=== PATIENT | female | born 1945 | race Caucasian/White ===

== ENCOUNTER → 2020-01-18 14:19 | Outpatient (BNV) | payer MEDICARE, SELFPAY | PROVIDERS: Visit Provider Internal Medicine Medical Oncology | DX: C90.00 Multiple myeloma not having achieved remission (principal); C50.412 Malignant neoplasm of upper-outer quadrant of left female breast | CPT/HCPCS: 38222; 99212; 99213; 99214 ==

== ENCOUNTER 2020-01-31 06:30 | Day surgery (SDC) | payer MEDICARE, SELFPAY ==
[2020-01-24 09:48] VITALS: BMI 32.3
--- NOTE | 2020-01-29 09:24 | HO.ANESPROP2 ---
Documented by User: Thelma Julien 01/30/20 12:38 HPI - Anesthesia Eval Consult details Narrative: 74yo F for bone marrow biopsy PMFSH Past Medical History Medical History (Updated 01/30/20 @ 12:38 by Thelma Julien) Gallstone HLP (hyperkeratosis lenticularis perstans) HTN (hypertension) Hypothyroidism Multiple myeloma Osteopenia Family History Family History (Updated 01/18/20 @ 09:07 by Yamile Blake RN) Other HTN (hypertension) Surgical History Surgical History History of appendectomy History of meniscectomy of left knee History of partial hysterectomy Social History Social History Smoking Status: Former smoker Smoking Quit Date: age 29 Second Hand Smoke Exposure: No Use of substances other than those prescribed or required for medical reasons: No Advance Directives Information Provided: Yes Recently lost weight without trying: No Meds Allergies Allergy/AdvReac Type Severity Reaction Status Date / Time red dye [Red Dye] Allergy Mild SWELLING Verified 01/24/20 10:03 oxycodone AdvReac Intermediate Vomiting Verified 01/24/20 10:04 Home Medications Medication Instructions Recorded Confirmed Type acetaminophen 1,000 mg PO Q6H PRN 01/18/20 01/24/20 History atenolol 25 mg PO DAILY 01/18/20 01/24/20 History calcium carbonate-vit D3-min 600 mg PO DAILY 01/18/20 01/24/20 History levothyroxine 75 mcg PO DAILY 01/18/20 01/24/20 History lisinopril 10 mg PO DAILY 01/18/20 01/24/20 History simvastatin 40 mg PO DAILY 01/18/20 01/24/20 History spironolactone 25 mg PO DAILY 01/18/20 01/24/20 History Exam Exam Date and Time: January 29, [id number] Height,Weight and Vital Signs: Height 5 ft 8 in Weight 96.615 kg Pertinent Lab Results Pertinent Lab Results: Laboratory Tests 01/18/20 01/18/20 16:37 16:37 WBC 5.0 Hgb 14.0 Hct 42.1 Plt Count 226 Sodium 139 Potassium 4.6 Chloride 106 Carbon Dioxide 25 BUN 15 Creatinine 0.88 Laboratory Tests 01/05/20 17:59 PT 12.9 INR 1.1 APTT 35.8 Assessment and Plan Assessment Anesthesia Assessment: Chart Reviewed Documented by User: Adam Jordan 01/31/20 07:33 PMFSH Past Medical History Medical History (Updated 01/30/20 @ 12:38 by Thelma Julien) Gallstone HLP (hyperkeratosis lenticularis perstans) HTN (hypertension) Hypothyroidism Multiple myeloma Osteopenia Family History Family History (Updated 01/18/20 @ 09:07 by Yamile Blake RN) Other HTN (hypertension) Surgical History Surgical History History of appendectomy History of meniscectomy of left knee History of partial hysterectomy Social History Social History Smoking Status: Former smoker Smoking Quit Date: age 29 Second Hand Smoke Exposure: No Use of substances other than those prescribed or required for medical reasons: No Advance Directives Information Provided: Yes Recently lost weight without trying: No Meds Allergies Allergy/AdvReac Type Severity Reaction Status Date / Time red dye [Red Dye] Allergy Mild SWELLING Verified 01/24/20 10:03 oxycodone AdvReac Intermediate Vomiting Verified 01/24/20 10:04 Home Medications Medication Instructions Recorded Confirmed Type acetaminophen 1,000 mg PO Q6H PRN 01/18/20 01/24/20 History atenolol 25 mg PO DAILY 01/18/20 01/24/20 History calcium carbonate-vit D3-min 600 mg PO DAILY 01/18/20 01/24/20 History levothyroxine 75 mcg PO DAILY 01/18/20 01/24/20 History lisinopril 10 mg PO DAILY 01/18/20 01/24/20 History simvastatin 40 mg PO DAILY 01/18/20 01/24/20 History spironolactone 25 mg PO DAILY 01/18/20 01/24/20 History Exam Airway Mallampati Class: II TM Dist: >3cm Neck ROM: Full Denture: Upper and Lower Heart: RRR Assessment and Plan Assessment Anesthesia Assessment: Anesthesia Plan Discussed Final Anesthetic Review NPO: Yes ASA Class: III Anesthetic Plan Anesthetic Plan: MAC:
[2020-01-31 07:05] VITALS: PULSE 72; RESP 16; TEMP 37.1; O2SAT 94
--- NOTE | 2020-01-31 07:24 | P.CONAN_ITS ---
FORM[facility]LY [facility] Past Medical History Medical History (Updated 01/30/20 @ 12:38 by Thelma Julien) Gallstone HLP (hyperkeratosis lenticularis perstans) HTN (hypertension) Hypothyroidism Multiple myeloma Osteopenia Family History Family History (Updated 01/18/20 @ 09:07 by Yamile Blake RN) Other HTN (hypertension) Surgical History Surgical History History of appendectomy History of meniscectomy of left knee History of partial hysterectomy Social History Social History Smoking Status: Former smoker Smoking Quit Date: age 29 Second Hand Smoke Exposure: No Use of substances other than those prescribed or required for medical reasons: No Advance Directives Information Provided: Yes Recently lost weight without trying: No Meds Allergies Allergy/AdvReac Type Severity Reaction Status Date / Time red dye [Red Dye] Allergy Mild SWELLING Verified 01/24/20 10:03 oxycodone AdvReac Intermediate Vomiting Verified 01/24/20 10:04 Home Medications Medication Instructions Recorded Confirmed Type acetaminophen 1,000 mg PO Q6H PRN 01/18/20 01/24/20 History atenolol 25 mg PO DAILY 01/18/20 01/24/20 History calcium carbonate-vit D3-min 600 mg PO DAILY 01/18/20 01/24/20 History levothyroxine 75 mcg PO DAILY 01/18/20 01/24/20 History lisinopril 10 mg PO DAILY 01/18/20 01/24/20 History simvastatin 40 mg PO DAILY 01/18/20 01/24/20 History spironolactone 25 mg PO DAILY 01/18/20 01/24/20 History Exam Exam Date and Time: January 31, 2020 0724 Height,Weight and Vital Signs: Height 5 ft 8 in Weight 96.615 kg Last Vital Signs Temp 98.7 F 01/31/20 07:05 Pulse 72 01/31/20 07:05 Resp 16 01/31/20 07:05 Pulse Ox 94 01/31/20 07:05 Airway Mallampati Class: II TM Dist: >3cm Neck ROM: Full Denture: Upper and Lower Heart: RRR Assessment and Plan Assessment Anesthesia Assessment: Anesthesia Plan Discussed Final Anesthetic Review NPO: Yes ASA Class: III Anesthetic Plan Anesthetic Plan: MAC:
[2020-01-31] MEDS: Lactated Ringers 1,000 ML 100 ML IVCONT (07:47)
[2020-01-31 08:49] VITALS: BP 148/80; PULSE 72; RESP 12; TEMP 36; O2SAT 94
[2020-01-31 09:04] VITALS: BP 155/78; PULSE 59; RESP 16; O2SAT 97
[2020-01-31 09:10] LABS: Bone Marrow SEE SEPARATE REPORT
[2020-01-31 09:19] VITALS: BP 158/59; PULSE 69; RESP 16; TEMP 36.1; O2SAT 94
--- NOTE | 2020-01-31 09:49 | PM.HEMONCBM ---
Bone Marrow Aspiration - Bone Marrow Aspiration Procedure:: *Service Date: [01/31/20] Bone marrow aspiration and biopsy, Under MAC. 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 Post Op Diagnosis:: same. Surgeon:: Hema Balderas M.D. Anesthesia:: MAC Consent:: Informed consent obtained from the patient for the procedure. Pros and cons of biopsy explained. The patient was willing to proceed with the procedure under local anesthesia. Procedure in Detail:: *Service Date: 01/31/2020. *Procedure: [Bone marrow aspiration and biopsy.] *Pre Op Dx: [IgG kappa monoclonal gammopathy] *Post Op Dx: [same] *Surgeon: [Hema Balderas.] The patient was positioned prone. The left posterior superior iliac spine prepped and draped. Under aseptic precautions, 5 ml of 1% lidocaine used for local anesthesia. Bone marrow aspirate was taken. With the Jamshidi needle, a core biopsy was obtained without any complications. Specimens were sent for Mayes stain, flow cytometry and cytogenetics. Biopsy was sent for histology. The patient tolerated the procedure well. Bandage was applied and patient was positioned on her back for 10 to 15 minutes after the procedure. The patient was advised to call us if she develops any pain or swelling at the surgical site. Follow up in 2 weeks.
--- NOTE | 2020-01-31 09:52 | HO.POSTANES ---
Post Anesthesia Evaluation Post Anesthesia Evaluation Vital Signs: Vital Signs Temp Pulse Resp BP Pulse Ox 01/31/20 09:19 96.9 F 69 16 158/59 H 94 01/31/20 09:04 59 16 155/78 H 97 01/31/20 08:49 96.8 F 72 12 148/80 H 94 01/31/20 07:05 98.7 F 72 16 94 Anesthesia: Monitored Mental Status: Awake Pain Control: Satisfactory Nausea/Vomiting: None Hydration: Adequate Anesthesia-Related Issues: No Anes. Related Issues
[2020-02-04 12:55] LABS: LLE Report Type SEE ABOVE
[2020-02-05 11:47] LABS: LLE Markers 25
== END 2020-01-31 10:00 | disposition home or self-care (01) ==
PROVIDERS: Visit Provider Internal Medicine Medical Oncology
PROC: (CPT 38221; principal; 2020-01-31 08:10)
DX: C90.00 Multiple myeloma not having achieved remission (principal)
CPT/HCPCS: 38222; 36415; 88185; 88264; 88271; 88275; 88305; 88311; 88313; 88342; 88344; J0131; J1642

== ENCOUNTER 2020-06-02 06:56 | Outpatient (REF) | payer MEDICARE, SELFPAY ==
[2020-06-02 07:16] LABS: MANUAL DIFF FLAG NO
[2020-06-02 07:33] LABS: Basophils Percent Auto 0.2 % (0-2); Eosinophils Absolute Auto 0.1 X10*3/uL (0.0-0.4); Eosinophils Percent Auto 2.9 % (0-4); Hematocrit 37.4 % (37-47); Hemoglobin 12.5 g/dl (12.0-16.0); Imm Gran Abs Auto 0.04 X10*3/uL (0.00-0.03); Imm Gran Pct Auto 0.9 % (0.0-0.4); Lymphocytes Absolute Auto 1.9 X10*3/uL (1.2-4.9); Lymphocytes Percent Auto 43.5 % (20-40); Mean Corpuscular HGB Conc 33.4 g/dl (31.0-35.0); Mean Corpuscular Hemoglobin 31.6 pg (27.0-33.0); Mean Corpuscular Volume 94.4 fL (80-98); Mean Platelet Volume 12.3 fL (9.4-12.3); Monocytes Absolute Auto 0.6 X10*3/uL (0.1-1.2); Monocytes Percent Auto 12.8 % (2-11); Neutrophils Absolute Auto 1.8 X10*3/uL (2.0-8.3); Neutrophils Percent Auto 39.7 % (45-73); Platelet Count 155 X10*3/uL (160-400); Red Blood Count 3.96 X10*6/uL (4.20-5.50); Red Cell Distribution Width 15.9 % (11.0-16.0); White Blood Count 4.4 X10*3/uL (4.8-10.8)
[2020-06-02 07:45] LABS: Alanine Aminotransferase 48 U/L (0-31); Albumin Level 3.6 g/dL (3.5-5.0); Alkaline Phosphatase 61 U/L (39-117); Aspartate Amino Transferase 42 U/L (5-31); Bilirubin Total 1.3 mg/dL (0.0-1.0); Blood Urea Nitrogen 12 mg/dL (9-16); Calcium 8.1 mg/dL (8.4-10.2); Estimated Glomerular Filt Rate > 60; Glucose Random 144 mg/dL (60-115); Total Protein 5.5 g/dL (6.5-8.0)
[2020-06-02 07:54] LABS: Anion Gap 15 (12-20); Carbon Dioxide 29 mmol/L (22-29); Chloride 101 mmol/L (96-108); Potassium 2.8 mmol/L (3.3-5.1); Sodium 142 mmol/L (135-145)
== END 2020-06-02 06:57 | disposition home or self-care (01) ==
LOC: HO.LAB 06:56
PROVIDERS: Visit Provider Internal Medicine Medical Oncology
DX: C90.00 Multiple myeloma not having achieved remission (principal)
CPT/HCPCS: 36415; 80053; 85025

== ENCOUNTER → 2020-07-24 08:29 | Outpatient (BNVA) | payer MEDICARE, SELFPAY | PROVIDERS: PCP Internal Medicine; Visit Provider Internal Medicine | DX: R55 Syncope and collapse (principal); I45.2 Bifascicular block; I95.1 Orthostatic hypotension | CPT/HCPCS: 99202 ==

== ENCOUNTER 2020-08-07 10:19 | Outpatient (REF) | payer MEDICARE, SELFPAY ==
[2020-08-07 10:31] LABS: Creatinine (CrCl) 0.83 mg/dL (0.5-1.4); Total Volume 24 Hour Urine 725 mL
[2020-08-07 11:15] LABS: Creatinine Clearance 79.6 mL/min (85-125); Creatinine, mg/dL 131.37
== END 2020-08-07 10:20 | disposition home or self-care (01) ==
LOC: HO.LNP 10:19
PROVIDERS: Visit Provider Internal Medicine Hypertension Specialist
DX: E87.6 Hypokalemia (principal)
CPT/HCPCS: 82575

== ENCOUNTER → 2020-09-08 08:18 | Outpatient (REF) | payer MEDICARE, SELFPAY ==
--- NOTE | 2020-09-08 08:21 | CA_ITS ---
Transthoracic Echocardiogram Patient (Last, First, Middle): Merary He J Gender: Female Date of : 1945 Age: 74 Procedure Date: 09/08/2020 Procedure Type: Transthoracic Echocardiogram Location: OP Height: 172.72 cm Weight: 89.36 kg BSA: 2.03 m2 Heart Rate: bpm BP: 110 / 60 mmHg Manager Data: YR/CP Referring MD: Noe Del Rio MD Symptoms: I45.2 - Bifascicular block Study Quality: Fair ECG Rhythm: Sinus Conclusions: - The left ventricular systolic function is normal. The visually estimated ejection fraction is between 55-60%. - E/E prime ratio is >15, consistent with elevated filling pressures. Evidence suggests grade I (mild) diastolic dysfunction. - There is moderate calcification of the aortic valve. There is mild aortic valve stenosis. Findings Left Ventricle Normal left ventricular cavity size. There is mildly increased left ventricular wall thickness. The left ventricular systolic function is normal. The visually estimated ejection fraction is between 55-60%. There is no evidence of regional wall motion abnormalities. E/E prime ratio is >15, consistent with elevated filling pressures. Evidence suggests grade I (mild) diastolic dysfunction. Focal hypertrophy of the basal septum. Right Ventricle Normal right ventricular cavity size and systolic function. Atria The left atrium is normal in size. The right atrium is normal in size. Aortic Valve There is moderate calcification of the aortic valve. There is mild aortic valve stenosis. The peak aortic velocity is 2.80 m/s with a calculated peak gradient of 31 mmHg. The mean gradient is 15 mmHg. The aortic valve area is 1.52 cm2. There is no aortic valve regurgitation. Mitral Valve There is mild mitral annular calcification. There is trace mitral valve regurgitation. There is no mitral valve stenosis. Pulmonic Valve The pulmonic valve was not well visualized. Tricuspid Valve Normal tricuspid valve structure. There is trace tricuspid valve regurgitation. The pulmonary artery systolic pressure is normal. Great Vessels Top normal ascending aortic size at 3.7 cm. Venous The inferior vena cava is normal in size and collapses greater than 50% with inspiration. Pericardium/Pleural There is no evidence of pericardial effusion. Prior Study Comparison Changes noted compared to prior study dated: 04/25/2007. Measurements 2D Linear Measurements IVSd: 1.17 0.6-0.9/0.6-1.0 cm LVIDd: 4.75 3.9-5.3/4.2-5.9 cm LVIDd Index: 2.34 2.4-3.2/2.2-3.1 cm/m2 LVIDs: 2.66 2.0-3.6 cm LVPWd: 1.13 0.7-1.1 cm Ao Root: 3.50 2.1-3.5 cm LA Diam: 3.80 2.7-3.8/3.0-4.0 cm LAIDs Index: 1.87 1.5-2.3 cm/m2 LV Mass: 252.96 67-162/88-224 g LV Mass Index: 124.61 43-95/49-115 g/m2 LVOT Diam: 2.10 3.0+(-)1.3 cm 2D Systolic Function EF 4C: 58.50 >55% EF 2C: 52.60 >55% EF BiP: 55.60 >55% Mitral Valve MV Pk E: 0.76 MV PK A: 0.92 MV Decel Time: 227.00 E/A: 0.80 E'Lateral: 3.59 E'Medial: 4.03 E/E' Med: 18.80 E/E' Lat: 21.10 PHT: 67.00 MVA PHT: 3.28 Decel Dunn: 3.34 Aortic Valve AoV Pk Haroldo: 2.80 AoV Mn Haroldo: 1.78 AoV VTI: 0.57 AoV Pk Grad: 31.00 Aov Mn Grad: 15.00 EDUARD Cont.VTI: 1.52 LVOT LVOT Pk Haroldo: 1.17 LVOT Mn Haroldo: 0.87 LVOT VTI: 0.25 LVOT Pk Grad: 5.00 LVOT Mn Grad: 3.00 LVOT Diam: 2.10 LVOT Area: 3.46 Diastolic Function MV Pk E: 0.76 MV Pk A: 0.92 E/A: 0.80 E'Medial: 4.03 E/E' Med: 18.80 E' Laterial: 3.59 E/E' Lat: 21.10 Tricuspid Valve TR Pk Haroldo: 1.93 TR Pk Grad: 15.00 RA Press: 3.00 RVSP: 18.00 Great Vessels Aorta Ao Root-2D: 3.50 2.0-3.7 cm Ao Asc: 3.70 2.1-3.4 cm Ao Arch: 3.20 Updated in Other Vendor System with Status of Final Noe Del Rio MD electronically signed on 09/08/2020 11:34:31 AM with status of Final
--- NOTE | 2020-09-08 08:21 | HM_ITS ---
REASON FOR TESTING: Heart block. ENROLLMENT PERIOD: 09/08/2020 to 10/03/2020. FINDINGS: In the above monitoring period, the underlying rhythm was sinus. The baseline strip showed resting sinus tachycardia, rate of 105/min. Otherwise in the entire monitoring period, no other arrhythmias noted. CONCLUSION: Study shows evidence of mild sinus tachycardia but otherwise unremarkable. MD AYE Field/LORELEI / [id number]
== END ==
LOC: HO.CARD 08:18
PROVIDERS: Visit Provider Internal Medicine
DX: I45.2 Bifascicular block (principal)
CPT/HCPCS: 93270; 93306

== ENCOUNTER → 2020-10-14 08:17 | Outpatient (BNVA) | payer MEDICARE, SELFPAY | PROVIDERS: PCP Internal Medicine; Referring Provider Internal Medicine; Visit Provider Internal Medicine | DX: I95.1 Orthostatic hypotension (principal); I45.2 Bifascicular block; I35.0 Nonrheumatic aortic (valve) stenosis | CPT/HCPCS: 99212 ==

== ENCOUNTER 2020-11-17 11:02 | Inpatient (IN) | payer MEDICARE, SELFPAY ==
[2020-11-17] VITALS (9 sets, daily range): BP systolic 141–198; BP diastolic 63–92; PULSE 77–88; RESP 16–20; TEMP 36.6–37.3; O2SAT 94–97; BMI 30.1
--- NOTE | ~2020-11-17 | CT_ITS ---
EXAMINATION: CT HEAD WITHOUT CONTRAST (STROKE PROTOCOL) CLINICAL INFORMATION: Stroke protocol. COMPARISON: None TECHNIQUE: Contiguous axial imaging was performed from the skull base to vertex without intravenous administration of contrast. This CT examination was performed using dose optimization techniques as appropriate, variously including the following: *Automated exposure control *Adjustment of mA and/or kV according to patient size (this includes techniques or standardized protocols for targeted exams where dose is matched to indication/reason for exam; i.e. extremities or head) *Use of iterative reconstruction technique DLP: 686 mGy-cm FINDINGS: There is no intracranial hemorrhage, hematoma, or extra-axial fluid collection. The ventricles are normal in size. There is no hydrocephalus, edema, or mass effect. The angel-white matter differentiation appears symmetric. There is no acute infarct or mass lesion. The calvarium appears intact. There is no pneumocephalus or orbital emphysema. There is inflammatory change in the bilateral maxillary sinuses. CT/CT head for stroke IMPRESSION: No acute intracranial findings. Inflammatory changes in the bilateral maxillary sinuses. This critical result was discussed with Dr. Mishra at 1153 hours on 11/17/2020. It was ascertained that the content and urgency of the report was understood at the time of direct communication.
--- NOTE | ~2020-11-17 | XR_ITS ---
EXAMINATION: XR CHEST CLINICAL INFORMATION: Stroke COMPARISON: None TECHNIQUE: Frontal view of the chest was obtained. FINDINGS: The cardiac silhouette is upper normal in size. Hilar and mediastinal contours are unremarkable. The lungs are clear. There is no pleural effusion or pneumothorax. There are degenerative changes of the spine. There may be osteopenia. XR/XR chest 1V IMPRESSION: Upper normal-size cardiac silhouette. No evidence for acute disease in the chest.
--- NOTE | ~2020-11-17 | MR_ITS ---
EXAMINATION: MR BRAIN WITHOUT CONTRAST CLINICAL INFORMATION: Stroke? Change in mental status? COMPARISON: Head CT performed earlier the same day. TECHNIQUE: Multiplanar, multisequence imaging of the brain was performed without intravenous contrast. FINDINGS: There is no acute infarction, mass, hemorrhage, or extra-axial collection. The ventricles, sulci, and basilar cisterns are normal in size and configuration. Mild scattered foci of T2/FLAIR hyperintensity are seen within the bilateral cerebral white matter, a nonspecific finding which presumably reflects chronic microangiopathy. The flow voids of the major intracranial arteries appear intact. Scattered paranasal sinus mucosal thickening is noted including lobular mucosal thickening in the left more than right maxillary sinuses. No fluid levels are seen. The mastoids are clear. MR/MR head/brain wo con IMPRESSION: No acute infarct, mass lesion, intracranial hemorrhage, or evidence of hydrocephalus. Background changes of chronic microangiopathy.
--- NOTE | 2020-11-17 11:25 | ECG_ITS ---
Test Reason : WEAKNESS Blood Pressure : / mmHG Vent. Rate : 093 BPM Atrial Rate : 093 BPM P-R Int : 152 ms QRS Dur : 136 ms QT Int : 440 ms P-R-T Axes : 023 -76 -02 degrees QTc Int : 547 ms Normal sinus rhythm Right bundle branch block Left anterior fascicular block Bifascicular block T wave abnormality, consider lateral ischemia Abnormal ECG When compared with ECG of 22-JUL-2020 11:03, T wave inversion now evident in Lateral leads Referred By: Sharad Mishra Electronically Signed By:Tyrel Torres
--- NOTE | 2020-11-17 11:26 | ED.GENADULT ---
HPI - General Adult General Chief complaint: Weakness Stated complaint: trouble finding words, eyes are droopy Time Seen by Provider: 11/17/20 11:25 Source: patient, family (Granddaughter) and EMS Mode of arrival: EMS Limitations: no limitations History of Present Illness HPI narrative: 75 years old female came in for evaluation of speech problem. This is a 75-year-old female came in by ambulance after talked to her granddaughter at 10:46 and the granddaughter noted that g mom is unable to find worse and she is speaking and abnormal way, on arrival to the emergency department patient appears anxious, with involuntary tremors noted that patient is known to have normal tremor, patient is able to carry conversation with garbled speech, as per family this is not her normal way to speak and she is speaking slower patient noted to have expressive aphasia. No other weakness noted on the exam. Patient is known to have hypertension, hypothyroidism, multiple myeloma, osteopenia, postural hypotension. Related Data Home Medications Medication Instructions Recorded Confirmed acetaminophen 500 mg tablet 1,000 mg PO Q6H PRN 01/18/20 11/17/20 calcium carbonate 600 mg (1,500 2 tab PO BID 01/18/20 11/17/20 mg)-vitamin D3 200 unit tablet dexamethasone 20 mg tablet 20 mg PO DAILY 02/22/20 11/17/20 docusate sodium 100 mg capsule 100 mg PO BID PRN 07/15/20 11/17/20 midodrine 2.5 mg tablet 2.5 mg PO DAILY 08/19/20 11/17/20 cyanocobalamin (vitamin B-12) 1,000 mcg PO DAILY 11/17/20 11/17/20 1,000 mcg tablet diphenhydramine HCl 25 mg capsule 25 mg PO BEDTIME 11/17/20 11/17/20 (Benadryl) potassium chloride 20 mEq 20 meq PO TID 11/17/20 11/17/20 tablet,extended release Previous Rx's Medication Instructions Recorded aspirin 81 mg tablet,delayed 81 mg PO DAILY #60 tab 02/12/20 release (Aspirin Low Dose) levothyroxine 75 mcg tablet 75 mcg PO DAILY #60 tab 05/15/20 simvastatin 40 mg tablet 40 mg PO DAILY #90 tab 06/05/20 valacyclovir 500 mg tablet 500 mg PO DAILY #90 tab 05/06/21 (Valtrex) sulfamethoxazole 800 1 tab PO Q12H #180 tab 09/12/20 mg-trimethoprim 160 mg tablet (Bactrim DS) lenalidomide 15 mg capsule 15 mg PO DAILY #14 cap 10/09/20 (Revlimid) fludrocortisone 0.1 mg tablet 0.1 mg PO BID #60 tab 10/21/20 Allergies Allergy/AdvReac Type Severity Reaction Status Date / Time red dye [Red Dye] Allergy Mild SWELLING Verified 10/14/20 08:31 oxycodone AdvReac Intermediate Vomiting Verified 10/14/20 08:31 Review of Systems Review of Systems: All other systems are reviewed and are negative Constitutional: Reports as per HPI and Reports no additional constitutional complaints Eyes: Reports as per HPI and Reports no additional eye complaints Reports system reviewed and no additional complaints, except as documented Cardiovascular: Reports as per HPI and Reports no additional cardiovascular complaints Respiratory: Reports as per HPI and Reports no additional respiratory complaints Gastrointestinal: Reports as per HPI and Reports no additional gastrointestinal complaints Genitourinary: Reports no additional female genitourinary complaints Musculoskeletal: Reports no additional musculoskeletal complaints Skin/Breast: Reports system reviewed and no additional complaints, except as docu Psychiatric: Reports no additional psychiatric complaints Endocrine: Reports no additional endocrine complaints Hematologic/Lymphatic: Reports no additional hematologic/lymphatic complaints Allergic/Immunologic: Reports no additional allergic/immunologic complaints Reports system reviewed and no additional complaints, except as documented and Reports Abnormal speech present [facility] Past Medical History Medical History Gallstone HLP (hyperkeratosis lenticularis perstans) HTN (hypertension) Hypothyroidism Mitral regurgitation Multiple myeloma Osteopenia Postural hypotension Surgical History History of appendectomy History of meniscectomy of left knee History of partial hysterectomy Family History Family History Other HTN (hypertension) Social History Social History Are you a primary acute care occupational therapist to a significant other at home: No Alcohol intake: never Patient Tobacco Use Status: Former Tobacco user Tobacco use type: Cigarette Second Hand Smoke Exposure: No Advance Directives: Yes Advance Directives on File: No Physical Exam Vital Signs: Vital Signs: Last Vital Signs Temp 98.4 F 11/17/20 18:34 Pulse 77 11/17/20 18:34 Resp 16 11/17/20 18:34 BP 161/67 H 11/17/20 18:34 Pulse Ox 94 11/17/20 18:34 Body Mass Index 30.1 Vital signs have been reviewed as appeared to be correct. Blood pressure elevated. Heart rate normal. Respiration rate normal. Temperature normal. Oxygen saturation normal. Appearance: Alert. Oriented X3. No acute distress. Head: Normal external exam. Normocephalic. Atraumatic. No Parker signs noted. No raccoon eyes noted Eyes: PERRLA. EOMI. Conjunctiva and sclera normal. Eyelids normal. ENT: TM's Normal. Pharynx normal. Uvula midline. Moist mucous membranes. No trismus noted. No drooling noted. No muffled voice noted. Neck: Normal inspection. Neck supple. FROM. No adenopathy. Thyroid Normal. No meningeal signs. No neck mass noted. CVS: Normal heart rate and rhythm. Heart sound normal. No murmurs noted. Pulses normal throughout. Respiratory: No respiratory distress. Painless inspiration. Breath sounds normal. No wheezes/rales/rhonchi noted. Chest nontender. No accessory muscle usage noted or decreased air movement noted. Abdomen: Soft and nontender. Bowel sounds normal in all 4 quadrants. No distention noted. No organomegaly noted. No visible injury noted. Back: No CVA tenderness. Full range of motion noted. Skin: Skin warm and dry. Normal skin color. Normal skin turgor. No rashes/lesions/lacerations noted. Extremities: No lower extremity edema. Extremities exhibit normal range of motion. Extremities nontender. Neuro: Oriented X 3. No motor deficit. No sensory deficit. Reflexes normal. NIH Stroke Scale Level of Consciousness: Alert Level of Consciousness Questions: Answers both questions correctly Level of Consciousness Commands: Performs both tasks correctly Best Gaze: Normal Visual: No visual loss Facial Palsy: Normal Motor Arm (Right): No drift Motor Arm (Left): No drift Motor Leg (Right): No drift Motor Leg (Left): No drift Limb Ataxia: Absent Sensory: Normal Best Language: Mild to moderate aphasia Dysarthia: Normal Extinction and Inattention: No abnormality Score: 1 Course Reevaluation(s) Reevaluation #1: When back in the room daughter at the bedside, patient is able to speak more clear and closed and Adriana as per daughter, patient appears very anxious, patient stated that yesterday she yells been tired all day just slept most of the day and she had a headache, patient today complained of headache described as mild. Time: 11:41 Reevaluation #2: Daughter in the room talking to the patient who stated that the patient is back to her normal baseline, patient had CT head/MRI of the head which showed no acute stroke, electrolytes showed hypokalemia which was repleted, will check magnesium. Because troponin was elevated and the 2nd 3 hours apart troponin was more elevated with dull to change the case discussed with Dr. Torres who recommended to admit the patient for serial EKG, and serial troponin, and repeat electrolytes. Time: 19:48 Medical Decision Making Lab Data Lab results reviewed: Yes I reviewed the patient's lab results. Result diagrams: 11/17/20 11:55 11/17/20 11:55 Labs: Lab Results 11/17/20 11/17/20 11/17/20 Range/Units 11:55 11:55 11:55 WBC 6.2 (4.8-10.8) X10*3/uL RBC 4.17 L (4.20-5.50) X10*6/uL Hgb 13.5 (12.0-16.0) g/dl Hct 38.7 (37-47) % MCV 92.8 (80-98) fL MCH 32.4 (27.0-33.0) pg MCHC 34.9 (31.0-35.0) g/dl RDW 14.3 (11.0-16.0) % Plt Count 218 (160-400) X10*3/uL MPV 11.5 (9.4-12.3) fL Immature Gran % (Auto) 0.5 H (0.0-0.4) % Neut % (Auto) 51.9 (45-73) % Lymph % (Auto) 31.4 (20-40) % [place] % (Auto) 14.5 H (2-11) % Eos % (Auto) 1.5 (0-4) % Baso % (Auto) 0.2 (0-2) % Lymph # (Auto) 1.9 (1.2-4.9) X10*3/uL [place] # (Auto) 0.9 (0.1-1.2) X10*3/uL Eos # (Auto) 0.1 (0.0-0.4) X10*3/uL Baso # (Auto) 0.0 (0.0-0.2) X10*3/uL Abs Immat Gran (auto) 0.03 (0.00-0.03) X10*3/uL Absolute Neuts (auto) 3.2 (2.0-8.3) X10*3/uL Absolute Nucleated RBC 0.000 (0.0-0.012) X10*3/uL Nucleated RBC % (auto) 0.0 (0.0-0.2) /100WBC PT 13.2 H (9.9-13.0) SEC INR 1.2 H (0.9-1.1) APTT 27.2 (24.1-38.0) SEC Sodium 142 (135-145) mmol/L Potassium 2.8 L (3.3-5.1) mmol/L Chloride 100 (96-108) mmol/L Carbon Dioxide 23 (22-29) mmol/L Anion Gap 22 H (12-20) BUN 15 (9-16) mg/dL Creatinine 0.97 (0.5-1.4) mg/dL Estim Creat Clear Calc 55.9 Estimated GFR 56 POC Glucose (60-115) mg/dL Random Glucose 168 H D (60-115) mg/dL Calcium 9.6 D (8.4-10.2) mg/dL Total Creatine Kinase 43 (26-140) U/L Troponin I High Sens (<3.5-17.0) ng/L Urine Color Urine Appearance Urine pH (5.0-8.0) Ur Specific [place] (1.005-1.025) Urine Protein (NEG-TRACE) MG/DL Urine Glucose (UA) (NEG) MG/DL Urine Ketones (NEG) MG/DL Urine Blood (NEG) Urine Nitrite (NEG) Ur Leukocyte Esterase (NEG) Urine RBC (0) /HPF Urine WBC (0-4) /HPF Ur Squamous Epith Cells /LPF Urine Bacteria /LPF COVID-19 ([facility]) (Negative) COVID-19 Clin Com 11/17/20 11/17/20 11/17/20 Range/Units 11:55 12:39 15:46 WBC (4.8-10.8) X10*3/uL RBC (4.20-5.50) X10*6/uL Hgb (12.0-16.0) g/dl Hct (37-47) % MCV (80-98) fL MCH (27.0-33.0) pg MCHC (31.0-35.0) g/dl RDW (11.0-16.0) % Plt Count (160-400) X10*3/uL MPV (9.4-12.3) fL Immature Gran % (Auto) (0.0-0.4) % Neut % (Auto) (45-73) % Lymph % (Auto) (20-40) % [place] % (Auto) (2-11) % Eos % (Auto) (0-4) % Baso % (Auto) (0-2) % Lymph # (Auto) (1.2-4.9) X10*3/uL [place] # (Auto) (0.1-1.2) X10*3/uL Eos # (Auto) (0.0-0.4) X10*3/uL Baso # (Auto) (0.0-0.2) X10*3/uL Abs Immat Gran (auto) (0.00-0.03) X10*3/uL Absolute Neuts (auto) (2.0-8.3) X10*3/uL Absolute Nucleated RBC (0.0-0.012) X10*3/uL Nucleated RBC % (auto) (0.0-0.2) /100WBC PT (9.9-13.0) SEC INR (0.9-1.1) APTT (24.1-38.0) SEC Sodium (135-145) mmol/L Potassium (3.3-5.1) mmol/L Chloride (96-108) mmol/L Carbon Dioxide (22-29) mmol/L Anion Gap (12-20) BUN (9-16) mg/dL Creatinine (0.5-1.4) mg/dL Estim Creat Clear Calc Estimated GFR POC Glucose 152 H (60-115) mg/dL Random Glucose (60-115) mg/dL Calcium (8.4-10.2) mg/dL Total Creatine Kinase (26-140) U/L Troponin I High Sens 17.5 H* (<3.5-17.0) ng/L Urine Color YELLOW Urine Appearance HAZY Urine pH 6.5 (5.0-8.0) Ur Specific [place] 1.010 (1.005-1.025) Urine Protein 1+ H (NEG-TRACE) MG/DL Urine Glucose (UA) NEG (NEG) MG/DL Urine Ketones 15 (NEG) MG/DL Urine Blood NEG (NEG) Urine Nitrite POS H (NEG) Ur Leukocyte Esterase 1+ H (NEG) Urine RBC 0-2 (0) /HPF Urine WBC 15-29 H (0-4) /HPF Ur Squamous Epith Cells 1+ /LPF Urine Bacteria 4+ /LPF COVID-19 ([facility]) (Negative) COVID-19 Clin Com 11/17/20 11/17/20 Range/Units 18:07 19:16 WBC (4.8-10.8) X10*3/uL RBC (4.20-5.50) X10*6/uL Hgb (12.0-16.0) g/dl Hct (37-47) % MCV (80-98) fL MCH (27.0-33.0) pg MCHC (31.0-35.0) g/dl RDW (11.0-16.0) % Plt Count (160-400) X10*3/uL MPV (9.4-12.3) fL Immature Gran % (Auto) (0.0-0.4) % Neut % (Auto) (45-73) % Lymph % (Auto) (20-40) % [place] % (Auto) (2-11) % Eos % (Auto) (0-4) % Baso % (Auto) (0-2) % Lymph # (Auto) (1.2-4.9) X10*3/uL [place] # (Auto) (0.1-1.2) X10*3/uL Eos # (Auto) (0.0-0.4) X10*3/uL Baso # (Auto) (0.0-0.2) X10*3/uL Abs Immat Gran (auto) (0.00-0.03) X10*3/uL Absolute Neuts (auto) (2.0-8.3) X10*3/uL Absolute Nucleated RBC (0.0-0.012) X10*3/uL Nucleated RBC % (auto) (0.0-0.2) /100WBC PT (9.9-13.0) SEC INR (0.9-1.1) APTT (24.1-38.0) SEC Sodium (135-145) mmol/L Potassium (3.3-5.1) mmol/L Chloride (96-108) mmol/L Carbon Dioxide (22-29) mmol/L Anion Gap (12-20) BUN (9-16) mg/dL Creatinine (0.5-1.4) mg/dL Estim Creat Clear Calc Estimated GFR POC Glucose (60-115) mg/dL Random Glucose (60-115) mg/dL Calcium (8.4-10.2) mg/dL Total Creatine Kinase (26-140) U/L Troponin I High Sens 49.8 H* D (<3.5-17.0) ng/L Urine Color Urine Appearance Urine pH (5.0-8.0) Ur Specific [place] (1.005-1.025) Urine Protein (NEG-TRACE) MG/DL Urine Glucose (UA) (NEG) MG/DL Urine Ketones (NEG) MG/DL Urine Blood (NEG) Urine Nitrite (NEG) Ur Leukocyte Esterase (NEG) Urine RBC (0) /HPF Urine WBC (0-4) /HPF Ur Squamous Epith Cells /LPF Urine Bacteria /LPF COVID-19 ([facility]) Negative (Negative) COVID-19 Clin Com See Note Imaging Data Chest x-ray: Radiologist's impression: Upper normal-size cardiac silhouette. No evidence for acute disease in the chest. ? Brain MRI: Radiologist's impression: No acute infarct, mass lesion, intracranial hemorrhage, or evidence of hydrocephalus. Background changes of chronic microangiopathy. CT scan - head: Radiologist's impression: No acute intracranial findings. Inflammatory changes in the bilateral maxillary sinuses. ? ECG Data Interpretation: Normal sinus rhythm at 93 beats per minute, right bundle branch block, T-wave inversion in V4, V5, V6 which changed from most recent EKG. Critical Care Time Critical Care Time Critical Care Time: Yes Total Critical Care Time: 60 Attestation: I spent 60 minutes providing critical care service to the patient, this including time spent at the bedside to evaluate the patient, reassess the patient, monitoring vital signs, review labs, and radiographic studies, counseling the patient/family, discussing the case with consultants, disposition the patient. Discharge Plan Discharge Clinical Impression: Acute UTI, Abnormal ECG, Elevated troponin Patient Disposition: Admitted As Inpatient Prescriptions: No Action simvastatin 40 mg tablet 40 mg PO DAILY Qty: 90 RF: 1 calcium carbonate-vitamin D3 [Calcium + D] 600 mg(1,500mg) -200 unit Tablet 2 tab PO BID RF: 0 acetaminophen 500 mg Tablet 1,000 mg PO Q6H PRN (Reason: Pain) RF: 0 aspirin [Aspirin Low Dose] 81 mg Tablet,Delayed Release (Dr/Ec) 81 mg PO DAILY Qty: 60 RF: 6 dexamethasone 20 mg Tablet 20 mg PO DAILY RF: 0 levothyroxine 75 mcg Tablet 75 mcg PO DAILY Qty: 60 RF: 0 docusate sodium 100 mg Capsule 100 mg PO BID PRN (Reason: Constipation) RF: 0 midodrine 2.5 mg Tablet 2.5 mg PO DAILY RF: 0 valacyclovir [Valtrex] 500 mg Tablet 500 mg PO DAILY Qty: 90 RF: 5 sulfamethoxazole-trimethoprim [Bactrim DS] 800-160 mg Tablet 1 tab PO Q12H Qty: 180 RF: 6 Revlimid 15 mg Capsule 15 mg PO DAILY Qty: 14 RF: 11 fludrocortisone 0.1 mg Tablet 0.1 mg PO BID Qty: 60 RF: 3 cyanocobalamin (vitamin B-12) 1,000 mcg Tablet 1,000 mcg PO DAILY RF: 0 diphenhydramine HCl [Benadryl] 25 mg Capsule 25 mg PO BEDTIME RF: 0 potassium chloride 20 mEq tablet extended release 20 meq PO TID RF: 0
[2020-11-17] MEDS: Potassium Chloride Packet 20 MEQ PACKET 40 MEQ PO ×2 (11:30→22:55)
[2020-11-17] MEDS: LORazepam 2 MG/ML VIAL 0.5 MG IVPUSH (11:57)
[2020-11-17 11:59] LABS: MANUAL DIFF FLAG NO
[2020-11-17 12:01] LABS: Basophils Percent Auto 0.2 % (0-2); Eosinophils Absolute Auto 0.1 X10*3/uL (0.0-0.4); Eosinophils Percent Auto 1.5 % (0-4); Hematocrit 38.7 % (37-47); Hemoglobin 13.5 g/dl (12.0-16.0); Imm Gran Abs Auto 0.03 X10*3/uL (0.00-0.03); Imm Gran Pct Auto 0.5 % (0.0-0.4); Lymphocytes Absolute Auto 1.9 X10*3/uL (1.2-4.9); Lymphocytes Percent Auto 31.4 % (20-40); Mean Corpuscular HGB Conc 34.9 g/dl (31.0-35.0); Mean Corpuscular Hemoglobin 32.4 pg (27.0-33.0); Mean Corpuscular Volume 92.8 fL (80-98); Mean Platelet Volume 11.5 fL (9.4-12.3); Monocytes Absolute Auto 0.9 X10*3/uL (0.1-1.2); Monocytes Percent Auto 14.5 % (2-11); Neutrophils Absolute Auto 3.2 X10*3/uL (2.0-8.3); Neutrophils Percent Auto 51.9 % (45-73); Platelet Count 218 X10*3/uL (160-400); Red Blood Count 4.17 X10*6/uL (4.20-5.50); Red Cell Distribution Width 14.3 % (11.0-16.0); White Blood Count 6.2 X10*3/uL (4.8-10.8)
[2020-11-17 12:27] LABS: INTERNATIONAL NORM RATIO 1.2 (0.9-1.1); Prothrombin Time 13.2 SEC (9.9-13.0)
[2020-11-17 12:30] LABS: Partial Thromboplastin Time 27.2 SEC (24.1-38.0)
--- NOTE | 2020-11-17 12:32 | PC.NURSE ---
PT HERE FROM HOME, FAMILY STATES AMS, PT NOT AT HER BASELINE. PT HAS TREMORS AT BASELINE CT DONE, IV STARTED, PT CURRENTLY SLEEPING WAITING ON MRI
[2020-11-17 12:37] LABS: Anion Gap 22 (12-20); Blood Urea Nitrogen 15 mg/dL (9-16); Calcium 9.6 mg/dL (8.4-10.2); Carbon Dioxide 23 mmol/L (22-29); Chloride 100 mmol/L (96-108); Creatinine Clr Calc Pharmacy 55.9; Estimated Glomerular Filt Rate 56; Glucose Random 168 mg/dL (60-115); Potassium 2.8 mmol/L (3.3-5.1); Sodium 142 mmol/L (135-145)
[2020-11-17 12:44] LABS: Troponin-I High Sensitivity 17.5 ng/L (<3.5-17.0)
[2020-11-17 13:28] LABS: Stroke Lab Use COMPLETE
[2020-11-17 13:39] LABS: Glucose, Whole Blood 152 mg/dL (60-115)
[2020-11-17 15:53] LABS: Glucose Urine UA NEG (NEG); Leukocyte Esterase Urine 1+ (NEG); Nitrite Urine POS (NEG); PH 6.5 (5.0-8.0); UACC Culture Trigger YES; Urine Blood NEG (NEG); Urine Ketones 15 MG/DL (NEG); Urine Protein 1+ MG/DL (NEG-TRACE)
[2020-11-17 15:55] LABS: Appearance Urine HAZY; Color Urine YELLOW
[2020-11-17 15:59] LABS: Bacteria Urine 4+ /LPF; RBC Urine 0-2 /HPF (0); Squamous Epithelial Cell Urine 1+ /LPF
--- NOTE | 2020-11-17 16:52 | PC.NURSE ---
PT AMB TO [facility] WITH ONE ASSIST, DID WELL WITH AMB
--- NOTE | 2020-11-17 16:58 | PC.NURSE ---
MRI RESULT PENDING
[2020-11-17 18:48] LABS: Troponin-I High Sensitivity 49.8 ng/L (<3.5-17.0)
--- NOTE | 2020-11-17 19:35 | HE.PHANOTE ---
Pharmacy Consult ? Medication Reconciliation Pharmacy has completed the medication reconciliation and there were no significant medication issues requiring provider attention.? Maria R RedD
[2020-11-17 19:42] LABS: COVID-19 Test Negative (Negative); IDNOW Serial# 9DD0AD1C
[2020-11-17 19:59] LABS: Magnesium 1.7 mg/dL (1.6-2.6)
[2020-11-17] MEDS: Enoxaparin Sodium 40 MG/0.4 ML SYRINGE SUBCUT (21:14)
[2020-11-17] MEDS: Potassium Chloride ER 20 MEQ TAB.ER.PRT PO (21:15)
[2020-11-17] MEDS: Atorvastatin Calcium 80 MG TABLET PO (21:15)
[2020-11-17] MEDS: diphenhydrAMINE HCL 25 MG TABLET PO (21:15)
--- NOTE | 2020-11-17 21:22 | PC.NURSE ---
pt daughter gone home, room now avaiable and bonnie was called with the room number. pt has ambulated to bathroom and is alert and oriented. pt denies pain. floor called for report and is unable to come to the phone at this time.
--- NOTE | 2020-11-17 21:45 | PM.IMHP ---
History of Present Illness Date of Service: 11/17/20 Chief Complaint: Generalized weakness 75-year-old female with a past medical history of hypertension, hyperlipidemia, mitral regurgitation, hypothyroidism, osteopenia, postural hypotension, diastolic CHF; presented to the hospital today with a chief complaint of generalized weakness/dizziness. Most of the history obtained from the patient and patient's daughter at bedside. Initially patient presented to the hospital with generalized weakness and unable to express words, stroke code was called in; subsequently her symptoms gradually improved. ER exam was nonfocal; CT head and MRI brain showed no acute findings. At the time of my interview patient reports her symptoms improved. Mentions that over the past couple days she has been having dizziness and generalized weakness. Complains of urinary frequency; denies any fevers and chills. Denies any abdominal discomfort or chest pain. Denies any numbness tingling. Speech is clear. Review of all other systems is negative except mentioned above ER course: As mentioned patient CT head and MRI brain showed no acute findings, stroke was ruled out. But noted to have elevated troponins; EKG showed T-wave inversions in the lateral leads; discussed with Cardiology Dr Torres who recommended admission to the [facility] and will be evaluated in the morning; [facility] Medical History Gallstone HLP (hyperkeratosis lenticularis perstans) HTN (hypertension) Hypothyroidism Mitral regurgitation Multiple myeloma Osteopenia Postural hypotension Family History Other HTN (hypertension) Surgical History History of appendectomy History of meniscectomy of left knee History of partial hysterectomy Social History Household Members: Spouse Housing: House Are you a primary out of school hours care worker to a significant other at home: No Do you presently have visiting nurse or other home services: No Alcohol intake: never Patient Tobacco Use Status: Former Tobacco user Tobacco use type: Cigarette Second Hand Smoke Exposure: No Use of substances other than those prescribed or required for medical reasons: No Advance Directives: Yes Advance Directives Information Provided: No Advance Directives on File: No Advance Directives Date on File: 11/17/20 Recently lost weight without trying: No Eating poorly because of decreased appetite: No Nutrition Risks: No Nutritional Risk Patient : No : No Poor oral hygiene: No service: No Meds Allergies Allergy/AdvReac Type Severity Reaction Status Date / Time red dye [Red Dye] Allergy Mild SWELLING Verified 10/14/20 08:31 oxycodone AdvReac Intermediate Vomiting Verified 10/14/20 08:31 Active Medications: Current Medications Generic Name Dose Route Start Last Admin Trade Name Michael PRN Reason Stop Dose Admin Acetaminophen 650 mg 11/17/20 19:49 Acetaminophen 325 Mg Tablet PO Q6H PRN Pain, Mild (Pain Scale 1-3) Aspirin 81 mg 11/18/20 09:00 Aspirin Enteric Coated 81 Mg Tablet.Dr PO DAILY [facility] Atorvastatin Calcium 80 mg 11/17/20 21:00 11/17/20 21:15 Atorvastatin Calcium 80 Mg Tablet PO 80 mg BEDTIME [facility] Administration Cyanocobalamin 1,000 mcg 11/18/20 09:00 Cyanocobalamin (Vitamin B-12) 1,000 Mcg Tablet PO DAILY [facility] Dexamethasone 20 mg 11/18/20 09:00 Dexamethasone 4 Mg Tablet PO DAILY [facility] Diphenhydramine HCl 25 mg 11/17/20 21:00 11/17/20 21:15 Diphenhydramine Hcl 25 Mg Tablet PO 25 mg BEDTIME GEREMIAS Administration Docusate Sodium 100 mg 11/17/20 19:57 Docusate Sodium 100 Mg Capsule PO BID PRN Constipation Enoxaparin Sodium 40 mg 11/17/20 22:00 11/17/20 21:14 Enoxaparin Sodium 40 Mg/0.4 Ml Syringe SUBCUT 40 mg Q24H G[facility]IAS Administration Fludrocortisone Acetate 0.1 mg 11/17/20 21:00 Fludrocortisone Acetate 0.1 Mg Tablet PO BID [facility] Ceftriaxone Sodium 1 gm/ 50 mls @ 100 mls/hr 11/18/20 06:00 Sodium Chloride IV Q24H [facility] Potassium Chloride/Dextrose/Sod Cl 10 meq in 1,000 mls @ 42 mls/hr 11/17/20 21:30 IVCONT .[id number] [facility] Levothyroxine Sodium 75 mcg 11/18/20 06:00 Levothyroxine Sodium 75 Mcg Tablet PO DAILY@0600 [facility] Magnesium Hydroxide 30 ml 11/17/20 19:49 Milk Of Magnesia 30 Ml Oral.Susp PO DAILY PRN Constipation Melatonin 6 mg 11/17/20 19:49 Melatonin 3 Mg Tablet PO BEDTIME PRN Insomnia Midodrine 2.5 mg 11/18/20 09:00 Midodrine Hcl 2.5 Mg Tablet PO DAILY [facility] Nitroglycerin 0.4 mg 11/17/20 19:56 Nitroglycerin 0.4 Mg Tab.Subl SUBLINGUAL Q5M PRN Chest Pain Non-Formulary Medication 15 mg 11/18/20 09:00 Lenalidomide [Revlimid] PO 12/01/20 09:01 DAILY [facility] Pharmacy Consult 1 each 11/17/20 18:50 Consult Rx Perform Med Rec MISCELLANE ONCE PRN Consult order Potassium Chloride 20 meq 11/17/20 21:00 11/17/20 21:15 Potassium Chloride Er 20 Meq Tab.Er.Prt PO 20 meq TID [facility] Administration Sodium Chloride 3 ml 11/18/20 00:00 0.9 % Sodium Chloride Flush 3 Ml Syringe IVFLUSH QSHIFT [facility] Valacyclovir HCl 500 mg 11/18/20 09:00 Valacycyclovir Hcl 500 Mg Tablet PO DAILY [facility] Home Medications Medication Instructions Recorded Confirmed Last Taken Type acetaminophen 500 mg tablet 1,000 mg PO Q6H PRN 01/18/20 11/17/20 01/18/20 History calcium carbonate 600 mg (1,500 2 tab PO BID 01/18/20 11/17/20 11/17/20 History mg)-vitamin D3 200 unit tablet docusate sodium 100 mg capsule 100 mg PO BID PRN 07/15/20 11/17/20 Unknown History cyanocobalamin (vitamin B-12) 1,000 mcg PO DAILY 11/17/20 11/25/20 11/17/20 History 1,000 mcg tablet diphenhydramine HCl 25 mg capsule 25 mg PO BEDTIME 11/17/20 11/25/20 11/16/20 History (Benadryl) potassium chloride 20 mEq 20 meq PO TID 11/17/20 11/25/20 11/17/20 History tablet,extended release dexamethasone 4 mg tablet 4 mg PO 2XW 11/25/20 11/25/20 Unknown History Physical Exam Vital Signs and Narrative: Vital Signs: Last Vital Signs Temp 98.4 F 11/17/20 18:34 Pulse 78 11/17/20 21:09 Resp 20 11/17/20 21:09 BP 165/63 H 11/17/20 21:09 Pulse Ox 94 11/17/20 21:09 Body Mass Index 30.1 Gen: Appears be in no acute distress HEENT: NCAT, Moist mucosa. Pulmonary: Vesicular breath sounds, fair air entry CVS: Murmur present Abdomen: BS+, Soft, Nontender Extremities: Warm well perfused Neuro: Alert and awake. Grossly nonfocal Results Labs CBC and Chem 7: 11/18/20 05:18 11/19/20 05:18 Labs: Laboratory Results - last 24 hr 11/17/20 11/17/20 11/17/20 11:55 11:55 11:55 MCV 92.8 MCH 32.4 MCHC 34.9 RDW 14.3 Plt Count 218 MPV 11.5 Immature Gran % (Auto) 0.5 H Neut % (Auto) 51.9 Lymph % (Auto) 31.4 [place] % (Auto) 14.5 H Eos % (Auto) 1.5 Baso % (Auto) 0.2 Lymph # (Auto) 1.9 [place] # (Auto) 0.9 Eos # (Auto) 0.1 Baso # (Auto) 0.0 Abs Immat Gran (auto) 0.03 Absolute Neuts (auto) 3.2 Absolute Nucleated RBC 0.000 Nucleated RBC % (auto) 0.0 PT 13.2 H INR 1.2 H APTT 27.2 Anion Gap 22 H Estim Creat Clear Calc 55.9 Estimated GFR 56 POC Glucose Random Glucose 168 H D Calcium 9.6 D Magnesium 1.7 Total Creatine Kinase 43 Troponin I High Sens Urine Color Urine Appearance Urine pH Ur Specific [place] Urine Protein Urine Glucose (UA) Urine Ketones Urine Blood Urine Nitrite Ur Leukocyte Esterase Urine RBC Urine WBC Ur Squamous Epith Cells Urine Bacteria COVID-19 ([facility]) COVID-19 Clin Com 11/17/20 11/17/20 11/17/20 11:55 12:39 15:46 MCV MCH MCHC RDW Plt Count MPV Immature Gran % (Auto) Neut % (Auto) Lymph % (Auto) [place] % (Auto) Eos % (Auto) Baso % (Auto) Lymph # (Auto) [place] # (Auto) Eos # (Auto) Baso # (Auto) Abs Immat Gran (auto) Absolute Neuts (auto) Absolute Nucleated RBC Nucleated RBC % (auto) PT INR APTT Anion Gap Estim Creat Clear Calc Estimated GFR POC Glucose 152 H Random Glucose Calcium Magnesium Total Creatine Kinase Troponin I High Sens 17.5 H* Urine Color YELLOW Urine Appearance HAZY Urine pH 6.5 Ur Specific [place] 1.010 Urine Protein 1+ H Urine Glucose (UA) NEG Urine Ketones 15 Urine Blood NEG Urine Nitrite POS H Ur Leukocyte Esterase 1+ H Urine RBC 0-2 Urine WBC 15-29 H Ur Squamous Epith Cells 1+ Urine Bacteria 4+ COVID-19 ([facility]) COVID-19 Clin Com 11/17/20 11/17/20 18:07 19:16 MCV MCH MCHC RDW Plt Count MPV Immature Gran % (Auto) Neut % (Auto) Lymph % (Auto) [place] % (Auto) Eos % (Auto) Baso % (Auto) Lymph # (Auto) [place] # (Auto) Eos # (Auto) Baso # (Auto) Abs Immat Gran (auto) Absolute Neuts (auto) Absolute Nucleated RBC Nucleated RBC % (auto) PT INR APTT Anion Gap Estim Creat Clear Calc Estimated GFR POC Glucose Random Glucose Calcium Magnesium Total Creatine Kinase Troponin I High Sens 49.8 H* D Urine Color Urine Appearance Urine pH Ur Specific [place] Urine Protein Urine Glucose (UA) Urine Ketones Urine Blood Urine Nitrite Ur Leukocyte Esterase Urine RBC Urine WBC Ur Squamous Epith Cells Urine Bacteria COVID-19 ([facility]) Negative COVID-19 Clin Com See Note Imaging Radiologist's Impressions: Impressions Head CT 11/17/20 11:25 IMPRESSION: No acute intracranial findings. Inflammatory changes in the bilateral maxillary sinuses. This critical result was discussed with Dr. Mishra at 1153 hours on 11/17/2020. It was ascertained that the content and urgency of the report was understood at the time of direct communication. Chest X-Ray 11/17/20 11:26 IMPRESSION: Upper normal-size cardiac silhouette. No evidence for acute disease in the chest. Brain MRI 11/17/20 11:54 IMPRESSION: No acute infarct, mass lesion, intracranial hemorrhage, or evidence of hydrocephalus. Background changes of chronic microangiopathy. Assessment and Plan (1) Acute UTI: Status: Acute 75-year-old female with a past medical history of hypertension, hyperlipidemia, mitral regurgitation, hypothyroidism, osteopenia, postural hypotension, diastolic CHF; presented to the hospital today with a chief complaint of generalized weakness/dizziness. Noted to have UTI admitted to the hospital for further management. UTI: Continue ceftriaxone. Follow up cultures. ? Aphasia: Improved symptomatically. CT head and MRI brain negative. Dysphagia screen. Aspiration precautions Patient currently mentating well, A/O x3. Elevated troponins: Patient denies any chest pain. EKG showed lateral lead T-wave inversions. Also noted to be right bundle branch block. Patient recent echocardiogram showed EF of 55-60% and grade 1 diastolic dysfunction. Likely demand Cardiology is aware-> recommended admission to the [facility] and no heparin drip. Telemetry Cycle cardiac enzymes Patient continued on home aspirin statin Hypokalemia: Repleted Elevated random blood glucose: Will obtain hemoglobin A1c Generalized weakness/dizziness: Likely in the setting of UTI/given history of posterior hypertension. Supportive care. PT/OT. Fall precautions History of postural hypotension: Patient on midodrine and fludrocortisone at home; currently her blood pressure is on the high side. Will hold for now DVT prophylaxis: Lovenox Code status: Full code Quality Stroke Does the patient have a stroke diagnosis?: No VTE Prior VTE?: No VTE Risk Level:: Medical - low VTE Device Contraindication: Treatment Not Indicated VTE Drug Contraindication: N/A - Med Ordered
[2020-11-17 22:17] LABS: Troponin-I High Sensitivity 48.3 ng/L (<3.5-17.0)
[2020-11-17] MEDS: KCl 10 mEq in 5% Dex/0.45% Sod 10 MEQ/1,000 ML IV.SOLN 42 MEQ IVCONT (22:54)
[2020-11-17] MEDS: 0.9 % Sodium Chloride Flush 3 ML SYRINGE IVFLUSH (22:55)
[2020-11-18] VITALS (9 sets, daily range): BP systolic 134–175; BP diastolic 65–85; PULSE 71–107; RESP 18–20; TEMP 36.1–36.6; O2SAT 94–97; BMI 29.8
--- NOTE | 2020-11-18 | ECG_ITS ---
Test Reason : ASSESS T WAVE INVERS Blood Pressure : / mmHG Vent. Rate : 096 BPM Atrial Rate : 096 BPM P-R Int : 142 ms QRS Dur : 126 ms QT Int : 434 ms P-R-T Axes : 016 247 -13 degrees QTc Int : 548 ms Normal sinus rhythm Right bundle branch block Possible Lateral infarct , age undetermined Abnormal ECG When compared with ECG of 17-NOV-2020 12:37, No significant change was found Referred By: Tyrel Torres Electronically Signed By:Tyrel Torres
--- NOTE | 2020-11-18 04:41 | PC.NURSE ---
Addendum entered by Christine Helm RN 11/18/20 05:16: 11/17/20 at 2225; on arrival to unit, bp elevated at 181/66, hr 80. Bp recheked about thirty minutes later, bp 155/72, hr 81. made aware via [employer]. Original Note: 11/17/20 at 2225; Lab called with critical troponin of 48.3 Dr. Breen notified via [employer]. No new orders at this time.
[2020-11-18] MEDS: Levothyroxine Sodium 75 MCG TABLET PO (05:55)
[2020-11-18] MEDS: cefTRIAXone sodium 1 GM in 0.9 % Sodium Chloride 50 ML IV (05:57)
[2020-11-18 06:00] LABS: MANUAL DIFF FLAG NO
[2020-11-18 06:04] LABS: Basophils Percent Auto 0.2 % (0-2); Eosinophils Absolute Auto 0.1 X10*3/uL (0.0-0.4); Eosinophils Percent Auto 2.4 % (0-4); Hematocrit 34.7 % (37-47); Hemoglobin 11.9 g/dl (12.0-16.0); Imm Gran Abs Auto 0.01 X10*3/uL (0.00-0.03); Imm Gran Pct Auto 0.2 % (0.0-0.4); Lymphocytes Percent Auto 23.5 % (20-40); Mean Corpuscular HGB Conc 34.3 g/dl (31.0-35.0); Mean Corpuscular Hemoglobin 32.3 pg (27.0-33.0); Mean Corpuscular Volume 94.3 fL (80-98); Mean Platelet Volume 11.7 fL (9.4-12.3); Monocytes Absolute Auto 0.7 X10*3/uL (0.1-1.2); Monocytes Percent Auto 17.2 % (2-11); Neutrophils Absolute Auto 2.3 X10*3/uL (2.0-8.3); Neutrophils Percent Auto 56.5 % (45-73); Platelet Count 161 X10*3/uL (160-400); Red Blood Count 3.68 X10*6/uL (4.20-5.50); Red Cell Distribution Width 14.6 % (11.0-16.0); White Blood Count 4.1 X10*3/uL (4.8-10.8)
[2020-11-18 06:39] LABS: Anion Gap 14 (12-20); Blood Urea Nitrogen 16 mg/dL (9-16); Calcium 7.8 mg/dL (8.4-10.2); Carbon Dioxide 26 mmol/L (22-29); Chloride 104 mmol/L (96-108); Creatinine Clr Calc Pharmacy 68.4; Estimated Glomerular Filt Rate > 60; Glucose Random 105 mg/dL (60-115); Potassium 3.2 mmol/L (3.3-5.1); Sodium 141 mmol/L (135-145)
[2020-11-18] MEDS: Potassium Chloride ER 20 MEQ TAB.ER.PRT PO ×3 (08:22→21:26)
[2020-11-18] MEDS: Aspirin Enteric Coated 81 MG TABLET.DR PO (08:22)
[2020-11-18] MEDS: dexAMETHasone 4 MG TABLET 20 MG PO (08:23)
[2020-11-18] MEDS: Cyanocobalamin (Vitamin B-12) 1,000 MCG TABLET 1000 MCG PO (08:23)
--- NOTE | 2020-11-18 10:06 | MHC.CM.PN ---
met with pt and her daughter pt patricia es with her they have not had services in the past and do not expect to need services when dcd pt s family will transport home
--- NOTE | 2020-11-18 10:30 | HE.PHANOTE ---
Addendum entered by Monik Yung RPh 11/18/20 11:58: Patient only received medication at the doctors. Informed Dr. Spear. Original Note: Followed up on patient own medication Lenalidomide. RN Beulah spoke with patient and patient's daughter is going to bring in the medication. Monik Yung, PharmD
[2020-11-18 10:55] LABS: Estimated Average Glucose 111 mg/dL; Hemoglobin A1c % 5.5 %
--- NOTE | 2020-11-18 12:11 | PM.PNCARD ---
Subjective Subjective Date of Service: 11/18/20 Physical Exam Vital Signs: Last Vital Signs Temp 97.6 F 11/18/20 11:20 Pulse 84 11/18/20 11:20 Resp 20 11/18/20 11:20 BP 143/67 H 11/18/20 11:20 Pulse Ox 94 11/18/20 11:20 Body Mass Index 29.8 Results Labs and Meds Result diagrams: 11/18/20 05:18 11/18/20 05:18 Lab results: Laboratory Results - last 24 hr 11/17/20 11/17/20 11/17/20 11:55 11:55 11:55 WBC RBC Hgb Hct MCV MCH MCHC RDW Plt Count MPV Immature Gran % (Auto) Neut % (Auto) Lymph % (Auto) [place] % (Auto) Eos % (Auto) Baso % (Auto) Lymph # (Auto) [place] # (Auto) Eos # (Auto) Baso # (Auto) Abs Immat Gran (auto) Absolute Neuts (auto) Absolute Nucleated RBC Nucleated RBC % (auto) PT 13.2 H INR 1.2 H APTT 27.2 Sodium 142 Potassium 2.8 L Chloride 100 Carbon Dioxide 23 Anion Gap 22 H BUN 15 Creatinine 0.97 Estim Creat Clear Calc 55.9 Estimated GFR 56 POC Glucose Random Glucose 168 H D Estimat Average Glucose Hemoglobin A1c % Calcium 9.6 D Magnesium 1.7 Total Creatine Kinase 43 Troponin I High Sens 17.5 H* Urine Color Urine Appearance Urine pH Ur Specific [place] Urine Protein Urine Glucose (UA) Urine Ketones Urine Blood Urine Nitrite Ur Leukocyte Esterase Urine RBC Urine WBC Ur Squamous Epith Cells Urine Bacteria COVID-19 ([facility]) COVID-19 Clin Com 11/17/20 11/17/20 11/17/20 12:39 15:46 18:07 WBC RBC Hgb Hct MCV MCH MCHC RDW Plt Count MPV Immature Gran % (Auto) Neut % (Auto) Lymph % (Auto) [place] % (Auto) Eos % (Auto) Baso % (Auto) Lymph # (Auto) [place] # (Auto) Eos # (Auto) Baso # (Auto) Abs Immat Gran (auto) Absolute Neuts (auto) Absolute Nucleated RBC Nucleated RBC % (auto) PT INR APTT Sodium Potassium Chloride Carbon Dioxide Anion Gap BUN Creatinine Estim Creat Clear Calc Estimated GFR POC Glucose 152 H Random Glucose Estimat Average Glucose Hemoglobin A1c % Calcium Magnesium Total Creatine Kinase Troponin I High Sens 49.8 H* D Urine Color YELLOW Urine Appearance HAZY Urine pH 6.5 Ur Specific [place] 1.010 Urine Protein 1+ H Urine Glucose (UA) NEG Urine Ketones 15 Urine Blood NEG Urine Nitrite POS H Ur Leukocyte Esterase 1+ H Urine RBC 0-2 Urine WBC 15-29 H Ur Squamous Epith Cells 1+ Urine Bacteria 4+ COVID-19 ([facility]) COVID-19 Clin Com 11/17/20 11/17/20 11/18/20 19:16 21:30 05:18 WBC 4.1 L RBC 3.68 L Hgb 11.9 L Hct 34.7 L MCV 94.3 MCH 32.3 MCHC 34.3 RDW 14.6 Plt Count 161 D MPV 11.7 Immature Gran % (Auto) 0.2 Neut % (Auto) 56.5 Lymph % (Auto) 23.5 [place] % (Auto) 17.2 H Eos % (Auto) 2.4 Baso % (Auto) 0.2 Lymph # (Auto) 1.0 L [place] # (Auto) 0.7 Eos # (Auto) 0.1 Baso # (Auto) 0.0 Abs Immat Gran (auto) 0.01 Absolute Neuts (auto) 2.3 Absolute Nucleated RBC 0.000 Nucleated RBC % (auto) 0.0 PT INR APTT Sodium Potassium Chloride Carbon Dioxide Anion Gap BUN Creatinine Estim Creat Clear Calc Estimated GFR POC Glucose Random Glucose Estimat Average Glucose Hemoglobin A1c % Calcium Magnesium Total Creatine Kinase Troponin I High Sens 48.3 H* Urine Color Urine Appearance Urine pH Ur Specific [place] Urine Protein Urine Glucose (UA) Urine Ketones Urine Blood Urine Nitrite Ur Leukocyte Esterase Urine RBC Urine WBC Ur Squamous Epith Cells Urine Bacteria COVID-19 ([facility]) Negative COVID-19 Clin Com See Note 11/18/20 11/18/20 05:18 08:37 WBC RBC Hgb Hct MCV MCH MCHC RDW Plt Count MPV Immature Gran % (Auto) Neut % (Auto) Lymph % (Auto) [place] % (Auto) Eos % (Auto) Baso % (Auto) Lymph # (Auto) [place] # (Auto) Eos # (Auto) Baso # (Auto) Abs Immat Gran (auto) Absolute Neuts (auto) Absolute Nucleated RBC Nucleated RBC % (auto) PT INR APTT Sodium 141 Potassium 3.2 L Chloride 104 Carbon Dioxide 26 Anion Gap 14 BUN 16 Creatinine 0.79 Estim Creat Clear Calc 68.4 Estimated GFR > 60 POC Glucose Random Glucose 105 D Estimat Average Glucose 111 Hemoglobin A1c % 5.5 Calcium 7.8 L D Magnesium Total Creatine Kinase Troponin I High Sens Urine Color Urine Appearance Urine pH Ur Specific [place] Urine Protein Urine Glucose (UA) Urine Ketones Urine Blood Urine Nitrite Ur Leukocyte Esterase Urine RBC Urine WBC Ur Squamous Epith Cells Urine Bacteria COVID-19 ([facility]) COVID-19 Clin Com Imaging Radiologist's impression: Impressions Head CT 11/17/20 11:25 IMPRESSION: No acute intracranial findings. Inflammatory changes in the bilateral maxillary sinuses. This critical result was discussed with Dr. Mishra at 1153 hours on 11/17/2020. It was ascertained that the content and urgency of the report was understood at the time of direct communication. Chest X-Ray 11/17/20 11:26 IMPRESSION: Upper normal-size cardiac silhouette. No evidence for acute disease in the chest. Brain MRI 11/17/20 11:54 IMPRESSION: No acute infarct, mass lesion, intracranial hemorrhage, or evidence of hydrocephalus. Background changes of chronic microangiopathy. Progress Note: A&P Fall Risk Details Current Medications: Current Medications Generic Name Dose Route Start Last Admin Trade Name Freq PRN Reason Stop Dose Admin Acetaminophen 650 mg 11/17/20 19:49 Acetaminophen 325 Mg Tablet PO Q6H PRN Pain, Mild (Pain Scale 1-3) Aspirin 81 mg 11/18/20 09:00 11/18/20 08:22 Aspirin Enteric Coated 81 Mg Tablet. PO 81 mg DAILY [facility] Administration Atorvastatin Calcium 80 mg 11/17/20 21:00 11/17/20 21:15 Atorvastatin Calcium 80 Mg Tablet PO 80 mg BEDTIME [facility] Administration Cyanocobalamin 1,000 mcg 11/18/20 09:00 11/18/20 08:23 Cyanocobalamin (Vitamin B-12) 1,000 Mcg Tablet PO 1,000 mcg DAILY [facility] Administration Dexamethasone 20 mg 11/18/20 09:00 11/18/20 08:23 Dexamethasone 4 Mg Tablet PO 20 mg DAILY [facility] Administration Diphenhydramine HCl 25 mg 11/17/20 21:00 11/17/20 21:15 Diphenhydramine Hcl 25 Mg Tablet PO 25 mg BEDTIME [facility] Administration Docusate Sodium 100 mg 11/17/20 19:57 Docusate Sodium 100 Mg Capsule PO BID PRN Constipation Enoxaparin Sodium 40 mg 11/17/20 22:00 11/17/20 21:14 Enoxaparin Sodium 40 Mg/0.4 Ml Syringe SUBCUT 40 mg Q24H [facility] Administration Fludrocortisone Acetate 0.1 mg 11/17/20 21:00 11/17/20 23:07 Fludrocortisone Acetate 0.1 Mg Tablet PO Not Given BID [facility] Ceftriaxone Sodium 1 gm/ 50 mls @ 100 mls/hr 11/18/20 06:00 11/18/20 06:36 Sodium Chloride IV Infused Q24H [facility] Infusion Potassium Chloride/Dextrose/Sod Cl 10 meq in 1,000 mls @ 42 mls/hr 11/17/20 21:30 11/17/20 22:54 IVCONT 42 mls/hr .[id number] [facility] Administration Levothyroxine Sodium 75 mcg 11/18/20 06:00 11/18/20 05:55 Levothyroxine Sodium 75 Mcg Tablet PO 75 mcg DAILY@0600 [facility] Administration Magnesium Hydroxide 30 ml 11/17/20 19:49 Milk Of Magnesia 30 Ml Oral.Susp PO DAILY PRN Constipation Melatonin 6 mg 11/17/20 19:49 Melatonin 3 Mg Tablet PO BEDTIME PRN Insomnia Midodrine 2.5 mg 11/18/20 09:00 11/18/20 08:23 Midodrine Hcl 2.5 Mg Tablet PO Not Given DAILY [facility] Nitroglycerin 0.4 mg 11/17/20 19:56 Nitroglycerin 0.4 Mg Tab.Subl SUBLINGUAL Q5M PRN Chest Pain Pharmacy Consult 1 each 11/17/20 18:50 Consult Rx Perform Med Rec MISCELLANE ONCE PRN Consult order Potassium Chloride 20 meq 11/17/20 21:00 11/18/20 08:22 Potassium Chloride Er 20 Meq Tab.Er.Prt PO 20 meq TID [facility] Administration Sodium Chloride 3 ml 11/18/20 00:00 11/18/20 07:19 0.9 % Sodium Chloride Flush 3 Ml Syringe IVFLUSH Not Given QSHIFT [facility] Valacyclovir HCl 500 mg 11/18/20 09:00 11/18/20 08:23 Valacycyclovir Hcl 500 Mg Tablet PO 500 mg DAILY [facility] Administration Time Spent With Patient Time: Total time spent is greater than 50% in coordination of care (as documented) at patient's floor/unit and/or counseling patient:
--- NOTE | 2020-11-18 13:29 | P.CONCA_ITS ---
History of Present Illness History of Present Illness Date of Service: 11/18/20 Chief complaint: AMS/NSTEMI Narrative: 75-year-old female who has background of multiple myeloma on chemotherapy, hypertension, postural hypotension, bifascicular block and mild aortic stenosis was presenting for confusion. She has been diagnosed with urinary tract infection and after treatment her confusion has improved. She also noticed to have EKG changes with anterolateral T-wave inversions. She has known bifascicular block. She is denying any chest discomfort or shortness of breath. She said she was just feeling confused and as per the daughter she was not making any sense at home or was not able to answer any questions. She was also noticed to be hypokalemic. She is undergoing chemotherapy at this stage for multiple myeloma. Review of Systems Review of Systems: No symptoms Yes all other systems are reviewed and are negative PMFSH Past Medical History Medical History Gallstone HLP (hyperkeratosis lenticularis perstans) HTN (hypertension) Hypothyroidism Mitral regurgitation Multiple myeloma Osteopenia Postural hypotension Family History Family History Other HTN (hypertension) Surgical History Surgical History History of appendectomy History of meniscectomy of left knee History of partial hysterectomy Social History Social History Household Members: Spouse Housing: House Are you a primary manager long term care to a significant other at home: No Do you presently have visiting nurse or other home services: No Alcohol intake: never Patient Tobacco Use Status: Former Tobacco user Tobacco use type: Cigarette Second Hand Smoke Exposure: No Use of substances other than those prescribed or required for medical reasons: No Currently Displaying Signs/Symptoms of Drug Intoxication Withdrawal: No Have you been hit, kicked, punched, or otherwise hurt by someone within the past year? If so, by whom?: No Do you feel safe in your current relationship?: Yes Is there a partner from a previous relationship who is making you feel unsafe now?: No Are you made to feel afraid or neglected: No Advance Directives: Yes Advance Directives Information Provided: No (told patient not on file) Advance Directives on File: No Advance Directives Date on File: 11/17/20 Do you have thoughts of harming others: None Do you have a plan to hurt others: No Plan Recently lost weight without trying: Unsure Nutrition Risks: On aspiration precautions service: No Meds Allergies Allergy/AdvReac Type Severity Reaction Status Date / Time red dye [Red Dye] Allergy Mild SWELLING Verified 10/14/20 08:31 oxycodone AdvReac Intermediate Vomiting Verified 10/14/20 08:31 Active Medications: Current Medications Generic Name Dose Route Start Last Admin Trade Name Freq PRN Reason Stop Dose Admin Acetaminophen 650 mg 11/17/20 19:49 Acetaminophen 325 Mg Tablet PO Q6H PRN Pain, Mild (Pain Scale 1-3) Aspirin 81 mg 11/18/20 09:00 11/18/20 08:22 Aspirin Enteric Coated 81 Mg Tablet. PO 81 mg DAILY [facility] Administration Atorvastatin Calcium 80 mg 11/17/20 21:00 11/17/20 21:15 Atorvastatin Calcium 80 Mg Tablet PO 80 mg BEDTIME [facility] Administration Cyanocobalamin 1,000 mcg 11/18/20 09:00 11/18/20 08:23 Cyanocobalamin (Vitamin B-12) 1,000 Mcg Tablet PO 1,000 mcg DAILY [facility] Administration Dexamethasone 20 mg 11/18/20 09:00 11/18/20 08:23 Dexamethasone 4 Mg Tablet PO 20 mg DAILY [facility] Administration Diphenhydramine HCl 25 mg 11/17/20 21:00 11/17/20 21:15 Diphenhydramine Hcl 25 Mg Tablet PO 25 mg BEDTIME [facility] Administration Docusate Sodium 100 mg 11/17/20 19:57 Docusate Sodium 100 Mg Capsule PO BID PRN Constipation Enoxaparin Sodium 40 mg 11/17/20 22:00 11/17/20 21:14 Enoxaparin Sodium 40 Mg/0.4 Ml Syringe SUBCUT 40 mg Q24H [facility] Administration Fludrocortisone Acetate 0.1 mg 11/17/20 21:00 11/17/20 23:07 Fludrocortisone Acetate 0.1 Mg Tablet PO Not Given BID [facility] Ceftriaxone Sodium 1 gm/ 50 mls @ 100 mls/hr 11/18/20 06:00 11/18/20 06:36 Sodium Chloride IV Infused Q24H [facility] Infusion Levothyroxine Sodium 75 mcg 11/18/20 06:00 11/18/20 05:55 Levothyroxine Sodium 75 Mcg Tablet PO 75 mcg DAILY@0600 [facility] Administration Magnesium Hydroxide 30 ml 11/17/20 19:49 Milk Of Magnesia 30 Ml Oral.Susp PO DAILY PRN Constipation Melatonin 6 mg 11/17/20 19:49 Melatonin 3 Mg Tablet PO BEDTIME PRN Insomnia Midodrine 2.5 mg 11/18/20 09:00 11/18/20 08:23 Midodrine Hcl 2.5 Mg Tablet PO Not Given DAILY [facility] Nitroglycerin 0.4 mg 11/17/20 19:56 Nitroglycerin 0.4 Mg Tab.Subl SUBLINGUAL Q5M PRN Chest Pain Pharmacy Consult 1 each 11/17/20 18:50 Consult Rx Perform Med Rec MISCELLANE ONCE PRN Consult order Potassium Chloride 20 meq 11/17/20 21:00 11/18/20 08:22 Potassium Chloride Er 20 Meq Tab.Er.Prt PO 20 meq TID [facility] Administration Sodium Chloride 3 ml 11/18/20 00:00 11/18/20 07:19 0.9 % Sodium Chloride Flush 3 Ml Syringe IVFLUSH Not Given QSHIFT [facility] Valacyclovir HCl 500 mg 11/18/20 09:00 11/18/20 08:23 Valacycyclovir Hcl 500 Mg Tablet PO 500 mg DAILY [facility] Administration Home Medications Medication Instructions Recorded Confirmed Last Taken Type acetaminophen 500 mg tablet 1,000 mg PO Q6H PRN 01/18/20 11/17/20 01/18/20 History calcium carbonate 600 mg (1,500 2 tab PO BID 01/18/20 11/17/20 11/17/20 History mg)-vitamin D3 200 unit tablet dexamethasone 20 mg tablet 20 mg PO DAILY 02/22/20 11/17/20 11/17/20 History docusate sodium 100 mg capsule 100 mg PO BID PRN 07/15/20 11/17/20 Unknown History midodrine 2.5 mg tablet 2.5 mg PO DAILY 08/19/20 11/17/20 11/17/20 History cyanocobalamin (vitamin B-12) 1,000 mcg PO DAILY 11/17/20 11/17/20 11/17/20 History 1,000 mcg tablet diphenhydramine HCl 25 mg capsule 25 mg PO BEDTIME 11/17/20 11/17/20 11/16/20 History (Benadryl) potassium chloride 20 mEq 20 meq PO TID 11/17/20 11/17/20 11/17/20 History tablet,extended release Physical Exam Vital Signs: Vital Signs: Last Vital Signs Temp 97.6 F 11/18/20 11:20 Pulse 84 11/18/20 11:20 Resp 20 11/18/20 11:20 BP 143/67 H 11/18/20 11:20 Pulse Ox 94 11/18/20 11:20 Body Mass Index 29.8 GENERAL APPEARANCE: in no acute distress, pleasant. NECK: no carotid bruit, no jugular venous distention. SKIN: no suspicious lesions, warm and dry. HEART: Systolic murmur in the aortic area with preserved 2nd heart sound. LUNGS: clear to auscultation bilaterally. ABDOMEN: soft, nontender. EXTREMITIES: no edema. PERIPHERAL PULSES: equal. NEUROLOGIC: No gross deficits, AAO X 3 Results Labs and Meds Result diagrams: 11/18/20 05:18 11/18/20 05:18 Lab results: Laboratory Results - last 24 hr 11/17/20 11/17/20 11/17/20 11:55 12:39 15:46 WBC RBC Hgb Hct MCV MCH MCHC RDW Plt Count MPV Immature Gran % (Auto) Neut % (Auto) Lymph % (Auto) [place] % (Auto) Eos % (Auto) Baso % (Auto) Lymph # (Auto) [place] # (Auto) Eos # (Auto) Baso # (Auto) Abs Immat Gran (auto) Absolute Neuts (auto) Absolute Nucleated RBC Nucleated RBC % (auto) Sodium Potassium Chloride Carbon Dioxide Anion Gap BUN Creatinine Estim Creat Clear Calc Estimated GFR POC Glucose 152 H Random Glucose Estimat Average Glucose Hemoglobin A1c % Calcium Magnesium 1.7 Troponin I High Sens Urine Color YELLOW Urine Appearance HAZY Urine pH 6.5 Ur Specific [place] 1.010 Urine Protein 1+ H Urine Glucose (UA) NEG Urine Ketones 15 Urine Blood NEG Urine Nitrite POS H Ur Leukocyte Esterase 1+ H Urine RBC 0-2 Urine WBC 15-29 H Ur Squamous Epith Cells 1+ Urine Bacteria 4+ COVID-19 ([facility]) COVID-19 Clin Com 11/17/20 11/17/20 11/17/20 18:07 19:16 21:30 WBC RBC Hgb Hct MCV MCH MCHC RDW Plt Count MPV Immature Gran % (Auto) Neut % (Auto) Lymph % (Auto) [place] % (Auto) Eos % (Auto) Baso % (Auto) Lymph # (Auto) [place] # (Auto) Eos # (Auto) Baso # (Auto) Abs Immat Gran (auto) Absolute Neuts (auto) Absolute Nucleated RBC Nucleated RBC % (auto) Sodium Potassium Chloride Carbon Dioxide Anion Gap BUN Creatinine Estim Creat Clear Calc Estimated GFR POC Glucose Random Glucose Estimat Average Glucose Hemoglobin A1c % Calcium Magnesium Troponin I High Sens 49.8 H* D 48.3 H* Urine Color Urine Appearance Urine pH Ur Specific [place] Urine Protein Urine Glucose (UA) Urine Ketones Urine Blood Urine Nitrite Ur Leukocyte Esterase Urine RBC Urine WBC Ur Squamous Epith Cells Urine Bacteria COVID-19 ([facility]) Negative COVID-19 Clin Com See Note 11/18/20 11/18/20 11/18/20 05:18 05:18 08:37 WBC 4.1 L RBC 3.68 L Hgb 11.9 L Hct 34.7 L MCV 94.3 MCH 32.3 MCHC 34.3 RDW 14.6 Plt Count 161 D MPV 11.7 Immature Gran % (Auto) 0.2 Neut % (Auto) 56.5 Lymph % (Auto) 23.5 [place] % (Auto) 17.2 H Eos % (Auto) 2.4 Baso % (Auto) 0.2 Lymph # (Auto) 1.0 L [place] # (Auto) 0.7 Eos # (Auto) 0.1 Baso # (Auto) 0.0 Abs Immat Gran (auto) 0.01 Absolute Neuts (auto) 2.3 Absolute Nucleated RBC 0.000 Nucleated RBC % (auto) 0.0 Sodium 141 Potassium 3.2 L Chloride 104 Carbon Dioxide 26 Anion Gap 14 BUN 16 Creatinine 0.79 Estim Creat Clear Calc 68.4 Estimated GFR > 60 POC Glucose Random Glucose 105 D Estimat Average Glucose 111 Hemoglobin A1c % 5.5 Calcium 7.8 L D Magnesium Troponin I High Sens Urine Color Urine Appearance Urine pH Ur Specific [place] Urine Protein Urine Glucose (UA) Urine Ketones Urine Blood Urine Nitrite Ur Leukocyte Esterase Urine RBC Urine WBC Ur Squamous Epith Cells Urine Bacteria COVID-19 ([facility]) COVID-19 Clin Com Imaging Radiologist's impression: Impressions Brain MRI 11/17/20 11:54 IMPRESSION: No acute infarct, mass lesion, intracranial hemorrhage, or evidence of hydrocephalus. Background changes of chronic microangiopathy. Assessment and Plan (1) Acute UTI: Status: Acute (2) Abnormal ECG: Status: Acute (3) Elevated troponin: Status: Acute Pleasant 75-year-old female who is presenting for dizziness and confusion. She has been diagnosed with urinary tract infection and is on appropriate antibiotics with improvement in clinical status. She was also noticed to have elevated troponin levels with high sensitivity troponin level of 17, 49 and 48. She has no chest discomfort shortness of breath but did have new ECG changes with anterolateral T-wave inversions. She is denying any chest discomfort shortness of breath. She has hypokalemia and is currently undergoing chemotherapy for multiple myeloma. I think we should check limited echocardiogram on her to make sure she does not have a wall motion abnormality. I think the changes can be related to electrolyte imbalance. As a potassium improves I think we should repeat her EKG. Clinically not ACS right now. Does not need any anticoagulation. We will follow along with you. Thank you for allowing me to participate in the care of your patient. Please feel free to contact me if you have any questions. Procedures Date of Service Date of Service: 11/18/20
--- NOTE | 2020-11-18 14:00 | CA_ITS ---
Transthoracic Echocardiogram Patient (Last, First, Middle): Merary He J Gender: Female Date of : 1945 Age: 75 Procedure Date: 11/18/2020 Procedure Type: Transthoracic Echocardiogram Location: [facility] [place] Height: 170.18 cm Weight: 86.18 kg BSA: 1.98 m2 Heart Rate: bpm BP: 134 / 80 mmHg Hvac Estimator: Referring MD: Tyrel Torres MD Symptoms: Anterolateral T wave inversions. assess wall motion Study Quality: Fair ECG Rhythm: Atrial Fibrillation Conclusions: - Normal left ventricular size and systolic function. - There is no evidence of regional wall motion abnormalities. - There is a small circumferential pericardial effusion. - There are no definitive echocardiographic findings of tamponade physiology. Findings Left Ventricle Normal left ventricular size and systolic function. There is severely increased left ventricular wall thickness. The visually estimated ejection fraction is between 65-70%. There is no evidence of regional wall motion abnormalities. Abnormal diastolic function is noted. Spectral Doppler is indicative of an impaired relaxation filling pattern. Elevated filling pressures. Right Ventricle Normal right ventricular cavity size and systolic function. Venous The inferior vena cava is normal in size and collapses greater than 50% with inspiration. Pericardium/Pleural There is a small circumferential pericardial effusion. There are no definitive echocardiographic findings of tamponade physiology. Prior Study Comparison Changes noted compared to prior study dated: 09/08/2020. Small pericardial effusion present. Measurements 2D Linear Measurements IVSd: 1.36 0.6-0.9/0.6-1.0 cm LVIDd: 4.04 3.9-5.3/4.2-5.9 cm LVIDd Index: 2.04 2.4-3.2/2.2-3.1 cm/m2 LVIDs: 2.56 2.0-3.6 cm LVPWd: 1.39 0.7-1.1 cm LV Mass: 256.99 67-162/88-224 g LV Mass Index: 129.79 43-95/49-115 g/m2 Mitral Valve MV Pk E: 0.72 MV PK A: 1.32 MV Decel Time: 154.00 E/A: 0.50 E'Lateral: 3.59 E'Medial: 3.05 E/E' Med: 23.60 E/E' Lat: 20.10 PHT: 45.00 MVA PHT: 4.89 Decel [place]: 4.67 Diastolic Function MV Pk E: 0.72 MV Pk A: 1.32 E/A: 0.50 E'Medial: 3.05 E/E' Med: 23.60 E' Laterial: 3.59 E/E' Lat: 20.10 Updated in Other Vendor System with Status of Final Tyrel Torres MD electronically signed on 11/18/2020 3:05:47 PM with status of Final
--- NOTE | 2020-11-18 15:43 | P.PNIM_ITS ---
Subjective Subjective Date of Service: 11/18/20 Interval History: Complaining of headache, denies dizziness and weakness, denies chest pain or palpitation. Review of Systems General headache, no dizziness ,no fever chills. CVS no chest pain, no palpitation. Respiratory no cough ,no sob. Gastrointestinal no nausea, no vomiting, no abdominal pain Physical Exam Vital Signs: Vital Signs: Last Vital Signs Temp 97 F 11/18/20 15:32 Pulse 104 H 11/18/20 15:32 Resp 18 11/18/20 15:32 BP 134/80 11/18/20 15:32 Pulse Ox 96 11/18/20 15:32 Body Mass Index 29.8 General resting comfortably in no acute distress. Neck supple no JVD. CVS regular rate rhythm, Respiratory lungs clear to auscultation, no respiratory distress, no wheeze, no rhonchi. Gastrointestinal abdomen soft, nontender, bowel sounds audible, no guarding , no rigidity. Extremities no edema. Neuro nonfocal , speech clear. Skin no rash Objective Data Current Medications Generic Name Dose Route Start Last Admin Trade Name Urielq PRN Reason Stop Dose Admin Acetaminophen 650 mg 11/17/20 19:49 Acetaminophen 325 Mg Tablet PO Q6H PRN Pain, Mild (Pain Scale 1-3) Aspirin 81 mg 11/18/20 09:00 11/18/20 08:22 Aspirin Enteric Coated 81 Mg Tablet.Dr PO 81 mg DAILY [facility] Administration Atorvastatin Calcium 80 mg 11/17/20 21:00 11/17/20 21:15 Atorvastatin Calcium 80 Mg Tablet PO 80 mg BEDTIME [facility] Administration Cyanocobalamin 1,000 mcg 11/18/20 09:00 11/18/20 08:23 Cyanocobalamin (Vitamin B-12) 1,000 Mcg Tablet PO 1,000 mcg DAILY [facility] Administration Dexamethasone 20 mg 11/18/20 09:00 11/18/20 08:23 Dexamethasone 4 Mg Tablet PO 20 mg DAILY G[facility] Administration Diphenhydramine HCl 25 mg 11/17/20 21:00 11/17/20 21:15 Diphenhydramine Hcl 25 Mg Tablet PO 25 mg BEDTIME [facility] Administration Docusate Sodium 100 mg 11/17/20 19:57 Docusate Sodium 100 Mg Capsule PO BID PRN Constipation Enoxaparin Sodium 40 mg 11/17/20 22:00 08/02/21 21:14 Enoxaparin Sodium 40 Mg/0.4 Ml Syringe SUBCUT 40 mg Q24H [facility] Administration Fludrocortisone Acetate 0.1 mg 11/17/20 21:00 11/17/20 23:07 Fludrocortisone Acetate 0.1 Mg Tablet PO Not Given BID [facility] Ceftriaxone Sodium 1 gm/ 50 mls @ 100 mls/hr 11/18/20 06:00 11/18/20 06:36 Sodium Chloride IV Infused Q24H [facility] Infusion Levothyroxine Sodium 75 mcg 11/18/20 06:00 11/18/20 05:55 Levothyroxine Sodium 75 Mcg Tablet PO 75 mcg DAILY@0600 [facility] Administration Magnesium Hydroxide 30 ml 11/17/20 19:49 Milk Of Magnesia 30 Ml Oral.Susp PO DAILY PRN Constipation Melatonin 6 mg 11/17/20 19:49 Melatonin 3 Mg Tablet PO BEDTIME PRN Insomnia Midodrine 2.5 mg 11/18/20 09:00 11/18/20 08:23 Midodrine Hcl 2.5 Mg Tablet PO Not Given DAILY [facility] Nitroglycerin 0.4 mg 11/17/20 19:56 Nitroglycerin 0.4 Mg Tab.Subl SUBLINGUAL Q5M PRN Chest Pain Pharmacy Consult 1 each 11/17/20 18:50 Consult Rx Perform Med Rec MISCELLANE ONCE PRN Consult order Potassium Chloride 20 meq 11/17/20 21:00 11/18/20 15:16 Potassium Chloride Er 20 Meq Tab.Er.Prt PO 20 meq TID [facility] Administration Sodium Chloride 3 ml 11/18/20 00:00 11/18/20 15:03 0.9 % Sodium Chloride Flush 3 Ml Syringe IVFLUSH Not Given QSHIFT [facility] Valacyclovir HCl 500 mg 11/18/20 09:00 11/18/20 08:23 Valacycyclovir Hcl 500 Mg Tablet PO 500 mg DAILY [facility] Administration Labs CBC & Chem 7: 11/18/20 05:18 11/18/20 05:18 Labs: Laboratory Results - last 24 hr 11/17/20 11/17/20 11/17/20 11:55 15:46 18:07 MCV MCH MCHC RDW Plt Count MPV Immature Gran % (Auto) Neut % (Auto) Lymph % (Auto) [place] % (Auto) Eos % (Auto) Baso % (Auto) Lymph # (Auto) [place] # (Auto) Eos # (Auto) Baso # (Auto) Abs Immat Gran (auto) Absolute Neuts (auto) Absolute Nucleated RBC Nucleated RBC % (auto) Anion Gap Estim Creat Clear Calc Estimated GFR Random Glucose Estimat Average Glucose Hemoglobin A1c % Calcium Magnesium 1.7 Troponin I High Sens 49.8 H* D Urine Color YELLOW Urine Appearance HAZY Urine pH 6.5 Ur Specific [place] 1.010 Urine Protein 1+ H Urine Glucose (UA) NEG Urine Ketones 15 Urine Blood NEG Urine Nitrite POS H Ur Leukocyte Esterase 1+ H Urine RBC 0-2 Urine WBC 15-29 H Ur Squamous Epith Cells 1+ Urine Bacteria 4+ COVID-19 ([facility]) COVID-19 Clin Com 11/17/20 11/17/20 11/18/20 19:16 21:30 05:18 MCV 94.3 MCH 32.3 MCHC 34.3 RDW 14.6 Plt Count 161 D MPV 11.7 Immature Gran % (Auto) 0.2 Neut % (Auto) 56.5 Lymph % (Auto) 23.5 [place] % (Auto) 17.2 H Eos % (Auto) 2.4 Baso % (Auto) 0.2 Lymph # (Auto) 1.0 L [place] # (Auto) 0.7 Eos # (Auto) 0.1 Baso # (Auto) 0.0 Abs Immat Gran (auto) 0.01 Absolute Neuts (auto) 2.3 Absolute Nucleated RBC 0.000 Nucleated RBC % (auto) 0.0 Anion Gap Estim Creat Clear Calc Estimated GFR Random Glucose Estimat Average Glucose Hemoglobin A1c % Calcium Magnesium Troponin I High Sens 48.3 H* Urine Color Urine Appearance Urine pH Ur Specific [place] Urine Protein Urine Glucose (UA) Urine Ketones Urine Blood Urine Nitrite Ur Leukocyte Esterase Urine RBC Urine WBC Ur Squamous Epith Cells Urine Bacteria COVID-19 ([facility]) Negative COVID-19 Clin Com See Note 11/18/20 11/18/20 05:18 08:37 MCV MCH MCHC RDW Plt Count MPV Immature Gran % (Auto) Neut % (Auto) Lymph % (Auto) [place] % (Auto) Eos % (Auto) Baso % (Auto) Lymph # (Auto) [place] # (Auto) Eos # (Auto) Baso # (Auto) Abs Immat Gran (auto) Absolute Neuts (auto) Absolute Nucleated RBC Nucleated RBC % (auto) Anion Gap 14 Estim Creat Clear Calc 68.4 Estimated GFR > 60 Random Glucose 105 D Estimat Average Glucose 111 Hemoglobin A1c % 5.5 Calcium 7.8 L D Magnesium Troponin I High Sens Urine Color Urine Appearance Urine pH Ur Specific [place] Urine Protein Urine Glucose (UA) Urine Ketones Urine Blood Urine Nitrite Ur Leukocyte Esterase Urine RBC Urine WBC Ur Squamous Epith Cells Urine Bacteria COVID-19 ([facility]) COVID-19 Clin Com Microbiology Microbiology Results: Microbiology 11/17/20 15:56 Urine Culture - Preliminary Urine clean catch - Urine angel top Gram negative mihir Assessment and Plan (1) Acute UTI: Status: Acute (2) Abnormal ECG: Status: Acute (3) Elevated troponin: Status: Acute (4) Hypokalemia: Status: Acute (5) Multiple myeloma: Status: Acute (6) Postural hypotension: Status: Acute (7) HTN (hypertension): Status: Acute Assessment and Plan: 75-year-old female with a past medical history of hypertension, hyperlipidemia, mitral regurgitation, hypothyroidism, osteopenia, postural hypotension, diastolic CHF; presented to the hospital today with a chief complaint of generalized weakness/dizziness and difficulty expressing herself, patient diagnosed to have UTI and admitted to hospital for further treatment UTI Noted to have no sepsis, continue IV ceftriaxone follow urine culture. Generalized weakness /confusion as per daughter patient was having difficulty expressing herself, CT head and MRI brain negative, no evidence of stroke, symptoms likely related to UTI All symptoms resolved patient feeling better, will recommend out of bed to chair and ambulation Elevated troponins:? EKG showed anterior lateral T-wave inversion, patient asymptomatic with no chest pain no palpitation, limited echocardiogram showed EF 65-70% no regional wall motion abnormalities were noted abnormal diastolic function, patient evaluated by Cardiology since patient is asymptomatic with no wall motion abnormality patient does not have acute coronary syndrome likely EKG changes secondary to electrolyte abnormality, will replace potassium and repeat EKG Continue home medication aspirin and statin Hypokalemia:? Repleted Elevated random blood glucose:? hemoglobin A1c 5.5, repeat blood sugars stable Generalized weakness/dizziness:? Likely due to uti will treat infection and follow clinical course History of postural hypotension:? on midodrine and fludrocortisone at home; currently on hold due to elevated blood pressure DVT prophylaxis continue Lovenox Quality Stroke Does the patient have a stroke diagnosis?: No VTE Prior VTE?: No VTE Risk Level:: Medical - low VTE Device Contraindication: Treatment Not Indicated VTE Drug Contraindication: N/A - Med Ordered
[2020-11-18] MEDS: Enoxaparin Sodium 40 MG/0.4 ML SYRINGE SUBCUT (21:26)
[2020-11-18] MEDS: diphenhydrAMINE HCL 25 MG TABLET PO (21:26)
[2020-11-18] MEDS: Atorvastatin Calcium 80 MG TABLET PO (21:26)
[2020-11-18] MEDS: 0.9 % Sodium Chloride Flush 3 ML SYRINGE IVFLUSH (21:26)
[2020-11-19] VITALS: BP 167/65; PULSE 82; RESP 18; O2SAT 96
--- NOTE | 2020-11-19 | ECG_ITS ---
Test Reason : ABNORMAL ECG Blood Pressure : / mmHG Vent. Rate : 083 BPM Atrial Rate : 083 BPM P-R Int : 142 ms QRS Dur : 124 ms QT Int : 460 ms P-R-T Axes : 023 -53 018 degrees QTc Int : 540 ms Normal sinus rhythm Right bundle branch block Left anterior fascicular block Bifascicular block T wave abnormality, consider lateral ischemia Abnormal ECG When compared with ECG of 18-NOV-2020 12:20, Borderline criteria for Lateral infarct are no longer Present Referred By: Mayda Spear Electronically Signed By:Tyrel Torres
[2020-11-19 03:42] VITALS: BP 143/74; PULSE 80; RESP 18; O2SAT 96
[2020-11-19] MEDS: Levothyroxine Sodium 75 MCG TABLET PO (05:06)
[2020-11-19] MEDS: cefTRIAXone sodium 1 GM in 0.9 % Sodium Chloride 50 ML IV (05:12)
[2020-11-19 07:09] LABS: Anion Gap 13 (12-20); Blood Urea Nitrogen 22 mg/dL (9-16); Calcium 8.1 mg/dL (8.4-10.2); Carbon Dioxide 26 mmol/L (22-29); Chloride 107 mmol/L (96-108); Creatinine Clr Calc Pharmacy 71.1; Estimated Glomerular Filt Rate > 60; Glucose Random 150 mg/dL (60-115); Potassium 3.5 mmol/L (3.3-5.1); Sodium 142 mmol/L (135-145)
[2020-11-19 07:15] VITALS: BP 169/85; PULSE 79; RESP 18; TEMP 36.6
[2020-11-19] MEDS: Potassium Chloride ER 20 MEQ TAB.ER.PRT PO ×2 (08:19→15:23)
[2020-11-19] MEDS: Aspirin Enteric Coated 81 MG TABLET.DR PO (08:19)
[2020-11-19] MEDS: Cyanocobalamin (Vitamin B-12) 1,000 MCG TABLET 1000 MCG PO (08:19)
[2020-11-19] MEDS: 0.9 % Sodium Chloride Flush 3 ML SYRINGE IVFLUSH ×2 (08:20→15:23)
[2020-11-19 11:17] VITALS: BP 178/86; PULSE 92; RESP 20; TEMP 36.1; O2SAT 96
--- NOTE | 2020-11-19 15:00 | MHC.CM.PN ---
per rounds pt will not be dcd today dc plan reman is home no servceis
--- NOTE | 2020-11-19 15:09 | P.PNCA_ITS ---
Subjective Subjective Date of Service: 11/19/20 Interval history: Coughing Due to while upper respiratory tract infection echocardiography showed normal LV function. Denies chest pressure. Blood pressure has been elevated. Physical Exam Vital Signs: Last Vital Signs Temp 97 F 11/19/20 11:17 Pulse 92 11/19/20 11:17 Resp 20 11/19/20 11:17 BP 178/86 H 11/19/20 11:17 Pulse Ox 96 11/19/20 11:17 Body Mass Index 29.8 GENERAL APPEARANCE: in no acute distress, pleasant. NECK: no carotid bruit, no jugular venous distention. SKIN: no suspicious lesions, warm and dry. HEART:? Systolic murmur in the aortic area with preserved 2nd heart sound. LUNGS: clear to auscultation bilaterally. ABDOMEN: soft, nontender. EXTREMITIES: no edema. PERIPHERAL PULSES: equal. NEUROLOGIC: No gross deficits, AAO X 3 Results Labs and Meds Result diagrams: 11/18/20 05:18 11/19/20 05:18 Lab results: Laboratory Results - last 24 hr 11/19/20 05:18 Sodium 142 Potassium 3.5 Chloride 107 Carbon Dioxide 26 Anion Gap 13 BUN 22 H Creatinine 0.76 Estim Creat Clear Calc 71.1 Estimated GFR > 60 Random Glucose 150 H D Calcium 8.1 L Progress Note: A&P Assessment and plan (1) Elevated troponin: Status: Acute (2) HTN (hypertension): Status: Acute (3) Abnormal ECG: Status: Acute Assessment and Plan: 75-year-old female who is here for confusion and UTI. She is improving. She was hypokalemic. She has been on Florinef and midodrine. her blood pressure has been elevated. I think the being should be stopped. I think Florinef is the likely cause for elevated blood pressure. I think we should hold the Florinef for now in addition to midodrine. Monitor potassium closely as Florinef is the likely cause for her hypokalemia. Echocardiography has shown normal LV function without any wall motion abnormalities. No further workup is required for the ECG changes at this point. Thank you for allowing me to participate in the care of your patient. Please feel free to contact me if you have any questions. Fall Risk Details Current Medications: Current Medications Generic Name Dose Route Start Last Admin Trade Name Freq PRN Reason Stop Dose Admin Acetaminophen 650 mg 11/17/20 19:49 Acetaminophen 325 Mg Tablet PO Q6H PRN Pain, Mild (Pain Scale 1-3) Aspirin 81 mg 11/18/20 09:00 11/19/20 08:19 Aspirin Enteric Coated 81 Mg Tablet.Dr PO 81 mg DAILY GEREMIAS Administration Atorvastatin Calcium 80 mg 11/17/20 21:00 11/18/20 21:26 Atorvastatin Calcium 80 Mg Tablet PO 80 mg BEDTIME GEREMIAS Administration Cyanocobalamin 1,000 mcg 11/18/20 09:00 11/19/20 08:19 Cyanocobalamin (Vitamin B-12) 1,000 Mcg Tablet PO 1,000 mcg DAILY GEREMIAS Administration Diphenhydramine HCl 25 mg 11/17/20 21:00 11/18/20 21:26 Diphenhydramine Hcl 25 Mg Tablet PO 25 mg BEDTIME GEREMIAS Administration Docusate Sodium 100 mg 11/17/20 19:57 Docusate Sodium 100 Mg Capsule PO BID PRN Constipation Enoxaparin Sodium 40 mg 11/17/20 22:00 11/18/20 21:26 Enoxaparin Sodium 40 Mg/0.4 Ml Syringe SUBCUT 40 mg Q24H [facility] Administration Fludrocortisone Acetate 0.1 mg 11/17/20 21:00 11/17/20 23:07 Fludrocortisone Acetate 0.1 Mg Tablet PO Not Given BID [facility] Ceftriaxone Sodium 1 gm/ 50 mls @ 100 mls/hr 11/18/20 06:00 11/19/20 06:10 Sodium Chloride IV Infused Q24H [facility] Infusion Levothyroxine Sodium 75 mcg 11/18/20 06:00 11/19/20 05:06 Levothyroxine Sodium 75 Mcg Tablet PO 75 mcg DAILY@0600 [facility] Administration Magnesium Hydroxide 30 ml 11/17/20 19:49 Milk Of Magnesia 30 Ml Oral.Susp PO DAILY PRN Constipation Melatonin 6 mg 11/17/20 19:49 Melatonin 3 Mg Tablet PO BEDTIME PRN Insomnia Midodrine 2.5 mg 11/18/20 09:00 11/18/20 08:23 Midodrine Hcl 2.5 Mg Tablet PO Not Given DAILY [facility] Nitroglycerin 0.4 mg 11/17/20 19:56 Nitroglycerin 0.4 Mg Tab.Subl SUBLINGUAL Q5M PRN Chest Pain Pharmacy Consult 1 each 11/17/20 18:50 Consult Rx Perform Med Rec MISCELLANE ONCE PRN Consult order Potassium Chloride 20 meq 11/17/20 21:00 11/19/20 08:19 Potassium Chloride Er 20 Meq Tab.Er.Prt PO 20 meq TID GEREMIAS Administration Sodium Chloride 3 ml 11/18/20 00:00 11/19/20 08:20 0.9 % Sodium Chloride Flush 3 Ml Syringe IVFLUSH 3 ml QSHIFT GEREMIAS Administration Valacyclovir HCl 500 mg 11/18/20 09:00 11/19/20 08:19 Valacycyclovir Hcl 500 Mg Tablet PO 500 mg DAILY GEREMIAS Administration Time Spent With Patient Time: Total time spent is greater than 50% in coordination of care (as documented) at patient's floor/unit and/or counseling patient: Time with patient: Greater than 35 minutes Progress Note: Quality Stroke Does the patient have a stroke diagnosis?: No Procedures Date of Service Date of Service: 11/19/20
[2020-11-19 15:33] VITALS: BP 189/93; PULSE 95; RESP 17; TEMP 36.1; O2SAT 95
--- NOTE | 2020-11-19 16:38 | PM.DS ---
DS: Providers Provider Date of Service: 11/19/20 Date of admission: 11/17/20 19:49 Primary care physician: Billy Dexter MD Consults: 11/17/20 19:49 Consult to Cardiology Routine Consulting Provider: Tyrel Torres Reason for consultation: Elevated troponins DS: Diagnosis Discharge Diagnosis (1) Acute UTI: Status: Acute (2) Abnormal ECG: Status: Acute (3) Elevated troponin: Status: Acute (4) Hypokalemia: Status: Acute (5) Multiple myeloma: Status: Acute (6) Postural hypotension: Status: Acute (7) HTN (hypertension): Status: Acute DS: Medications Discharge Medications Home Medications: Home Medications Medication Instructions Recorded Confirmed acetaminophen 500 mg tablet 1,000 mg PO Q6H PRN 01/18/20 11/17/20 calcium carbonate 600 mg (1,500 2 tab PO BID 01/18/20 11/17/20 mg)-vitamin D3 200 unit tablet dexamethasone 20 mg tablet 4 mg PO 2XW 02/22/20 11/18/20 docusate sodium 100 mg capsule 100 mg PO BID PRN 07/15/20 11/17/20 cyanocobalamin (vitamin B-12) 1,000 mcg PO DAILY 11/17/20 11/17/20 1,000 mcg tablet diphenhydramine HCl 25 mg capsule 25 mg PO BEDTIME 11/17/20 11/17/20 (Benadryl) potassium chloride 20 mEq 20 meq PO TID 11/17/20 11/17/20 tablet,extended release Previous Rx's Medication Instructions Recorded aspirin 81 mg tablet,delayed 81 mg PO DAILY #60 tab 02/12/20 release (Aspirin Low Dose) levothyroxine 75 mcg tablet 75 mcg PO DAILY #60 tab 05/15/20 simvastatin 40 mg tablet 40 mg PO DAILY #90 tab 06/05/20 valacyclovir 500 mg tablet 500 mg PO DAILY #90 tab 08/21/20 (Valtrex) lenalidomide 15 mg capsule 15 mg PO DAILY #14 cap 10/09/20 (Revlimid) cefuroxime axetil 500 mg tablet 500 mg PO Q12H 7 Days #14 tab 11/19/20 DS: Summary Hospital Course Hospital Course: History of presenting illness Chief Complaint: Generalized weakness 75-year-old female with a past medical history of hypertension, hyperlipidemia, mitral regurgitation, hypothyroidism, osteopenia, postural hypotension, diastolic CHF; presented to the hospital today with a chief complaint of generalized weakness/dizziness. Most of the history obtained from the patient and patient's daughter at bedside. Initially patient presented to the hospital with generalized weakness and unable to express words, stroke code was called in; subsequently her symptoms gradually improved.? ER exam was nonfocal; CT head and MRI brain showed no acute findings. At the time of my interview patient reports her symptoms improved.? Mentions that over the past couple days she has been having dizziness and generalized weakness.? Complains of urinary frequency; denies any fevers and chills.? Denies any abdominal discomfort or chest pain.? Denies any numbness tingling.? Speech is clear. Review of all other systems is negative except mentioned above ER course:? As mentioned patient CT head and MRI brain showed no acute findings, stroke was ruled out.? But noted to have elevated troponins; EKG showed T-wave inversions in the lateral leads; discussed with Cardiology Dr Torres who recommended admission to the [facility] and will be evaluated in the morning; Past medical history Gallstone HLP (hyperkeratosis lenticularis perstans) HTN (hypertension) Hypothyroidism Mitral regurgitation Multiple myeloma Osteopenia Postural hypotension Hospital course 75-year-old female with a past medical history of hypertension, hyperlipidemia, mitral regurgitation, hypothyroidism, osteopenia, postural hypotension, diastolic CHF; presented to the hospital today with a chief complaint of generalized weakness/dizziness and difficulty expressing herself, patient diagnosed to have UTI and admitted to hospital for further treatment patient diagnosed to have acute toxic encephalopathy due to UTI, no symptoms of sepsis noted, patient treated with IV ceftriaxone urine culture grew Gram-negative rods, all symptoms of dizziness weakness resolved patient is feeling significantly better and is adamant to be discharged therefore she is being discharged home on by mouth Ceftin 500 mg twice daily she has been recommended to return to hospital with any worsening symptoms of fever chills or generalized weakness, CT head and MRI brain showed no acute abnormality. Elevated troponins, EKG showed anterior lateral T-wave inversion, patient asymptomatic with no chest pain, no palpitation, limited echocardiogram showed EF 65-70% no regional wall motion abnormalities were noted,had abnormal diastolic function, patient evaluated by Cardiology since patient is asymptomatic with no wall motion abnormality patient does not have acute coronary syndrome likely EKG changes secondary to electrolyte abnormality, repeat EKG this morning has normalized continue home medication aspirin and statin Hypokalemia:? Repleted continue home dose of potassium Elevated random blood glucose:? hemoglobin A1c 5.5, repeat blood sugars stable Generalized weakness/dizziness:? Likely due to uti all symptoms resolved. History of postural hypotension:? on midodrine and fludrocortisone at home, patient noted to have elevated blood pressure therefore both of these medications has been discontinued In regard to multiple myeloma she has been recommended to continue home medication Time Spent with Patient Time attestation: Total time spent providing and/or coordinating discharge services: Discharge coordination time: Greater than 30 minutes Quality: Stroke Does the patient have a stroke diagnosis?: No Physical Exam Vital Signs: Vital Signs: Last Vital Signs Temp 97 F 11/19/20 15:33 Pulse 95 11/19/20 15:33 Resp 17 11/19/20 15:33 BP 189/93 H 11/19/20 15:33 Pulse Ox 95 11/19/20 15:33 Body Mass Index 29.8 General resting comfortably in no acute distress.? Neck supple no JVD. CVS? regular rate rhythm, systolic murmur Respiratory lungs clear to auscultation, no respiratory distress, no wheeze, no rhonchi. Gastrointestinal abdomen soft, nontender, bowel sounds audible, no guarding , no rigidity. Extremities no? edema. Neuro nonfocal , speech clear. Skin no rash DS: Data Data Completed and Pending Labs on day of discharge: Laboratory Results - last 24 hr 11/19/20 05:18 Sodium 142 Potassium 3.5 Chloride 107 Carbon Dioxide 26 Anion Gap 13 BUN 22 H Creatinine 0.76 Estim Creat Clear Calc 71.1 Estimated GFR > 60 Random Glucose 150 H D Calcium 8.1 L Preliminary micro results at discharge 11/17/20 15:56 Urine Culture - Preliminary Urine clean catch - Urine angel top Gram negative mihir Discharge Plan Discharge Patient Disposition: Home, Self-Care Discharge Diagnosis: Acute encephalopathy Urinary tract infection Abnormal EKG Hypo K Orthostatic hypotension Generalized weakness Referrals: Billy Dexter MD [Primary Care Provider] - 1 Week Discharge Medications: New cefuroxime axetil 500 mg tablet 500 mg PO Q12H 7 Days Qty: 14 RF: 0 Continued simvastatin 40 mg tablet 40 mg PO DAILY Qty: 90 RF: 1 calcium carbonate-vitamin D3 600 mg(1,500mg) -200 unit Tablet 2 tab PO BID RF: 0 acetaminophen 500 mg Tablet 1,000 mg PO Q6H PRN (Reason: Pain) RF: 0 aspirin [Aspirin Low Dose] 81 mg Tablet,Delayed Release (Dr/Ec) 81 mg PO DAILY Qty: 60 RF: 6 dexamethasone 20 mg Tablet 4 mg PO 2XW RF: 0 levothyroxine 75 mcg Tablet 75 mcg PO DAILY Qty: 60 RF: 0 docusate sodium 100 mg Capsule 100 mg PO BID PRN (Reason: Constipation) RF: 0 valacyclovir [Valtrex] 500 mg Tablet 500 mg PO DAILY Qty: 90 RF: 5 Revlimid 15 mg Capsule 15 mg PO DAILY Qty: 14 RF: 11 cyanocobalamin (vitamin B-12) 1,000 mcg Tablet 1,000 mcg PO DAILY RF: 0 diphenhydramine HCl [Benadryl] 25 mg Capsule 25 mg PO BEDTIME RF: 0 potassium chloride 20 mEq tablet extended release 20 meq PO TID RF: 0 Discontinued midodrine 2.5 mg Tablet 2.5 mg PO DAILY RF: 0 sulfamethoxazole-trimethoprim [Bactrim DS] 800-160 mg Tablet 1 tab PO Q12H Qty: 180 RF: 6 fludrocortisone 0.1 mg Tablet 0.1 mg PO BID Qty: 60 RF: 3 Discharge Orders: Discharge Order (Routine); Ordered 11/19/20 Ordered By: Mayda Spear Diet: low fat, low cholesterol Activity on Discharge: As tolerated Stand Alone Forms: Patient Portal Discharge page Care Plan Goals: Urinary tract infection take Ceftin 500 mg twice daily for 7 days and follow-up with PCP, return to check with any worsening symptoms of headache dizziness or fall Health Concerns: Orthostatic hypotension/hypertension/multiple myeloma continue all prior medications as before, stop midodrine and Florinef since blood pressure elevated no low blood pressure reading Plan of Treatment: Outpatient follow-up with primary care physician in next 7-10 days. Assessment: as above
== END 2020-11-19 17:45 | disposition home or self-care (01) | DRG 690 ==
LOC: HO.ED 19:55 → HO.IMC 20:58
PROVIDERS: Admitting Provider Hospitalist; Emergency Provider Emergency Medicine; PCP Internal Medicine; Visit Provider Hospitalist
DX: N39.0 Urinary tract infection, site not specified (principal); C90.00 Multiple myeloma not having achieved remission; I45.2 Bifascicular block; I95.1 Orthostatic hypotension; E03.9 Hypothyroidism, unspecified; I10 Essential (primary) hypertension; M85.80 Other specified disorders of bone density and structure, unspecified site; E78.5 Hyperlipidemia, unspecified; E87.6 Hypokalemia; Z20.822 Contact with and (suspected) exposure to COVID-19; R79.89 Other specified abnormal findings of blood chemistry; R94.31 Abnormal electrocardiogram [ECG] [EKG]; Z87.891 Personal history of nicotine dependence; Z88.5 Allergy status to narcotic agent; Z79.82 Long term (current) use of aspirin; Z79.890 Hormone replacement therapy; Z79.899 Other long term (current) drug therapy
CPT/HCPCS: 36415; 70450; 70551; 71045; 80048; 81001; 82550; 82947; 83036; 83735; 84484; 85025; 85610; 85730; 87086; 87088; 87186; 87635; 93005; 93308; 99284; J0696; J1650; J2060; J8540; Q0163

== ENCOUNTER 2021-01-23 10:30 | Outpatient (REF) | payer MEDICARE, SELFPAY ==
--- NOTE | ~2021-01-23 | MM_ITS ---
EXAMINATION: MM SCREENING DIGITAL BREAST TOMOSYNTHESIS, BILATERAL CLINICAL INFORMATION: Screening. Asymptomatic. The lifetime risk of breast cancer based on the Tyrer-Cuzick Model is 3%. COMPARISON: Mammography: 10/29/2019, 10/23/2018, 10/05/2017 TECHNIQUE: Digital breast tomosynthesis is performed in both the craniocaudal and mediolateral oblique views along with computer-aided detection (CAD). Synthesized 2D images are generated from the tomosynthesis. FINDINGS: The breasts are heterogeneously dense, which may obscure small masses (ACR BI-RADS breast composition Category c). Breast tissue composition borders on extremely dense. Parenchymal pattern is similar to prior studies and there is no significant mass, architectural abnormality, developing density. Again, there are scattered bilateral punctate round, some mildly coarse, and numerous bilateral vascular calcifications. No significant changes. MM/MM tomosynthesis screening BI IMPRESSION: No mammographic evidence of malignancy. ASSESSMENT: BI-RADS 2: Benign RECOMMENDATION: Routine annual mammography screening. This patient's information was entered into a reminder system with a target due date for their next mammogram.
== END 2021-01-23 10:31 | disposition home or self-care (01) ==
LOC: HO.MAMMO 10:30
PROVIDERS: Visit Provider Internal Medicine
DX: Z12.31 Encounter for screening mammogram for malignant neoplasm of breast (principal)
CPT/HCPCS: 77063; 77067

== ENCOUNTER → 2021-05-04 08:18 | Outpatient (BNVA) | payer MEDICARE, SELFPAY | PROVIDERS: PCP Internal Medicine; Referring Provider Internal Medicine; Visit Provider Internal Medicine | DX: I95.1 Orthostatic hypotension (principal); I10 Essential (primary) hypertension; I45.2 Bifascicular block; I35.0 Nonrheumatic aortic (valve) stenosis | CPT/HCPCS: 99212 ==

== ENCOUNTER 2021-07-29 11:29 | Outpatient (REF) | payer MEDICARE, SELFPAY ==
[2021-07-29 12:47] LABS: Anion Gap 13 (12-20); Blood Urea Nitrogen 17 mg/dL (9-16); Carbon Dioxide 28 mmol/L (22-29); Chloride 107 mmol/L (96-108); Estimated Glomerular Filt Rate > 60; Glucose Random 97 mg/dL (60-115); Potassium 4.6 mmol/L (3.3-5.1); Sodium 143 mmol/L (135-145)
[2021-07-29 12:51] LABS: Thyroid Stimulating Hormone 2.42 uIU/mL (0.32-4.0)
== END 2021-07-29 11:30 | disposition home or self-care (01) ==
LOC: HO.LAB 11:29
PROVIDERS: PCP Internal Medicine; Visit Provider Internal Medicine
DX: E03.9 Hypothyroidism, unspecified (principal); E87.6 Hypokalemia
CPT/HCPCS: 36415; 80048; 84443

== ENCOUNTER 2021-08-04 07:17 | Outpatient (REF) | payer MEDICARE, SELFPAY ==
[2021-08-04 09:10] LABS: Appearance Urine CLOUDY; Color Urine YELLOW; Glucose Urine UA NEG (NEG); Leukocyte Esterase Urine 3+ (NEG); Nitrite Urine POS (NEG); PH 6.5 (5.0-8.0); UACC Culture Trigger YES; Urine Blood TRACE (NEG); Urine Ketones NEG (NEG); Urine Protein NEG (NEG-TRACE)
[2021-08-04 09:48] LABS: Bacteria Urine 2+ /LPF; WBC Urine TNTC /HPF (0-4)
== END 2021-08-04 07:18 | disposition home or self-care (01) ==
LOC: HO.LAB 07:17
PROVIDERS: PCP Internal Medicine; Visit Provider Internal Medicine
DX: R30.0 Dysuria (principal)
CPT/HCPCS: 81001; 81003; 87086; 87088; 87186

== ENCOUNTER → 2021-09-16 08:19 | Outpatient (BNVA) | payer MEDICARE, SELFPAY | PROVIDERS: PCP Internal Medicine; Referring Provider Internal Medicine; Visit Provider Internal Medicine | DX: I95.1 Orthostatic hypotension (principal); I10 Essential (primary) hypertension; I35.0 Nonrheumatic aortic (valve) stenosis; I45.2 Bifascicular block | CPT/HCPCS: 99212 ==

== ENCOUNTER 2022-01-25 07:16 | Outpatient (REF) | payer MEDICARE, SELFPAY ==
--- NOTE | ~2022-01-25 | MM_ITS ---
EXAMINATION: MM SCREENING DIGITAL BREAST TOMOSYNTHESIS, BILATERAL CLINICAL INFORMATION: Screening. Asymptomatic. The lifetime risk of breast cancer based on the Tyrer-Cuzick Model is 2%. COMPARISON: Mammography: 01/23/2021, 10/29/2019, 10/23/2018 TECHNIQUE: Digital breast tomosynthesis is performed in both the craniocaudal and mediolateral oblique views along with computer-aided detection (CAD). Synthesized 2D images are generated from the tomosynthesis. FINDINGS: The breasts are heterogeneously dense, which may obscure small masses (ACR BI-RADS breast composition Category c). There are no significant masses, abnormal calcifications, or other abnormalities. Breast tissue composition borders on extremely dense. Again, there are scattered bilateral predominantly vascular as well as some coarse and punctate round calcifications. The axilla and skin contours are unremarkable. No significant changes from prior studies. MM/MM tomosynthesis screening BI IMPRESSION: No mammographic evidence of malignancy. ASSESSMENT: BI-RADS 2: Benign RECOMMENDATION: Routine annual mammography screening. This patient's information was entered into a reminder system with a target due date for their next mammogram.
== END 2022-01-25 07:17 | disposition home or self-care (01) ==
LOC: HO.MAMMO 07:16
PROVIDERS: PCP Internal Medicine; Visit Provider Internal Medicine
DX: Z12.31 Encounter for screening mammogram for malignant neoplasm of breast (principal)
CPT/HCPCS: 77063; 77067

== ENCOUNTER → 2022-04-05 08:57 | Outpatient (BNVA) | payer MEDICARE, SELFPAY | PROVIDERS: PCP Internal Medicine; Visit Provider Internal Medicine | DX: I95.1 Orthostatic hypotension (principal); I45.2 Bifascicular block; I35.0 Nonrheumatic aortic (valve) stenosis; I10 Essential (primary) hypertension | CPT/HCPCS: 93005; 99212 ==

== ENCOUNTER → 2022-05-19 08:54 | Outpatient (BNVA) | payer MEDICARE, SELFPAY | PROVIDERS: PCP Internal Medicine; Visit Provider Nurse Practitioner Family | DX: Z13.89 Encounter for screening for other disorder (principal) ==

== ENCOUNTER 2022-06-07 05:51 | Emergency (ER) | payer MEDICARE, SELFPAY ==
--- NOTE | ~2022-06-07 | CT_ITS ---
EXAMINATION: CT ABDOMEN AND PELVIS WITH CONTRAST CLINICAL INFORMATION: Bloody stool COMPARISON: Previous CT of the abdomen and pelvis December 2019 TECHNIQUE: Multidetector volumetric images were obtained from the superior aspect of the liver through the pubic symphysis following administration 85 mL of Omnipaque 350 intravenous contrast. Sagittal and coronal reformatted images were obtained on the technologist's workstation. Oral contrast: Yes This CT examination was performed using dose optimization techniques as appropriate, variously including the following: *Automated exposure control *Adjustment of mA and/or kV according to patient size (this includes techniques or standardized protocols for targeted exams where dose is matched to indication/reason for exam; i.e. extremities or head) *Use of iterative reconstruction technique DLP: 621 mGy-cm FINDINGS: LUNG BASES: The visualized lung bases are unremarkable. LIVER, GALLBLADDER, AND BILIARY TREE: Slightly low-attenuation liver. Small peripheral subcentimeter low-attenuation lesion in the left lobe of the liver axial image 16 series 2. This is difficult to further characterize. Upper normal-size gallbladder. No gallstone seen. No biliary duct dilatation. PANCREAS: Unremarkable. SPLEEN: Unremarkable. ADRENAL GLANDS: Unremarkable. KIDNEYS AND URETERS: Small bilateral renal cysts.. No imaging follow-up recommended. Small nonobstructing stone in the upper pole of the left kidney. Kidneys are otherwise normal. BLADDER: Unremarkable. GASTROINTESTINAL TRACT: There is wall thickening of the left colon and sigmoid colon. The wall is low in attenuation suggestive of edema. There is stranding of the surrounding fat and prominent adjacent vascularity. Findings are suggestive of colitis. There is also evidence of mild diverticular disease of the colon. The more proximal right and transverse colon are normal. The appendix is not seen and may have been removed. The stomach and small bowel are normal. There is a small amount of ascites in the right lower quadrant and pelvis. ABDOMINAL WALL: Small umbilical hernia containing fat. LYMPH NODES: Normal. VASCULAR: Atherosclerotic disease. No aneurysm. The SMA and DIANNE are patent. PELVIC VISCERA: The uterus appears to have been removed. No pelvic mass. OSSEOUS STRUCTURES: Osteopenia. Degenerative changes of the spine. Mild L5 vertebral body compression fracture. This is new in the interval from 2019 CT/CT abdomen pelvis w IV con IMPRESSION: Colitis of the left colon and sigmoid colon. There is also evidence of diverticular disease. Small amount of ascites. Small nonobstructing left renal stone. Bilateral renal cysts. Upper normal-size gallbladder. Fleischner guidelines were followed.
[2022-06-07 06:09] VITALS: BP 169/95; PULSE 94; RESP 16; TEMP 37; O2SAT 99; BMI 28.8
[2022-06-07 06:44] LABS: MANUAL DIFF FLAG NO
[2022-06-07 06:46] LABS: Basophils Percent Auto 0.4 % (0-2); Eosinophils Absolute Auto 0.1 X10*3/uL (0.0-0.4); Eosinophils Percent Auto 3.1 % (0-4); Hematocrit 42.7 % (37.0-47.0); Hemoglobin 14.8 g/dl (12.0-16.0); Imm Gran Abs Auto 0.02 X10*3/uL (0.00-0.03); Imm Gran Pct Auto 0.4 % (0.0-0.4); Lymphocytes Absolute Auto 1.6 X10*3/uL (1.2-4.9); Lymphocytes Percent Auto 36.5 % (20-40); Mean Corpuscular HGB Conc 34.7 g/dl (31.0-35.0); Mean Corpuscular Hemoglobin 31.7 pg (27.0-33.0); Mean Corpuscular Volume 91.4 fL (80.0-98.0); Mean Platelet Volume 11.1 fL (9.4-12.3); Monocytes Absolute Auto 0.5 X10*3/uL (0.1-1.2); Monocytes Percent Auto 11.4 % (2-11); Neutrophils Absolute Auto 2.2 x10*3/uL (2.0-8.3); Neutrophils Percent Auto 48.2 % (45-73); Platelet Count 149 X10*3/uL (160-400); Red Blood Count 4.67 X10*6/uL (4.20-5.50); Red Cell Distribution Width 13.9 % (11.0-16.0); White Blood Count 4.5 X10*3/uL (4.8-10.8)
--- NOTE | 2022-06-07 06:52 | PC.NURSE ---
Pt reports blood in stool x 4 with blood clots since last night. Reports starting as diarrhea. Denies any pain, denies ABD pain, no N/V. Pt ambulated to BR but unable to give stool sample at this time. IV line placed, blood work drawn and sent to lab.
[2022-06-07 07:03] LABS: Alanine Aminotransferase 30 U/L (0-31); Albumin Level 3.8 g/dL (3.5-5.0); Alkaline Phosphatase 52 U/L (39-117); Anion Gap 15 (12-20); Aspartate Amino Transferase 33 U/L (5-31); Bilirubin Total 1.2 mg/dL (0.0-1.0); Blood Urea Nitrogen 14 mg/dL (9-16); Calcium 8.6 mg/dL (8.4-10.2); Carbon Dioxide 27 mmol/L (22-29); Chloride 107 mmol/L (96-108); Creatinine Clr Calc Pharmacy 65.2; Estimated Glomerular Filt Rate > 60; Glucose Random 152 mg/dL (60-115); Potassium 3.5 mmol/L (3.3-5.1); Sodium 145 mmol/L (135-145); Total Protein 5.9 g/dL (6.5-8.0)
--- NOTE | 2022-06-07 07:16 | ED.GIBLEED ---
HPI - GI Bleed General Chief complaint: GI Bleed Stated complaint: Rectal bleeding Time Seen by Provider: 06/07/22 07:15 Source: patient Mode of arrival: ambulatory Limitations: no limitations History of Present Illness HPI Narrative: Patient with bloody mucous diarrhea, she has gone 5 times, no fever, no pain. No recent travel, no concern over food poisoning. She has no history of UC, colitis, chrohns. Diarrhea was watery and then became bloody. Patient with recent UTI and is on antibiotics. Daughter states she is taking levaquin Related Data Home Medications Medication Instructions Recorded Confirmed acetaminophen 500 mg tablet 1,000 mg PO Q6H PRN Pain 01/18/20 05/07/22 calcium carbonate 600 mg-vitamin 2 tab PO BID 01/18/20 05/07/22 D3 5 mcg (200 unit) tablet docusate sodium 100 mg capsule 100 mg PO BID PRN Constipation 07/15/20 05/07/22 cyanocobalamin (vitamin B-12) 1,000 mcg PO DAILY 11/17/20 05/07/22 1,000 mcg tablet Previous Rx's Medication Instructions Recorded aspirin 81 mg tablet,delayed 81 mg PO DAILY #60 tabs 02/12/20 release (Eliu Low Dose Aspirin) valacyclovir 500 mg tablet 500 mg PO DAILY #90 tabs 08/25/21 (Valtrex) levothyroxine 75 mcg tablet 75 mcg PO DAILY #60 tabs 12/17/21 propranolol 60 mg capsule,24 60 mg PO BEDTIME #90 caps 12/27/21 hr,extended release lenalidomide 15 mg capsule 15 mg PO DAILY #14 caps 03/18/22 (Revlimid) levofloxacin 500 mg tablet 500 mg PO DAILY #10 tabs 03/25/22 lenalidomide 15 mg capsule 15 mg PO DAILY #14 caps 04/07/22 (Revlimid) lenalidomide 15 mg capsule 15 mg PO DAILY #14 caps 05/03/22 (Revlimid) simvastatin 40 mg tablet 40 mg PO DAILY #90 tabs 05/19/22 lisinopril 30 mg tablet 30 mg PO DAILY #30 tabs 05/20/22 lenalidomide 15 mg capsule 15 mg PO DAILY #14 caps 05/21/22 (Revlimid) potassium chloride 20 mEq 40 meq PO BID #360 tabs 05/23/22 tablet,extended release metronidazole 500 mg tablet 500 mg PO TID #30 tabs 06/07/22 Allergies Allergy/AdvReac Type Severity Reaction Status Date / Time red dye [Red Dye] Allergy Mild SWELLING Verified 05/07/22 09:28 oxycodone AdvReac Intermediate Vomiting Verified 05/07/22 09:28 Review of Systems Review of Systems: Yes all other systems are reviewed and are negative Gastrointestinal: Comments: bloody , muscous, diarrhea Neurologic: Denies Sensory deficit (Neuro) [facility] Past Medical History Medical History Gallstone HLP (hyperkeratosis lenticularis perstans) HTN (hypertension) Hypothyroidism Mitral regurgitation Multiple myeloma Osteopenia Postural hypotension Surgical History History of appendectomy History of meniscectomy of left knee History of partial hysterectomy Family History Family History Other HTN (hypertension) No family history of cancer Social History Social History Household Members: Spouse Housing: House Are you a primary health care specialist to a significant other at home: No Do you presently have visiting nurse or other home services: No Alcohol intake: never Patient Tobacco Use Status: Former Tobacco user Tobacco use type: Cigarette Smoked in Last 30 Days: No e-Cigarette/Vaping Use: Never Used Second Hand Smoke Exposure: No Use of substances other than those prescribed or required for medical reasons: No Advance Directives: Yes Advance Directives Information Provided: Yes Advance Directives on File: No Advance Directives Date on File: 11/17/20 service: No Current occupational status: retired Cognitive needs: No Hearing needs: No Vision needs: Yes (Glasses) Physical Exam Vital Signs: Vital Signs: Last Vital Signs Temp 98.3 F 06/07/22 10:36 Pulse 86 06/07/22 10:36 Resp 16 06/07/22 10:36 BP 147/78 H 06/07/22 10:36 Pulse Ox 96 06/07/22 08:00 O2 Del Method 06/07/22 08:00 BMI result Body Mass Index 28.8 Const: General: healthy appearing Nutritional Appearance: average body habitus Orientation/consciousness: oriented to person and patient oriented x3 Limitations: no limitations HEENT: Head: Yes normal to inspection Ears: external ears normal General nose exam: Normal external nose present Mouth: Normal oral and palatal mucosa present and oropharynx normal Throat: Yes posterior oropharynx normal Eyes: General: appearance normal, both eyes and all related structures Neck: Other: supple Neck: Yes normal visual inspection Chest: Chest palpation & inspection: normal inspection of the chest Resp: Auscultation: clear to auscultation bilaterally Cardio: Jugular venous distension: no JVD Rate: regular rate Rhythm: regular rhythm Heart sounds: S1 normal heart sound present and S2 normal heart sound present GI: Inspection: Yes normal to inspection Palpation (GI): Soft to palpation, nontender and No hepatosplenomegaly present Auscultation: normal bowel sounds : General: Yes no CVA tenderness Back/Spine/Pelvis: Back: no CVA tenderness Skin: General skin exam: no rashes or lesions noted Neuro: General: oriented to person and patient oriented x3 Cranial nerves: Yes CN's II-XII intact bilaterally Motor exam (neuro): 5/5 motor strength present throughout Sensory Exam: No Sensory deficit (Neuro) Extrem: General: Yes normal to inspection Psych: Appearance: grossly normal Course Reevaluation(s) Reevaluation #1: descending and sigmoid inflammation on CT. Will add flagyl to her levaquin. Cdifficile negative, patient is nontoxic appearing with soft abdomen Time: 11:13 Medications Administered Discontinued Medications Generic Name Dose Route Start Last Admin Trade Name Freq PRN Reason Stop Dose Admin Iohexol 85 ml 06/07/22 09:25 06/07/22 09:26 Iohexol 350 Mg/Ml 100 Ml Infus..Btl IV 06/07/22 09:26 85 ml ONCE ONE Administration Medical Decision Making Differential Diagnosis Differential Diagnoses: The differential diagnosis associated with the presentation includes (GI bleed, colitis, diverticulitis, cdifficile, colon ca all were considered) Admission/Observation Consideration of admission/observation: Escalation of care including admission/observation considered (In a 76 yo female with bloody diarrhea, admission was considered) Lab Data MDM Lab Attestation statement: I reviewed the patient's lab results. 06/07/22 06:41 06/07/22 06:41 Labs: Lab Results 02/20/23 02/20/23 02/20/23 Range/Units 06:41 06:41 09:28 WBC 4.5 L (4.8-10.8) X10*3/uL RBC 4.67 (4.20-5.50) X10*6/uL Hgb 14.8 (12.0-16.0) g/dl Hct 42.7 (37.0-47.0) % MCV 91.4 (80.0-98.0) fL MCH 31.7 (27.0-33.0) pg MCHC 34.7 (31.0-35.0) g/dl RDW 13.9 (11.0-16.0) % Plt Count 149 L (160-400) X10*3/uL MPV 11.1 (9.4-12.3) fL Immature Gran % (Auto) 0.4 (0.0-0.4) % Neut % (Auto) 48.2 (45-73) % Lymph % (Auto) 36.5 (20-40) % [place] % (Auto) 11.4 H (2-11) % Eos % (Auto) 3.1 (0-4) % Baso % (Auto) 0.4 (0-2) % Lymph # (Auto) 1.6 (1.2-4.9) X10*3/uL [place] # (Auto) 0.5 (0.1-1.2) X10*3/uL Eos # (Auto) 0.1 (0.0-0.4) X10*3/uL Baso # (Auto) 0.0 (0.0-0.2) X10*3/uL Abs Immat Gran (auto) 0.02 (0.00-0.03) X10*3/uL Absolute Neuts (auto) 2.2 (2.0-8.3) x10*3/uL Absolute Nucleated RBC 0.000 (0.0-0.012) X10*3/uL Nucleated RBC % (auto) 0.0 (0.0-0.2) /100WBC Sodium 145 (135-145) mmol/L Potassium 3.5 (3.3-5.1) mmol/L Chloride 107 (96-108) mmol/L Carbon Dioxide 27 (22-29) mmol/L Anion Gap 15 (12-20) BUN 14 (9-16) mg/dL Creatinine 0.83 (0.5-1.4) mg/dL Estim Creat Clear Calc 65.2 Estimated GFR > 60 Random Glucose 152 H (60-115) mg/dL Calcium 8.6 (8.4-10.2) mg/dL Total Bilirubin 1.2 H (0.0-1.0) mg/dL AST 33 H (5-31) U/L ALT 30 (0-31) U/L Alkaline Phosphatase 52 (39-117) U/L Total Protein 5.9 L (6.5-8.0) g/dL Albumin 3.8 (3.5-5.0) g/dL C. difficile Tox B Gene NEGATIVE (Negative) Radiology Impression Discussion of test interpretation with radiology: I have reviewed the radiologist's reading. (Ct of abdomen was reviewed) Independent Historian Clinical information obtained from an independent historian. History obtained from or confirmed by: Friend Discharge Plan Discharge Clinical Impression: Colitis Patient Disposition: Home, Self-Care Instructions: Colitis (ED), Enteritis (ED) Prescriptions: New metronidazole 500 mg tablet 500 mg PO TID Qty: 30 0RF No Action levothyroxine 75 mcg Tablet 75 mcg PO DAILY Qty: 60 2RF propranolol 60 mg capsule,extended release 24 hr 60 mg PO BEDTIME Qty: 90 1RF simvastatin 40 mg tablet 40 mg PO DAILY Qty: 90 1RF lisinopril 30 mg tablet 30 mg PO DAILY Qty: 30 2RF potassium chloride 20 mEq tablet extended release 40 meq PO BID Qty: 360 1RF calcium carbonate-vitamin D3 600 mg(1,500mg) -200 unit Tablet 2 tab PO BID acetaminophen 500 mg Tablet 1,000 mg PO Q6H PRN (Reason: Pain) aspirin [Eliu Low Dose Aspirin] 81 mg Tablet,Delayed Release (Dr/Ec) 81 mg PO DAILY Qty: 60 6RF docusate sodium 100 mg Capsule 100 mg PO BID PRN (Reason: Constipation) valacyclovir [Valtrex] 500 mg Tablet 500 mg PO DAILY Qty: 90 5RF lenalidomide [Revlimid] 15 mg Capsule 15 mg PO DAILY Qty: 14 6RF Rx Instructions: swallow whole with glass of water; do not open, crush, chew , break, or dissolve [id number] lenalidomide [Revlimid] 15 mg Capsule 15 mg PO DAILY Qty: 14 6RF Rx Instructions: swallow whole with glass of water; do not open, crush, chew , break, or dissolve. Auth number: [id number]. lenalidomide [Revlimid] 15 mg Capsule 15 mg PO DAILY Qty: 14 6RF Rx Instructions: swallow whole with glass of water; do not open, crush, chew , break, or dissolve. [id number]. lenalidomide [Revlimid] 15 mg Capsule 15 mg PO DAILY Qty: 14 6RF Rx Instructions: swallow whole with glass of water; do not open, crush, chew , break, or dissolve. Auth number: [id number]. cyanocobalamin (vitamin B-12) 1,000 mcg Tablet 1,000 mcg PO DAILY levofloxacin 500 mg tablet 500 mg PO DAILY Qty: 10 3RF Referrals: Billy Dexter MD [Primary Care Provider] - 5 days
[2022-06-07 07:48] VITALS: BP 156/76; PULSE 78; RESP 17; TEMP 37.2; O2SAT 96
[2022-06-07 08:00] VITALS: BP 156/76; PULSE 78; RESP 17; TEMP 37.2; O2SAT 96
[2022-06-07] MEDS: iohexoL 350 MG/ML 100 ML INFUS..BTL 85 ML IV (09:26)
[2022-06-07 10:00] VITALS: RESP 18
[2022-06-07 10:36] VITALS: BP 147/78; PULSE 86; RESP 16; TEMP 36.8
[2022-06-07 11:03] LABS: CDiff Gene PCR NEGATIVE (Negative)
[2022-06-07] MEDS: metroNIDAZOLE/NS 500 MG/100 ML PIGGYBACK 100 MG IV (11:25)
[2022-06-07 12:00] VITALS: BP 141/84; PULSE 84; RESP 18; O2SAT 96
[2022-06-07 12:38] LABS: Adenovirus F 40/41 Not Detected (Not Detect.); Astrovirus Not Detected (Not Detect.); Campylobacter Not Detected (Not Detect.); Cryptosporidium Not Detected (Not Detect.); Cyclospora cayetanensis Not Detected (Not Detect.); E. coli EAEC Not Detected (Not Detect.); E. coli EPEC Not Detected (Not Detect.); E. coli ETEC Not Detected (Not Detect.); E. coli STEC Not Detected (Not Detect.); Entamoeba histolytica Not Detected (Not Detect.); Giardia lamblia Not Detected (Not Detect.); Norovirus GI/GII Not Detected (Not Detect.); Plesiomonas shigelloides Not Detected (Not Detect.); Rotavirus A Not Detected (Not Detect.); Salmonella Not Detected (Not Detect.); Sapovirus Not Detected (Not Detect.); Shigella sp./EIEC Not Detected (Not Detect.); Vibrio Not Detected (Not Detect.); Vibrio Cholerae Not Detected (Not Detect.); Yersinia enterocolitica Not Detected (Not Detect.)
== END 2022-06-07 12:09 | disposition home or self-care (01) ==
PROVIDERS: Emergency Provider Emergency Medicine; PCP Internal Medicine
DX: K52.9 Noninfective gastroenteritis and colitis, unspecified (principal); Z20.822 Contact with and (suspected) exposure to COVID-19; Z20.828 Contact with and (suspected) exposure to other viral communicable diseases; Z87.891 Personal history of nicotine dependence; Z79.899 Other long term (current) drug therapy
CPT/HCPCS: 36415; 74177; 80053; 85025; 87493; 87507; 96365; 99284; 99285; Q9967

== ENCOUNTER → 2022-09-16 07:51 | Outpatient (REF) | payer MEDICARE, SELFPAY ==
--- NOTE | 2022-09-16 07:53 | CA_ITS ---
Transthoracic Echocardiogram Patient (Last, First, Middle): Merary He J Gender: Female Date of : 1945 Age: 76 Procedure Date: 09/16/2022 Procedure Type: Transthoracic Echocardiogram Location: OP Height: 167.64 cm Weight: 82.1 kg BSA: 1.92 m2 Heart Rate: bpm BP: 160 / 100 mmHg Metal Extrusion Supervisor: TO Referring MD: Noe Del Rio MD Chemists: Ankit Gardner MD Symptoms: I35.0 - Nonrheumatic aortic (valve) stenosis Study Quality: Fair ECG Rhythm: Sinus Conclusions: - 1. Normal LV systolic function with mild concentric left ventricular hypertrophy and severe asymmetric septal hypertrophy with elevated filling pressures 2. Mildly dilated left atrium 3. Mild aortic stenosis with suggestion of increased stroke volume 4. Normal RV systolic pressure 5. Mildly dilated ascending aorta 3.8 cm 6. No gross pericardial effusion Findings Left Ventricle Normal left ventricular size and systolic function. There is mildly increased left ventricular wall thickness. The visually estimated ejection fraction is between 60-65%. Spectral Doppler is indicative of an impaired relaxation filling pattern. Elevated filling pressures. E/E prime ratio is >15, consistent with elevated filling pressures. There is severe septal asymmetric hypertrophy. Right Ventricle Normal right ventricular cavity size and systolic function. Atria The left atrium is mildly dilated. There is no evidence of interatrial shunt. The right atrium is normal in size. Aortic Valve There is mild calcification of the aortic valve. There is mild thickening of the aortic valve. There is mild aortic valve stenosis. The mean gradient is 19 mmHg. The aortic valve area is 1.55 cm2. There is no aortic valve regurgitation. Mitral Valve There is mild anterior mitral leaflet thickening. There is mild mitral valve regurgitation. There is no mitral valve stenosis. Pulmonic Valve The pulmonic valve is likely normal. Tricuspid Valve Normal tricuspid valve structure. There is mild tricuspid valve regurgitation. The right ventricular systolic pressure is normal. The right ventricular systolic pressure is 23 mmHg. Normal right atrial pressure. There is no evidence of pulmonary hypertension. Great Vessels The pulmonary artery was not well visualized. There is mild dilatation of the ascending aorta measuring 3.80 cm. Venous The inferior vena cava is normal in size and collapses greater than 50% with inspiration. Pericardium/Pleural There is no evidence of pericardial effusion. Prior Study Comparison Changes noted compared to prior study dated: 11/18/2020. no pericardial effusion noted. There is at least mild aortic stenosis Measurements 2D Linear Measurements IVSd: 1.82 0.6-0.9/0.6-1.0 cm LVIDd: 4.57 3.9-5.3/4.2-5.9 cm LVIDd Index: 2.38 2.4-3.2/2.2-3.1 cm/m2 LVIDs: 1.94 2.0-3.6 cm LVPWd: 1.13 0.7-1.1 cm LA Diam: 4.00 2.7-3.8/3.0-4.0 cm LAIDs Index: 2.08 1.5-2.3 cm/m2 LV Mass: 343.01 67-162/88-224 g LV Mass Index: 178.65 43-95/49-115 g/m2 LVOT Diam: 2.10 3.0+(-)1.3 cm 2D Systolic Function EF 4C: 68.70 >55% EF 2C: 62.30 >55% EF BiP: 65.40 >55% Mitral Valve MV VTI: 0.32 MV Pk Haroldo: 0.92 MV Mn Haroldo: 0.51 MV Pk Grad: 3.00 MV Mn Grad: 1.00 MV Pk E: 0.64 MV PK A: 0.71 MV Decel Time: 222.00 E/A: 0.90 E'Lateral: 3.59 E'Medial: 3.05 E/E' Med: 20.90 E/E' Lat: 17.80 PHT: 65.00 MVA PHT: 3.38 MVA Continuity: 3.[address] [place]: 2.87 Aortic Valve AoV Pk Haroldo: 2.96 AoV Mn Haroldo: 2.05 AoV VTI: 0.72 AoV Pk Grad: 35.00 Aov Mn Grad: 19.00 EDUARD Cont.VTI: 1.55 LVOT LVOT Pk Haroldo: 1.30 LVOT Mn Ahroldo: 0.96 LVOT VTI: 0.33 LVOT Pk Grad: 7.00 LVOT Mn Grad: 4.00 LVOT Diam: 2.10 LVOT Area: 3.46 Diastolic Function MV Pk E: 0.64 MV Pk A: 0.71 E/A: 0.90 E'Medial: 3.05 E/E' Med: 20.90 E' Laterial: 3.59 E/E' Lat: 17.80 Right Ventricle TAPSE (mm): 21.50 TVS' Haroldo: 16.00 Tricuspid Valve TR Pk Haroldo: 1.91 TR Pk Grad: 15.00 RA Press: 8.00 RVSP: 23.00 Great Vessels Aorta Sinus of Valsalva: 3.63 2.0-3.[address] [place]: 2.43 1.7-3.4 cm Ao Asc: 3.80 2.1-3.4 cm Updated in Other Vendor System with Status of Final Ankit Gardner MD electronically signed on 09/17/2022 1:52:51 PM with status of Final
== END ==
LOC: HO.CARD 07:51
PROVIDERS: PCP Student in an Organized Health Care Education/Training Program; Visit Provider Internal Medicine
DX: I35.0 Nonrheumatic aortic (valve) stenosis (principal)
CPT/HCPCS: 93306

== ENCOUNTER 2022-12-22 09:16 | Outpatient (AMB) | payer MEDICARE, SELFPAY ==
--- NOTE | 2022-12-22 09:18 | MHC.OFFVIS ---
Intake Vital Signs 12/22/22 09:19 Height 5 ft 8 in Weight 188 lb 4.396 oz BMI 28.6 BP 162/102 H Blood Pressure Location Lt brachial Position Sitting Pulse 69 Intake Visit Reasons: R/S 6 month follow up Intake Note: 6 month follow up Manager Loan Required: No Accompanied by: Self / Same As Patient Allergies red dye [Red Dye] Allergy (Mild, Verified 12/22/22 09:21) SWELLING oxycodone Adverse Reaction (Intermediate, Verified 12/22/22 09:21) Vomiting Medication List - Last Reconciled 12/22/22 by Noe Del Rio MD acetaminophen 1,000 mg PO Q6H PRN aspirin (Eliu Low Dose Aspirin) 81 mg PO DAILY calcium carbonate-vitamin D3 600 mg-5 mcg (200 unit) 2 tabs PO BID cyanocobalamin (vitamin B-12) 1,000 mcg PO DAILY lenalidomide (Revlimid) 15 mg PO DAILY levothyroxine 75 mcg PO DAILY lisinopril 40 mg PO DAILY potassium chloride ER 40 mEq (2 x 20 mEq) PO BID propranolol ER 60 mg PO BEDTIME simvastatin 40 mg PO DAILY valacyclovir (Valtrex) 500 mg PO DAILY HPI HPI Comments History of Present Illness Details Merary returns for follow-up. In the past, she was seen for presyncope/orthostatic hypotension. She was on fludrocortisone for a while but as the blood pressure was going up we stopped it. She has a previous history of hypertension but then blood pressures were lower but more recently they are again high. She remains on lisinopril and doses been adjusted few months back. She also on propranolol but not clear why if it is for hypertension or something else. Overall, she states she feels fine. No specific complaints like angina or shortness of breath or in fact anything cardiac sounding. No documented coronary disease or myocardial infarction. [facility] Medical History Gallstone HLP (hyperkeratosis lenticularis perstans) HTN (hypertension) Hypothyroidism Mitral regurgitation Multiple myeloma Osteopenia Postural hypotension Surgical History History of appendectomy History of meniscectomy of left knee History of partial hysterectomy Family History Other HTN (hypertension) No family history of cancer Social History Household Members: Spouse Housing: House Are you a primary before and after school daycare worker to a significant other at home: No Do you presently have visiting nurse or other home services: No Alcohol intake: never Patient Tobacco Use Status: Former Tobacco user Tobacco use type: Cigarette e-Cigarette/Vaping Use: Never Used Second Hand Smoke Exposure: No Advance Directives Date on File: 11/17/20 service: No Current occupational status: retired Cognitive needs: No Hearing needs: No Vision needs: Yes (Glasses) Review of Systems Const Denies body aches, Denies chills, Denies fever(s) and Denies headache(s) Eyes Denies change in vision ENT Denies dizziness, Denies otalgia, Denies headache(s), Denies nasal discharge, Denies sinus pain and Denies sore throat Card Denies chest pain, Denies edema, Denies lightheadedness and Denies dyspnea Resp Denies cough and Denies dyspnea GI Denies constipation, Denies diarrhea, Denies nausea and Denies vomiting Denies dysuria Musc Denies myalgias Skin/Breast Denies lesions and Denies rash Neuro Denies dizziness and Denies headache(s) Psych Reports no additional complaints and Reports as per HPI Endo Reports no additional complaints and Reports as per HPI Joni/Lymph Reports no additional complaints and Reports as per HPI Aller/Immun Reports no additional complaints and Reports as per HPI Physical Exam Vital Signs: Last Vital Signs Pulse 69 12/22/22 09:19 BP 162/102 H 12/22/22 09:19 BMI result Body Mass Index 28.6 Const General: comfortable and no acute distress Orientation/consciousness: patient oriented x3 HEENT Other: Unremarkable Head: Yes normal to inspection Neck Neck: Yes normal visual inspection Chest Chest palpation & inspection: normal inspection of the chest Resp Auscultation: clear to auscultation bilaterally Cardio Palpation: normal PMI Heart sounds: S1 normal heart sound present, S2 normal heart sound present, no gallops, Murmur heart sound present systolic III/ and at the right sternal border and no rubs GI Palpation (GI): Soft to palpation Back/Spine/Pelvis Other: unremarkable Skin General skin exam: no rashes or lesions noted Neuro General: patient oriented x3 Extrem General: Yes normal to inspection Psych Mental Status: mental status grossly normal Assessment & Plan Assessment & Plan (1) Postural hypotension: Code(s): I95.1 - Orthostatic hypotension Plan: This seems to have resolved completely. No longer on fludrocortisone. (2) Essential hypertension: Code(s): I10 - Essential (primary) hypertension Plan: Blood pressure is still high. Home blood pressures are lower but still not normal. She states systolics are somewhere in the 150s and diastolics in the normal range. Currently only on lisinopril. Indication for propranolol not clear and it is not a good antihypertensive either. We will add amlodipine 5 mg daily. Advised her to check home blood pressures and contact us with readings in a few weeks time and she understands. If it is still high, we will go up on the amlodipine dosing. Due to amlodipine interaction with simvastatin, we can change that atorvastatin. Discussed about this as well. (3) Bifascicular block: Code(s): I45.2 - Bifascicular block Plan: We can follow this on EKGs. (4) Non-rheumatic aortic stenosis: Code(s): I35.0 - Nonrheumatic aortic (valve) stenosis Plan: Echocardiogram shows only mild aortic stenosis. Not hemodynamically significant at this time. Medications: New amlodipine 5 mg PO DAILY 90 tabs 3RF atorvastatin 20 mg PO QPM 90 tabs 3RF Discontinued simvastatin Discontinued Reason: Doctor's Order 40 mg PO DAILY 90 tabs 1RF lisinopril 30 mg PO DAILY 90 tabs 2RF Coding Level of Care Code Est Pt Level 4 (12020) Diagnoses Postural hypotension I95.1 Essential hypertension I10 Bifascicular block I45.2 Non-rheumatic aortic stenosis I35.0
[2022-12-22 09:19] VITALS: BP 162/102; PULSE 69; BMI 28.6
== END 2022-12-22 09:34 | disposition home or self-care (01) ==
PROVIDERS: PCP Student in an Organized Health Care Education/Training Program; Referring Provider Student in an Organized Health Care Education/Training Program; Visit Provider Internal Medicine
DX: I95.1 Orthostatic hypotension (principal); I10 Essential (primary) hypertension; I45.2 Bifascicular block; I35.0 Nonrheumatic aortic (valve) stenosis
CPT/HCPCS: 99214

== ENCOUNTER → 2022-12-22 09:16 | Outpatient (BNVA) | payer MEDICARE, SELFPAY | PROVIDERS: PCP Student in an Organized Health Care Education/Training Program; Referring Provider Student in an Organized Health Care Education/Training Program; Visit Provider Internal Medicine | DX: I95.1 Orthostatic hypotension (principal); I10 Essential (primary) hypertension; I45.2 Bifascicular block; I35.0 Nonrheumatic aortic (valve) stenosis; Z79.899 Other long term (current) drug therapy | CPT/HCPCS: 99212 ==

== ENCOUNTER 2023-01-17 18:21 | Emergency (ER) | payer MEDICARE, SELFPAY ==
--- NOTE | ~2023-01-17 | CT_ITS ---
EXAMINATION: CT ABDOMEN AND PELVIS WITH CONTRAST CLINICAL INFORMATION: Abdominal pain. GI bleed. COMPARISON: 06/07/2022 TECHNIQUE: Multidetector volumetric images were obtained from the superior aspect of the liver through the pubic symphysis following administration 85 mL of Omnipaque 350 intravenous contrast. Sagittal and coronal reformatted images were obtained on the technologist's workstation. Oral contrast: No This CT examination was performed using dose optimization techniques as appropriate, variously including the following: *Automated exposure control *Adjustment of mA and/or kV according to patient size (this includes techniques or standardized protocols for targeted exams where dose is matched to indication/reason for exam; i.e. extremities or head) *Use of iterative reconstruction technique DLP: 580 mGy-cm FINDINGS: LUNG BASES: The visualized lung bases are unremarkable. LIVER, GALLBLADDER, AND BILIARY TREE: The liver is normal in size, shape, and attenuation. No focal hepatic lesion or biliary ductal dilatation is present. The gallbladder is unremarkable with no evidence of radiopaque gallstones, gallbladder wall thickening, or obvious pericholecystic inflammatory changes. PANCREAS: Unremarkable. SPLEEN: Unremarkable. ADRENAL GLANDS: Bilateral adrenal gland thickening and nodularity similar to prior. KIDNEYS AND URETERS: The kidneys are normal in size, shape, and attenuation. There is a 3 mm calculus midpole left kidney and 2 mm calculus upper pole left kidney. There is also a 2 mm calculus lower pole left kidney. There is no hydronephrosis. No perinephric stranding. There are scattered small renal cysts measuring up to 2 cm mid to lower pole left kidney. BLADDER: Unremarkable. GASTROINTESTINAL TRACT: There is moderate thickening of the left colon extending into the proximal sigmoid colon. The appendix is not seen. ABDOMINAL WALL: No significant hernia is appreciated. LYMPH NODES: Normal. VASCULAR: There is atherosclerotic plaque of the abdominal aorta and proximal branches. PELVIC VISCERA: There has been a prior hysterectomy. Small amount of free fluid within the pelvis. OSSEOUS STRUCTURES: The bony structures are osteopenic. There is a stable L5 compression fracture. CT/CT abdomen pelvis w IV con IMPRESSION: Moderate thickening of the descending colon extending into the rectosigmoid consistent with colitis of uncertain etiology. This may be vascular versus infectious/inflammatory. Small amount of free fluid within the pelvis. Nonobstructing left renal calculi. Fleischner guidelines were followed.
[2023-01-17 18:35] VITALS: BP 137/80; PULSE 100; RESP 16; TEMP 36.7; O2SAT 97; BMI 31.0
--- NOTE | 2023-01-17 18:35 | ED_ITS ---
HPI - General Adult General Chief complaint: GI Bleed Stated complaint: abdominal and back pain Time Seen by Provider: 01/18/23 00:03 Source: patient Mode of arrival: ambulatory Limitations: no limitations History of Present Illness HPI narrative: 77-year-old female presents with lower GI bleed. Symptoms started yesterday. She reports bright red blood per rectum. She had multiple episodes. She denies any chest pain, palpitations, lightheadedness or shortness of breath. She has also been having lower abdominal pain that radiates to the back. Symptoms are moderate nature. There is no clear relieving or exacerbating features. She denies any nausea vomiting. She has had no fevers or chills. She is not on blood thinning medications. She does have a history of multiple myeloma. She does have a history of similar symptoms in the past was told she has colitis. Patient also is being treated for urinary tract infection which has been going on for 3 weeks. She just started Bactrim 2 days ago. Related Data Home Medications Medication Instructions Recorded Confirmed acetaminophen 500 mg tablet 1,000 mg PO Q6H PRN Pain 01/18/20 12/22/22 calcium carbonate 600 mg-vitamin 2 tab PO BID 01/18/20 12/22/22 D3 5 mcg (200 unit) tablet cyanocobalamin (vitamin B-12) 1,000 mcg PO DAILY 11/17/20 12/22/22 1,000 mcg tablet lisinopril 40 mg tablet 40 mg PO DAILY 12/22/22 12/22/22 Previous Rx's Medication Instructions Recorded aspirin 81 mg tablet,delayed 81 mg PO DAILY #60 tabs 02/12/20 release (Eliu Low Dose Aspirin) potassium chloride 20 mEq 40 meq (2 x 20 mEq) PO BID #360 05/23/22 tablet,extended release tabs levothyroxine 75 mcg tablet 75 mcg PO DAILY #60 tabs 06/08/22 valacyclovir 500 mg tablet 500 mg PO DAILY #90 tabs 11/19/22 (Valtrex) lenalidomide 15 mg capsule 15 mg PO DAILY #14 caps 12/17/22 (Revlimid) propranolol 60 mg capsule,24 60 mg PO BEDTIME #90 caps 12/21/22 hr,extended release amlodipine 5 mg tablet 5 mg PO DAILY #90 tabs 12/22/22 atorvastatin 20 mg tablet 20 mg PO QPM #90 tabs 12/22/22 lenalidomide 15 mg capsule 15 mg PO DAILY #14 caps 01/10/23 (Revlimid) amoxicillin 875 mg-potassium 1 tab PO Q8H #30 tabs 01/18/23 clavulanate 125 mg tablet Allergies Allergy/AdvReac Type Severity Reaction Status Date / Time red dye [Red Dye] Allergy Mild SWELLING Verified 12/22/22 09:21 oxycodone AdvReac Intermediate Vomiting Verified 12/22/22 09:21 Review of Systems 2 Review of Systems: CONSTITUTIONAL: Denies weight loss, fever and chills. HEENT: Denies changes in vision and hearing. RESPIRATORY: Denies SOB and cough. CV: Denies palpitations no CP. GI: + abdominal pain,- nausea, vomiting and diarrhea. : + dysuria and urinary frequency. MSK: Denies myalgia and joint pain. SKIN: Denies rash and pruritus. NEUROLOGICAL: Denies headache and syncope. PSYCHIATRIC: Denies recent changes in mood. Denies anxiety and depression. All other ROS are negative unless in HPI PMFSH Past Medical History Medical History Gallstone HLP (hyperkeratosis lenticularis perstans) HTN (hypertension) Hypothyroidism Mitral regurgitation Multiple myeloma Osteopenia Postural hypotension Surgical History History of appendectomy History of meniscectomy of left knee History of partial hysterectomy Family History Family History Other HTN (hypertension) No family history of cancer Social History Social History Household Members: Spouse Housing: House Are you a primary home care attendant to a significant other at home: No Do you presently have visiting nurse or other home services: No Alcohol intake: never Patient Tobacco Use Status: Former Tobacco user Tobacco use type: Cigarette Smoked in Last 30 Days: No e-Cigarette/Vaping Use: Never Used Second Hand Smoke Exposure: No Use of substances other than those prescribed or required for medical reasons: No Advance Directives: Yes Advance Directives on File: Yes Advance Directives Date on File: 11/17/20 service: No Current occupational status: retired Cognitive needs: No Hearing needs: No Vision needs: Yes (Glasses) Physical Exam ED Vital Signs: Vital Signs - 24 hr 01/17/23 18:35 01/18/23 00:05 Temperature 98.0 F 98.6 F Pulse Rate 100 81 Respiratory Rate 16 18 Blood Pressure 137/80 136/64 Pulse Oximetry 97 96 Oxygen Delivery Method Room Air Room Air BMI result Body Mass Index 31.0 GEN: Well developed, no acute distress, alert, oriented HEENT: Normocephalic, atraumatic, normal external ears, nose appears normal, no oropharyngeal edema or exudates Eyes: Normal to appearance Neck: Supple, no lymphadenopathy Respiratory: Talks in complete sentences, no respiratory distress, clear to auscultation bilaterally Cardiovascular: Regular rate and rhythm, no murmurs rubs or gallops Abdomen: Soft, lower abdominal tenderness, nondistended, no guarding, no rebound Back: No CVA tenderness Extremities: No clubbing cyanosis or edema Neurologic: No focal neurologic deficits, cranial nerves 2-12 intact, strength is 5/5 bilaterally Skin: No rash Course Course Course Narrative: This is an RME: Additional HPI, ROS, PE not included below will be deferred to primary provider. This is a [id number], with a hx of colitis, gallstones, hypertension, hypothyroidism, mitral regurgitation, multiple myeloma, osteopenia, and postural hypotension, presenting to the abdominal pain and bloody bowel movements. She has had UTI for several weeks, was on multibacterial medication which did not help, started bactrim starting yesterday. No fevers, vomiting. She is bleeding rectally since last night. States that she was up every hour with bloody bowel movements. Had colitis last year. She is not on blood thinners. VSS. Plan: Labs. Patient will likely need CT scan of her abdomen however would need IV contrast. Reevaluation(s) Reevaluation #1: The workup is complete. CT scan did in fact demonstrate evidence of colitis. I suspect as were her rectal bleeding is coming from. Her blood counts have not dropped significantly to recommend hospitalization. We will start her on Augmentin. I was able to review her urine culture results which is sensitive to the penicillin family. This should represent a good coverage for the patient. She can follow up with her primary care provider for repeat CBC and re- evaluation. In addition, she was instructed return for any worsening bleeding or other significant symptoms. Time: 02:25 Medications Administered Discontinued Medications Generic Name Dose Route Start Last Admin Trade Name Michael PRN Reason Stop Dose Admin Acetaminophen 975 mg 01/18/23 00:24 01/18/23 01:36 Acetaminophen 325 Mg Tablet PO 01/18/23 00:25 975 mg ONCE ONE Administration Iohexol 85 ml 01/18/23 00:47 01/18/23 00:48 Iohexol 350 Mg/Ml 100 Ml Infus..Btl IV 01/18/23 00:48 85 ml ONCE ONE Administration Medical Decision Making Medical Decision Making MDM Narrative: 69-year-old female presents with lower abdominal pain, GI bleed. Exam revealed tenderness, no rebound or guarding. Differential diagnosis includes diverticulitis, diverticular bleeding, hemorrhoids, hemorrhoidal bleeding, epiploic appendagitis, UTI. Plan will be to obtain CT scan the abdomen pelvis to rule out multiple differential diagnosis. Patient will take Tylenol for pain. Will check a CBC to make sure there is no evidence of anemia given the multiple episodes of lower GI bleed. Patient not on a blood thinning medications fortunately. Will consider hospitalization depending on further symptoms or imaging findings. Differential Diagnosis Differential Diagnoses: The differential diagnosis associated with the presentation includes (See above) Admission/Observation Consideration of admission/observation: Escalation of care including admission/observation considered Lab Data [facility] Lab Attestation statement: I reviewed the patient's lab results. 01/17/23 18:53 01/17/23 18:53 Labs: Lab Results 01/17/23 01/17/23 Range/Units 18:53 20:02 WBC 5.1 (4.8-10.8) X10*3/uL RBC 4.19 L (4.20-5.50) X10*6/uL Hgb 13.5 (12.0-16.0) g/dl Hct 39.5 (37.0-47.0) % MCV 94.3 (80.0-98.0) fL MCH 32.2 (27.0-33.0) pg MCHC 34.2 (31.0-35.0) g/dl RDW 14.9 (11.0-16.0) % Plt Count 165 D (160-400) X10*3/uL MPV 11.2 (9.4-12.3) fL Immature Gran % (Auto) 0.2 (0.0-0.4) % Neut % (Auto) 64.8 (45-73) % Lymph % (Auto) 27.3 (20-40) % [place] % (Auto) 5.9 (2-11) % Eos % (Auto) 1.6 (0-4) % Baso % (Auto) 0.2 (0-2) % Lymph # (Auto) 1.4 (1.2-4.9) X10*3/uL [place] # (Auto) 0.3 (0.1-1.2) X10*3/uL Eos # (Auto) 0.1 (0.0-0.4) X10*3/uL Baso # (Auto) 0.0 (0.0-0.2) X10*3/uL Abs Immat Gran (auto) 0.01 (0.00-0.03) X10*3/uL Absolute Neuts (auto) 3.3 (2.0-8.3) x10*3/uL Absolute Nucleated RBC 0.000 (0.0-0.012) X10*3/uL Nucleated RBC % (auto) 0.0 (0.0-0.2) /100WBC Sodium 141 (135-145) mmol/L Potassium 3.4 (3.3-5.1) mmol/L Chloride 107 (96-108) mmol/L Carbon Dioxide 26 (22-29) mmol/L Anion Gap 11 L (12-20) BUN 14 (9-16) mg/dL Creatinine 0.94 (0.5-1.4) mg/dL Estim Creat Clear Calc 54.7 Estimated GFR 58 Random Glucose 141 H (60-115) mg/dL Calcium 8.7 (8.4-10.2) mg/dL Total Bilirubin 0.8 (0.0-1.0) mg/dL Direct Bilirubin 0.3 (0.0-0.5) mg/dL AST 17 (5-31) U/L ALT 14 (0-31) U/L Alkaline Phosphatase 49 (39-117) U/L Total Protein 5.9 L (6.5-8.0) g/dL Albumin 3.7 (3.5-5.0) g/dL Lipase 11 (8-78) U/L Urine Color Yellow Urine Appearance Turbid Urine pH 7.0 (5.0-9.0) Ur Specific [place] 1.020 (1.005-1.025) Urine Protein 100 (2+) H (Neg-Trace) mg/dL Urine Glucose (UA) Negative (Negative) mg/dL Urine Ketones Trace (Negative) mg/dL Urine Blood Moderate (2+) H (Negative) Urine Nitrite Negative (Negative) Ur Leukocyte Esterase Large (3+) H (Negative) Urine RBC >20 H (0-2) /HPF Urine WBC >50 H (0-5) /HPF Ur Squamous Epith Cells 0-2 (0-2) /HPF Urine Bacteria Trace (None Seen) Hyaline Casts 0-2 (0-2) /LPF Independent Interpretation I performed an independent interpretation of an: CT Scan (Possible colitis) Radiology Impression Discussion of test interpretation with radiology: I have reviewed the radiologist's reading. Radiologist Impression: CT/CT abdomen pelvis w IV con IMPRESSION: Moderate thickening of the descending colon extending into the rectosigmoid consistent with colitis of uncertain etiology. This may be vascular versus infectious/inflammatory. Small amount of free fluid within the pelvis. Nonobstructing left renal calculi. Fleischner guidelines were followed. Dictated By: Thomas Espana Signed By: <Electronically signed by Thomas Espana in OV> 01/18/23 015 DD/ 005 TD/TT: Property Management Specialist: Independent Historian Clinical information obtained from an independent historian. History obtained from or confirmed by: Other (Child) Prescription Management I considered prescription management with: Pain Medication and Antibiotic Chronic Conditions Patient?s care impacted by: Hypertension Discharge Plan Discharge Clinical Impression: Lower gastrointestinal hemorrhage, Colitis Patient Disposition: Home, Self-Care Instructions: Gastrointestinal Bleeding (ED), Colitis (ED) Additional Instructions: stop bactrim, return for worsening symptoms. Prescriptions: New amoxicillin-pot clavulanate 875-125 mg tablet 1 tab PO Q8H Qty: 30 0RF No Action potassium chloride 20 mEq tablet extended release 40 meq PO BID Qty: 360 1RF levothyroxine 75 mcg Tablet 75 mcg PO DAILY Qty: 60 2RF propranolol 60 mg capsule,extended release 24 hr 60 mg PO BEDTIME Qty: 90 0RF calcium carbonate-vitamin D3 600 mg(1,500mg) -200 unit Tablet 2 tab PO BID acetaminophen 500 mg Tablet 1,000 mg PO Q6H PRN (Reason: Pain) aspirin [Eliu Low Dose Aspirin] 81 mg Tablet,Delayed Release (Dr/Ec) 81 mg PO DAILY Qty: 60 6RF valacyclovir [Valtrex] 500 mg Tablet 500 mg PO DAILY Qty: 90 5RF lenalidomide [Revlimid] 15 mg Capsule 15 mg PO DAILY Qty: 14 12RF Rx Instructions: swallow whole with glass of water; do not open, crush, chew , break, or dissolve. PA number: [id number]. lenalidomide [Revlimid] 15 mg Capsule 15 mg PO DAILY Qty: 14 4RF Rx Instructions: swallow whole with glass of water; do not open, crush, chew , break, or dissolve. [id number] cyanocobalamin (vitamin B-12) 1,000 mcg Tablet 1,000 mcg PO DAILY lisinopril 40 mg tablet 40 mg PO DAILY amlodipine 5 mg tablet 5 mg PO DAILY Qty: 90 3RF atorvastatin 20 mg tablet 20 mg PO QPM Qty: 90 3RF Referrals: Ina Davis PA [Primary Care Provider] - 3 days
[2023-01-17 18:57] LABS: MANUAL DIFF FLAG NO
[2023-01-17 19:01] LABS: Basophils Percent Auto 0.2 % (0-2); Eosinophils Absolute Auto 0.1 X10*3/uL (0.0-0.4); Eosinophils Percent Auto 1.6 % (0-4); Hematocrit 39.5 % (37.0-47.0); Hemoglobin 13.5 g/dl (12.0-16.0); Imm Gran Abs Auto 0.01 X10*3/uL (0.00-0.03); Imm Gran Pct Auto 0.2 % (0.0-0.4); Lymphocytes Absolute Auto 1.4 X10*3/uL (1.2-4.9); Lymphocytes Percent Auto 27.3 % (20-40); Mean Corpuscular HGB Conc 34.2 g/dl (31.0-35.0); Mean Corpuscular Hemoglobin 32.2 pg (27.0-33.0); Mean Corpuscular Volume 94.3 fL (80.0-98.0); Mean Platelet Volume 11.2 fL (9.4-12.3); Monocytes Absolute Auto 0.3 X10*3/uL (0.1-1.2); Monocytes Percent Auto 5.9 % (2-11); Neutrophils Absolute Auto 3.3 x10*3/uL (2.0-8.3); Neutrophils Percent Auto 64.8 % (45-73); Platelet Count 165 X10*3/uL (160-400); Red Blood Count 4.19 X10*6/uL (4.20-5.50); Red Cell Distribution Width 14.9 % (11.0-16.0); White Blood Count 5.1 X10*3/uL (4.8-10.8)
[2023-01-17 19:15] LABS: Alanine Aminotransferase 14 U/L (0-31); Albumin Level 3.7 g/dL (3.5-5.0); Alkaline Phosphatase 49 U/L (39-117); Anion Gap 11 (12-20); Aspartate Amino Transferase 17 U/L (5-31); Bilirubin Direct 0.3 mg/dL (0.0-0.5); Bilirubin Total 0.8 mg/dL (0.0-1.0); Blood Urea Nitrogen 14 mg/dL (9-16); Calcium 8.7 mg/dL (8.4-10.2); Carbon Dioxide 26 mmol/L (22-29); Chloride 107 mmol/L (96-108); Creatinine Clr Calc Pharmacy 54.7; Estimated Glomerular Filt Rate 58; Glucose Random 141 mg/dL (60-115); Lipase 11 U/L (8-78); Potassium 3.4 mmol/L (3.3-5.1); Sodium 141 mmol/L (135-145); Total Protein 5.9 g/dL (6.5-8.0)
[2023-01-17 20:09] LABS: Appearance Urine Turbid; Color Urine Yellow; Glucose Urine UA Negative (Negative); Leukocyte Esterase Urine Large (3+) (Negative); Nitrite Urine Negative (Negative); UMIC TRIGGER UACC YES; Urine Blood Moderate (2+) (Negative); Urine Ketones Trace mg/dL (Negative); Urine Protein 100 (2+) mg/dL (Neg-Trace)
[2023-01-17 20:16] LABS: Bacteria Urine Trace (None Seen); Hyaline Casts Urine 0-2 /LPF (0-2); RBC Urine >20 /HPF (0-2); Squamous Epithelial Cell Urine 0-2 /HPF (0-2); UACC Culture Trigger YES; WBC Urine >50 /HPF (0-5)
[2023-01-18 00:05] VITALS: BP 136/64; PULSE 81; RESP 18; TEMP 37; O2SAT 96
[2023-01-18] MEDS: iohexoL 350 MG/ML 100 ML INFUS..BTL 85 ML IV (00:48)
[2023-01-18] MEDS: Acetaminophen 325 MG TABLET 975 MG PO (01:36)
[2023-01-18 02:31] VITALS: BP 140/73; PULSE 81; TEMP 37; O2SAT 93
[2023-01-18] MEDS: Amoxicillin/Potassium Clav 875 MG TABLET PO (02:48)
== END 2023-01-18 03:02 | disposition home or self-care (01) ==
PROVIDERS: Physician Assistant Medical; Emergency Provider Emergency Medicine; PCP Student in an Organized Health Care Education/Training Program
DX: K52.9 Noninfective gastroenteritis and colitis, unspecified (principal); K92.2 Gastrointestinal hemorrhage, unspecified; N39.0 Urinary tract infection, site not specified; I10 Essential (primary) hypertension; Z87.891 Personal history of nicotine dependence
CPT/HCPCS: 36415; 74177; 80048; 80076; 81001; 83690; 85025; 87086; 99284; Q9967

== ENCOUNTER 2023-01-28 08:18 | Outpatient (REF) | payer MEDICARE, SELFPAY | END 2023-01-28 08:19 | disposition home or self-care (01) | LOC: HO.MAMMO 08:18 | PROVIDERS: PCP Student in an Organized Health Care Education/Training Program; Visit Provider Internal Medicine | DX: Z12.31 Encounter for screening mammogram for malignant neoplasm of breast (principal) | CPT/HCPCS: 77063; 77067 ==

== ENCOUNTER → 2023-01-28 08:30 | Outpatient (BNV) | payer MEDICARE, SELFPAY | PROVIDERS: PCP Student in an Organized Health Care Education/Training Program; Visit Provider Radiology Diagnostic Radiology | DX: Z12.31 Encounter for screening mammogram for malignant neoplasm of breast (principal) | CPT/HCPCS: 77063; 77067 ==

== ENCOUNTER 2023-05-02 08:55 | Outpatient (AMB) | payer MEDICARE, SELFPAY ==
--- NOTE | 2023-05-02 08:59 | A.OFFVIS_ITS ---
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 Patient reports that the left knee has been painful for about 4 years now. She has pain all the time, increased pain,stiffness and instability with gait initiation. 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 SHe has had pain for years. Probably 5 years. She is active but with pain. She can walk for 10 minutes but it worsens and her knee solo. She complains of constant pain in her left knee, along with stiffness and instability when she begins walking. She says this has been present for ~4 years now. She has a hx of left knee on 06/24/16 with KI. She has a hx of multiple myeloma and currently takes Revlimid. [facility] Medical History Gallstone HLP (hyperkeratosis lenticularis perstans) HTN (hypertension) Hypothyroidism Mitral regurgitation Multiple myeloma Osteopenia Postural hypotension Surgical History History of appendectomy History of meniscectomy of left knee History of partial hysterectomy Family History Other HTN (hypertension) No family history of cancer Social History Household Members: Spouse Housing: House Are you a primary care navigator to a significant other at home: No Do you presently have visiting nurse or other home services: No Alcohol intake: never Patient Tobacco Use Status: Former Tobacco user Tobacco use type: Cigarette e-Cigarette/Vaping Use: Never Used Second Hand Smoke Exposure: No Advance Directives Date on File: 11/17/20 service: No Current occupational status: retired Cognitive needs: No Hearing needs: No Vision needs: Yes (Glasses) Review of Systems Const All systems reviewed & are unremarkable except as noted in HPI and below Physical Exam Const General: no acute distress, alert and awake Orientation/consciousness: patient oriented x3 HEENT Head: Yes normocephalic and Yes atraumatic Eyes EOM: EOMs intact bilaterally Resp Effort & Inspection: normal respiratory effort and able to speak in complete sentences Cardio Jugular venous distension: no JVD Skin General skin exam: turgor normal Rashes: no rashes Neuro General: patient oriented x3 Extrem Other: 5-130 TTP medial compartment + gait antalgia Psych Appearance: grossly normal Affect: normal affect Attitude: cooperative Results Reviewed Results Reviewed: I personally reviewed relevant radiographs. Severe left knee OA, triacompartmental with varus alignement Assessment & Plan Assessment & Plan (1) Arthritis of left knee: Code(s): M17.12 - Unilateral primary osteoarthritis, left knee Plan: This is an active 77 yo F with 5-7 years of left knee pain and OA. She is unable to ambulate comfortably and has pain with all daily activities. She is 77 years old and wants to be more active as well as not have pain. She is a good candidate for arthroplasty. I recommenbd left knee arthroplasty. Injections and surgery and activity modification and NSAIDs have not been helpful. I discussed the risks benefits and alternatives including but not limited to the risk of pain, infection, stiffness, need for further surgery as well as potential medical complications such as blood clots, pulmonary embolism and cardiac complications. I discussed this in detail with her and she expressed understanding. Plan Scribed for Shaji Prince MD by Troy Negron, medical coding manager, on 05/02/23 at 9:01 AM, EST. Orders: Orders XR knee standing BI Today M25.569 - Pain in unspecified knee XR knee LT 2V Today M25.569 - Pain in unspecified knee Coding Level of Care Code Est Pt Level 4 (96126) Diagnoses Arthritis of left knee M17.12
== END 2023-05-02 10:12 | disposition home or self-care (01) ==
PROVIDERS: PCP Student in an Organized Health Care Education/Training Program; Visit Provider Orthopaedic Surgery
DX: M17.12 Unilateral primary osteoarthritis, left knee (principal)
CPT/HCPCS: 99204

== ENCOUNTER 2023-05-02 09:35 | Outpatient (REF) | payer MEDICARE, SELFPAY ==
--- NOTE | ~2023-05-02 | XR_ITS ---
EXAMINATION: XR KNEE, LEFT XR KNEE AP STANDING CLINICAL INFORMATION: Pain. COMPARISON: Prior bilateral knee radiographs, most recently 05/28/2016; portions of the MRI left knee dated 05/18/2016. TECHNIQUE: Lateral and axial views of the left knee are submitted. AP bilateral standing view of the knees is submitted. FINDINGS: There is a permeative appearance of the bilateral femora, the left tibia and the bilateral fibulas. This is more pronounced in the left knee than the right knee. On the lateral view of the left knee in the anterior mid tibia and the posterior proximal tibia, there are foci of mild cortical expansion and periosteal elevation. The lateral joint space compartment of the right knee is well-maintained, area there is mild narrowing and peripheral osteophyte formation of the medial joint space compartment. The lateral joint space compartment of the left knee is well-maintained. The medial joint space compartment shows moderately severe narrowing. The left patellofemoral compartment is well-maintained. There is tricompartment peripheral osteophyte formation of the left knee. A moderate left knee joint effusion is seen. There is no significant varus or valgus configuration noted bilaterally. No foreign body is seen. XR/XR knee LT 2V IMPRESSION: 1. There is a permeative, moth-eaten pattern of the bilateral knees, more pronounced on the left than the right. Differential considerations include but are not limited to: Multiple myeloma, metastases, infection and Langerhans' cell histiocytosis. Recommend clinical correlation and further evaluation with a radiographic osseous survey. 2. There is mild osteoarthritic change of the medial joint space compartment of the right knee. 3. There is tricompartment osteoarthritic change of the left knee, most pronounced of the medial joint space compartment, where degenerative change is moderately severe. 4. A moderate left knee joint effusion is seen.
--- NOTE | ~2023-05-02 | XR_ITS ---
EXAMINATION: XR KNEE, LEFT XR KNEE AP STANDING CLINICAL INFORMATION: Pain. COMPARISON: Prior bilateral knee radiographs, most recently 05/28/2016; portions of the MRI left knee dated 05/18/2016. TECHNIQUE: Lateral and axial views of the left knee are submitted. AP bilateral standing view of the knees is submitted. FINDINGS: There is a permeative appearance of the bilateral femora, the left tibia and the bilateral fibulas. This is more pronounced in the left knee than the right knee. On the lateral view of the left knee in the anterior mid tibia and the posterior proximal tibia, there are foci of mild cortical expansion and periosteal elevation. The lateral joint space compartment of the right knee is well-maintained, area there is mild narrowing and peripheral osteophyte formation of the medial joint space compartment. The lateral joint space compartment of the left knee is well-maintained. The medial joint space compartment shows moderately severe narrowing. The left patellofemoral compartment is well-maintained. There is tricompartment peripheral osteophyte formation of the left knee. A moderate left knee joint effusion is seen. There is no significant varus or valgus configuration noted bilaterally. No foreign body is seen. XR/XR knee standing BI IMPRESSION: 1. There is a permeative, moth-eaten pattern of the bilateral knees, more pronounced on the left than the right. Differential considerations include but are not limited to: Multiple myeloma, metastases, infection and Langerhans' cell histiocytosis. Recommend clinical correlation and further evaluation with a radiographic osseous survey. 2. There is mild osteoarthritic change of the medial joint space compartment of the right knee. 3. There is tricompartment osteoarthritic change of the left knee, most pronounced of the medial joint space compartment, where degenerative change is moderately severe. 4. A moderate left knee joint effusion is seen.
== END 2023-05-02 09:36 | disposition home or self-care (01) ==
LOC: HO.HOSX 09:35
PROVIDERS: Visit Provider Orthopaedic Surgery
DX: M17.12 Unilateral primary osteoarthritis, left knee (principal)
CPT/HCPCS: 73560; 73565; 99202

== ENCOUNTER 2023-06-21 09:01 | Outpatient (AMB) | payer MEDICARE, SELFPAY ==
[2023-06-21 09:04] VITALS: BP 130/74; PULSE 57; BMI 29.0
--- NOTE | 2023-06-21 09:04 | A.OFFVIS_ITS ---
Intake Vital Signs 06/21/23 09:04 Height 5 ft 8 in Weight 190 lb 11.198 oz BMI 29.0 BP 130/74 Blood Pressure Location Lt brachial Position Sitting Pulse 57 Intake Visit Reasons: 6mo follow up/Pre-op Lt TKA 07/18 w/ Dr. Prince Intake Note: 6 month follow up/ clearance Lead Ios Developer Required: No Accompanied by: Self / Same As Patient Allergies red dye [Red Dye] Allergy (Mild, Verified 06/21/23 09:06) SWELLING oxycodone Adverse Reaction (Intermediate, Verified 06/21/23 09:06) Vomiting Medication List - Last Reconciled 06/21/23 by Noe Del Rio MD acetaminophen 1,000 mg PO Q6H PRN amlodipine 5 mg PO DAILY aspirin (Eliu Low Dose Aspirin) 81 mg PO DAILY atorvastatin 20 mg PO QPM calcium carbonate-vitamin D3 600 mg-5 mcg (200 unit) 2 tabs PO BID cyanocobalamin (vitamin B-12) 1,000 mcg PO DAILY lenalidomide (Revlimid) 15 mg PO DAILY levothyroxine 75 mcg PO DAILY lisinopril 40 mg PO DAILY nitrofurantoin monohyd/m-cryst 100 mg (Macrobid) 100 mg PO Q12H potassium chloride ER 40 mEq (2 x 20 mEq) PO BID propranolol ER 60 mg PO BEDTIME valacyclovir (Valtrex) 500 mg PO DAILY HPI HPI Comments History of Present Illness Details Merary returns for follow-up. In the past, she was seen for presyncope/orthostatic hypotension. She was on fludrocortisone for a while but as the blood pressure was going up we stopped it. Currently, on hypertension meds including lisinopril and amlodipine. Indication for propranolol is not clear. She does not know either. Overall, she feels fine. No specific cardiac complaints. Needs to go for knee surgery. [facility] Medical History Gallstone HLP (hyperkeratosis lenticularis perstans) HTN (hypertension) Hypothyroidism Mitral regurgitation Multiple myeloma Osteopenia Postural hypotension Surgical History History of meniscectomy of left knee History of appendectomy History of partial hysterectomy Family History Other HTN (hypertension) No family history of cancer Social History Household Members: Spouse Housing: House Are you a primary career guidance technician to a significant other at home: No Do you presently have visiting nurse or other home services: No Alcohol intake: never Patient Tobacco Use Status: Former Tobacco user Tobacco use type: Cigarette e-Cigarette/Vaping Use: Never Used Second Hand Smoke Exposure: No Advance Directives Date on File: 11/17/20 service: No Current occupational status: retired Cognitive needs: No Hearing needs: No Vision needs: Yes (Glasses) Review of Systems Const Denies weakness ENT Denies dizziness Card Denies chest pain, Denies chest pain with activity, Denies syncope, Denies rapid heart rate, Denies pedal edema, Denies edema, Denies leg edema, Denies lightheadedness, Denies palpitations, Denies dyspnea, Denies dyspnea on exertion and Denies orthopnea Resp Denies cough, Denies dyspnea and Denies dyspnea on exertion GI Denies hematochezia and Denies change in stool character Musc Denies abnormal gait, Denies muscle cramps, Denies muscle weakness, Denies numbness, Denies radiating pain into limb and Denies tingling Neuro Denies abnormal gait, Denies dizziness, Denies syncope, Denies numbness, Denies tingling and Denies weakness Endo Denies palpitations Physical Exam Vital Signs: Last Vital Signs Pulse 57 06/21/23 09:04 BP 130/74 06/21/23 09:04 BMI result Body Mass Index 29.0 Const General: comfortable and no acute distress Orientation/consciousness: patient oriented x3 HEENT Other: Unremarkable Head: Yes normal to inspection Neck Neck: Yes normal visual inspection Chest Chest palpation & inspection: normal inspection of the chest Resp Auscultation: clear to auscultation bilaterally Cardio Palpation: normal PMI Heart sounds: S1 normal heart sound present, S2 normal heart sound present, no gallops, Murmur heart sound present systolic II/ and at the right sternal border and no rubs GI Palpation (GI): Soft to palpation Back/Spine/Pelvis Other: unremarkable Skin General skin exam: no rashes or lesions noted Neuro General: patient oriented x3 Extrem General: Yes normal to inspection Psych Mental Status: mental status grossly normal Office Procedures EKG Details: EKG with sinus bradycardia at 57/Min; bifascicular block pattern. 53878-[id number], Complete Assessment & Plan Assessment & Plan (1) Preoperative cardiovascular examination: Code(s): Z01.810 - Encounter for preprocedural cardiovascular examination Plan: Considering age, abnormal EKG, comorbidities, would get a stress test done. (2) Bifascicular block: Code(s): I45.2 - Bifascicular block Plan: We can follow this on EKGs. (3) Non-rheumatic aortic stenosis: Code(s): I35.0 - Nonrheumatic aortic (valve) stenosis Plan: Echocardiogram shows only mild aortic stenosis. Not hemodynamically significant at this time. (4) Essential hypertension: Code(s): I10 - Essential (primary) hypertension Plan: Stable. (5) Postural hypotension: Code(s): I95.1 - Orthostatic hypotension Plan: This seems to have resolved completely. No longer on fludrocortisone. Orders: Orders CA lexiscan stress w valerio Today I20.9 - Angina pectoris, unspecified, Z01.810 - Encounter for preprocedural cardiovascular examination NM cardiolite stress test Today R07.2 - Precordial pain, Z01.810 - Encounter for preprocedural cardiovascular examination Medications: Changed From lenalidomide (Revlimid) swallow whole with glass of water; do not open, crush, chew , break, or dissolve [id number] 15 mg PO DAILY 14 caps 0RF To lenalidomide (Revlimid) swallow whole with glass of water; do not open, crush, chew , break, or dissolve [id number] 15 mg PO DAILY Coding Level of Care Code Est Pt Level 4 (48288) Diagnoses Preoperative cardiovascular examination Z01.810 Bifascicular block I45.2 Non-rheumatic aortic stenosis I35.0 Essential hypertension I10 Postural hypotension I95.1 CPT Codes EKG - CPT: 49016-Lrtxzljzwnhyuakgi, Complete ([id number])
== END 2023-06-21 09:25 | disposition home or self-care (01) ==
PROVIDERS: PCP Student in an Organized Health Care Education/Training Program; Visit Provider Internal Medicine
DX: I45.2 Bifascicular block (principal); I35.0 Nonrheumatic aortic (valve) stenosis; I10 Essential (primary) hypertension; Z01.810 Encounter for preprocedural cardiovascular examination; R00.1 Bradycardia, unspecified
CPT/HCPCS: 93010; 99214

== ENCOUNTER → 2023-06-21 09:01 | Outpatient (BNVA) | payer MEDICARE, SELFPAY | PROVIDERS: PCP Student in an Organized Health Care Education/Training Program; Visit Provider Internal Medicine | DX: Z01.810 Encounter for preprocedural cardiovascular examination (principal); I45.2 Bifascicular block; I35.0 Nonrheumatic aortic (valve) stenosis; I10 Essential (primary) hypertension; I95.1 Orthostatic hypotension | CPT/HCPCS: 93005; 99212 ==

== ENCOUNTER → 2023-06-29 08:51 | Outpatient (REF) | payer MEDICARE, SELFPAY ==
--- NOTE | ~2023-06-29 | NM_ITS ---
Myocardial perfusion study Indication: Precordial chest pain to evaluate for myocardial ischemia Technique: The patient was brought in for a Lexiscan perfusion study on 06/29/2023. Patient performed low-level exercise and was injected 0.4 mg of Lexiscan intravenously. Within a minute of injection, 30 mCi of sestamibi was given intravenously. Images were obtained using the SPECT gamma camera interlaced with the gating device. Images were obtained in supine position. Resting perfusion study was performed on 07/05/2023. Patient was administered 30 mCi of sestamibi intravenously at rest. Images were then obtained in supine position. Images obtained with and without CT attenuation. Total DLP 46 mGy-cm Images were processed with the software and compared side to side in short axis, horizontal long axis and vertical long axis views. Findings: Both stress and rest perfusion study is somewhat suboptimal due to intense subdiaphragmatic uptake both in the liver as well as the stomach interfering with myocardial uptake. The stress perfusion study showed non attenuated images show mostly normal uptake of radiotracer in all segments of LV myocardium. Is suggestion of left ventricle hypertrophy. Attenuation corrected images show mildly reduced uptake in the apex of the LV myocardium.. The gated study shows normal LV systolic function with calculated LVEF of 71%. LV cavity is normal in size. The gated study shows normal systolic wall thickening and contraction of segments. Resting study shows non attenuated images show minimal thinning of the inferior wall of the LV myocardium otherwise normal uptake.. Gating at rest reveals normal systolic wall motion with ejection fraction at 68%. The findings are consistent with likely normal myocardial perfusion. NM/NM cardiolite stress test Impression: 1. Myocardial perfusion imaging study shows likely normal myocardial perfusion 2. Gated LVEF is 71% 3. Transient ischemic dilatation not present EKG is nondiagnostic for ischemia
--- NOTE | 2023-06-29 08:54 | CA_ITS ---
Acquisition Time: 2023-06-29 09:05:01 Total Exercise Time: 00:02:00 Test Indications: ABN EKG, PREOP Medications: SEE H Protocol: LEXISCAN Max HR: 107 BPM 75% of Pred: 142 BPM Max BP: 142/088 mmHG Max Work Load: 1.0 METS Pharmacological stress test with Lexiscan injection while sitting and marching in place, with mild SOB, no chest discomfort, without arrhythmias, with normotensive response to injection, with nondiagnoisitic EKGs. Nuclear images pending. Test reviewed with Dr. Gardner Referred By: Noe Del Rio Overread By: Nathalia Elliott
== END ==
LOC: HO.CARD 08:51
PROVIDERS: PCP Student in an Organized Health Care Education/Training Program; Visit Provider Internal Medicine
DX: Z01.818 Encounter for other preprocedural examination (principal); R07.2 Precordial pain; I20.9 Angina pectoris, unspecified
CPT/HCPCS: 78452; 93017; A9500; J0280; J2785

== ENCOUNTER → 2023-06-29 08:54 | Outpatient (BNV) | payer MEDICARE, SELFPAY | PROVIDERS: PCP Student in an Organized Health Care Education/Training Program; Visit Provider Nurse Practitioner | DX: R07.2 Precordial pain (principal) | CPT/HCPCS: 78452; 93016; 93018 ==

== ENCOUNTER 2023-07-14 09:28 | Outpatient (REF) | payer MEDICARE, SELFPAY ==
--- NOTE | ~2023-07-14 | XR_ITS ---
EXAMINATION: XR KNEE, LEFT CLINICAL INFORMATION: Pain in left knee. Preoperative x-ray. COMPARISON: 05/05/2023 TECHNIQUE: Three views of the left knee. AP standing view of bilateral knees. FINDINGS: AP STANDING VIEW RIGHT KNEE. Redemonstration of permeative appearance of the femur. Moderate narrowing of the medial compartment with marginal osteophytes. LEFT KNEE: Redemonstration of permeative appearance of the femur, tibia and fibula with areas of mild cortical expansion and periosteal elevation as previously noted. Zfkellva-kr-dqfcwb narrowing of the medial compartment with marginal osteophytes. Small joint effusion. Tiny posterior patellar osteophytes. XR/XR knee LT 2V IMPRESSION: 1. Redemonstration of permeative appearance of the left femur, tibia and fibula with areas of mild cortical expansion and periosteal elevation as previously noted. Redemonstration of permeative pattern of distal right femur, better visualized on prior exam. Benign and malignant etiologies should be considered as previously noted. Correlation with clinical exam and possible additional imaging with MRI should be considered. 2. Usnwyeyr-lp-brfbkd degenerative changes left knee.
== END 2023-07-14 09:29 | disposition home or self-care (01) ==
LOC: HO.HOSX 09:28
PROVIDERS: Visit Provider Physician Assistant
DX: M25.562 Pain in left knee (principal); M17.12 Unilateral primary osteoarthritis, left knee; Z96.652 Presence of left artificial knee joint
CPT/HCPCS: 73560; 99212

== ENCOUNTER 2023-07-14 13:28 | Outpatient (AMB) | payer MEDICARE, SELFPAY ==
--- NOTE | 2023-07-14 06:40 | A.OFFVIS_ITS ---
Intake Vital Signs 07/14/23 13:37 Height 5 ft 8 in Weight 190 lb BMI 28.9 Intake Visit Reasons: pre op left TKA on 07/19/23 with NE Intake Note: Merary 77 yr old female presents today for her pre op visit for her left TKA schedule for 07/19/23 with NE. Pain management form reviewed and signed Information Interpreted: non-clinical & clinical Accompanied by: Self / Same As Patient Allergies red dye [Red Dye] Allergy (Mild, Verified 07/14/23 13:38) SWELLING oxycodone Adverse Reaction (Intermediate, Verified 07/14/23 13:38) Vomiting Medication List - Last Reconciled 07/14/23 by Iza Sanchez PA-C acetaminophen 1,000 mg PO Q6H PRN amlodipine 5 mg PO QAM aspirin (Eliu Low Dose Aspirin) 81 mg PO DAILY atorvastatin 20 mg PO QPM calcium carbonate-vitamin D3 600 mg-5 mcg (200 unit) 2 tabs PO BID cyanocobalamin (vitamin B-12) 1,000 mcg PO DAILY lenalidomide (Revlimid) 15 mg PO DAILY levothyroxine 75 mcg PO QAM lisinopril 40 mg PO QAM potassium chloride ER 40 mEq (2 x 20 mEq) PO BID propranolol ER 60 mg PO BEDTIME valacyclovir (Valtrex) 500 mg PO DAILY HPI HPI Comments History of Present Illness Details Ms He presents to the office today for preop visit. She is schedu led for left total knee arthroplasty with Dr. Prince. She continues to have ongoing pain and difficulty with ambulation in the left knee, which is affecting her quality of life; therefore, she has elected to move forward with surgery. [facility] Medical History Chronic UTI Tremor Bifascicular block Non-rheumatic aortic stenosis Arthritis Mitral regurgitation Postural hypotension Osteopenia Multiple myeloma Gallstone Hypothyroidism HLP (hyperkeratosis lenticularis perstans) HTN (hypertension) Surgical History H/O colonoscopy History of meniscectomy of left knee History of appendectomy History of partial hysterectomy Family History Other HTN (hypertension) No family history of cancer Social History Household Members: Spouse Housing: House Are you a primary career placement services counselor to a significant other at home: No Do you presently have visiting nurse or other home services: No Alcohol intake: never Patient Tobacco Use Status: Former Tobacco user Quit Date: age 30's Tobacco use type: Cigarette Years Smoked: 15 e-Cigarette/Vaping Use: Never Used Second Hand Smoke Exposure: No Advance Directives Date on File: 11/17/20 service: No Current occupational status: retired Cognitive needs: No Hearing needs: No Vision needs: Yes (Glasses) Review of Systems Const All systems reviewed & are unremarkable except as noted in HPI and below Physical Exam Vital Signs: BMI result Body Mass Index 28.9 Const General: cooperative and no acute distress Orientation/consciousness: patient oriented x3 Neck Neck: Yes normal visual inspection and Yes no lymphadenopathy Resp Effort & Inspection: normal respiratory effort and able to speak in complete sentences Cardio Peripheral pulses: Peripheral pulses 2+ throughout GI Inspection: Yes normal to inspection Palpation (GI): Soft to palpation Skin General skin exam: no rashes or lesions noted Neuro General: patient oriented x3 Extrem Other: Left knee: Skin is intact. No open wound or abrasions. ROM is 0-95 degrees. Calf supple, nontender. NVI. Assessment & Plan Assessment & Plan (1) Arthritis of left knee: Code(s): M17.12 - Unilateral primary osteoarthritis, left knee Plan: I discussed in detail the procedure and what to expect pre and post operatively. We discussed the risks, benefits and alternatives to the surgery as well as the rehabilitation course. The risks; which include, but are not limited to infection, bleeding, nerve injury, ongoing pain, swelling, and stiffness, perioperative risk of injury to bones and soft tissues, and blood clots. I?ve answered all questions and with their understanding they have consented to move forward with Left total knee arthroplasty with Dr. Prince Will need phenergan post op with Oxycodone Orders: Orders PT Evaluation and Treatment Today Z96.652 - Presence of left artificial knee joint XR knee LT 2V Today M25.562 - Pain in left knee Patient Instructions: Scribed for Iza Sanchez PA-C, by Ayad Bhatt medical care evaluation specialist, on 07/14/2023 at 1:45 PM EST. IIza PA-C, have personally reviewed and agree with the information entered by the scribe. Coding Level of Care Code Est Pt Level 3 (00939) Diagnoses Arthritis of left knee M17.12
[2023-07-14 13:37] VITALS: BMI 28.9
== END 2023-07-14 14:02 | disposition home or self-care (01) ==
PROVIDERS: PCP Student in an Organized Health Care Education/Training Program; Visit Provider Physician Assistant
DX: M17.12 Unilateral primary osteoarthritis, left knee (principal)
CPT/HCPCS: 99024

== ENCOUNTER 2023-07-19 08:56 | Inpatient (IN) | payer MEDICARE, SELFPAY ==
[2023-07-12 12:13] VITALS: BP 122/81; PULSE 86; RESP 20; O2SAT 96; BMI 30.3
[2023-07-12 14:21] LABS: MRSA Nasal PCR NEGATIVE (Negative); SA Nasal PCR NEGATIVE (Negative)
[2023-07-19] VITALS (14 sets, daily range): BP systolic 91–167; BP diastolic 47–90; PULSE 52–92; RESP 16–18; TEMP 36.5–37.3; O2SAT 95–98
--- NOTE | ~2023-07-19 | XR_ITS ---
EXAMINATION: XR KNEE, LEFT CLINICAL INFORMATION: Left ECA COMPARISON: None available. TECHNIQUE: Two views of the left knee. FINDINGS: There is a total left knee prosthesis with prosthetic components in satisfactory alignment. Immediate postoperative changes with surgical sal along the anterior seen and gas in the soft tissues is noted. Multiple small lucencies are seen left distal femur, proximal tibia consistent with permeative pattern, stable from 07/14/2023. These findings can be seen with multiple myeloma. XR/XR knee LT 2V IMPRESSION: 1. Total left knee prosthesis with prosthetic components in satisfactory alignment. 2. Immediate postoperative changes are noted. 3. Permeative bone marrow pattern in the distal femur, proximal tibia and fibula are stable
--- OUTSIDE RECORDS SUMMARY | 2023-07-19 09:09 | XMS_ITS | Continuity of Care Document ---
Author Name Unknown Organization [facility] Address [address] [place] [address]- Care Team Providers Care Utilization Review Rn Name Role Phone Ina Brunner Primary Care Physician Encounter [facility] Date(s): 07/09/23 - 07/16/23 [facility] [address], [place] [address] Encounter Diagnosis Cough(Discharge Diagnosis) - 07/09/23 Attending Physician: Kay Mann MD Referring Physician: Not on Staff, Referring MD Allergies, Adverse Reactions, Alerts Substance Reaction Severity Status Red Dye Facial swelling Active oxyCODONE Palpitations Active Immunizations Given and Recorded Vaccine Date Status Refusal Reason influenza virus vaccine, inactivated 03/24/23 Give n influenza virus vaccine, inactivated 03/25/22 Sandip rded influenza virus vaccine, inactivated 02/04/21 Sandip rded SARS-CoV-2 (COVID-19) mRNA-1273 vaccine 08/15/21 R ecorded SARS-CoV-2 (COVID-19) mRNA-1273 vaccine 02/13/21 R ecorded SARS-CoV-2 (COVID-19) mRNA-1273 vaccine 06/25/20 R ecorded SARS-CoV-2 (COVID-19) mRNA-1273 vaccine 05/28/20 R ecorded zoster vaccine, inactivated 08/07/20 Recorded zoster vaccine, inactivated 02/12/20 Recorded Medications amLODIPine 5 mg oral tablet 1 tablet = 5 mg, By Mouth, Daily, TAKE 1 TABLET BY MOUTH DAILY., # 90 tablet, 1 Refills, Maintenance, 03/24/23 9:50:00 EST, Tablet, [facility], Partial fill upon patient request if the prescription is for a schedule II opioid drug., 167.6... Start Date: 03/24/23 Status: Ordered aspirin 81 mg oral capsule 1 capsule = 81 mg, By Mouth, Every 4 hours, 0 Refills, Maintenance, 08/27/22 11:59:00 EDT, Partial fill upon patient request if the prescription is for a schedule II opioid drug. Start Date: 08/27/22 Status: Ordered atorvastatin 20 mg oral tablet 1 tablet = 20 mg, By Mouth, Daily at bedtime, TAKE ONE TABLET BY MOUTH EVERY EVENING, # 90 tablet, 1 Refills, Maintenance, 03/24/23 9:50:00 EST, Tablet, [facility], Partial fill uponpatient request if the prescription is for a schedule I... Start Date: 03/24/23 Status: Ordered D3 with Calcium 0 Refills, Maintenance, 08/27/22 11:59:00 EDT, Partial fill upon patient request if the prescription is for a schedule II opioid drug. Start Date: 08/27/22 Status: Ordered levothyroxine 75 mcg (0.075 mg) oral tablet 1 tablet, By Mouth, Daily, # 90 tablet, 1 Refills, Maintenance, 06/15/23 15:04:00 EST, [facility], 167.6, cm, 03/24/23 9:56:00 EST, Height Start Date: 06/15/23 Status: Ordered lisinopril 40 mg oral tablet See Instructions, TAKE ONE TABLET BY MOUTH EVERY DAY, # 90 tablet, 1 Refills, Maintenance, 239:49:00 EST, [facility], 167.6, cm, 03/24/23 9:21:00 EST, Height Start Date: 03/24/23 Status: Ordered Potassium Chloride (Eqv-K-Tab) 20 mEq oral tablet, extended release 2 tablet, By Mouth, 2 times a day, # 180 tablet, 0 Refills, Maintenance, 06/29/23 8:02:00 EDT, [facility], 167.6, cm, 03/24/23 9:56:00 EST, Height Start Date: 06/29/23 Status: Ordered propranolol 60 mg oral capsule, extended release 60 mg, 1, capsule, By Mouth, Daily, # 90 capsule, Refills 1, Tot. Refills 1, Maintenance, 03/24/23 9:49:00 EST, Route to Pharmacy Electronically, [facility], Partial fill upon patient request if the prescription is for a schedule II opioi... Start Date: 03/24/23 Stop Date: 09/20/23 Status: Ordered Revlimid 15 mg oral capsule 0 Refills, Maintenance, 08/27/22 11:58:00 EDT, Partial fill upon patient request if the prescription is for a schedule II opioid drug. Start Date: 08/27/22 Status: Ordered valACYclovir 500 mg oral tablet Refills 0, Maintenance, 08/27/22 11:55:00 EDT, Partial fill upon patient request if the prescription is for a schedule II opioid drug. Start Date: 08/27/22 Status: Ordered Vitamin B12 0 Refills, Maintenance, 08/27/22 11:59:00 EDT, Partial fill upon patient request if the prescription is for a schedule II opioid drug. Start Date: 08/27/22 Status: Ordered Problem List Condition Confirmation Course Effective Dates Status H ealth Status Informant Valvular heart disease Confirmed Active Hyperlipidemia Confirmed Active Hypertension Confirmed Active Hypothyroidism Confirmed Active IFG (impaired fasting glucose) Confirmed Active Leukopenia Confirmed Active Aortic stenosis, mild Confirmed Active Multiple myeloma Confirmed Active Frequent UTI Confirmed Active Diagnosis Diagnosis Type Effective Dates Health Status [facility] Service Informant Cough Discharge Diagnosis 07/09/23 Vital Signs Most recent to oldest [Reference Range]: 1 Height 167.6 cm (07/09/23 9:39 AM) Oxygen Saturation [94-100 %] 97 % (07/09/23 9:39 AM) Pulse Rate [55-90 bpm] 66 bpm (07/09/23 9:39 AM) Blood Pressure [90-138/55-84 mm Hg] 137/ 90mm Hg (07/09/23 9:39 AM) Respiratory Rate [16-30 br/min] 18 br/mi n (07/09/23 9:39 AM) Temperature [96.8-100.4 DegF] 97.8 DegF (07/09/23 9:39 AM) Mode of Delivery (Oxygen) Room air (07/09/23 9:39 AM) Blood pressure sites Arm, right (07/09/23 9:39 AM) Temperature Route Oral (07/09/23 9:39 AM) Social History Social History Type Response Smoking Status Former smoker, quit more than 30 days ago; Tobacco use times per day: quit in the 80s, smoked for 20 years; entered on: 08/27/22 Sex Patient Care team information Care Team Personnel Name: Ina Brunner Position: [facility] Associate Professional Member Role: PCP Address: Address: [address] [place] [address]. [address] [place] [address]- Name: Nicanor FRANCIS, Thelma Abdi Position: [facility] Associate Professional Member Role: [employer] Provider Address: Address: [address] [place] [address]- Care Team Related Persons Name: BRADLEY ANGEL Name: BRADLEY ANGEL Address: home [address] [place] [id number] [place] Name: BRADLEY ANGEL
--- OUTSIDE RECORDS SUMMARY | 2023-07-19 09:09 | XMS_ITS | Continuity of Care Document ---
Author Name Unknown Organization [facility] Address [address] [place] [address]- Care Team Providers Care Engraver Seals Name Role Phone Ryan LORENZO, Ina Vance Primary Care Physician Encounter [facility] [place] Date(s): 08/27/22 - 09/03/22 [facility] [address] [place] [address]- Encounter Diagnosis Obese class I(Discharge Diagnosis) - 08/27/22 Multiple myeloma(Discharge Diagnosis) - 08/27/22 Hyperlipidemia(Discharge Diagnosis) - 08/27/22 Hypertension(Discharge Diagnosis) - 08/27/22 Hypothyroidism(Discharge Diagnosis) - 08/27/22 Valvular heart disease(Discharge Diagnosis) - 08/27/22 Attending Physician: Ina Brunner Allergies, Adverse Reactions, Alerts Substance Reaction Severity Status Red Dye Facial swelling Active oxyCODONE Palpitations Active Immunizations Given and Recorded Vaccine Date Status Refusal Reason influenza virus vaccine, inactivated 03/25/22 Sandip rded influenza virus vaccine, inactivated 02/04/21 Sandip rded SARS-CoV-2 (COVID-19) mRNA-1273 vaccine 08/15/21 R ecorded SARS-CoV-2 (COVID-19) mRNA-1273 vaccine 02/13/21 R ecorded SARS-CoV-2 (COVID-19) mRNA-1273 vaccine 06/25/20 R ecorded SARS-CoV-2 (COVID-19) mRNA-1273 vaccine 05/28/20 R ecorded zoster vaccine, inactivated 08/07/20 Recorded zoster vaccine, inactivated 02/12/20 Recorded Medications aspirin 81 mg oral capsule 1 capsule = 81 mg, By Mouth, Every 4 hours, 0 Refills, Maintenance, 08/27/22 11:59:00 EDT, Partial fill upon patient request if the prescription is for a schedule II opioid drug. Start Date: 08/27/22 Status: Ordered Benadryl 25 mg oral capsule 1 capsule = 25 mg, By Mouth, Every 6 hours, 0 Refills, Maintenance, 08/27/22 11:59:00 EDT, Partial fill upon patient request if the prescription is for a schedule II opioid drug. Start Date: 08/27/22 Status: Ordered D3 with Calcium 0 Refills, Maintenance, 08/27/22 11:59:00 EDT, Partial fill upon patient request if the prescription is for a schedule II opioid drug. Start Date: 08/27/22 Status: Ordered levoFLOXacin 500 mg oral tablet 1 tablet = 500 mg, By Mouth, Every 24 hours, for 10 days, TAKE ONE TABLET BY MOUTH EVERY DAY, # 10 tablet, 0 Refills, Acute 09/06/22 11:57:00 EDT, 08/27/22 11:57:00 EDT, Tablet, [facility], Partial fill upon patient request if the prescri... Start Date: 08/27/22 Stop Date: 09/06/22 Status: Ordered levothyroxine 75 mcg (0.075 mg) oral tablet 1 tablet = 75 mcg, By Mouth, Daily, # 90 tablet, 1 Refills, Maintenance, 08/27/22 11:55:00 EDT, Tablet, [facility], Partial fill upon patient request if the prescription is for a schedule II opioid drug., 167.6, cm, 08/27/22 11:42:00 EDT,... Start Date: 08/27/22 Status: Ordered lisinopril 40 mg oral tablet 1 tablet = 40 mg, By Mouth, Daily, # 90 tablet, 0 Refills, Maintenance, 08/27/22 11:57:00 EDT, Tablet, [facility], Partial fill upon patient request if the prescription is for a schedule II opioid drug., 167.6, cm, 08/27/22 11:42:00 EDT,... Start Date: 08/27/22 Status: Ordered Potassium Chloride (Eqv-K-Tab) 20 mEq oral tablet, extended release See Instructions, TWO TABLETS BY MOUTH TWICE DAILY, # 180 tablet, 1 Refills, Maintenance, 08/27/22 11:56:00 EDT, ER Tablet, [facility], Partial fill upon patient request if the prescription is for a schedule II opioid drug., 167.6, cm, 05... Start Date: 08/27/22 Status: Ordered propranolol 60 mg oral capsule, extended release 60 mg, 1, capsule, By Mouth, Daily, # 90 capsule, Refills 1, Tot. Refills 1, Maintenance, 08/27/22 11:57:00 EDT, Route to Pharmacy Electronically, [facility], Partial fill upon patient request if the prescription is for a schedule II opio... Start Date: 08/27/22 Stop Date: 02/23/23 Status: Ordered Revlimid 15 mg oral capsule 0 Refills, Maintenance, 08/27/22 11:58:00 EDT, Partial fill upon patient request if the prescription is for a schedule II opioid drug. Start Date: 08/27/22 Status: Ordered simvastatin 40 mg oral tablet 40 mg, 1, tablet, By Mouth, Daily at bedtime, # 90 tablet, Refills 1, Tot. Refills 1, Maintenance, 08/27/22 11:56:00 EDT, Route to Pharmacy Electronically, [facility], Partial fill upon patient request if the prescription is for a schedul... Start Date: 08/27/22 Status: Ordered valACYclovir 500 [...] Active Hypertension Confirmed Active Hypothyroidism Confirmed Active Multiple myeloma Confirmed Active Obese class I Confirmed Active Diagnosis Diagnosis Type Effective Dates Health Status Clinical Service Informant Obese class I Discharge Diagnosis 08/27/22 Multiple myeloma Discharge Diagnosis 08/27/22 Hyperlipidemia Discharge Diagnosis 08/27/22 Hypertension Discharge Diagnosis 08/27/22 Hypothyroidism Discharge Diagnosis 08/27/22 Valvular heart disease Discharge Diagnosis 08/27/22 Procedures Procedure Date Related Diagnosis Body Site Status Appendectomy Completed Knee joint operation Comp leted Partial hysterectomy Comp leted Vital Signs Most recent to oldest [Reference Range]: 1 2 3 Height 167.6 cm (08/27/22 11:42 AM) 167.6 cm (08/27/22 11:41 AM) 167.6 cm (08/27/22 10:51 AM) Weight 85.6 kg (08/27/22 10:51 AM) Oxygen Saturation [94-100 %] 99 % (08/27/22 10:51 AM) Pulse Rate [55-90 bpm] 64 bpm (08/27/22 10:51 AM) Body Mass Index [18.5-24.99 kg/m2] 30.47 kg/m2 *>HHI* (08/27/22 10:51 AM) Blood Pressure [90-138/55-84 mm Hg] 151/68mm Hg *H* (08/27/22 11:42 AM) 164/96mm Hg *H* (08/27/22 11:41 AM) 172/108mm Hg *H* (08/27/22 10:51 AM) Temperature [96.8-100.4 DegF] 98.4 DegF (08/27/22 10:51 AM) Mode of Delivery (Oxygen) Room air (08/27/22 10:51 AM) Blood pressure sites Arm, left (08/27/22 10:51 AM) Temperature Route Temporal (08/27/22 10:51 AM) Weight Obtained Via Standing scale (08/27/22 10:51 AM) Social History Social History Type Response Smoking Status Former smoker, quit more than 30 days ago; Tobacco use times per day: quit in the 80s, smoked for 20 years; entered on: 08/27/22 Sex Note * Stefany Mejias: PERFORM, SIGN, VERIFY Event Display: Patient Education/Instruction Authored Date: [id number] [facility] *[facility] Clinical Summary Name NANCY ANGEL Age 76 Years 1945 PCP Ryan LORENZO, Ina Vance PCP Visit Date 08/27/2022 10:32:00 Additional Instructions: Scheduled Appointments?? Future Appointments ?No Future Appointments Scheduled Follow-Up Instructions ?? With: Address: When: Ryan LORENZO Ina Pinky 08/27/2022 12:00 AM Comments: 4-6 months Diagnosis Body mass index [BMI] 30.0-30.9, adult; Multiple myeloma not having achieved remission; Endocarditis, valve unspecified; Hyperlipidemia, unspecified; Hypothyroidism, unspecified; Essential (primary) hypertension Medications: Please continue your medications until treatment is completed or stopped by your provider. Discuss any questions related to medications with your provider. New Medications [facility], [place], [place] [id number], [phone] Lisinopril (lisinopril 40 mg oral tablet) 1 tab(s) Oral Daily. Refills: 0. Next Dose: Medications to Continue Taking That Have Changed [facility] # [place], [place] [id number], [phone] - Levofloxacin (levoFLOXacin 500 mg oral tablet) 1 tab(s) Oral every 24 hours for 10 Days. TAKE ONETABLET BY MOUTH EVERY DAY. Refills: 0. Next Dose: - Potassium Chloride (Potassium Chloride (Eqv-K-Tab) 20 mEq oral tablet, extended release) TWO TABLETS BY MOUTH TWICE DAILY. Refills: 1. Next Dose: - Propranolol (propranolol 60 mg oral capsule, extended release) 1 capsule Oral Daily for 90 Days. Refills: 1. Next Dose: Medications to Continue with No Changes [facility] # [place], [place] [id number], [phone] Levothyroxine (levothyroxine 75 mcg (0.075 mg) oral tablet) 1 tab(s) Oral Daily. Refills: 1. Next Dose: Simvastatin (simvastatin 40 mg oral tablet) 1 tab(s) Oral Daily at Bedtime. Refills: 1. Next Dose: These medications were not printed or sent to your pharmacy Aspirin (aspirin 81 mg oral capsule) 1 capsule Oral every 4 hours. Next Dose: Calcium And Vitamin D Combination (D3 with Calcium) Next Dose: Cyanocobalamin (Vitamin B12) Next Dose: DiphenhydrAMINE (Benadryl 25 mg oral capsule) 1 capsule Oral every 6 hours. Next Dose: lenalidomide (Revlimid 15 mg oral capsule) Next Dose: ValACYclovir (valACYclovir 500 mg oral tablet) Next Dose: Allergy Info:?? oxyCODONE; Red Dye Medications Given This Visit Future Orders ?No future orders Vital Signs Height 167.6 cm Weight 85.6 kg BMI 30.47 kg/m2 Blood Pressure 151 mm Hg/68 mm Hg Temperature 98.4 DegF Pulse Rate 64 bpm Respiratory Rate 02 Sat Mode of Delivery 99 %/Room air You can now view a summary of your hospital visit from the comfort of your home through a free online portal called Dealdrive. Deald[employer] is a website that allows you to securely view your medical information including discharge summary, medications and follow-up visits. ??You can alsosend a secure electronic message to your doctor???s office to request appointments, renew medications or just ask a question. You can enroll at [email or web address] or register during your next office visit. Disclaimer:?? The information provided is of a general nature and is intended to be used in conjunction with the recommendations and advice of your health care practitioner. ??Every effort has been made to ensure that the information provided is accurate and complete at the time it is provided to you however, as your needs change, or, as new ??information becomes available, different or additional instructions may be required. If you have questions, please consult with your primary care provider or pharmacist, as appropriate. ??This information is not intended to serve as substitution for assessment and evaluation by a qualified health care provider. If you do not have a primary care provider, you may find a [facility] provider by calling [facility] [employer] at [phone]. For information about the plan of care including goals and instructions for your diagnosis, please see the patient education orders section of this document. Patient Education Materials?? The content of this educational material or handout may have been modified, supplemented, or adapted from its original content and format to support your individualized medical care. * Connie Oden: PERFORM, SIGN, VERIFY Event Display: Patient Education/Instruction Authored Date: [id number] [facility] *[facility] Clinical Summary Name NANCY ANGEL Age 76 Years 1945 PCP Ina Brunner PCP Visit Date 08/27/2022 10:32:00 Additional Instructions: Scheduled Appointments?? Future Appointments ?No Future Appointments Scheduled Follow-Up Instructions ?? With: Address: When: Ina Brunner 08/27/2022 12:00 AM Comments: 4-6 months Diagnosis Body mass index [BMI] 30.0-30.9, adult; Multiple myeloma not having achieved remission; Endocarditis, valve unspecified; Hyperlipidemia, unspecified; Hypothyroidism, unspecified; Essential (primary) hypertension Medications: Please continue your medications until treatment is completed or stopped by your provider. Discuss any questions related to medications with your provider. Allergy Info:?? oxyCODONE; Red Dye Medications Given This Visit Future Orders ?TSH with T4 Reflex (Adults Only)? Order Date:08/27/22?- Complete by?08/27/22 ?ALT? Order Date:08/27/22?- Complete by?08/27/22 ?AST? Order Date:08/27/22?- Complete by?08/27/22 Vital Signs Height 167.6 cm Weight 85.6 kg BMI 30.47 kg/m2 Blood Pressure 151 mm Hg/68 mm Hg Temperature 98.4 DegF Pulse Rate 64 bpm Respiratory Rate 02 Sat Mode of Delivery 99 %/Room air You can now view a summary of your hospital visit from the comfort of your home through a free online portal called Dealdrive. Dealdrive is a website that allows you to securely view your medical information including discharge summary, medications and follow-up visits. ??You can alsosend a secure electronic message to your doctor???s office to request appointments, renew medications or just ask a question. You can enroll at [email or web address] or register during your next office visit. Disclaimer:?? The information provided is of a general nature and is intended to be used in conjunction with the recommendations and advice of your health care practitioner. ??Every effort has been made to ensure that the information provided is accurate and complete at the time it is provided to you however, as your needs change, or, as new ??information becomes available, different or additional instructions may be required. If you have questions, please consult with your primary care provider or pharmacist, as appropriate. ??This information is not intended to serve as substitution for assessment and evaluation by a qualified health care provider. If you do not have a primary care provider, you may find a [facility] provider by calling [facility] [employer] at [phone]. For information about the plan of care including goals and instructions for your diagnosis, please see the patient education orders section of this document. Patient Education Materials?? The content of this educational material or handout may have been modified, supplemented, or adapted from its original content and format to support your individualized medical care. Patient Care team information Care Team Personnel Name: Ina Brunner Position: [facility] Associate Professional Member Role: PCP Address: Address: [address] [place] [address]- Care Team Related Persons Name: BRADLEY ANGEL Name: BRADLEY ANGEL Address: home [address] [place] [id number] Address: [place] [address]
--- OUTSIDE RECORDS SUMMARY | 2023-07-19 09:09 | XMS_ITS | Continuity of Care Document ---
Author Name Unknown Organization [facility] Address [address] [place] [address]- Care Team Providers Care Fitness Specialist Name Role Phone Ina Brunner Primary Care Physician [place] [facility] [place] 04/01/23 - 05/01/23 [facility] [address] [place] [address]- Allergies, Adverse Reactions, Alerts Substance Reaction Severity [...] day, # 180 tablet, 0 Refills, Maintenance, 04/04/23 11:42:00 EST, [facility], 167.6, cm, 03/24/23 9:56:00 EST, Height Start Date: 04/04/23 Status: Ordered propranolol 60 mg oral capsule, [...] Active IFG (impaired fasting glucose) Confirmed Active Multiple myeloma Confirmed Active Obese class I Confirmed Active Frequent UTI Confirmed Active Social History Social History Type Response Smoking Status Former smoker, quit more than 30 days ago; Tobacco use times per day: quit in the 80s, smoked for 20 years; entered on: 08/27/22 Sex Patient Care team information Care Team Personnel Name: Ina Brunner Position: [facility] Associate Professional Member Role: PCP Address: Address: [address] [place] [address]. [address] [place] [id number]- Name: Thelma Vick NP Position: [facility] Associate Professional Member Role: [employer] Provider Address: Address: [address] [place] [address]- Care Team Related Persons Name: BRADLEY ANGEL Name: BRADLEY ANGEL Address: home [address] [place] [id number] [place] Name: BRADLEY ANGEL
--- OUTSIDE RECORDS SUMMARY | 2023-07-19 09:09 | XMS_ITS | Continuity of Care Document ---
Author Name Unknown Organization [facility] Address [address] [place] [address]- Care Team Providers Care Director Of Valuation Name Role Phone Ryan LORENZO, Ina Vance Primary Care Physician Encounter [facility] [place] Date(s): 03/24/23 - 03/31/23 [facility] [address] [place] [address]- Encounter Diagnosis Hyperlipidemia(Discharge Diagnosis) - 03/24/23 Hypertension(Discharge Diagnosis) - 03/24/23 Hypothyroidism(Discharge Diagnosis) - 03/24/23 Multiple myeloma(Discharge Diagnosis) - 03/24/23 Valvular heart disease(Discharge Diagnosis) - 03/24/23 Frequent UTI(Discharge Diagnosis) - 03/24/23 IFG (impaired fasting glucose)(Discharge Diagnosis) - 03/24/23 Medicare annual wellness visit, subsequent(Discharge Diagnosis) - 03/24/23 Attending Physician: Ina Brunner Allergies, Adverse Reactions, [...] day, # 180 tablet, 0 Refills, Maintenance, 02/15/23 14:51:00 EDT, [facility], 167.6, cm, 08/27/22 11:42:00 EDT, Height Start Date: 02/15/23 Status: Ordered propranolol 60 mg oral capsule, [...] Condition Confirmation Course Effective Dates Status H ealt Status Informant Valvular heart disease Confirmed Active Hyperlipidemia Confirmed Active Hypertension Confirmed Active Hypothyroidism Confirmed Active IFG (impaired fasting glucose) Confirmed Active Multiple myeloma Confirmed Active Obese class I Confirmed Active Frequent UTI Confirmed Active Diagnosis Diagnosis Type Effective Dates Health Status Clinical Service Informant Hyperlipidemia Discharge Diagnosis 03/24/23 Hypertension Discharge Diagnosis 03/24/23 Hypothyroidism Discharge Diagnosis 03/24/23 Multiple myeloma Discharge Diagnosis 03/24/23 Valvular heart disease Discharge Diagnosis 03/24/23 Frequent UTI Discharge Diagnosis 03/24/23 IFG (impaired fasting glucose) Discharge Diagnosis 03/24/23 Medicare annual wellness visit, subsequent Discharge Diagnosis 03/24/23 Vital Signs Most recent to oldest [Reference Range]: 1 2 3 Height 167.6 cm (03/24/23 9:56 AM) 167.6 cm (03/24/23 9:21 AM) 167.6 cm (03/24/23 9:12 AM) Weight 87.3 kg (03/24/23 9:12 AM) Oxygen Saturation [94-100 %] 97 % (03/24/23 9:12 AM) Pulse Rate [55-90 bpm] 70 bpm (03/24/23 9:12 AM) Body Mass Index [18.5-24.99 kg/m2] 31.08 kg/m2 *>HHI* (03/24/23 9:12 AM) Blood Pressure [90-138/55-84 mm Hg] 122/86mm Hg (03/24/23 9:56 AM) 153/79mm Hg *H* (03/24/23 9:21 AM) 142/80mm Hg *H* (03/24/23 9:12 AM) Temperature [96.8-100.4 DegF] 98.8 DegF (03/24/23 9:12 AM) Mode of Delivery (Oxygen) Room air (03/24/23 9:12 AM) Blood pressure sites Arm, left (03/24/23 9:56 AM) Arm, left (03/24/23 9:21 AM) Arm, left (03/24/23 9:12 AM) Temperature Route Temporal (03/24/23 9:12 AM) Weight Obtained Via Standing scale (03/24/23 9:12 AM) Social History Social History Type Response Smoking Status Former smoker, quit more than 30 days ago; Tobacco use times per day: quit in the 80s, smoked for 20 years; entered on: 08/27/22 Sex Note * Stefany Mejias: PERFORM, SIGN, VERIFY Event Display: Patient Education/Instruction Authored Date: [id number] [facility] *[facility] Clinical Summary Name NANCY ANGEL Age 77 Years 1945 PCP Ina Brunner PCP Visit Date 03/24/2023 09:11:00 Additional Instructions: Scheduled Appointments?? Future Appointments ?No Future Appointments Scheduled Follow-Up Instructions ?? With: Address: When: Ina Brunner Comments: 6 month follow up Diagnosis Hyperlipidemia, unspecified; Encounter for general adult medical examination without abnormal findings; Multiple myeloma not having achieved remission; Impaired fasting glucose; Essential (primary) hypertension; Hypothyroidism, unspecified; Endocarditis, valve unspecified; Urinary tract infection, site not specified Medications: Please continue your medications until treatment is completed or stopped by your provider. Discuss any questions related to medications with your provider. New Medications [facility] # [place], [place] [id number], [phone] Lisinopril (lisinopril 40 mg oral tablet) TAKE ONE TABLET BY MOUTH EVERY DAY. Refills: 1. Next Dose: Propranolol (propranolol 60 mg oral capsule, extended release) 1 capsule Oral Daily for 90 Days. Refills: 1. Next Dose: Medications to Continue Taking That Have Changed [facility] # [place], [place] [id number], [phone] - Amlodipine (amLODIPine 5 mg oral tablet) 1 tab(s) Oral Daily. TAKE 1 TABLET BY MOUTH DAILY.. Refills: 1. Next Dose: - Atorvastatin (atorvastatin 20 mg oral tablet) 1 tab(s) Oral Daily at Bedtime. TAKE ONE TABLET BY MOUTH EVERY EVENING. Refills: 1. Next Dose: Medications to Continue with No Changes These medications were not printed or sent to your pharmacy Aspirin (aspirin 81 mg oral capsule) 1 capsule Oral every 4 hours. Next Dose: Calcium And Vitamin D Combination (D3 with Calcium) Next Dose: Cyanocobalamin (Vitamin B12) Next Dose: lenalidomide (Revlimid 15 mg oral capsule) Next Dose: Levothyroxine (levothyroxine 75 mcg (0.075 mg) oral tablet) 1 tab(s) Oral Daily. Refills: 1. Next Dose: Potassium Chloride (Potassium Chloride (Eqv-K-Tab) 20 mEq oral tablet, extended release) 2 tab(s) Oral twice a day. Refills: 0. Next Dose: ValACYclovir (valACYclovir 500 mg oral tablet) Next Dose: Allergy Info:?? oxyCODONE; Red Dye Medications Given This Visit Medication Dose Route influenza virus vaccine, inactivated (influenza virus, inactivated vacc (High Dose)) 0.7 mL Intramuscular Future Orders ?Complete Urinalysis/Reflex Culture? Order Date:03/24/23?- Complete by?03/24/23 ?Hemoglobin A1C (Monitoring)? Order Date:03/24/23?- Complete by?03/24/23 ?TSH with T4 Reflex (Adults Only)? Order Date:03/24/23?- Complete by?03/24/23 Vital Signs Height 167.6 cm Weight 87.3 kg BMI 31.08 kg/m2 Blood Pressure 122 mm Hg/86 mm Hg Temperature 98.8 DegF Pulse Rate 70 bpm Respiratory Rate 02 Sat Mode of Delivery 97 %/Room air You can now view a summary of your hospital visit from the comfort of your home through a free online portal called [employer]io[employer]. [employer] is a website that allows you to securely view your medical information including discharge summary, medications and follow-up visits. ??You can alsosend a secure electronic message to your doctor???s office to request appointments, renew medications or just ask a question. You can enroll at [email or web address] or register during your next office visit. [...] primary care provider, you may find a [facility] provider by calling [facility] [employer] at [phone]. [facility], in keeping with [facility] guidance, no longer requires face masks for staff, patientsor visitors in most situations. Similar to time spent indoors at other locations, there is the chance that you were exposed to respiratory viruses during your time with us (such as flu or COVID-19).? If you develop symptoms concerning for a viral respiratory infection, please seek testing (and treatment if indicated) from your medical provider or home test kit. For information about the plan of care [...] Care Team Personnel Name: Ina Brunner Position: [facility] Associate Professional Member Role: PCP Address: Address: [address] [place] [address]. [address] [place] [address]- Name: Thelma Vick NP Position: [facility] Associate Professional Member Role: [employer] Provider Address: Address: [address] [place] [address] [address] [place] [address]- Care Team Related Persons Name: BRADLEY ANGEL Name: BRADLEY ANGEL Name: BRADLEY ANGEL Address: [address] [address] [place]
--- OUTSIDE RECORDS SUMMARY | 2023-07-19 09:09 | XMS_ITS | Continuity of Care Document ---
Author Name Unknown Organization [facility] Adult Address [address] [place] [address]- Care Team Providers Care Traffic Technician Name Role Phone Ina Brunner Primary Care Physician Encounter [facility] Date(s): 12/27/22 - 01/26/[address] [address]- Allergies, Adverse Reactions, Alerts Substance Reaction Severity [...] Ordered lisinopril 40 mg oral tablet 1 tablet, By Mouth, Daily, # 90 tablet, 0 Refills, Maintenance, 11/29/22 9:28:00 EDT, [facility], 167.6, cm, 08/27/22 11:42:00 EDT, Height Start Date: 11/29/22 Status: Ordered Potassium Chloride (Eqv-K-Tab) 20 mEq [...] Confirmed Active Obese class I Confirmed Active Social History Social History Type Response Smoking Status Former smoker, quit more than 30 days ago; Tobacco use times per day: quit in the 80s, smoked for 20 years; entered on: 08/27/22 Sex Patient Care team information Care Team Personnel Name: Ina Brunner Position: [facility] Associate Professional Member Role: PCP Address: Address: [address] [place] [address]. [address] [place] [address] - Name: Nicanor FRANCIS, Thelma Abdi Position: [facility] Associate Professional Member Role: Lifetime Consulting Provider Address: Address: [address] [place] [address] - Care Team Related Persons Name: BRADLEY ANGEL Address: home [address] [place] [address] Name: BRADLEY ANGEL Name: BRADLEY ANGEL
--- OUTSIDE RECORDS SUMMARY | 2023-07-19 09:09 | XMS_ITS | Continuity of Care Document ---
Author Name Unknown Organization [facility] Adult Address [address] [place] [address]- Care Team Providers Care Home Advisor Name Role Phone Ina Brunner Primary Care Physician [place] [facility] [place] 12[place]29/22 - 01/28/[address] [address]- Allergies, Adverse Reactions, Alerts Substance Reaction Severity [...] Care Team Personnel Name: Ina Brunner Position: [facility] Associate Professional Member Role: PCP Address: Address: [address] [place] [address]. [address] [place] [address]- Name: Nicanor FRANCIS, Thelma Abdi Position: [facility] Associate Professional Member Role: Lifetime Consulting Provider Address: Address: [address] [place] [address]- Care Team Related Persons Name: BRADLEY ANGEL Name: BRADLEY ANGEL Name: BRADLEY ANGEL Address: [address] [address] [place]
--- OUTSIDE RECORDS SUMMARY | 2023-07-19 09:09 | XMS_ITS | Continuity of Care Document ---
Author Name Unknown Organization [facility] Adult Address [address] [place] [address]- Care Team Providers Care Emt/Paramedic Name Role Phone Ina Brunner Primary Care Physician [place] [facility] [place] 03/30/23 - 04/29/23 [facility] Adult [address] [place] [address]- Allergies, Adverse Reactions, Alerts Substance Reaction Severity [...] Mouth, Every 4 hours, 0 Refills, Maintenance, 05/12/23 11:59:00 EDT, Partial fill upon patient request [...] Care Team Personnel Name: Ina Brunner Position: [facility] Associate Professional Member Role: PCP Address: Address: [address] [place] [address]. [address] [place] [address]- Name: Thelma Vick NP Position[facility] Associate Professional Member Role: Lifetime Consulting Provider Address: Address: [address] [place] [address]- Care Team Related Persons Name: BRADLEY ANGEL Address: home [address] [place] [address] [place] Name: BRADLEY ANGEL Name: BRADLEY ANGEL
--- OUTSIDE RECORDS SUMMARY | 2023-07-19 09:09 | XMS_ITS | Continuity of Care Document ---
Author Name Unknown Organization [facility] Adult Address [address] [place] [address]- Care Team Providers Care Muck Miner Name Role Phone Ina Brunner Primary Care Physician [place] [facility] [place] Date(s): 01/13/23 - 02/12/23 [facility] Adult [address] [place] [address]- Allergies, Adverse Reactions, Alerts Substance Reaction Severity [...] Care Team Personnel Name: Ina Brunner Position: [facility] Associate Professional Member Role: PCP Address: Address: [address] [place] [address]. [address] [place] [address]- Name: Nicanor FRANCIS, Thelma Abdi Position: [facility] Associate Professional Member Role: Lifetime Consulting Provider Address: Address: [address] [place] [address]- Care Team Related Persons Name: BRADLEY ANGEL Name: BRADLEY ANGEL Name: BRADLEY ANGEL Address: home [address] [place] [address]
--- OUTSIDE RECORDS SUMMARY | 2023-07-19 09:09 | XMS_ITS | Continuity of Care Document ---
Author Name Unknown Organization [facility] Adult Address [address] [place] [address]- Care Team Providers Care Supervisor Shipping Name Role Phone nIa Brunner Primary Care Physician [place] [facility] [place] Date(s): 12/28/22 - 01/27/23 [facility] Adult [address] [place] [address]- Allergies, Adverse Reactions, Alerts Substance Reaction Severity [...] Care Team Personnel Name: Ina Brunner Position: [facility] Associate Professional Member Role: PCP Address: Address: [address] [place] [address]. [address] [place] [address]- Name: Nicanor FRANCIS, Thelma Abdi Position: [facility] Associate Professional Member Role: Lifetime Consulting Provider Address: Address: [address] [place] [address]- Care Team Related Persons Name: BRADLEY ANGEL Name: BRADLEY ANGEL Name: BRADLEY ANGEL Address: home [address] [place] [address]
--- OUTSIDE RECORDS SUMMARY | 2023-07-19 09:09 | XMS_ITS | Continuity of Care Document ---
Author Name Unknown Organization [facility] Adult Address [address] [place] [address]- Care Team Providers Care Supercharger Mechanic Name Role Phone Ina Brunner Primary Care Physician [place] [facility] [place] 06/15/23 - 07/15/23 [facility] Adult [address] [place] [address]- Allergies, Adverse Reactions, Alerts Substance Reaction Severity [...] myeloma Confirmed Active Frequent UTI Confirmed Active Social History Social History Type Response Smoking Status Former smoker, quit more than 30 days ago; Tobacco use times per day: quit in the 80s, smoked for 20 years; entered on: 08/27/22 Sex Patient Care team information Care Team Personnel Name: Ina Brunner Position: [facility] Associate Professional Member Role: PCP Address: Address: [address] [place] [address]. [address] [place] [address]- Name: Thelma Vick NP Position: [facility] Associate Professional Member Role: Lifetime Consulting Provider Address: Address: [address] [place] [address]- Care Team Related Persons Name: BRADLEY ANGEL Address: home [address] [place] [address] [place] Name: BRADLEY ANGEL Name: BRADLEY ANGEL
--- OUTSIDE RECORDS SUMMARY | 2023-07-19 09:09 | XMS_ITS | Continuity of Care Document ---
Author Name Unknown Organization [facility] Adult Address [address] [place] [address]- Care Team Providers Care Terminal Make Up Operator Name Role Phone Ina Brunner Primary Care Physician Encounter [facility] Date(s): 03/03/23 - 04/02/23 [facility] Adult [address] [place] [address]- Allergies, Adverse Reactions, Alerts Substance Reaction Severity [...] Care Team Personnel Name: Ina Brunner Position: [facility] Associate Professional Member Role: PCP Address: Address: [address] [place] [address]. [address] [place] [address]- Name: Thelma Vick NP [facility] Associate Professional Member Role: Lifetime Consulting Provider Address: Address: [address] [place] [address]- Care Team Related Persons Name: BRADLEY ANGEL Name: BRADLEY ANGEL Name: BRADLEY ANGEL Address: home [address] [place] [address] [place]
--- OUTSIDE RECORDS SUMMARY | 2023-07-19 09:09 | XMS_ITS | Continuity of Care Document ---
Author Name Unknown Organization [facility] Adult Address [address] [place] [address]- Care Team Providers Care Weigh And Charge Worker Name Role Phone Ina Brunner Primary Care Physician En[place] [facility] [place] Date(s): 05/24/23 - 06/23/23 [facility] Adult [address] [place] [address]- Allergies, Adverse Reactions, Alerts Substance Reaction Severity [...] day, # 180 tablet, 0 Refills, Maintenance, 05/16/23 11:00:00 EST, [facility], 167.6, cm, 03/24/23 9:56:00 EST, Height Start Date: 05/16/23 Status: Ordered propranolol 60 mg oral capsule, [...] Care Team Personnel Name: Ina Brunner Position: [facility] Associate Professional Member Role: PCP Address: Address: [address] [place] [address]. [address] [place] [address]- Name: Thelma Vick NP Position: [facility] Associate Professional Member Role: Lifetime Consulting Provider Address: Address: [address] [place] [address]- Care Team Related Persons Name: BRADLEY ANGEL Name: BRADLEY ANGEL Name: BRADLEY ANGEL Address: [address]
--- OUTSIDE RECORDS SUMMARY | 2023-07-19 09:09 | XMS_ITS | Continuity of Care Document ---
Author Name Unknown Organization [facility] Adult Address [address] [place] [address]- Care Team Providers Care Training And Development Professional Name Role Phone Ina Brunner Primary Care Physician [place] [facility] [place]10[place]23 - 02/09/23 [facility] Adult [address] [place] [address]- Allergies, Adverse Reactions, Alerts Substance Reaction Severity [...] Associate Professional Member Role: PCP Address: Address: [address] [place] [address]. [address] [place] [address]- Name: Nicanor FRANCIS, Thelma Abdi Position: [facility] Associate Professional Member Role: Lifetime Consulting Provider Address: Address: [address] [place] [address]- Care Team Related Persons Name: BRADLEY ANGEL Name: BRADLEY ANGEL Name: BRADLEY ANGEL Address: home [address] [place] [address]
--- OUTSIDE RECORDS SUMMARY | 2023-07-19 09:09 | XMS_ITS | Continuity of Care Document ---
Author Name Unknown Organization [facility] Adult Address [address] [place] [address]- Care Team Providers Care Machine Compositor Name Role Phone Ina Brunner Primary Care Physician Encounter [facility] Date(s): 02/15/23 - 03/17/[address] [facility] Adult [address] [place] [address]- Allergies, Adverse Reactions, Alerts Substance Reaction Severity [...] EDT, Height Start Date: 11/29/22 Status: Ordered lisinopril 40 mg oral tablet See Instructions, TAKE ONE TABLET BY MOUTH EVERY DAY, # 90 tablet, 0 Refills, Maintenance, 238:22:00 EST, [facility], 167.6, cm, 08/27/22 11:42:00 EDT, Height Start Date: 02/23/23 Status: Ordered Potassium Chloride (Eqv-K-Tab) 20 mEq [...] Care Team Personnel Name: Ina Brunner Position: [facility] Associate Professional Member Role: PCP Address: Address: [address] [place] [address]- Name: Nicanor FRANCIS, Thelma Abdi Position: [facility] Associate Professional Member Role: Lifetime Consulting Provider Address: Address: [address] [place] [address]- Care Team Related Persons Name: BRADLEY ANGEL Name: BRADLEY ANGEL Address: home [address] [place] [address] [place] Name: BRADLEY ANGEL
--- OUTSIDE RECORDS SUMMARY | 2023-07-19 09:09 | XMS_ITS | Continuity of Care Document ---
Author Name Unknown Organization [facility] Address [address] [place] [address]- Care Team Providers Care Automotive General Manager Name Role Phone Ina Brunner Primary Care Physician Encounter [facility] [place] Date(s): 08/30/22 - 09/29/22 [facility] [address] [place] [address]- Allergies, Adverse Reactions, Alerts Substance Reaction Severity [...] Team Personnel Name: Ina Brunner Position: [facility] Associate Professional Member Role: PCP Address: Address: [address] [place] [address]. [address] [place] [address]- Care Team Related Persons Name: BRADLEY ANGEL Name: BRADLEY ANGEL Address: home [address] [place] [address] [place]
--- OUTSIDE RECORDS SUMMARY | 2023-07-19 09:09 | XMS_ITS | Continuity of Care Document ---
Author Name Unknown Organization [facility] Adult Address [address] [place] [address]- Care Team Providers Care Internal Sales Name Role Phone Ina Brunner Primary Care Physician [place] [facility] [place] Date(s): 10/08/22 - 11/07/22 [facility] Adult [address] [place] [address]- Allergies, Adverse Reactions, Alerts Substance Reaction Severity [...] Care Team Personnel Name: Ina Brunner Position: [facility] Associate Professional Member Role: PCP Address: Address: [address] [place] [address]. [address] [place] [address]- Care Team Related Persons Name: BRADLEY ANGEL Address: home [address] [place] [phone] Name: BRADLEY ANGEL
--- OUTSIDE RECORDS SUMMARY | 2023-07-19 09:09 | XMS_ITS | Continuity of Care Document ---
Author Name Unknown Organization [facility] Adult Address [address] [place] [address]- Care Team Providers Care Purchasing Assistant Name Role Phone Ina Brunner Primary Care Physician [place] [facility] [place] 05/[place]/23 [facility] Adult [address] [place] [address]- Allergies, Adverse Reactions, Alerts Substance Reaction Severity [...] Care Team Personnel Name: Ina Brunner Position: [facility] Associate Professional Member Role: PCP Address: Address: [address] [place] [address]. [address] [place] [address]- Name: Thelma Vick NP [facility] Associate Professional Member Role: Lifetime Consulting Provider Address: Address: [address] [place] [address]- Care Team Related Persons Name: BRADLEY ANGEL Name: BRADLEY ANGEL Name: BRADLEY ANGEL Address: home [address] [place] [address] [place]
--- OUTSIDE RECORDS SUMMARY | 2023-07-19 09:09 | XMS_ITS | Continuity of Care Document ---
Author Name Unknown Organization [facility] Adult Address [address] [place] [address]- Care Team Providers Care Open Pit Quarry Supervisor Name Role Phone Ina Brunner Primary Care Physician [place] [facility] [place] 04/19/23 - 05/19/23 [facility] Adult [address] [place] [address]- Allergies, Adverse Reactions, Alerts Substance Reaction Severity [...] Care Team Personnel Name: Ina Brunner Position: [facility] Associate Professional Member Role: PCP Address: Address: [address] [place] [address]. [address] [place] [address]- Name: Thelma Vick NP Position: [facility] Associate Professional Member Role: Lifetime Consulting Provider Address: Address: [address] [place] [address]- Care Team Related Persons Name: BRADLEY ANGEL Name: BRADLEY ANGEL Name: BRADLEY ANGEL Address: home [address] [place] [address] [place]
--- OUTSIDE RECORDS SUMMARY | 2023-07-19 09:09 | XMS_ITS | Continuity of Care Document ---
Author Name Unknown Organization [facility] Adult Address [address] [place] [address]- Care Team Providers Care Natural Gas Engineer Name Role Phone Ina Brunner Primary Care Physician En[place] [facility] [place](s): 04/21/23 - 05/21/23 [facility] Adult [address] [place] [address]- Allergies, Adverse Reactions, Alerts Substance Reaction Severity [...] Care Team Personnel Name: Ina Brunner Position: [facility] Associate Professional Member Role: PCP Address: Address: [address] [place] [address]. [address] [place] [address]- Name: Thelma Vick NP Position: [facility] Associate Professional Member Role: Lifetime Consulting Provider Address: Address: [address] [place] [address]- Care Team Related Persons Name: BRADLEY ANGEL Name: BRADLEY ANGEL Name: BRADLEY ANGEL Address: home [address] [place] [address] [place]
--- NOTE | 2023-07-19 09:10 | PHA.MEDREC ---
Pharmacy Consult ? Medication Reconciliation Pharmacy has completed the medication reconciliation. Reviewed med rec done by nursing
[2023-07-19] MEDS: Lactated Ringers 1,000 ML 100 ML IVCONT ×2 (09:34→15:29)
--- NOTE | 2023-07-19 10:26 | MHC.SHP ---
Pre-Procedural Eval Section A - 24 Hr Update-Section A only Date of Service: 07/19/23 The patient is an INPATIENT: No Changes since office visit: No Cold of Flu in the past 2 weeks, No New Medical Problems, No Changes in Medication and No Patient answered all questions The patient has been examined within 24 hours of the surgical procedure. The History & Physical has been completed within 30 days and I have reviewed it.: Yes Section B - Complete if H&P > 30 days Chief Complaint: LT TKA Allergies: Allergies Allergy/AdvReac Type Severity Reaction Status Date / Time red dye [Red Dye] Allergy Mild SWELLING Verified 07/14/23 13:38 oxycodone AdvReac Intermediate Vomiting Verified 07/14/23 13:38 Plan I have reviewed the history and physical and performed a pertinent physical examination on my patient. No changes have occurred unless specified. Time Spent With Patient Time: Total time managing care of this patient today ____ minutes.
--- NOTE | 2023-07-19 11:10 | HO.ANESPROP2 ---
Documented by User: Thelma Julien NP 07/18/23 12:17 HPI - Anesthesia Eval Consult details Narrative: 77yo F for Left Knee Replacement Total PAT appointment 07/[address] Aguero 07/09/23 prednisone course for cough. 40mg x 5 days. Per clearance note, consider stress dose. Cardiac cleared. Medically cleared PMFSH Active Problems Active Problems: All Active Problems (Updated 07/12/23 @ 12:05 by Ankita Woodson RN) Status post total left knee replacement (Acute) Preoperative cardiovascular examination (Acute) Arthritis of left knee (Acute) Colitis (Acute) Essential hypertension (Acute) Hypokalemia (Acute) Tremor (Acute) Elevated troponin (Acute) Acute UTI (Acute) Non-rheumatic aortic stenosis (Acute) Annual physical exam (Acute) Bifascicular block (Acute) Pre-syncope (Acute) HTN (hypertension) (Acute) Hypothyroidism (Acute) HLP (hyperkeratosis lenticularis perstans) (Acute) Multiple myeloma (Acute) Mitral regurgitation (Acute) Osteopenia (Acute) Past Medical History Medical History Chronic UTI Tremor Bifascicular block Non-rheumatic aortic stenosis Arthritis Mitral regurgitation Postural hypotension Osteopenia Multiple myeloma Gallstone Hypothyroidism HLP (hyperkeratosis lenticularis perstans) HTN (hypertension) Family History Family History Other HTN (hypertension) No family history of cancer Surgical History Surgical History H/O colonoscopy History of meniscectomy of left knee History of appendectomy History of partial hysterectomy Social History Social History Household Members: Spouse Housing: House Are you a primary manager intensive care unit to a significant other at home: No Do you presently have visiting nurse or other home services: No Alcohol intake: never Patient Tobacco Use Status: Former Tobacco user Quit Date: age 29's Tobacco use type: Cigarette Years Smoked: 15 e-Cigarette/Vaping Use: Never Used Second Hand Smoke Exposure: No Use of substances other than those prescribed or required for medical reasons: No Have you been hit, kicked, punched, or otherwise hurt by someone within the past year? If so, by whom?: No Are you DNR?: No Advance Directives: Yes (daughter is HCP) Advance Directives Information Provided: Yes Advance Directives on File: Yes Advance Directives Date on File: 11/17/20 Recently lost weight without trying: No Eating poorly because of decreased appetite: No Nutrition Risks: Surgical patient >75years Poor oral hygiene: No (full upper & lower denture) service: No Current occupational status: retired Cognitive needs: No Hearing needs: No Vision needs: Yes (Glasses) Meds Allergies Allergy/AdvReac Type Severity Reaction Status Date / Time red dye [Red Dye] Allergy Mild SWELLING Verified 07/14/23 13:38 oxycodone AdvReac Intermediate Vomiting Verified 07/14/23 13:38 Home Medications Medication Instructions Recorded Confirmed Last Taken Type acetaminophen 500 mg tablet 1,000 mg PO Q6H PRN Pain 01/18/20 07/14/23 07/18/23 History calcium carbonate 600 mg-vitamin 2 tab PO BID 01/18/20 07/14/23 07/18/23 History D3 5 mcg (200 unit) tablet cyanocobalamin (vitamin B-12) 1,000 mcg PO DAILY 11/17/20 07/14/23 07/18/23 History 1,000 mcg tablet lisinopril 40 mg tablet 40 mg PO QAM 12/22/22 07/14/23 07/18/23 History amlodipine 5 mg tablet 5 mg PO QAM 07/12/23 07/14/23 07/19/23 History levothyroxine 75 mcg tablet 75 mcg PO QAM 07/12/23 07/14/23 07/19/23 History atorvastatin 20 mg tablet 20 mg PO BEDTIME 07/19/23 07/19/23 07/18/23 History Exam Height,Weight and Vital Signs: Height 5 ft 6 in Weight 85.2 kg Last Vital Signs Pulse 86 07/12/23 12:13 Resp 20 07/12/23 12:13 BP 122/81 07/12/23 12:13 Pulse Ox 96 07/12/23 12:13 O2 Del Method Room Air 07/12/23 12:13 Pertinent Lab Results Pertinent Lab Results: Laboratory Tests 07/12/23 07/12/23 12:30 12:52 Nasal Screen MRSA (PCR) NEGATIVE Nasal S. aureus Screen NEGATIVE Nasal MRSA/S.aureus Interp SEE NOTE Blood Type O Positive Antibody Screen NEGATIVE Laboratory Tests 07/18/23 08:23 WBC 3.9 L Hgb 14.6 Hct 43.0 Plt Count 167 D Sodium 145 Potassium 4.2 Chloride 108 Carbon Dioxide 28 BUN 16 Creatinine 0.84 Narrative Narrative: EKG 06/21/23 sinus bradycardia at 57/Min; bifascicular block pattern ECHO 06/2023 Conclusions: - 1. Normal LV systolic function with mild concentric left ventricular hypertrophy and severe asymmetric septal hypertrophy with elevated filling pressures 2. Mildly dilated left atrium 3. Mild aortic stenosis with suggestion of increased stroke volume 4. Normal RV systolic pressure 5. Mildly dilated ascending aorta 3.8 cm 6. No gross pericardial effusion NM cardiolite stress test 06/2023 Impression: 1. Myocardial perfusion imaging study shows likely normal myocardial perfusion 2. Gated LVEF is 71% 3. Transient ischemic dilatation not present EKG is nondiagnostic for ischemia Assessment and Plan Assessment Anesthesia Assessment: Chart Reviewed Documented by User: Izabella Castaneda DO 07/19/23 11:43 PMFSH Past Medical History Medical History Chronic UTI Tremor Bifascicular block Non-rheumatic aortic stenosis Arthritis Mitral regurgitation Postural hypotension Osteopenia Multiple myeloma Gallstone Hypothyroidism HLP (hyperkeratosis lenticularis perstans) HTN (hypertension) Family History Family History Other HTN (hypertension) No family history of cancer Family history of problems with anesthesia: No Surgical History Surgical History H/O colonoscopy History of meniscectomy of left knee History of appendectomy History of partial hysterectomy History of Problems with Anesthesia: No Social History Social History Household Members: Spouse Housing: House Are you a primary manager intensive care unit to a significant other at home: No Do you presently have visiting nurse or other home services: No Alcohol intake: never Patient Tobacco Use Status: Former Tobacco user Quit Date: age 29's Tobacco use type: Cigarette Years Smoked: 15 e-Cigarette/Vaping Use: Never Used Second Hand Smoke Exposure: No Use of substances other than those prescribed or required for medical reasons: No Have you been hit, kicked, punched, or otherwise hurt by someone within the past year? If so, by whom?: No Are you DNR?: No Advance Directives: Yes (daughter is HCP) Advance Directives Information Provided: Yes Advance Directives on File: Yes Advance Directives Date on File: 11/17/20 Recently lost weight without trying: No Eating poorly because of decreased appetite: No Nutrition Risks: Surgical patient >75years Poor oral hygiene: No (full upper & lower denture) service: No Current occupational status: retired Cognitive needs: No Hearing needs: No Vision needs: Yes (Glasses) Meds Allergies Allergy/AdvReac Type Severity Reaction Status Date / Time red dye [Red Dye] Allergy Mild SWELLING Verified 07/14/23 13:38 oxycodone AdvReac Intermediate Vomiting Verified 07/14/23 13:38 Home Medications Medication Instructions Recorded Confirmed Last Taken Type acetaminophen 500 mg tablet 1,000 mg PO Q6H PRN Pain 01/18/20 07/14/23 07/18/23 History calcium carbonate 600 mg-vitamin 2 tab PO BID 01/18/20 07/14/23 07/18/23 History D3 5 mcg (200 unit) tablet cyanocobalamin (vitamin B-12) 1,000 mcg PO DAILY 11/17/20 07/14/23 07/18/23 History 1,000 mcg tablet lisinopril 40 mg tablet 40 mg PO QAM 12/22/22 07/14/23 07/18/23 History amlodipine 5 mg tablet 5 mg PO QAM 07/12/23 07/14/23 07/19/23 History levothyroxine 75 mcg tablet 75 mcg PO QAM 07/12/23 07/14/23 07/19/23 History atorvastatin 20 mg tablet 20 mg PO BEDTIME 07/19/23 07/19/23 07/18/23 History Exam Exam Date and Time: July 19, 2023 1110 Height,Weight and Vital Signs: Height 5 ft 6 in Weight 85.2 kg Last Vital Signs Pulse 86 07/12/23 12:13 Resp 20 07/12/23 12:13 BP 122/81 07/12/23 12:13 Pulse Ox 96 07/12/23 12:13 O2 Del Method Room Air 07/12/23 12:13 Height 5 ft 6 in Weight 85.2 kg Vital Signs Pulse Rate 86 07/12/23 12:13 Respiratory Rate 20 07/12/23 12:13 Blood Pressure 122/81 07/12/23 12:13 Pulse Oximetry 96 07/12/23 12:13 Oxygen Delivery Method Room Air 07/12/23 12:13 Temperature 98.4 F 07/19/23 09:19 Pulse Rate 64 07/19/23 09:19 Respiratory Rate 18 07/19/23 09:19 Blood Pressure 167/77 H 07/19/23 09:19 Pulse Oximetry 97 07/19/23 09:19 Oxygen Delivery Method Room Air 07/19/23 09:19 Airway Mallampati Class: I TM Dist: <=3cm Neck ROM: Full Loose/Missing/Broken Teeth: Yes (edentulous) Heart: S1S2 Lungs: CTAB Assessment and Plan Assessment Anesthesia Assessment: Anesthesia Plan Discussed and Chart Reviewed Final Anesthetic Review Family History of Problems with Anesthesia: No History of Problems with Anesthesia: No NPO: Yes ASA Class: III Final Preanesthetic Review: No Changes in Pt Med Stat, Meds/Allgs Chart Reviewed, Consent Obtained/Reviewed and Anes Risks/Benef Reviewed Patient Risk: Intermediate Procedure Risk: Intermediate Assessment/Block/Sedation in SS: Assess/Block/Sedation-SS Anesthetic Plan Anesthetic Plan: GA, Regional Block (left adductor canal and left ipack) and Agree w/ Assess. and Plan Disposition: Standard PACU
--- NOTE | 2023-07-19 11:17 | PC.NURSE ---
timeout complted for block
--- NOTE | 2023-07-19 11:46 | PC.NURSE ---
spoke to myrtle lindsey aware patient status and delay pt resting comfortable denies pain voided on the bedpan yellow urine
[2023-07-19] MEDS: ceFAZolin Sodium/Dextrose,Iso 2 GM/50 ML PIGGYBACK IV ×2 (13:35→19:03)
[2023-07-19] MEDS: Acetaminophen 325 MG TABLET 650 MG PO (22:11)
[2023-07-19] MEDS: Propranolol HCL LA 60 MG CAP.SA.24H PO (22:11)
[2023-07-19] MEDS: Celecoxib 200 MG CAPSULE PO (22:12)
[2023-07-19] MEDS: Potassium Chloride ER 20 MEQ TAB.ER.PRT 40 MEQ PO (22:12)
[2023-07-19] MEDS: 0.9 % Sodium Chloride Flush 3 ML SYRINGE IVFLUSH (22:24)
[2023-07-20 00:20] VITALS: BP 102/58; PULSE 79; RESP 18; TEMP 36.6; O2SAT 96
[2023-07-20] MEDS: oxyCODONE HCl Immed Release 5 MG TABLET PO (02:53)
[2023-07-20] MEDS: 0.9 % Sodium Chloride Flush 3 ML SYRINGE IVFLUSH (02:55)
[2023-07-20] MEDS: Lactated Ringers 1,000 ML 100 ML IVCONT (03:44)
[2023-07-20 04:00] VITALS: BP 118/59; PULSE 65; RESP 18; TEMP 36.3; O2SAT 95
[2023-07-20] MEDS: Levothyroxine Sodium 50 MCG TABLET 75 MCG PO (06:10)
[2023-07-20] MEDS: Acetaminophen 325 MG TABLET 650 MG PO (06:11)
--- NOTE | 2023-07-20 06:40 | PC.NURSE ---
Pt transferred to unit in bed from PACU S/P L TKA. initial surgical dressing in place to L knee, CDI with ketty bandage covering. bladder scan of 543 ml at 2230, straight cath with 500 ml urine tolerated well. OOB to bedside commode 0530 voided 300 ml, tolerated transfer well.
[2023-07-20 06:41] LABS: Hematocrit 33.2 % (37.0-47.0); Hemoglobin 11.6 g/dl (12.0-16.0); Imm Gran Abs Auto 0.02 X10*3/uL (0.00-0.03); Imm Gran Pct Auto 0.4 % (0.0-0.4); Lymphocytes Absolute Auto 1.1 X10*3/uL (1.2-4.9); Lymphocytes Percent Auto 22.6 % (20-40); MANUAL DIFF FLAG SCAN; Mean Corpuscular HGB Conc 34.9 g/dl (31.0-35.0); Mean Corpuscular Hemoglobin 32.7 pg (27.0-33.0); Mean Corpuscular Volume 93.5 fL (80.0-98.0); Mean Platelet Volume 10.1 fL (9.4-12.3); Monocytes Absolute Auto 1.2 X10*3/uL (0.1-1.2); Monocytes Percent Auto 24.8 % (2-11); Neutrophils Absolute Auto 2.4 x10*3/uL (2.0-8.3); Neutrophils Percent Auto 52.2 % (45-73); Platelet Count 132 X10*3/uL (160-400); Red Blood Count 3.55 X10*6/uL (4.20-5.50); Red Cell Distribution Width 14.6 % (11.0-16.0); SCAN SMEAR FLAG 1; White Blood Count 4.7 X10*3/uL (4.8-10.8)
[2023-07-20 06:57] LABS: Anion Gap 11 (12-20); Blood Urea Nitrogen 15 mg/dL (9-16); Carbon Dioxide 26 mmol/L (22-29); Chloride 106 mmol/L (96-108); Creatinine Clr Calc Pharmacy 67.1; Estimated Glomerular Filt Rate > 60; Glucose Fasting 154 mg/dL (60-99); Potassium 3.4 mmol/L (3.3-5.1); Sodium 140 mmol/L (135-145)
[2023-07-20 07:31] VITALS: BP 147/70; PULSE 60; RESP 18; TEMP 36.2; O2SAT 92
--- NOTE | 2023-07-20 08:11 | PM.DS ---
DS: Providers Provider Date of Service: 07/20/23 Date of admission: 07/19/23 08:56 Primary care physician: BJ Arenas Consults: 07/19/23 19:41 Consult to Hospitalist Routine Comment: Consulting Provider: Hospitalist Reason For Exam: HTN,CVD,mitral regurg DS: Summary Hospital Course Hospital Course: The patient underwent a successful left total knee arthroplasty, they were transferred to PACU and then to the floor to recover. During their stay, their vitals were stable, afebrile at 97.4. Labs were unremarkable, H/H 14.6/43.0. POD 1 they were started on Lovenox for DVT ppx, they also received Physical Therapy services. Prior to discharge, their dressing was \clean dry and intact and the plan was to be discharged home with VNA services. Time Attestation Discharge Coordination Time (in mins): 30 Quality: Safe Use of Opioids Does Pt have an Active Cancer Diagnosis on the Problem List?: No Quality: Stroke Does the patient have a stroke diagnosis?: No Physical Exam Vital Signs: Vital Signs: Last Vital Signs Temp 97.2 F 07/20/23 07:31 Pulse 60 07/20/23 07:31 Resp 18 07/20/23 07:31 BP 147/70 H 07/20/23 07:31 Pulse Ox 92 07/20/23 07:31 O2 Del Method Room Air 07/20/23 07:31 BMI result Body Mass Index 30.3 Const: General: cooperative, healthy appearing and no acute distress Resp: Effort & Inspection: normal respiratory effort and able to speak in complete sentences Cardio: Rate: regular rate Peripheral pulses: Peripheral pulses 2+ throughout GI: Palpation (GI): Soft to palpation Skin: Lesions: no lesions Rashes: no rashes Extrem: Other: left knee dressing is c/d/i. Able to dorsi/plantar flex. Calf is supple and nontender. Sensation intact. Pedal pulse intact. DS: Data Data Completed and Pending Pending studies at discharge: Pending at discharge 07/19/23 14:23 Surgical [PTH] Routine Labs on day of discharge: Laboratory Results - last 24 hr 07/20/23 06:32 Sodium 140 Potassium 3.4 Chloride 106 Carbon Dioxide 26 Anion Gap 11 L BUN 15 Creatinine 0.76 Estim Creat Clear Calc 67.1 Estimated GFR > 60 Fasting Glucose 154 H Calcium 8.0 L D Discharge Plan Discharge Anticipated Discharge Date/Time: 07/20/23 13:07 Patient Disposition: Home Health Service Discharge Diagnosis: s/p LTHA Referrals: Iza Sanchez PA-C [Physician Fireworks Inspector] - 08/04/23 1:00 pm Discharge Medications: New enoxaparin 40 mg/0.4 mL Syringe 40 mg subcut Q24H 42 Days Qty: 16.8 0RF acetaminophen 325 mg Tablet 650 mg PO Q6H PRN (Reason: Pain, Mild (Pain Scale 1-3)) 30 Days Qty: 240 0RF celecoxib 200 mg Capsule 200 mg PO BID 30 Days Qty: 60 0RF oxycodone 5 mg Tablet 5 mg PO Q4H PRN (Reason: Pain, Moderate(Pain Scale 4-6)) 7 Days Qty: 42 0RF Rx Instructions: Partial Fill upon patient request. Continued potassium chloride 20 mEq tablet extended release 40 meq PO BID Qty: 360 1RF propranolol 60 mg capsule,extended release 24 hr 60 mg PO BEDTIME Qty: 90 0RF calcium carbonate-vitamin D3 600 mg(1,500mg) -200 unit Tablet 2 tab PO BID valacyclovir [Valtrex] 500 mg Tablet 500 mg PO DAILY Qty: 90 5RF lenalidomide [Revlimid] 15 mg Capsule 15 mg PO DAILY Qty: 15 5RF Rx Instructions: swallow whole with glass of water; do not open, crush, chew , break, or dissolve: [id number] cyanocobalamin (vitamin B-12) 1,000 mcg Tablet 1,000 mcg PO DAILY amlodipine 5 mg tablet 5 mg PO QAM levothyroxine 75 mcg tablet 75 mcg PO QAM atorvastatin 20 mg tablet 20 mg PO BEDTIME lisinopril 40 mg tablet 40 mg PO QAM Discontinued acetaminophen 500 mg Tablet 1,000 mg PO Q6H PRN (Reason: Pain) aspirin [Eliu Low Dose Aspirin] 81 mg Tablet,Delayed Release (Dr/Ec) 81 mg PO DAILY Qty: 60 6RF Discharge Orders: Discharge Order (Routine); Ordered 07/20/23 Ordered By: Harriet Pop Diet: Advance to usual diet Activity on Discharge: Use cane or walker Stand Alone Forms: Patient Portal Discharge page Care Plan Goals: restore fxn to left knee Health Concerns: none Plan of Treatment: Physical Therapy for ROM 0-120, quad strength, gait training. Use walker for ambulation Limit stair climbing, No shower, No tub bath, No driving Continue anticoagulant x 6 weeks Keep Aquacel dressing clean, dry and intact. Follow up with orthopedics in 2 weeks Assessment: stable for discharge
[2023-07-20 08:21] LABS: SLIDE REVIEW VERIFIED
--- NOTE | 2023-07-20 08:41 | MHC.CM.PN ---
IMM 07/19. Pt self-care, lives at home with her , and her daughter and granddaughter live next door and help her. Pt uses a cane and a walker. Pts to transport her at D/C. Pt declines to complete a HCP at this time. PCP: Ina LORENZO
[2023-07-20] MEDS: Potassium Chloride ER 20 MEQ TAB.ER.PRT 40 MEQ PO (09:11)
[2023-07-20] MEDS: Celecoxib 200 MG CAPSULE PO (09:11)
[2023-07-20] MEDS: oxyCODONE HCl ER 10 MG TAB.ER.12H PO (09:11)
--- NOTE | 2023-07-20 10:23 | W.MHC.F2F ---
Service Date Service Date: 07/20/23 Encounter Date of encounter: 07/20/23 Reasons for Services Signs and symptoms assessed: s/p LTKA Pt. is considered homebound due to recent surgery. Unable to drive, poor balance, poor gait mechanics. Reason for physical therapy: home safety and mobility, therapeutic exercises, restore joint function, gait/transfer training, assess need for DME and ADL training Homebound: Leaving the home is medically contraindicated at this time without the asist of a device and/or another person due th the listed conditions above and below. Reason homebound: unsteady gait / fall risk, leg weakness, pain with ambulation, pain with transfers and unable to drive Certification: Based on the above findings, I certify that this patient is confined to the home and needs intermittent senior living care, physical therapy and/or speech therapy, or continues to need occupational therapy. The patient is under my care, and I have initiated the establishment of the plan of care. The patient will be followed by a physician who will periodically review the plan of care. Time Spent With Patient Time: Total time managing care of this patient today ____ minutes.
--- NOTE | 2023-07-20 10:26 | MHC.CM.PN ---
Addendum entered by Jocy Yeung 07/27/23 14:19: [facility] has accepted and will see patient on Tuesday. PA-C and patient informed. Addendum entered by Jocy Yeung 07/27/23 13:52: [facility] rescinded services stating they are at capacity. All agencies who accept [facility] are at capacity. Information sent to [facility] who are booking 2 weeks out but are willing to review. Addendum entered by Vianey Jacklyn 07/21/23 15:31: [facility] is able to see pt. Addendum entered by Vianey Jacklyn 07/20/23 15:54: [facility] unable to accept pt due to [facility] insurance. CM placed additional VNA referrals, awaiting an accepting agency. Original Note: Pt is medically cleared for D/C home with new [facility], pts to transort her home.
--- NOTE | 2023-07-20 15:00 | HO.POSTANES ---
Post Anesthesia Evaluation Post Anesthesia Evaluation Date of Service: 07/20/23 Vital Signs: Vital Signs Temp Pulse Resp BP Pulse Ox O2 Del Method 07/20/23 07:31 97.2 F 60 18 147/70 H 92 Room Air 07/20/23 04:00 97.4 F 65 18 118/59 L 95 Room Air Anesthesia: Spinal and Nerve Block Mental Status: Awake Pain Control: Satisfactory (pain 6/10) Nausea/Vomiting: None Hydration: Adequate Anesthesia-Related Issues: No Anes. Related Issues
--- NOTE | 2023-07-22 16:44 | P.BOP_ITS ---
Brief Operative Note Date of Service: 07/19/23 Pre-op diagnosis: Left knee OA Post-op diagnosis: same Procedure: Left TKA Implants: [place] Triathlon 06/19/28a/TS Surgeon: Shaji Prince MD Anesthesia: regional and spinal Was an Refinery Operator Reforming Unit used for this Procedure?: Yes Refinery Operator Reforming Unit: Iza Sanchez Estimated blood loss (mL): 20 Tourniquet time (min): 50 IV fluids (mL): 1,000 Pathology: other Condition: stable Disposition: PACU
--- NOTE | 2023-07-22 16:47 | W.PM.OPN ---
Operative Note Operative Note Date of Service: 07/19/23 Narrative: Date of Service: 07/19/23 Pre-op diagnosis: Left knee OA Post-op diagnosis: same Procedure: Left TKA Implants: [place] Triathlon 06/19/28/TS Surgeon: Shaji Prince MD Anesthesia: regional and spinal Was an Inserter Operator used for this Procedure?: Yes Inserter Operator: Iza Sanchez Estimated blood loss (mL): 20 Tourniquet time (min): 50 IV fluids (mL): 1,000 Pathology: other Condition: stable Disposition: PACU Procedure in detail: The patient was brought to the operating room and prepped and draped in standard sterile fashion. A time-out was called to identify proper site proper procedure proper surgeon and IV antibiotics were administered. 1 g of IV tranexamic acid was administered. I began by making a midline incision to the retinaculum and performed a medial parapatellar arthrotomy. The patella was translated laterally and the knee was flexed as. There was medial compartment eburnation and mild bone loss. I performed a small medial peel and resected the infrapatellar fat pad. [place]'s line was then used to drill my intramedullary femoral guide and my distal femur cut of 12 mm was made in 5 degrees of valgus while protecting the soft tissues. I then measured a # 3 femur and placed my cutting guide and made my anterior posterior and chamfer cuts protecting the soft tissues at all times. I then made my box but removing the PCL. Once I was satisfied with my cuts I turned my attention to the tibia. I removed the meniscus medially and laterally and , using an external cutting guide, in line with the tibial crest and the third ray, I made my distal tibial cut in 0 deg slope of while protecting the posterior soft tissues at all times. An extension block was used to confirm appropriate amount of bony resection. I then sized a #4 tibia and once I was satisfied that there was complete tibial coverage I placed my trial and with the trial femur in place took the knee through range of motion. I was satisfied with the extension, flexion and balance at 0, 30 and 90 degrees. I then turned my attention to the patella where I removed 1 cm from the undersurface of the patella and then trialed a 29apatellar button. Again the knee was taken through range of motion I was satisfied with the tracking. I then prepared the tibia with a drill and punch. A femoral bone plug was placed and the knee was irrigated copiously. I then cemented the patella, tibia and femur in standard fashion. Axial compression and a clamp were used while the cement dried. Once the cement was hard on the back table all excess cement was removed. There was some persistent mild laxity in varus valgus stress and so after I trialed different inserts until I selected a #11TS insert. The final insert was placed and local TXA was administered. The knee was then closed with a running Quill suture, a 3 0 Vicryl and sal on the skin. Patient was then placed in sterile dressing and brought to recovery room in stable condition there were no known complications.
== END 2023-07-20 09:32 | disposition home health service (06) | DRG 470 ==
LOC: HO.SSSA 18:23 → HO.IMC 18:54
PROVIDERS: Orthopaedic Surgery; Admitting Provider Physician Assistant; PCP Student in an Organized Health Care Education/Training Program; Visit Provider Physician Assistant
PROC: 0SRD0J9 Replacement of Left Knee Joint with Synthetic Substitute, Cemented, Open Approach (ICD-10-PCS; CPT 27447; principal; 2023-07-19 12:00)
DX: M17.12 Unilateral primary osteoarthritis, left knee (principal); G89.18 Other acute postprocedural pain; Z87.891 Personal history of nicotine dependence; Z79.890 Hormone replacement therapy; Z79.899 Other long term (current) drug therapy
CPT/HCPCS: 36415; 73560; 80048; 85025; 86850; 86900; 86901; 87640; 87641; 88305; 88311; 97161; C1713; C1776; J0131; J0665; J0690; J1100; J2371; J2704; J2795; J3010; J7120

== ENCOUNTER → 2023-07-19 08:56 | Outpatient (BNV) | payer MEDICARE, SELFPAY | PROVIDERS: Admitting Provider Physician Assistant; PCP Student in an Organized Health Care Education/Training Program; Visit Provider Physician Assistant | DX: M17.12 Unilateral primary osteoarthritis, left knee (principal) | CPT/HCPCS: 27447; 99024 ==

== ENCOUNTER 2023-08-04 12:42 | Outpatient (AMB) | payer MEDICARE, SELFPAY ==
--- NOTE | 2023-08-04 12:46 | MHC.OFFVIS ---
Intake Visit Reasons: PO left TKA on 07/19/23 with NE Intake Note: Merary a 77 year old female who presents today for a post operative left TKA on 07/19/23 with NE. Patient reports that she is doing well, states intermittent sharp pain however pain has been tolerable. Allergies red dye [Red Dye] Allergy (Mild, Verified 08/04/23 12:59) SWELLING oxycodone Adverse Reaction (Intermediate, Verified 08/04/23 12:59) Vomiting HPI HPI PO left TKA on 07/19/23 with NE: Details: 77-year-old female returns to the office today status post left total knee arthroplasty on July [address] Prince. She has been working with physical therapy and doing well. Home PT has been completed and she will begin outpatient physical therapy at the hospital on August 04. She does have some concern about her bandage and states the incision has been itchy. Denies fever or chills. PFSH Medical History Chronic UTI Tremor Bifascicular block Non-rheumatic aortic stenosis Arthritis Mitral regurgitation Postural hypotension Osteopenia Multiple myeloma Gallstone Hypothyroidism HLP (hyperkeratosis lenticularis perstans) HTN (hypertension) Surgical History H/O colonoscopy History of meniscectomy of left knee History of appendectomy History of partial hysterectomy Family History Other HTN (hypertension) No family history of cancer Social History Household Members: Spouse Housing: House Are you a primary intensive care unit registered nurse to a significant other at home: No Do you presently have visiting nurse or other home services: No Alcohol intake: never Patient Tobacco Use Status: Former Tobacco user Quit Date: age 29's Tobacco use type: Cigarette Years Smoked: 15 e-Cigarette/Vaping Use: Never Used Second Hand Smoke Exposure: No Advance Directives Date on File: 11/17/20 service: No Current occupational status: retired Cognitive needs: No Hearing needs: No Vision needs: Yes (Glasses) Review of Systems Const All systems reviewed & are unremarkable except as noted in HPI and below Physical Exam Extrem Other: Left knee incision is clean dry and intact. Aquacel dressing was removed and upon doing so superficial layer of skin was adhered to the Aquacel. There is scant serous drainage around the perimeter of the incision where the bandage was placed. No evidence of infection. Calf is supple nontender. Neurovascularly intact. Assessment & Plan Assessment & Plan (1) Status post total left knee replacement: Code(s): Z96.652 - Presence of left artificial knee joint Category: Surgical Plan: Left knee sal removed Steri-Strips applied. I applied Xeroform and bacitracin to the area around the knee where the Aquacel was applied gauze with an Carrington wrap. She should perform daily dressing changes as instructed and I showed her how to do this today. She can get the area wet and wash with warm soapy water but pat it dry. If she notices any drainage any increased pain or concern for infection she should contact our office. I would like to see her back on Tuesday, she will see Dr. Prince in my absence. They will transition to outpatient physical therapy to work on range of motion quad strengthening and gait training exercises. They will continue her anticoagulant therapy for another 4 weeks. They will require antibiotic prophylaxis for any upcoming dental work. They do understand no dental cleanings for 3 weeks postop. They will see us back on 08/25/2023 for their routine postop appointment with Dr. Prince, sooner if needed.
== END 2023-08-04 13:22 | disposition home or self-care (01) ==
PROVIDERS: PCP Student in an Organized Health Care Education/Training Program; Visit Provider Physician Assistant
DX: Z96.652 Presence of left artificial knee joint (principal)
CPT/HCPCS: 99024

== ENCOUNTER → 2023-08-04 12:42 | Outpatient (BNVA) | payer MEDICARE, SELFPAY | PROVIDERS: PCP Student in an Organized Health Care Education/Training Program; Visit Provider Physician Assistant | DX: Z47.1 Aftercare following joint replacement surgery (principal); Z96.652 Presence of left artificial knee joint | CPT/HCPCS: 99212 ==

== ENCOUNTER 2023-08-08 10:51 | Outpatient (AMB) | payer MEDICARE, SELFPAY ==
--- NOTE | 2023-08-08 11:06 | MHC.OFFVIS ---
Vital Signs 08/08/23 11:10 Height 5 ft 7 in Weight 190 lb BMI 29.8 Intake Visit Reasons: PO left TKA on 07/19/23 with NE Intake Note: Merary is a 77 year old female who presents today with a cane for a post operative appointment s/p left TKA on 07/19/23. [place] removed at last visit. Patient reports she is doing well. Allergies red dye [Red Dye] Allergy (Mild, Verified 08/08/23 11:11) SWELLING oxycodone Adverse Reaction (Intermediate, Verified 08/08/23 11:11) Vomiting HPI HPI PO left TKA on 07/19/23 with NE: Details: Merary is a 77 year old female who presents today with a cane for a post operative appointment s/p left TKA on 07/19/23. [place] removed at last visit. Patient reports she is doing well. [facility] Medical History Chronic UTI Tremor Bifascicular block Non-rheumatic aortic stenosis Arthritis Mitral regurgitation Postural hypotension Osteopenia Multiple myeloma Gallstone Hypothyroidism HLP (hyperkeratosis lenticularis perstans) HTN (hypertension) Surgical History H/O colonoscopy History of meniscectomy of left knee History of appendectomy History of partial hysterectomy Family History Other HTN (hypertension) No family history of cancer Social History Household Members: Spouse Housing: House Are you a primary nurse behavioral health care to a significant other at home: No Do you presently have visiting nurse or other home services: No Alcohol intake: never Patient Tobacco Use Status: Former Tobacco user Quit Date: age 30's Tobacco use type: Cigarette Years Smoked: 15 e-Cigarette/Vaping Use: Never Used Second Hand Smoke Exposure: No Advance Directives Date on File: 11/17/20 service: No Current occupational status: retired Cognitive needs: No Hearing needs: No Vision needs: Yes (Glasses) Physical Exam Vital Signs: BMI result Body Mass Index 29.8 Extrem Other: inc c/d/i 0-125 there is discoloration where the adhesive bandage was but not over the incision. Assessment & Plan Assessment & Plan (1) Status post total left knee replacement: Code(s): Z96.652 - Presence of left artificial knee joint Category: Surgical Plan: Doing well Continue PT f.u 3 weeks Medications: New cefuroxime axetil 500 mg PO BID 20 tabs 0RF 10 days
[2023-08-08 11:10] VITALS: BMI 29.8
== END 2023-08-08 11:29 | disposition home or self-care (01) ==
LOC: HO.HOS 10:51
PROVIDERS: PCP Student in an Organized Health Care Education/Training Program; Visit Provider Orthopaedic Surgery
DX: Z96.652 Presence of left artificial knee joint (principal)
CPT/HCPCS: 99024

== ENCOUNTER → 2023-08-08 10:51 | Outpatient (BNVA) | payer MEDICARE, SELFPAY | PROVIDERS: PCP Student in an Organized Health Care Education/Training Program; Visit Provider Orthopaedic Surgery | DX: Z47.1 Aftercare following joint replacement surgery (principal); Z96.652 Presence of left artificial knee joint | CPT/HCPCS: 99212 ==

== ENCOUNTER 2023-08-25 10:28 | Outpatient (AMB) | payer MEDICARE, SELFPAY ==
[2023-08-25 10:49] VITALS: BMI 29.8
--- NOTE | 2023-08-25 10:49 | MHC.OFFVIS ---
Vital Signs 08/25/23 10:49 Height 5 ft 7 in Weight 190 lb BMI 29.8 Intake Visit Reasons: 6 wk PO left TKA on 07/19/23 with NE Intake Note: Merary is a 77 year old female who presents today with a cane for a 6 week post operative appointment s/p left TKA on 07/19/23 Allergies red dye [Red Dye] Allergy (Mild, Verified 08/08/23 11:11) SWELLING oxycodone Adverse Reaction (Intermediate, Verified 08/08/23 11:11) Vomiting HPI HPI 6 wk PO left TKA on 07/19/23 with NE: Details: Merary is doing well 6 weeks status post left knee replacement. She has no pain. She had a superficial rash where the bandage was that has resolved. She is working with physical therapy. She is still doing Lovenox injections. PFS Medical History Chronic UTI Tremor Bifascicular block Non-rheumatic aortic stenosis Arthritis Mitral regurgitation Postural hypotension Osteopenia Multiple myeloma Gallstone Hypothyroidism HLP (hyperkeratosis lenticularis perstans) HTN (hypertension) Surgical History H/O colonoscopy History of meniscectomy of left knee History of appendectomy History of partial hysterectomy Family History Other HTN (hypertension) No family history of cancer Social History Household Members: Spouse Housing: House Are you a primary primary care sales representative to a significant other at home: No Do you presently have visiting nurse or other home services: No Alcohol intake: never Patient Tobacco Use Status: Former Tobacco user Quit Date: age 29's Tobacco use type: Cigarette Years Smoked: 15 e-Cigarette/Vaping Use: Never Used Second Hand Smoke Exposure: No Advance Directives Date on File: 11/17/20 service: No Current occupational status: retired Cognitive needs: No Hearing needs: No Vision needs: Yes (Glasses) Physical Exam Vital Signs: BMI result Body Mass Index 29.8 Extrem Other: Incision clean dry and intact 0-130 degrees of motion Stable to varus valgus stress Assessment & Plan Assessment & Plan (1) Status post total left knee replacement: Code(s): Z96.652 - Presence of left artificial knee joint Category: Surgical Plan: Merary is doing well status post left knee replacement. Her knee is functioning well and the incision is clean dry and intact. I recommend continued quad strengthening. She may discontinue the Lovenox. She will follow up in 6 weeks. Coding Level of Care Code Global (60169) Diagnoses Status post total left knee replacement Z96.652
== END 2023-08-25 11:04 | disposition home or self-care (01) ==
PROVIDERS: PCP Student in an Organized Health Care Education/Training Program; Visit Provider Orthopaedic Surgery
DX: Z96.652 Presence of left artificial knee joint (principal)
CPT/HCPCS: 99024

== ENCOUNTER → 2023-08-25 10:28 | Outpatient (BNVA) | payer MEDICARE, SELFPAY | PROVIDERS: PCP Student in an Organized Health Care Education/Training Program; Visit Provider Orthopaedic Surgery | DX: Z47.1 Aftercare following joint replacement surgery (principal); Z96.652 Presence of left artificial knee joint | CPT/HCPCS: 99212 ==

== ENCOUNTER 2023-08-30 07:00 | Outpatient (RCR) | payer MEDICARE, SELFPAY ==
--- NOTE | 2023-08-05 14:59 | MHC.PT.EP ---
[facility] [place] Office [place] Office [place] Office [address] [phone] F: [phone] F: [phone] F: [phone] F: [phone] Physical Therapy Plan of Care Date of Evaluation: 08/05/23 Date of Surgery: 07/19/23 Diagnosis: S/P LEFT TKA W DR CONNER Assessment: 77 YO FEMALE REF TO PT S/P Lt TKA ON 07/19/23. THE Pt IS CURRENTLY AMB W A CANE- SHE HAD AN ALLERGIC SKIN REACTION TO GEL DRESSING AND IS CURRENTLY USING XEROFORM DRESSING SECURED WITH AN PAULINO WRAP . SHE RESIDES WITH HER SPOUSE IN A 2 LEVEL HOME AND STATES SHE HAS BEEN DOING WELL ON THE STAIRS. SHE HAS POST- OP FINDINGS OF DECR ROM Lt KNEE (-25* EXT), STRENGTH DEFICITS, ANT KNEE INCISIONAL HEALING, AND DECR FUNCT MOB. THE Pt IS MOTIVATED TO RETURN TO PLOF AND WOULD BENEFIT FROM SKILLED PT TO ADDRESS PAIN/EDEMA, MAXIMIZE ROM AND STRENGTH, IMPROVE EFFICIENCY OF GAIT ON LEVEL GROUND AND STAIRS, AND DEV SELF-SX MANAGEMENT STRATEGIES. Frequency and Duration: The patient will be seen 2 x WK x 5 WKS Short Term Goals: *DECR Lt KNEE PAIN TO 2-3/10 *RE-ESTABLISH QUAD ACTIV DECR Lt KNEE EDEMA/ SKIN ERYTHEMA *INCREASE ROM Lt KNEE/ ANKLE/ HIP *INITIATE HEP, IMPROVE Lt LE PROPRIOCEPTION Head Of Sales Promotion Goals: *Pt INDEP W HEP AND SELF-SX MGMT TECHN *Pt RESUME REG ADLs/ FITNESS, IMPROVED LEFI ( 79/80) *ENHANCE Lt LE/ LUMBOPELVIC STRENGTH-> AT LEAST BY 1 GRADE *EFFICIENT GAIT W/O ASST DEVICE ON ALL TERRAIN Treatment Plan: Modalities to reduce pain, spasms and effusion. Manual therapy to restore motion and function. Therapeutic exercise to improve strength and flexibility. Neuromuscular re-education for posture and balance. Therapeutic activities to return to functional activities of daily living. Electronically signed by: BOBBI PABON,PT Please sign and return to therapist. Thank you for your referral.
--- NOTE | 2023-11-15 14:27 | MHC.PT.DC ---
[facility] [place] Office [place] Office [place] Office [address] [phone] F: [phone] F: [phone] F: [phone] F: [phone] Physical Therapy Discharge Report Diagnosis: S/P LEFT TKA W DR CONNER Date of Surgery: 07/19/23 Date of Evaluation: 08/05/23 Date of Discharge: 11/15/23 Treatments to Date: 7 Cancellations to Date: 0 No Shows to Date: 0 Discharge Status: Improved Function Independent with HEP Patient Elected to Stop Discharge Summary: THE Pt ATTENDED 7 PT APPTS S/P Lt TKA, HER LAST ONE WAS ON 08/30/23. SHE HAS NOT SCHED ANY ADDITIONAL APPTS- AT THAT TIME SHE WAS 6 WKS POST-OP . HER LEFT KNEE AROM AT THAT APPT WAS -9* TO 126*. A FORMAL REASSESSMENT WAS NOT PERF DUE TO THE Pt CHOSE NOT TO RETURN FOR F/U APPTS. SHE HAS A THOROUGH HEP AND WAS ADV W GAIT MECHANICS . Electronically signed by: BOBBI PABON,PT Please sign and return to therapist. Thank you for your referral.
--- NOTE | 2023-11-15 14:32 | MHC.PT.DC ---
[facility] [place] Office [place] Office [place] Office [address] [phone] F: [phone] F: [phone] F: [phone] F: [phone] Physical Therapy Discharge Report Diagnosis: S/P LEFT TKA W DR CONNER Date of Surgery: 07/19/23 Date of Evaluation: 08/05/23 Date of Discharge: 11/15/23 Treatments to Date: 7 Cancellations to Date: 0 No Shows to Date: 0 Discharge Status: Improved Function Independent with HEP Patient Elected to Stop Discharge Summary: THE Pt ATTENDED 7 PT APPTS S/P Lt TKA, HER LAST ONE WAS ON 08/30/23. SHE HAS NOT SCHED ANY ADDITIONAL APPTS- AT THAT TIME SHE WAS 6 WKS POST-OP . HER LEFT KNEE AROM AT THAT APPT WAS -9* TO 126*. A FORMAL REASSESSMENT WAS NOT PERF DUE TO THE Pt CHOSE NOT TO RETURN FOR F/U APPTS. SHE HAS A THOROUGH HEP AND WAS ADV W GAIT MECHANICS . Electronically signed by: BOBBI PBAON,PT Please sign and return to therapist. Thank you for your referral.
== END 2023-11-15 14:32 | disposition home or self-care (01) ==
LOC: HO.PT 07:00
PROVIDERS: PCP Student in an Organized Health Care Education/Training Program; Visit Provider Physician Assistant
DX: Z96.652 Presence of left artificial knee joint (principal)
CPT/HCPCS: 97110; 97112; 97140; 97162

== ENCOUNTER 2023-10-06 08:34 | Outpatient (REF) | payer MEDICARE, SELFPAY ==
--- NOTE | ~2023-10-06 | XR_ITS ---
EXAMINATION: XR KNEE, LEFT CLINICAL INFORMATION: Pain in left knee COMPARISON: July 19, 2023 TECHNIQUE: AP standing view of bilateral knees as well as sunrise and lateral views of the left knee of the left knee. FINDINGS: Left knee: Status post left total knee arthroplasty. Large joint effusion. Hardware appears intact. Multiple small lucencies redemonstrated in the distal left femur and proximal tibia characteristic of a permeative pattern. Differential considerations include multiple myeloma. Right knee: Bones are diffusely demineralized. Mild narrowing of the medial compartment. XR/XR knee LT 3V IMPRESSION: 1. Status post left total knee arthroplasty. Hardware appears intact. 2. Multiple small lucencies redemonstrated in the distal left femur and proximal tibia characteristic of a permeative pattern. Differential considerations include multiple myeloma.
== END 2023-10-06 08:35 | disposition home or self-care (01) ==
LOC: HO.HOSX 08:34
PROVIDERS: Visit Provider Orthopaedic Surgery
DX: M25.562 Pain in left knee (principal); Z47.1 Aftercare following joint replacement surgery; Z96.652 Presence of left artificial knee joint
CPT/HCPCS: 73562; 99212

== ENCOUNTER 2023-10-06 09:55 | Outpatient (AMB) | payer MEDICARE, SELFPAY ==
[2023-10-06 10:06] VITALS: BMI 29.8
--- NOTE | 2023-10-06 10:06 | A.OFFVIS_ITS ---
Vital Signs 10/06/23 10:06 Height 5 ft 7 in Weight 190 lb BMI 29.8 Intake Visit Reasons: PO left TKA on 07/19/23 with NE-w/xray Intake Note: Merary is a 77 year old female who presents today post operative appointment s/p left TKA on 07/19/23 Allergies red dye [Red Dye] Allergy (Mild, Verified 10/06/23 10:07) SWELLING oxycodone Adverse Reaction (Intermediate, Verified 10/06/23 10:07) Vomiting Medication List - Last Reconciled 10/06/23 by Iza Sanchez PA-C acetaminophen 650 mg (2 x 325 mg) PO Q6H PRN 30 days amlodipine 5 mg PO QAM atorvastatin 20 mg PO BEDTIME calcium carbonate-vitamin D3 600 mg-5 mcg (200 unit) 2 tabs PO BID cefuroxime axetil 500 mg PO BID 10 days cyanocobalamin (vitamin B-12) 1,000 mcg PO DAILY lenalidomide (Revlimid) 15 mg PO DAILY lenalidomide (Revlimid) 15 mg PO DAILY lenalidomide (Revlimid) 15 mg PO DAILY levothyroxine 75 mcg PO QAM lisinopril 40 mg PO QAM nitrofurantoin monohyd/m-cryst 100 mg (Macrobid) 100 mg PO Q12H ondansetron HCl 4 mg PO Q6H PRN 7 days potassium chloride ER 40 mEq (2 x 20 mEq) PO BID propranolol ER 60 mg PO BEDTIME valacyclovir (Valtrex) 500 mg PO DAILY HPI HPI PO left TKA on 07/19/23 with NE-w/xray: Details: 77-year-old female who returns to the office today for post-op left TKA, 07/19/[address] Prince. She states she is doing well overall and has no concerns today. [facility] Medical History Chronic UTI Tremor Bifascicular block Non-rheumatic aortic stenosis Arthritis Mitral regurgitation Postural hypotension Osteopenia Multiple myeloma Gallstone Hypothyroidism HLP (hyperkeratosis lenticularis perstans) HTN (hypertension) Surgical History H/O colonoscopy History of meniscectomy of left knee History of appendectomy History of partial hysterectomy Family History Other HTN (hypertension) No family history of cancer Social History Household Members: Spouse Housing: House Are you a primary child care specialist to a significant other at home: No Do you presently have visiting nurse or other home services: No Alcohol intake: never Patient Tobacco Use Status: Former Tobacco user Tobacco use type: Cigarette Years Smoked: 15 e-Cigarette/Vaping Use: Never Used Second Hand Smoke Exposure: No Advance Directives Date on File: 11/17/20 service: No Current occupational status: retired Cognitive needs: No Hearing needs: No Vision needs: Yes (Glasses) Review of Systems Const All systems reviewed & are unremarkable except as noted in HPI and below Physical Exam Vital Signs: BMI result Body Mass Index 29.8 Extrem Other: Left knee: Incision well heled. She has full ROM. Good activation of quad muscles. Calf supple, nontender. NVI. Assessment & Plan Assessment & Plan (1) Status post total left knee replacement: Code(s): Z96.652 - Presence of left artificial knee joint Category: Surgical Plan She will continue with activities as tolerated. I encouraged her to continue with her home exercises. She was given a prescription of amoxicillin for antibiotics dental prophylaxis. If symptoms persist or worsen, patient will contact the office, otherwise follow-up at 1 year eboni. Orders: Orders XR knee LT 3V Today Shaji Prince MD M25.562 - Pain in left knee Medications: New amoxicillin take 4 capsules 1 hr prior to dental procedure 2,000 mg (4 x 500 mg) PO ONCE 4 tabs 3RF 1 day Iza Sanchez PA-C Patient Instructions: Scribed for Iza Sanchez PA-C, by Ayad Bhatt medical insurance claims specialist, on 10/06/2023 at 10:15 AM EST.? I, Iza Sanchez PA-C, have personally reviewed and agree with the information entered by the scribe. Coding Level of Care Code Global (24460) Diagnoses Status post total left knee replacement Z96.652
== END 2023-10-06 10:32 | disposition home or self-care (01) ==
PROVIDERS: PCP Student in an Organized Health Care Education/Training Program; Visit Provider Physician Assistant
DX: Z96.652 Presence of left artificial knee joint (principal)
CPT/HCPCS: 99024

== ENCOUNTER 2023-12-27 09:24 | Outpatient (AMB) | payer MEDICARE, SELFPAY ==
--- NOTE | 2023-12-27 09:28 | A.OFFVIS_ITS ---
Vital Signs 12/27/23 09:29 Height 5 ft 8 in Weight 188 lb 4.396 oz BMI 28.6 BP 134/70 Blood Pressure Location Lt brachial Position Sitting Pulse 74 Pulse Source Pulse Oximeter Intake Visit Reasons: 6 mth f/up Pencil Maker Required: No Accompanied by: Self / Same As Patient Allergies red dye [Red Dye] Allergy (Mild, Verified 10/10/23 09:26) SWELLING oxycodone Adverse Reaction (Intermediate, Verified 10/10/23 09:26) Vomiting Medication List - Last Reconciled 12/27/23 by Noe Del Rio MD acetaminophen 650 mg (2 x 325 mg) PO Q6H PRN 30 days amlodipine 5 mg PO QAM amoxicillin 2,000 mg (4 x 500 mg) PO ONCE 1 day atorvastatin 20 mg PO BEDTIME 90 days calcium carbonate-vitamin D3 600 mg-5 mcg (200 unit) 2 tabs PO BID cefuroxime axetil 500 mg PO BID 10 days cyanocobalamin (vitamin B-12) 1,000 mcg PO DAILY lenalidomide (Revlimid) 15 mg PO DAILY levofloxacin 500 mg PO Q24H levothyroxine 75 mcg PO QAM lisinopril 40 mg PO QAM ondansetron HCl 4 mg PO Q6H PRN 7 days potassium chloride ER 40 mEq (2 x 20 mEq) PO BID propranolol ER 60 mg PO BEDTIME valacyclovir (Valtrex) 500 mg PO DAILY HPI Comments Details: Merary returns for follow-up. In the past, she was seen for presyncope/orthostatic hypotension. She was on fludrocortisone for a while but as the blood pressure was going up we stopped it. Currently, on hypertension meds including lisinopril and amlodipine. Indication for propranolol is not clear. Overall, feeling good. No cardiac complaints whatsoever. [facility] Medical History Chronic UTI Tremor Bifascicular block Non-rheumatic aortic stenosis Arthritis Mitral regurgitation Postural hypotension Osteopenia Multiple myeloma Gallstone Hypothyroidism HLP (hyperkeratosis lenticularis perstans) HTN (hypertension) Surgical History H/O colonoscopy History of meniscectomy of left knee History of appendectomy History of partial hysterectomy Family History Other HTN (hypertension) No family history of cancer Social History Household Members: Spouse Housing: House Are you a primary child care attendant to a significant other at home: No Do you presently have visiting nurse or other home services: No Alcohol intake: never Patient Tobacco Use Status: Former Tobacco user Tobacco use type: Cigarette Years Smoked: 15 e-Cigarette/Vaping Use: Never Used Second Hand Smoke Exposure: No Advance Directives Date on File: 11/17/20 service: No Current occupational status: retired Cognitive needs: No Hearing needs: No Vision needs: Yes (Glasses) Review of Systems Const Denies chills, Denies fatigue, Denies fever(s), Denies frequent falls, Denies weakness, Denies weight gain and Denies weight loss ENT Denies dizziness Card Denies chest pain, Denies leg edema, Denies lightheadedness, Denies palpitations, Denies dyspnea and Denies dyspnea on exertion Resp Denies cough, Denies dyspnea and Denies dyspnea on exertion GI Denies hematochezia Musc Denies abnormal gait, Denies muscle weakness, Denies numbness, Denies radiating pain into limb and Denies tingling Neuro Denies abnormal gait, Denies dizziness, Denies frequent falls, Denies numbness, Denies tingling and Denies weakness Endo Denies fatigue and Denies palpitations Physical Exam Vital Signs: Last Vital Signs Pulse 74 12/27/23 09:29 BP 134/70 12/27/23 09:29 BMI result Body Mass Index 28.6 Const General: comfortable and no acute distress Orientation/consciousness: patient oriented x3 HEENT Other: Unremarkable Head: Yes normal to inspection Neck Neck: Yes normal visual inspection Chest Chest palpation & inspection: normal inspection of the chest Resp Auscultation: clear to auscultation bilaterally Cardio Palpation: normal PMI Heart sounds: S1 normal heart sound present, S2 normal heart sound present, no gallops, Murmur heart sound present systolic III/ and at the right sternal border and no rubs GI Palpation (GI): Soft to palpation Back/Spine/Pelvis Other: unremarkable Skin General skin exam: no rashes or lesions noted Neuro General: patient oriented x3 Extrem General: Yes normal to inspection Psych Mental Status: mental status grossly normal Assessment & Plan Assessment & Plan (1) Bifascicular block: Code(s): I45.2 - Bifascicular block Category: Medical Plan: We can follow this on EKGs. (2) Non-rheumatic aortic stenosis: Code(s): I35.0 - Nonrheumatic aortic (valve) stenosis Category: Medical Plan: Echocardiogram shows only mild aortic stenosis. Not hemodynamically significant at this time. (3) Essential hypertension: Code(s): I10 - Essential (primary) hypertension Category: Medical Plan: Stable. Coding Level of Care Code Est Pt Level 3 (32398) Diagnoses Bifascicular block I45.2 Non-rheumatic aortic stenosis I35.0 Essential hypertension I10
[2023-12-27 09:29] VITALS: BP 134/70; PULSE 74; BMI 28.6
== END 2023-12-27 09:46 | disposition home or self-care (01) ==
PROVIDERS: PCP Student in an Organized Health Care Education/Training Program; Visit Provider Internal Medicine
DX: I45.2 Bifascicular block (principal); I35.0 Nonrheumatic aortic (valve) stenosis; I10 Essential (primary) hypertension
CPT/HCPCS: 99213

== ENCOUNTER → 2023-12-27 09:24 | Outpatient (BNVA) | payer MEDICARE, SELFPAY | PROVIDERS: PCP Student in an Organized Health Care Education/Training Program; Visit Provider Internal Medicine | DX: I45.2 Bifascicular block (principal); I35.0 Nonrheumatic aortic (valve) stenosis; I10 Essential (primary) hypertension | CPT/HCPCS: 99212 ==

== ENCOUNTER 2024-02-03 08:04 | Outpatient (REF) | payer MEDICARE, SELFPAY ==
--- NOTE | ~2024-02-03 | MM_ITS ---
EXAMINATION: MM SCREENING DIGITAL BREAST TOMOSYNTHESIS, BILATERAL CLINICAL INFORMATION: Screening. Asymptomatic. COMPARISON: Mammography: Comparison is made with available priors TECHNIQUE: Digital breast mammography with tomosynthesis is performed in both the craniocaudal and mediolateral oblique views along with computer-aided detection (CAD). FINDINGS: There are scattered areas of fibroglandular density (ACR BI-RADS breast composition Category b). Right: There are no significant masses, abnormal calcifications, or other abnormalities. Left: Focal asymmetry in the upper-outer breast with associated architectural distortion middle depth. No suspicious calcifications or other abnormal findings. MM/MM tomosynthesis screening BI IMPRESSION: Additional imaging is recommended ASSESSMENT: BI-RADS BI-RADS 0 - Incomplete: Needs additional Imaging. RECOMMENDATION: 1. Additional views of the left breast 2. Targeted ultrasound if warranted after review of the additional views. 3. Radiology department staff will contact the patient for additional imaging. Additional Imaging required This examination should not preclude the clinical evaluation of a suspicious palpable abnormality. This patient's information was entered into a reminder system with a target due date for their next mammogram. Electronically signed by: Barb Pantoja DO 02/13/2024 06:09 PM EDT
== END 2024-02-03 08:05 | disposition home or self-care (01) ==
LOC: HO.MAMMO 08:04
PROVIDERS: PCP Student in an Organized Health Care Education/Training Program; Visit Provider Student in an Organized Health Care Education/Training Program
DX: Z12.31 Encounter for screening mammogram for malignant neoplasm of breast (principal)
CPT/HCPCS: 77063; 77067

== ENCOUNTER → 2024-02-03 08:15 | Outpatient (BNV) | payer MEDICARE, SELFPAY | PROVIDERS: PCP Student in an Organized Health Care Education/Training Program; Visit Provider Internal Medicine | DX: Z12.31 Encounter for screening mammogram for malignant neoplasm of breast (principal) | CPT/HCPCS: 77063; 77067 ==

== ENCOUNTER → 2024-04-03 09:45 | Outpatient (BNV) | payer MEDICARE, SELFPAY | PROVIDERS: PCP Physician Assistant Medical; Visit Provider Internal Medicine | DX: N63.21 Unspecified lump in the left breast, upper outer quadrant (principal) | CPT/HCPCS: 76642; 77065; G0279 ==

== ENCOUNTER 2024-04-25 07:54 | Outpatient (REF) | payer MEDICARE, SELFPAY ==
--- NOTE | ~2024-04-25 | MM_ITS ---
PROCEDURE: ULTRASOUND-GUIDED LEFT BREAST BIOPSY CLINICAL INFORMATION: Solid irregular left breast mass at 2:00 on ultrasound. COMPARISON: Comparison is made with prior available examinations. TECHNIQUE: The details of the procedure, as well as the risks, benefits, and alternatives to the procedure were explained to the patient in detail and all of her questions were answered, after which, written informed consent was obtained. PROCEDURE: Prior to the procedure, sonography revealed a solid irregular mass at 2:00 in the left breast. A time-out was performed, the lesion intended for biopsy was targeted and the skin of the left breast was then prepped and draped in the usual sterile fashion. Using sonographic guidance, sterile technique, and 1% lidocaine without epinephrine for local anesthesia, a total of 4 cores were obtained through the targeted area with a 14-gauge biopsy device. At the completion of tissue sampling, a single butterfly metallic clip was deposited at the biopsy site. An appropriate sample was obtained. The postprocedure 2-view direct digital mammogram reveals satisfactory positioning of the biopsy clip. The patient tolerated the procedure well and, after assuring adequate hemostasis, was discharged in good condition after reviewing postbiopsy breast care instructions. Final pathology results are pending. MM/MM tomosynthesis diagnostic LT IMPRESSION: 1. Uncomplicated sonographically-guided core biopsy of the left breast. The 2-view direct digital postprocedure mammogram reveals satisfactory positioning of the biopsy clip. 2. Final pathology results are pending. A separate report with final recommendations will be issued once these results are made available. Electronically signed by: Barb Pantoja DO 04/25/2024 09:32 AM [facility]
[2024-04-25] MEDS: Sodium Bicarbonate 8.4% 50 MEQ/50 ML VIAL SUBCUT (08:50)
[2024-04-25] MEDS: Lidocaine HCl 1 % 20 ML VIAL 9 ML SUBCUT (08:51)
== END 2024-04-25 07:55 | disposition home or self-care (01) ==
LOC: HO.MAMMO 07:54
PROVIDERS: PCP Physician Assistant Medical; Visit Provider Physician Assistant Medical
DX: N63.21 Unspecified lump in the left breast, upper outer quadrant (principal); Z17.0 Estrogen receptor positive status [ER+]; Z17.21 Progesterone receptor positive status
CPT/HCPCS: 19083; 77061; 77065; 88305; 88341; 88342; 88360; A4648; C1894; J2003

== ENCOUNTER → 2024-04-25 08:00 | Outpatient (BNV) | payer MEDICARE, SELFPAY | PROVIDERS: PCP Physician Assistant Medical; Visit Provider Internal Medicine | DX: N63.21 Unspecified lump in the left breast, upper outer quadrant (principal) | CPT/HCPCS: 19083; 77065 ==

== ENCOUNTER 2024-05-04 08:17 | Outpatient (AMB) | payer MEDICARE, SELFPAY ==
--- NOTE | 2024-05-04 08:29 | MHC.OFFVIS ---
Vital Signs 05/04/24 08:31 Height 5 ft 8 in Weight 194 lb 2 oz BMI 29.5 Intake Visit Reasons: Ductal and lobular breast carcinoma Intake Note: This patient was referred by for Ductal and Lobular Breast Carcinoma. Pt c/o; no concerns. Senior Marketing Data Analyst Required: No Accompanied by: Daughter Allergies red dye [Red Dye] Allergy (Mild, Verified 05/04/24 08:38) SWELLING oxycodone Adverse Reaction (Intermediate, Verified 05/04/24 08:38) Vomiting Medication List - Last Reconciled 05/04/24 by Santos Weiss MD acetaminophen 650 mg (2 x 325 mg) PO Q6H PRN 30 days amlodipine 5 mg PO QAM amoxicillin 2,000 mg (4 x 500 mg) PO ONCE 1 day atorvastatin 20 mg PO BEDTIME 90 days calcium carbonate-vitamin D3 600 mg-5 mcg (200 unit) 2 tabs PO BID cefuroxime axetil 500 mg PO BID 10 days cyanocobalamin (vitamin B-12) 1,000 mcg PO DAILY lenalidomide (Revlimid) 15 mg PO DAILY levofloxacin 500 mg PO Q24H levothyroxine 75 mcg PO QAM lisinopril 40 mg PO QAM ondansetron HCl 4 mg PO Q6H PRN 7 days potassium chloride ER 40 mEq (2 x 20 mEq) PO BID propranolol ER 60 mg PO BEDTIME valacyclovir (Valtrex) 500 mg PO DAILY HPI Comments Details: 78-year-old female patient presenting with a recently diagnosed left breast invasive carcinoma with ductal and lobular features located at the 2 o'clock position, 5 cm from the nipple. The lesion was diagnosed by screening mammogram with subsequent diagnostic mammogram and ultrasound performed at the [facility]. She underwent a needle biopsy at the [facility] on 04/25/2024. Immunohistochemical stains revealed ER positive, AZ positive, HER2 Param negative, Ki-67 low, and E-cadherin negative favoring lobular carcinoma with focal ductal features. She denies a previous history of breast problems or breast surgery. She denies a family history of breast problems. She is , did not breastfeed her children. Menarche was the age of 12 and menopause at the age of 62 after hysterectomy. Her 1st child when she was 16 years old. She has a history of multiple myeloma is being treated by Dr. Balderas [facility] Medical History (Updated 05/04/24 @ 09:07 by Santos Weiss MD) Invasive lobular carcinoma of breast in female Chronic UTI Tremor Bifascicular block Non-rheumatic aortic stenosis Arthritis Mitral regurgitation Postural hypotension Osteopenia Multiple myeloma Gallstone Hypothyroidism HLP (hyperkeratosis lenticularis perstans) HTN (hypertension) Surgical History H/O colonoscopy History of meniscectomy of left knee History of appendectomy History of partial hysterectomy Family History Other HTN (hypertension) No family history of cancer Social History Household Members: Spouse Housing: House Are you a primary urgent care to a significant other at home: No Do you presently have visiting nurse or other home services: No Alcohol intake: never Patient Tobacco Use Status: Former Tobacco user Tobacco use type: Cigarette Years Smoked: 15 e-Cigarette/Vaping Use: Never Used Second Hand Smoke Exposure: No Advance Directives Date on File: 11/17/20 service: No Current occupational status: retired Cognitive needs: No Hearing needs: No Vision needs: Yes (Glasses) Female Reproductive History Menstrual Age of Menarche: 12 Total pregnancies: 4 Review of Systems Const All systems reviewed & are unremarkable except as noted in HPI and below Physical Exam Vital Signs: BMI result Body Mass Index 29.5 Const General: cooperative and no acute distress Nutritional Appearance: well nourished Orientation/consciousness: patient oriented x3 Limitations: no limitations HEENT Head: Yes normocephalic and Yes atraumatic Ears: hearing grossly normal bilaterally Chest Other: Left breast: Needle biopsy located in the left breast at the upper outer quadrant with underlying palpable mass measuring approximately 2 cm in diameter. Mass is mobile within the breast tissue and may include post biopsy inflammation. No overlying erythema, dimpling or nipple retraction is identified. No enlarged lymph nodes are appreciated. Right breast: No skin change, no nipple retraction, no nipple discharge, no palpable mass, no enlarged lymph nodes Chest/axillae images: 1. Palpable mass upper outer quadrant left breast Resp Effort & Inspection: normal respiratory effort, no audible wheezes, no cough and no respiratory distress Cardio Jugular venous distension: no JVD GI Inspection: Yes normal to inspection Skin Other: Warm, dry, no rash Neuro Other: Mobility Assessment: 1. 3 meter assessment time (seconds) 7 2. Gait observations: slow tentative pace General: patient oriented x3 Extrem General: Yes no clubbing, cyanosis or edema Assessment & Plan Assessment & Plan (1) Invasive lobular carcinoma of breast in female: Code(s): C50.919 - Malignant neoplasm of unspecified site of unspecified female breast Category: Medical Plan 78-year-old female patient with a newly diagnosed left breast invasive lobular carcinoma with ductal features, ER/AZ positive, HER2 Param negative, Ki-67 low. On examination she does indeed have a palpable mass corresponding to the mammogram and ultrasound findings. I reviewed the pathology findings in detail and discussed the treatment options including lumpectomy plus or minus radiation therapy, axillary sentinel node biopsy, verses mastectomy with sentinel node biopsy. After discussion of the procedure, risks, and alternatives, she consents to the left breast lumpectomy with localizer and left axillary sentinel node biopsy. She will be scheduled as a short-stay surgery at her earliest convenience. Coding Level of Care Code New Pt Level 4 (64320) Complex EM visit Add On G2211 Diagnoses Invasive lobular carcinoma of breast in female C50.919
[2024-05-04 08:31] VITALS: BMI 29.5
== END 2024-05-04 09:03 | disposition home or self-care (01) ==
PROVIDERS: PCP Physician Assistant Medical; Visit Provider Surgery
DX: C50.919 Malignant neoplasm of unspecified site of unspecified female breast (principal)
CPT/HCPCS: 99204; G2211

== ENCOUNTER → 2024-05-04 08:17 | Outpatient (BNVA) | payer MEDICARE, SELFPAY | PROVIDERS: PCP Physician Assistant Medical; Visit Provider Surgery | DX: C50.412 Malignant neoplasm of upper-outer quadrant of left female breast (principal) | CPT/HCPCS: 99202 ==

== ENCOUNTER 2024-05-09 08:46 | Outpatient (REF) | payer MEDICARE, SELFPAY ==
--- NOTE | ~2024-05-09 | MM_ITS ---
EXAMINATION: MM MAMMOGRAM GUIDED RFID LOCALIZATION BREAST, LEFT CLINICAL INFORMATION: Biopsy-proven left breast invasive carcinoma with ductal and lobular features. COMPARISON: Comparison is made with available prior examinations. TECHNIQUE NEEDLE LOC: Proper informed consent is obtained from the patient after discussion of the procedure, potential risks and complications, and alternatives including declining the procedure today. Patient was given an opportunity for questions. The patient appeared to understand. The patient consented to the procedure and signed the consent form. GUIDANCE: Digital mammography. APPROACH: Lateral. TARGET: Butterfly marker clip. ANESTHESIA: carbonated lidocaine 1%: 10 mL. LOCALIZATION SYSTEM: DripDrop LOCallizer Wire-Free Guidance System with 12g needle applicator. RADIOFREQUENCY TAG: ID # [id number] RF Tag ID confirmed with LOCalizer Guidance System prior to placement. The skin is prepped and local anesthesia administered. The needle is positioned and RFID tag deployed. Final images demonstrate the LOCalizer RF tag to reside adjacent to the marker clip The patient tolerated the procedure well and had no immediate complications. Dressing placed and home instructions reviewed. MM/MM RF Tag device LT IMPRESSION: -Status post left breast RFID localization. Electronically signed by: Barb Pantoja DO 05/09/2024 11:41 AM [facility]
--- OUTSIDE RECORDS SUMMARY | 2024-05-09 09:02 | XMS_ITS | Continuity of Care Document ---
Author Organization [facility] Address [address] [place] [address]- Care Team Providers Care Mechatronics Technician Name Role Phone Nicole LORENZO, Ina Vance Primary Care David waters [place] [facility] [place]): 04/03/24 - 05/03/24 [facility] [address] [place] [phone] Encounter Type: Triage Allergies, Adverse Reactions, Alerts Substance Criticality Severity Reaction Reaction Severity Status Red Dye Facial swelling Acti ve oxyCODONE Palpitations Active Immunizations Given and Recorded [...] DAILY., # 90 tablet, 1 Refills, Maintenance, 09/29/23 9:39:00 AM EDT, Tablet, [facility], Partial fill upon patient request ifthe prescription is for a schedule II opioid drug., 170, cm, 09/29/23 9:01:00 EDT, Height Start Date: 09/29/23 Status: Ordered Quantity: 90.0 Unit: tablet Repeat number: 2 atorvastatin 20 mg oral tablet 1 tablet = 20 mg, By Mouth, Daily at bedtime, TAKE ONE TABLET BY MOUTH EVERY EVENING, # 90 tablet, 1 Refills, Maintenance, 09/29/23 9:39:00 AM EDT, Tablet, [facility], Partial fill upon patient request if the prescription is for a schedule II opioid drug., 170, cm, 09/29/23 9:01:00 EDT, Height Start Date: 09/29/23 Status: Ordered Quantity: 90.0 Unit: tablet Repeat number: 2 D3 with Calcium 0 Refills, Maintenance, 08/27/22 11:59:00 AM EDT, Partial fill upon patient request if the prescription is for a schedule II opioid drug. Start Date: 08/27/22 Status: Ordered Repeat number: 1 levothyroxine 75 mcg (0.075 mg) oral tablet 1 tablet, By Mouth, Daily, # 90 tablet, 1 Refills, Maintenance, 09/29/23 9:40:00 AM EDT, [facility], 170, cm, 09/29/23 9:01:00 EDT, Height Start Date: 09/29/23 Status: Ordered Quantity: 90.0 Unit: tablet Repeat number: 2 lisinopril 40 mg oral tablet See Instructions, TAKE ONE TABLET BY MOUTH EVERY DAY, # 90 tablet, 1 Refills, Maintenance, 09/29/23 9:40:00 AM EDT, [facility], 170, cm, 09/29/23 9:01:00 EDT, Height Start Date: 09/29/23 Status: Ordered Quantity: 90.0 Unit: tablet Repeat number: 2 Potassium Chloride (Eqv-K-Tab) 20 mEq oral tablet, extended release 2 tablet, By Mouth, 2 times a day, # 180 tablet, 2 Refills, Maintenance, 12/27/23 5:21:00 PM EDT, [facility], 170, cm, 09/29/23 9:01:00 EDT, Height Start Date: 12/27/23 Status: Ordered Quantity: 180.0 Unit: tablet Repeat number: 1 propranolol 60 mg oral capsule, extended release 60 mg, 1, capsule, By Mouth, Daily, # 90 capsule, Refills 1, Tot. Refills 1, Maintenance, 12/14/23 12:24:00 PM EDT, Route to Pharmacy Electronically, [facility], Partial fill upon patient request if the prescription is for a schedule II opioid drug., 170, cm, 09/29/23 9:01:00 EDT, Height Start Date: 12/14/23 Stop Date: 06/11/24 Status: Ordered Quantity: 90.0 Unit: capsule Repeat number: 2 Revlimid 15 mg oral capsule 0 Refills, Maintenance, 08/27/22 11:58:00 AM EDT, Partial fill upon patient request if the prescription is for a schedule II opioid drug. Start Date: 08/27/22 Status: Ordered Repeat number: 1 valACYclovir 500 mg oral tablet Refills 0, Maintenance, 08/27/22 11:55:00 AM EDT, Partial fill upon patient request if the prescription is for a schedule II opioid drug. Start Date: 08/27/22 Status: Ordered Repeat number: 1 Vitamin B12 0 Refills, Maintenance, 08/27/22 11:59:00 AM EDT, Partial fill upon patient request if the prescription is for a schedule II opioid drug. Start Date: 08/27/22 Status: Ordered Repeat number: 1 Problem List Condition Confirmation Course Effective Dates Status H ealth Status Informant Valvular heart disease Confirmed Active Hyperlipidemia Confirmed Active Hypertension Confirmed Active Hypothyroidism Confirmed Active Leukopenia Confirmed Active Breast cancer Confirmed Active Aortic stenosis, mild Confirmed Active Multiple myeloma Confirmed Active Prediabetes Confirmed Active Frequent UTI Confirmed Active Social History Social History Type Response Smoking Status Former smoker, quit more than 30 days ago; Tobacco use times per day: quit in the 80s, smoked for 20 years; entered on: 08/27/22 Sex Sex Representation Female (finding) Patient Care team information Care Team Personnel Name: Nicanor FRANCIS, Thelma Abdi Position: [facility] Associate Professional Member Role: Lifetime Consulting Provider Address: [address] [place] [address] [address] [place] [address]- Telecom: Name: Nicole LORENZO, Ina Vance Position: [facility] Associate Professional Member Role: PCP Address: [address] [place] [address]. [address] [place] [address]- [place] Telecom: Care Team Related Persons Name: BRADLEY ANGEL Name: BRADLEY ANGEL Name: BRADLEY ANGEL Insurance Providers Guarantor name: NANCY ANGEL Health Plan Information #: 1 Payer: [facility] [employer] Member Number: NA Policy Number: NA Group Number: [id number]
--- OUTSIDE RECORDS SUMMARY | 2024-05-09 09:02 | XMS_ITS | Clinical Summary ---
Author Organization [facility] Address [address] [place] [address] Phone Care Team Providers Care Sheet Metal Worker Supervisor Name Role Phone Billy Dexter MD Primary Care Provider + Allergies Active Allergy Reactions Criticality Noted Date Comments Oxycodone 08/01/2020 Red Dye #40 (Allura Red) 08/01/2020 Medications dexamethasone (DECADRON) 4 MG tablet TAKE 5 TABLETS BY MOUTH DAILY PER CLINIC INTRUCTIONS. 07/10/2020 Active fludrocortisone 0.1 MG tablet Take by mouth 2 (two) times a day 07/09/2020 Active Revlimid 15 MG capsule 07/15/2020 Active potassium chloride (MICRO-K) 10 MEQ CR capsule TAKE 2 CAPSULES (20MEQ) BY MOUTH DAILY 05/13/2020 Active levothyroxine (SYNTHROID, LEVOTHROID) 75 MCG tablet Take 75 mcg by mouth 1 (one) time each day 07/12/2020 Active simvastatin (ZOCOR) 40 MG tablet Take 40 mg by mouth 1 (one) time each day 06/05/2020 Active sulfamethoxazol e-trimethoprim (BACTRIM DS,SEPTRA DS) 800-160 MG per tablet TAKE ONE TABLET BY MOUTH EVERY 12 HOURS 07/18/2020 Active valACYclovir (VALTREX) 500 MG tablet 07/24/2020 Active calcium carbonate-vitam in D (OSCAL-500) 500-200 MG-UNIT per tablet Take 1 tablet by mouth 1 (one) time each day Active aspirin (ST KHAI) 81 MG EC tablet Take 81 mg by mouth 1 (one) time each day Active valACYclovir (VALTREX) 500 MG tablet Take 500 mg by mouth 2 (two) times a day Active docusate sodium (COLACE) 100 MG capsule Take 100 mg by mouth 2 (two) times a day Active midodrine (PROAMATINE) 2.5 MG tablet TAKE ONE TABLET BY MOUTH EVERY DAY 30 tablet 1 09/24/2020 Active Active Problems Problem Noted Date Diagnosed Date 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 Family History Medical History Relation Comments Hypertension Father Hypertension Mother Relation Status Comments Father Mother Social History Tobacco Use Types Packs/Day Years Used Date Smoking Tobacco: Never Smokeless Tobacco: Never Tobacco Cessation:Counseling Given: No Alcohol Use Standard Drinks/Week Comments Never 0 (1 standard drink = 0.6 oz pur e alcohol) Comments Unknown Sex and Gender Information Value Date Recorded Sex Assigned at Not on file Legal Sex Female 1:03 PM EST Gender Identity Not on file Sexual Orientation Not on file Last Filed Vital Signs Vital Sign Reading Time Taken Comments Blood Pressure 148/88 09/05/2020 3:16 PM EDT Pulse 101 09/05/2020 3:16 PM EDT Temperature - - Respiratory Rate - - Oxygen Saturation 97% 09/05/2020 3:16 PM EDT Inhaled Oxygen Concentration - - Weight 89.7 kg (197 lb 12.8 oz) 09/05/2020 3:16 PM EDT Height - - Body Mass Index - - Plan of Treatment Health Maintenance Due Date Last Done Comments Pneumococcal Vaccine: 65+ Ye ars (1 of 1 - PCV) 2009 Influenza Vaccine (#1) 2023 Hepatitis B Vaccine Aged Out No longe r eligible based on patient's age to complete this topic Insurance [facility] Care Teams Sheet Metal Worker Supervisor Relationship Specialty Start Date End Date Billy Dexter MD [facility] [address] [place] [address] [address] PCP - General Internal Medicine 08/01/20
== END 2024-05-09 08:47 | disposition home or self-care (01) ==
LOC: HO.MAMMO 08:46
PROVIDERS: Visit Provider Surgery
DX: C50.912 Malignant neoplasm of unspecified site of left female breast (principal)
CPT/HCPCS: 19281; C1819

== ENCOUNTER → 2024-05-09 09:00 | Outpatient (BNV) | payer MEDICARE, SELFPAY | PROVIDERS: Visit Provider Internal Medicine | DX: C50.812 Malignant neoplasm of overlapping sites of left female breast (principal) | CPT/HCPCS: 19281 ==

== ENCOUNTER → 2024-05-21 06:43 | Day surgery (SDC) | payer MEDICARE, SELFPAY ==
[2024-05-17 07:32] VITALS: BMI 29.5
--- NOTE | ~2024-05-21 | NM_ITS ---
EXAMINATION: Nuclear medicine sentinel node with imaging at CLINICAL INDICATION: Left breast cancer. TECHNIQUE: Following explaining left breast sentinel node procedure, benefits in risk aerated and consent was obtained. 4% lidocaine jelly was applied are under left breast areola 30 minutes before the procedure. The area on the left breast areola was cleaned in usual sterile manner. 0.5 mCi of technetium 99m tilmanocept divided in 4 equal doses was injected subdermally around the left breast areola. Imaging was obtained 30 minutes later. Patient targeted procedure extremely well. FINDINGS: On 30 minute imaging there is four-quadrant isotope activity with a solitary sentinel node the left anterior axilla. No additional areas of abnormal activity seen. NM/NM sentinel node w imaging IMPRESSION: Left breast lymphoscintigraphy as described above with solitary sentinel node left anterior axilla. Electronically signed by: Case Goff MD 05/21/2024 11:44 AM [facility]
--- NOTE | ~2024-05-21 | MM_ITS ---
EXAMINATION: MM SPECIMEN X-RAY BREAST, LEFT BREAST CLINICAL INDICATION: Left breast 2:00 mass; invasive carcinoma with ductal and lobular features. For excision. COMPARISON: RFID tag placement left breast 05/09/2024. Stereotactic left core biopsy 04/25/2024. TECHNIQUE: Single radiograph of the excised breast tissue is performed using digital mammography. FINDINGS: Specimen demonstrates the presence of the RF ID tag, butterfly shaped biopsy clip, and irregular mass within the center of the specimen. Results were called to Dr. Santos Weiss in the operating room at the time of imaging. Electronically signed by: Jd Elliott MD 05/22/2024 08:38 AM [facility]
[2024-05-21 07:11] VITALS: BP 140/72; PULSE 60; RESP 16; TEMP 36.8; O2SAT 96; BMI 29.6
[2024-05-21] MEDS: Lidocaine HCl 4 % Topical 50 ML SOLUTION 1 APPL TOPICAL (07:34)
--- NOTE | 2024-05-21 12:35 | HO.ANESPROP2 ---
HPI - Anesthesia Eval Consult details Narrative: 78 yo F presenting for left breast lumpectomy and left axillary sentinel node biopsy PMFSH Active Problems Active Problems: All Active Problems Invasive lobular carcinoma of breast in female (Acute) Breast cancer, left breast (Acute) Status post total left knee replacement (Acute) Preoperative cardiovascular examination (Acute) Arthritis of left knee (Acute) Colitis (Acute) Essential hypertension (Acute) Hypokalemia (Acute) Tremor (Acute) Elevated troponin (Acute) Acute UTI (Acute) Non-rheumatic aortic stenosis (Acute) Annual physical exam (Acute) Bifascicular block (Acute) Pre-syncope (Acute) HTN (hypertension) (Acute) Hypothyroidism (Acute) HLP (hyperkeratosis lenticularis perstans) (Acute) Multiple myeloma (Acute) Mitral regurgitation (Acute) Osteopenia (Acute) Past Medical History Medical History (Updated 05/04/24 @ 09:07 by Santos Weiss MD) Invasive lobular carcinoma of breast in female Chronic UTI Tremor Bifascicular block Non-rheumatic aortic stenosis Arthritis Mitral regurgitation Postural hypotension Osteopenia Multiple myeloma Gallstone Hypothyroidism HLP (hyperkeratosis lenticularis perstans) HTN (hypertension) Family History Family History Other HTN (hypertension) No family history of cancer Family history of problems with anesthesia: No Surgical History Surgical History H/O colonoscopy History of meniscectomy of left knee History of appendectomy History of partial hysterectomy History of Problems with Anesthesia: No Social History Social History Household Members: Spouse Housing: House Are you a primary insurance healthcare consultant to a significant other at home: No Do you presently have visiting nurse or other home services: No Alcohol intake: never Patient Tobacco Use Status: Former Tobacco user Tobacco use type: Cigarette Years Smoked: 15 e-Cigarette/Vaping Use: Never Used Second Hand Smoke Exposure: No Use of substances other than those prescribed or required for medical reasons: No Are you DNR?: No Advance Directives: No Advance Directives Information Provided: Yes Advance Directives Date on File: 11/17/20 service: No Current occupational status: retired Cognitive needs: No Hearing needs: No Vision needs: Yes (Glasses) Meds Allergies Allergy/AdvReac Type Severity Reaction Status Date / Time red dye [Red Dye] Allergy Mild SWELLING Verified 05/21/24 07:10 oxycodone AdvReac Intermediate Vomiting Verified 05/21/24 07:10 Active Medications: Current Medications Lactated Ringer's (Lr) 1,000 mls @ 100 mls/hr IVCONT .Q10H GEREMIAS Home Medications ?Medication ?Instructions ?Recorded ?Confirmed ?Last Taken ?Type calcium 600 mg (as 2 tab PO BID 01/18/20 05/21/24 07/18/23 History carbonate)-vitamin D3 5 mcg (200 unit) tablet cyanocobalamin (vitamin B-12) 1,000 mcg PO DAILY 11/17/20 05/21/24 07/18/23 History 1,000 mcg tablet lisinopril 40 mg tablet 40 mg PO QAM 12/22/22 05/21/24 07/18/23 History levothyroxine 75 mcg tablet 75 mcg PO QAM 07/12/23 05/21/24 07/19/23 History Exam Exam Date and Time: 05/21/24 1235 Height,Weight and Vital Signs: Height 5 ft 8 in Weight 88.451 kg Last Vital Signs Temp 98.2 F 05/21/24 07:11 Pulse 60 05/21/24 07:11 Resp 16 05/21/24 07:11 BP 140/72 H 05/21/24 07:11 Pulse Ox 96 05/21/24 07:11 O2 Del Method Room Air 05/21/24 07:11 Airway Mallampati Class: II TM Dist: >3cm Neck ROM: Full Loose/Missing/Broken Teeth: Yes (edentulous) Heart: S1S2 Lungs: CTAB Assessment and Plan Assessment Anesthesia Assessment: Anesthesia Plan Discussed and Chart Reviewed Final Anesthetic Review Family History of Problems with Anesthesia: No History of Problems with Anesthesia: No NPO: Yes ASA Class: III Final Preanesthetic Review: No Changes in Pt Med Stat, Meds/Allgs Chart Reviewed, Consent Obtained/Reviewed and Anes Risks/Benef Reviewed Patient Risk: Intermediate Procedure Risk: Low Anesthetic Plan Anesthetic Plan: GA and Agree w/ Assess. and Plan Disposition: Standard PACU
--- NOTE | 2024-05-21 12:41 | MHC.SHP ---
Pre-Procedural Eval Section A - 24 Hr Update-Section A only Date of Service: 05/21/24 The patient is an INPATIENT: No Changes since office visit: Yes Patient answered all questions; No Cold of Flu in the past 2 weeks, No New Medical Problems and No Changes in Medication The patient has been examined within 24 hours of the surgical procedure. The History & Physical has been completed within 30 days and I have reviewed it.: Yes Section B - Complete if H&P > 30 days Chief Complaint: Malignant neoplasm of unspecified site of unspecif Allergies: Allergies Allergy/AdvReac Type Severity Reaction Status Date / Time red dye [Red Dye] Allergy Mild SWELLING Verified 05/21/24 07:10 oxycodone AdvReac Intermediate Vomiting Verified 05/21/24 07:10 Plan Diagnosis/Plan: Unchanged I have reviewed the history and physical and performed a pertinent physical examination on my patient. No changes have occurred unless specified. Time Spent With Patient Time: Total time managing care of this patient today ____ minutes.
--- NOTE | 2024-05-21 14:42 | P.OP_ITS ---
Operative Note Operative Note Date of Service: 05/21/24 Narrative: Preoperative diagnosis: Invasive lobular carcinoma left breast upper outer quadrant Postoperative diagnosis: Same Procedure: Left breast lumpectomy with localizer, left axillary sentinel node biopsy Surgeon: Santos Weiss MD Blanket Winder Operator: Leesa Harris PA-C Anesthesia: General LMA Indications for procedure: 78-year-old female patient found to have suspicious changes on mammogram and ultrasound status post ultrasound-guided core biopsy which revealed invasive lobular carcinoma of the left breast at the upper outer quadrant. She presents today for lumpectomy with sentinel node biopsy. Operative findings: Localizer clip and marking clip found in the specimen x- ray. Single palpable axillary lymph node found to be the sentinel node. No other sentinel nodes identified. Additional axillary tissue sent for further evaluation Specimen: 1. Left breast lumpectomy with localizer, 2. [place] node 1., 3. Additional axillary tissue, 4. Anterior margin Estimated blood loss: 20 mL Complications: None Procedure details: Patient was brought to the OR and placed in a supine position. After administering general anesthesia the patient's left breast was prepped with ChloraPrep and draped in a sterile fashion. A surgical time-out was called the consent confirmed. Patient received preoperative antibiotics and Venodyne boots were in place. The localizer device was used to identify the site of the clip. This was in the upper outer quadrant. A curvilinear incision was made in the upper outer quadrant. Local anesthesia was infiltrated prior to incision. Incision was carried down through subcutaneous tissue. Superior and inferior skin flaps were then created with electrocautery. Using the localizer clip as a marker a core of tissue surrounding this was removed starting with the superior, medial, lateral, posterior and inferior margin. The specimen was marked with a short suture on the superior margin, long suture in the lateral margin, and looped suture in the posterior margin. This was sent to pathology for further examination. Using the same incision which was in the upper outer quadrant the sentinel node was identified using the gamma probe. This was dissected through the clavipectoral fascia into the axillary fat pad. The sentinel node was grasped using an Allis clamp and electrocautery used to divide the tissue surrounding this. Specimen was confirmed to be the sentinel node and sent as sentinel node 1. Palpation and use of the gamma probe revealed no further palpable nodes or radioactive nodes. Several portions of the axillary fat pad were removed for additional examination. Wounds were then irrigated with saline solution and suctioned dry. An additional margin of the anterior margin of the biopsy site was taken. Posterior margin unfortunately was right on chest wall and no further margin could be obtained. Wounds were irrigated with saline solution and hemostasis assured. Hemoclips were used to eboni the biopsy cavity. Deep breast tissue was then reapproximated using interrupted 3-0 Polysorb sutures. Dermis was reapproximated using interrupted 3-0 Polysorb sutures. Skin was then closed using a running subcuticular 4-0 Polysorb suture. Steri-Strips, 4 x 4 gauze and Tegaderm were then applied. The patient tolerated the procedure well. Sponge, instrument, and needle counts reported as correct. The patient was transferred to PACU in stable condition. Breast [place] Node Biopsy Substrate(s) used for sentinel node biopsy in the non-neoadjuvant setting: R adiotracer Substrate(s) used for sentinel node biopsy in the neoadjuvant setting: N/A All colored nodes or non-colored nodes present at the end of a dye filled lymp hatic channel were removed, if dye was used as the substrate for localization: N/A All significantly radioactive nodes were removed, if radionuclide was used as the substrate for localization: Yes All palpably suspicious nodes were removed, if present: Yes If clips were placed in pathology-involved nodes, those nodes were identified and removed: N/A Procedure performed with curative intent?: Yes General Surg. - Synoptic Notes Breast [place] Node Biopsy Substrate(s) used for sentinel node biopsy in the non-neoadjuvant setting: Radiotracer Substrate(s) used for sentinel node biopsy in the neoadjuvant setting: N/A All colored nodes or non-colored nodes present at the end of a dye filled lymphatic channel were removed, if dye was used as the substrate for localization: N/A All significantly radioactive nodes were removed, if radionuclide was used as the substrate for localization: Yes All palpably suspicious nodes were removed, if present: Yes If clips were placed in pathology-involved nodes, those nodes were identified and removed: N/A Procedure performed with curative intent?: Yes
[2024-05-21 14:55] VITALS: BP 115/48; PULSE 71; RESP 16; TEMP 36.1; O2SAT 92
[2024-05-21 15:00] VITALS: BP 111/55; PULSE 71; RESP 16; O2SAT 95
[2024-05-21 15:05] VITALS: BP 102/53; PULSE 71; RESP 16; O2SAT 95
[2024-05-21 15:10] VITALS: BP 102/54; PULSE 68; RESP 16; O2SAT 95
[2024-05-21 15:15] VITALS: BP 130/58; PULSE 71; RESP 16; TEMP 36.2; O2SAT 96
== END | disposition home or self-care (01) ==
PROVIDERS: PCP Student in an Organized Health Care Education/Training Program; Visit Provider Surgery
PROC: (CPT 19301; principal; 2024-05-21 13:30)
PROC: (CPT 19301; 2024-05-21 13:30)
DX: C50.412 Malignant neoplasm of upper-outer quadrant of left female breast (principal); Z17.0 Estrogen receptor positive status [ER+]; Z17.21 Progesterone receptor positive status; Z17.32 Human epidermal growth factor receptor 2 negative status; I10 Essential (primary) hypertension; I95.1 Orthostatic hypotension; I45.2 Bifascicular block; I35.0 Nonrheumatic aortic (valve) stenosis; C90.00 Multiple myeloma not having achieved remission; M85.80 Other specified disorders of bone density and structure, unspecified site; E03.9 Hypothyroidism, unspecified; R25.1 Tremor, unspecified; L85.8 Other specified epidermal thickening; Z87.440 Personal history of urinary (tract) infections; Z79.899 Other long term (current) drug therapy; Z88.5 Allergy status to narcotic agent; Z91.041 Radiographic dye allergy status; Z87.891 Personal history of nicotine dependence
CPT/HCPCS: 19301; 38525; 38900; 78195; 88307; 88342; A9520; C1889; J0131; J0690; J1100; J1596; J2003; J2371; J2405; J2704; J2795; J3010

== ENCOUNTER → 2024-05-21 06:43 | Outpatient (BNV) | payer MEDICARE, SELFPAY | PROVIDERS: PCP Student in an Organized Health Care Education/Training Program; Visit Provider Surgery | DX: C50.412 Malignant neoplasm of upper-outer quadrant of left female breast (principal) | CPT/HCPCS: 19301; 38525; 38900 ==

== ENCOUNTER → 2024-05-21 07:40 | Outpatient (BNV) | payer MEDICARE, SELFPAY | PROVIDERS: PCP Student in an Organized Health Care Education/Training Program; Visit Provider Radiology Diagnostic Radiology | DX: C50.912 Malignant neoplasm of unspecified site of left female breast (principal); R59.0 Localized enlarged lymph nodes | CPT/HCPCS: 78195 ==

== ENCOUNTER 2024-05-22 01:53 | Emergency (ER) | payer MEDICARE, SELFPAY ==
--- NOTE | 2024-05-22 | ECG_ITS ---
Test Reason : FALL, DIZZINESS Blood Pressure : */* mmHG Vent. Rate : 74 BPM Atrial Rate : 74 BPM P-R Int : 156 ms QRS Dur : 128 ms QT Int : 468 ms P-R-T Axes : 14 -88 -8 degrees QTcB Int : 519 ms Normal sinus rhythm Right bundle branch block Left anterior fascicular block Bifascicular block Abnormal ECG When compared with ECG of 19-Nov-2020 08:29, Inverted T waves have replaced nonspecific T wave abnormality in Inferior leads T wave inversion no longer evident in Lateral leads Referred By: Generic ED Physician Electronically Signed By: Tyrel Torres
--- NOTE | ~2024-05-22 | CT_ITS ---
EXAMINATION: CT HEAD WITHOUT IV CONTRAST HISTORY: fall in tub. TECHNIQUE: Unenhanced helical CT of the head was performed per standard departmental protocol. Coronal and sagittal reformats of the head were also evaluated. One or more of the following techniques was used for dose reduction: Automated exposure control, adjustment of the mA and/or kV according to patient size, use of iterative reconstruction technique. DLP: 741.50 mGy-cm COMPARISON: Comparison is made with the prior examination dated 11/17/2020. FINDINGS: BRAIN: The brain parenchyma is unremarkable. There is normal angel/white differentiation. The ventricular system is normal in size and configuration. There is no mass effect or midline shift. No intra- or extra-axial fluid collections are identified. SINUSES: The visualized paranasal sinuses are clear. The mastoid air cells and middle ear cavities are well pneumatized. ORBITS: The visualized orbits are unremarkable. BONES/SOFT TISSUES: The extracranial soft tissues are unremarkable. The calvarium is intact. No suspicious lytic or sclerotic lesions. CT/CT head/brain wo IV con IMPRESSION: No acute intracranial abnormality. Electronically signed by: Thomas Thompson MD 05/22/2024 08:04 AM [facility]
--- NOTE | ~2024-05-22 | XR_ITS ---
EXAMINATION: XR CHEST 1 VIEW HISTORY: fall COMPARISON: Comparison is made with the prior examination dated 11/17/2020. FINDINGS: A single AP view of the chest is submitted. There are low lung volumes. The lungs are clear. There is no pleural effusion, pneumothorax, or pulmonary vascular congestion. The heart is normal in size. There is degenerative disc disease of the spine. XR/XR chest 1V IMPRESSION: Low lung volumes. No acute cardiopulmonary abnormality. Electronically signed by: Thomas Thompson MD 05/22/2024 08:01 AM [facility]
--- NOTE | ~2024-05-22 | XR_ITS ---
CLINICAL HISTORY: fall 3 view right shoulder Comparison: None Findings: No erosions. No radiopaque foreign body. Marked elevation of the distal clavicle in relation to the acromion process. IMPRESSION: 1. Marked elevation of the distal clavicle in relation to the acromion process, consistent with a higher grade acromioclavicular joint injury. This document has been electronically signed by: Zachary Silver MD, PHD on 05/22/2024 03:19:41
--- NOTE | ~2024-05-22 | CT_ITS ---
EXAMINATION: CT CERVICAL SPINE WITHOUT IV CONTRAST HISTORY: fall. TECHNIQUE: Helical CT of the cervical spine was performed per standard departmental protocol. Coronal and sagittal reformatted images were also evaluated. One or more of the following techniques was used for dose reduction: Automated exposure control, adjustment of the mA and/or kV according to patient size, use of iterative reconstruction technique. DLP: 405.34 mGy-cm COMPARISON: There are no prior studies for comparison. FINDINGS: CERVICAL SPINE: The vertebral bodies maintain normal height and alignment without evidence of fracture or subluxation. There is moderate degenerative disc disease at the C5-6 level with disc space narrowing and osteophyte formation. Milder changes are noted at the remaining levels. There is facet osteoarthritis and uncovertebral joint hypertrophy with probable left neural foraminal narrowing at the C2-3 level and bilateral neural foraminal stenosis at the C3-4, C4-5, and C5-6 levels. Evaluation for disc pathology is limited by lack of intrathecal contrast material, however. BRAIN: The visualized portion of the brain is unremarkable. SINUSES: The visualized paranasal sinuses, mastoid air cells and middle ear cavities are unremarkable. LUNG APICES: The visualized lung apices are clear. SOFT TISSUES: There is calcification of the internal carotid arteries. CT/CT cervical spine wo IV con IMPRESSION: No evidence of fracture or malalignment of the cervical spine. Degenerative changes as described. Electronically signed by: Thomas Thompson MD 05/22/2024 08:[address] [facility]
[2024-05-22 02:11] VITALS: BP 127/81; BP 145/79; PULSE 78; PULSE 92; RESP 16; TEMP 36.6; O2SAT 92; O2SAT 96; BMI 28.2
[2024-05-22 02:26] LABS: MANUAL DIFF FLAG NO
[2024-05-22 02:30] LABS: Basophils Percent Auto 0.2 % (0-2); Hematocrit 39.1 % (37.0-47.0); Hemoglobin 13.7 g/dl (12.0-16.0); Imm Gran Abs Auto 0.01 X10*3/uL (0.00-0.03); Imm Gran Pct Auto 0.2 % (0.0-0.4); Lymphocytes Absolute Auto 0.7 X10*3/uL (1.2-4.9); Mean Corpuscular Volume 91.4 fL (80.0-98.0); Mean Platelet Volume 11.1 fL (9.4-12.3); Monocytes Absolute Auto 0.4 X10*3/uL (0.1-1.2); Monocytes Percent Auto 9.6 % (2-11); Neutrophils Absolute Auto 3.4 x10*3/uL (2.0-8.3); Platelet Count 111 X10*3/uL (160-400); Red Blood Count 4.28 X10*6/uL (4.20-5.50); Red Cell Distribution Width 14.2 % (11.0-16.0); White Blood Count 4.6 X10*3/uL (4.8-10.8)
[2024-05-22 02:49] LABS: Troponin-I High Sensitivity 5.8 ng/L (<3.5-17.0)
[2024-05-22 02:50] LABS: Alanine Aminotransferase 24 U/L (0-31); Albumin Level 3.7 g/dL (3.5-5.0); Alkaline Phosphatase 47 U/L (39-117); Anion Gap 18 (12-20); Aspartate Amino Transferase 31 U/L (5-31); Bilirubin Total 0.9 mg/dL (0.0-1.0); Blood Urea Nitrogen 19 mg/dL (9-16); Calcium 7.9 mg/dL (8.4-10.2); Carbon Dioxide 20 mmol/L (22-29); Chloride 111 mmol/L (96-108); Creatinine Clr Calc Pharmacy 56.3; Estimated Glomerular Filt Rate > 60; Glucose Random 163 mg/dL (60-115); Potassium 3.6 mmol/L (3.3-5.1); Sodium 145 mmol/L (135-145); Total Protein 6.6 g/dL (6.5-8.0)
--- NOTE | 2024-05-22 03:11 | PC.NURSE ---
positive cms to right upper extremity.
--- NOTE | 2024-05-22 04:36 | PC.NURSE ---
per pt pain is okay as long as she not moving, pt is resting in bed awaiting to be seen, provider notified x-ray is in.
[2024-05-22 05:37] VITALS: BP 126/64; PULSE 20; RESP 16; TEMP 36.3; O2SAT 95
--- NOTE | 2024-05-22 05:47 | PC.NURSE ---
pt reposition for comfort, pure wick in place.
--- NOTE | 2024-05-22 06:40 | PC.NURSE ---
provider made aware x-ray result are in, pt awaiting to be seen.
[2024-05-22] MEDS: ondansetron HCL 4 MG/2 ML VIAL IVPUSH (07:28)
[2024-05-22] MEDS: Morphine Sulfate 2 MG/ML CARTRIDGE IVPUSH (07:29)
[2024-05-22 07:31] LABS: Magnesium 1.6 mg/dL (1.6-2.6)
--- NOTE | 2024-05-22 07:35 | ED_ITS ---
HPI - Fall General Chief Complaint: Fall Stated Complaint: Dizziness, Fall, Shoulder injury with deformity Time Seen by Provider: 05/22/24 06:37 Source: patient, family, EMS, RN notes reviewed and old records reviewed Mode of arrival: EMS History of Present Illness ED Provider: Paige Maier PA-C HPI Narrative: 78-year-old female with a past medical history multiple myeloma, hypothyroid, HLD, HTN, nonrheumatic aortic stenosis, breast CA s/p lumpectomy yesterday 05/21/[address] Weiss, presenting to ED via EMS complaining of right shoulder pain s/p slip and fall in bathroom last night. States was shutting door, turned quickly, felt lightheaded/dizzy and fell backwards into bathtub onto right shoulder. Unknown head trauma, denies LOC. Unable to get herself up. Denies anticoagulation use. Given 80mcgs fentanyl by EMS [employer] with symptomatic relief. Denies head/neck/back pain, abdominal pain, CP/SOB, LE pain Related Data Home Medications ?Medication ?Instructions ?Recorded ?Confirmed calcium 600 mg (as 2 tab PO BID 01/18/20 05/21/24 carbonate)-vitamin D3 5 mcg (200 unit) tablet cyanocobalamin (vitamin B-12) 1,000 mcg PO DAILY 11/17/20 05/21/24 1,000 mcg tablet lisinopril 40 mg tablet 40 mg PO QAM 12/22/22 05/21/24 levothyroxine 75 mcg tablet 75 mcg PO QAM 07/12/23 05/21/24 Previous Rx's ?Medication ?Instructions ?Recorded potassium chloride 20 mEq 40 meq (2 x 20 mEq) PO BID #360 05/23/22 tablet,extended release tabs propranolol 60 mg capsule,24 60 mg PO BEDTIME #90 caps 03/18/23 hr,extended release acetaminophen 325 mg tablet 650 mg (2 x 325 mg) PO Q6H PRN 07/20/23 Pain, Mild (Pain Scale 1-3) 30 days #240 tabs ondansetron HCl 4 mg tablet 4 mg PO Q6H PRN nausea and 07/29/23 vomiting 7 days #28 tabs cefuroxime axetil 500 mg tablet 500 mg PO BID 10 days #20 tabs 08/08/23 amoxicillin 500 mg tablet 2,000 mg (4 x 500 mg) PO ONCE 1 10/06/23 day #4 tabs atorvastatin 20 mg tablet 20 mg PO BEDTIME 90 days #90 tabs 12/08/23 amlodipine 5 mg tablet 5 mg PO QAM #90 tabs 12/12/23 valacyclovir 500 mg tablet 500 mg PO DAILY #90 tabs 03/01/24 (Valtrex) levofloxacin 500 mg tablet 500 mg PO Q24H #10 tabs 04/12/24 lenalidomide 15 mg capsule 15 mg PO DAILY #14 caps 05/01/24 (Revlimid) cefuroxime axetil 250 mg tablet 250 mg PO BID 7 days #14 tabs 05/22/24 morphine 15 mg immediate release 15 mg PO Q6H PRN pain (scale score 05/22/24 tablet 7-10) 3 days #9 tabs ondansetron 4 mg disintegrating 4 mg PO Q8H PRN nausea and 05/22/24 tablet vomiting #8 tabs Allergies Allergy/AdvReac Type Severity Reaction Status Date / Time red dye [Red Dye] Allergy Mild SWELLING Verified 05/22/24 02:16 oxycodone AdvReac Intermediate Vomiting Verified 05/22/24 02:16 Review of Systems 2 Review of Systems: Yes all other systems are reviewed and are negative Constitutional: Constitutional: Reports as per HPI Neurologic: Denies Abnormal speech present [facility] Past Medical History Attestation statement: The following information was validated with the patient. Source: old records reviewed Medical History Invasive lobular carcinoma of breast in female Chronic UTI Tremor Bifascicular block Non-rheumatic aortic stenosis Arthritis Mitral regurgitation Postural hypotension Osteopenia Multiple myeloma [place] Hypothyroidism HLP (hyperkeratosis lenticularis perstans) HTN (hypertension) Surgical History H/O colonoscopy History of meniscectomy of left knee History of appendectomy History of partial hysterectomy Family History Family History Other HTN (hypertension) No family history of cancer Social History Social History Household Members: Spouse Housing: House Are you a primary healthcare interpreter to a significant other at home: No Do you presently have visiting nurse or other home services: No Alcohol intake: never Patient Tobacco Use Status: Former Tobacco user Tobacco use type: Cigarette Years Smoked: 15 e-Cigarette/Vaping Use: Never Used Second Hand Smoke Exposure: No Advance Directives: Yes Advance Directives on File: Yes Advance Directives Date on File: 11/17/20 Do you have a plan to hurt others: No Plan service: No Current occupational status: retired Cognitive needs: No Hearing needs: No Vision needs: Yes (Glasses) Physical Exam 2 Vital Signs: Vital Signs: Last Vital Signs Temp 0 F L 05/22/24 10:56 Pulse 73 05/22/24 10:56 Resp 18 05/22/24 10:56 BP 105/56 L 05/22/24 10:56 Pulse Ox 95 05/22/24 10:56 O2 Del Method Room Air 05/22/24 10:56 BMI result Body Mass Index 28.2 Const: General: cooperative, healthy appearing and no acute distress O rientation/consciousness: patient oriented x3 Limitations: no limitations HEENT: Head: Yes normal to inspection and Yes atraumatic Ears: hearing grossly normal bilaterally General nose exam: Normal external nose present Face and sinus: Yes normal facial exam Mouth: Normal oral and palatal mucosa present Throat: Yes posterior oropharynx normal Eyes: General: appearance normal, both eyes and all related structures EOM: EOMs intact bilaterally Neck: Neck: Yes normal visual inspection and Yes no meningeal signs Chest: Other: Dressing intact to left breast without drainage. Not soaked. Mildly tender to area. No erythema or warmth. Chest palpation & inspection: normal inspection of the chest, no crepitus and no tenderness Resp: Effort & Inspection: normal respiratory effort and no respiratory distress Auscultation: clear to auscultation bilaterally Cardio: Rate: regular rate Heart sounds: S1 normal heart sound present and S2 normal heart sound present GI: Inspection: Yes normal to inspection Palpation (GI): Soft to palpation, nontender, no guarding and not rigid : General: Yes no CVA tenderness Back/Spine/Pelvis: Other: No midline cervical/thoracic/lumbar spinous tenderness/step-off or deformity Back: no CVA tenderness Skin: Rashes: no rashes Wounds: no wounds Neuro: General: patient oriented x3, tone normal, moves all extremities, no meningeal signs, no focal motor deficits and CN's II-XI intact bilaterally C ranial nerves: Yes CN's II-XII intact bilaterally and Yes Bilaterally intact EOM present Cognition (Neuro): normal cognition Speech: No Abnormal speech present Motor exam (neuro): 5/5 motor strength present throughout Extrem: Other: + appreciable deformity noted to right s houlder. Exquisitely tender to palpation. No overlying skin erythema/warmth or open wound. Limited ROM secondary to pain. Neurovascularly intact distally. Pelvis stable. Course Course Course Narrative: -746--chronic leukopenia. Labs otherwise reassuring. Initial troponin 5.8 > will obtain repeat XR shoulder RT min 2V IMPRESSION: 1. Marked elevation of the distal clavicle in relation to the acromion process, consistent with a higher grade acromioclavicular joint injury. > consulted orthopedic PA Zain who recommended sling and outpatient follow- up. Nonsurgical at this time. -1005--repeat troponin without rise, mi unlikely -UA infected > will treat with p.o. Ceftin XR chest 1V IMPRESSION: Low lung volumes. No acute cardiopulmonary abnormality. CT cervical spine wo IV con IMPRESSION: No evidence of fracture or malalignment of the cervical spine. Degenerative changes as described. CT head/brain wo IV con IMPRESSION: No acute intracranial abnormality. > recommended/offered PT/case management however patient declined. Lives at home with . At baseline use his cane. States she has a lot of help including daughter who is at bedside. Results discussed with patient including worrisome signs and symptoms and strict return precautions, and when to return to the emergency department. They verbalized understanding and feel safe for discharge at this time. Medications Administered Discontinued Medications Generic Name Dose Route Start Last Admin Trade Name Freq PRN Reason Stop Dose Admin Morphine Sulfate 2 mg 05/22/24 07:01 05/22/24 07:29 Morphine Sulfate 2 Mg/Ml Cartridge IVPUSH 05/22/24 07:02 2 mg ONCE ONE Administration Protocol Ondansetron HCl 4 mg 05/22/24 07:01 05/22/24 07:28 Ondansetron Hcl 4 Mg/2 Ml Vial IVPUSH 05/22/24 07:02 4 mg ONCE ONE Administration Procedures Orthopedic Splinting/Casting Injury #1: Side: right Upper Extremity Injury Location: shoulder Upper Extremity Immobilizer: sling/shoulder immobilizer Medical Decision Making Medical Decision Making MDM Narrative: 78-year-old female with a past medical history multiple myeloma, hypothyroid, HLD, HTN, nonrheumatic aortic stenosis, breast CA s/p lumpectomy yesterday 05/21/[address] Weiss, presenting to ED via EMS complaining of right shoulder pain s/p slip and fall in bathroom last night. On exam vital signs stable, NAD, physical exam as noted above, no midline spinous tenderness throughout. No focal neuro deficits. Appreciable deformity to right shoulder. Pelvis stable. Concern for ACS vs metabolic abnormalities vs fracture vs shoulder separation. Lower suspicion for intrathoracic or intra-abdominal bleeding/injury at this time Plan: EKG, labs, UA, CXR, head/C-spine CT, shoulder x-ray, re-evaluate Please refer to course for remaining clinical decision making, interpretation of labs/imaging results, and discussions with consultants and/or family members. Differential Diagnosis Differential Diagnoses: The differential diagnosis associated with the presentation includes As above Admission/Observation Consideration of admission/observation: Escalation of care including admission/observation considered Consult Healthcare Provider Management of the patient was discussed with: Director Of Training (Orthopedics) Lab Data [facility] Lab Attestation statement: I reviewed the patient's lab results. 05/22/24 02:22 05/22/24 02:22 Labs: Lab Results 05/22/24 05/22/24 05/22/24 Range/Units 02:22 08:01 09:08 WBC 4.6 L (4.8-10.8) X10*3/uL RBC 4.28 (4.20-5.50) X10*6/uL Hgb 13.7 (12.0-16.0) g/dl Hct 39.1 (37.0-47.0) % MCV 91.4 (80.0-98.0) fL MCH 32.0 (27.0-33.0) pg MCHC 35.0 (31.0-35.0) g/dl RDW 14.2 (11.0-16.0) % Plt Count 111 L D (160-400) X10*3/uL MPV 11.1 (9.4-12.3) fL Immature Gran % (Auto) 0.2 (0.0-0.4) % Neut % (Auto) 74.0 H (45-73) % Lymph % (Auto) 16.0 L (20-40) % [place] % (Auto) 9.6 (2-11) % Eos % (Auto) 0.0 (0-4) % Baso % (Auto) 0.2 (0-2) % Lymph # (Auto) 0.7 L (1.2-4.9) X10*3/uL [place] # (Auto) 0.4 (0.1-1.2) X10*3/uL Eos # (Auto) 0.0 (0.0-0.4) X10*3/uL Baso # (Auto) 0.0 (0.0-0.2) X10*3/uL Abs Immat Gran (auto) 0.01 (0.00-0.03) X10*3/uL Absolute Neuts (auto) 3.4 (2.0-8.3) x10*3/uL Absolute Nucleated RBC 0.000 (0.0-0.012) X10*3/uL Nucleated RBC % (auto) 0.0 (0.0-0.2) /100WBC Sodium 145 (135-145) mmol/L Potassium 3.6 (3.3-5.1) mmol/L Chloride 111 H (96-108) mmol/L Carbon Dioxide 20 L (22-29) mmol/L Anion Gap 18 (12-20) BUN 19 H (9-16) mg/dL Creatinine 0.89 (0.5-1.4) mg/dL Estim Creat Clear Calc 56.3 Estimated GFR > 60 Random Glucose 163 H (60-115) mg/dL Calcium 7.9 L D (8.4-10.2) mg/dL Magnesium 1.6 (1.6-2.6) mg/dL Total Bilirubin 0.9 (0.0-1.0) mg/dL AST 31 (5-31) U/L ALT 24 (0-31) U/L Alkaline Phosphatase 47 (39-117) U/L Troponin I High Sens 5.8 6.1 (<3.5-17.0) ng/L Total Protein 6.6 (6.5-8.0) g/dL Albumin 3.7 (3.5-5.0) g/dL Urine Color Yellow Urine Appearance Clear Urine pH 6.0 (5.0-9.0) Ur Specific [place] >= 1.030 H (1.005-1.025) Urine Protein Trace (Neg-Trace) mg/dL Urine Glucose (UA) Negative (Negative) mg/dL Urine Ketones Trace (Negative) mg/dL Urine Blood Negative (Negative) Urine Nitrite Negative (Negative) Ur Leukocyte Esterase Small (1+) H (Negative) Urine RBC 0-2 (0-2) /HPF Urine WBC 11-20 H (0-5) /HPF Ur Squamous Epith Cells 3-5 (0-2) /HPF Urine Bacteria None Seen (None Seen) Hyaline Casts 0-2 (0-2) /LPF Independent Interpretation I performed an independent interpretation of an: EKG (My interpretation EKG normal sinus rhythm rate of 74. NC interval 156. Bifascicular block. Inverted T-waves have replaced nonspecific T-wave abnormalities in inferior leads when compared to prior. No STEMI), Plain X-Ray and CT Scan Radiology Impression Discussion of test interpretation with radiology: I have reviewed the radiologist's reading. Independent Historian Clinical information obtained from an independent historian. History obtained from or confirmed by: EMS and Other (Daughter) External Record Review External record reviewed: Inpatient record, Office record, Outpatient record, Prior outpatient labs, Prior outpatient radiology, Primary care record and Outside ED record Tests considered The following testing was considered but not selected: As above Prescription Management I considered prescription management with: Other Chronic Conditions Patient?s care impacted by: Other Social Determinants Patient?s care significantly limited by Social Determinants of Health including: Other Social Determinant of Health Discharge Plan Discharge Clinical Impression: Separation of acromioclavicular joint due to injury, Acute UTI Patient Disposition: Home, Self-Care Instructions: Acromioclavicular Separation (ED), Urinary Tract Infection in Older Adults (ED) Additional Instructions: You have an AC joint separation. He needs to wear sling at all times. You may take off to shower YOU NEED TO FOLLOW UP WITH THE SOLE FILLER. CALL TO MAKE AN APPOINTMENT You also have a UTI. Ceftin as an antibiotic please take as prescribed You can continue Tylenol at home for pain. In addition morphine as an opiate pain medication, take only when pain is severe for the next 3 days Zofran as an antinausea medication, take or nausea and vomiting If area begins look infected, is red, you have an unsteady gait at home, have persistent fall, lightheadedness, weakness, fever return to the ED immediately Prescriptions: New cefuroxime axetil 250 mg tablet 250 mg PO BID 7 Days Qty: 14 0RF morphine 15 mg tablet 15 mg PO Q6H PRN (Reason: pain (scale score 7-10)) 3 Days Qty: 9 0RF Rx Instructions: Partial Fill upon patient request. ondansetron 4 mg tablet,disintegrating 4 mg PO Q8H PRN (Reason: nausea and vomiting) Qty: 8 0RF No Action potassium chloride 20 mEq tablet extended release 40 meq PO BID Qty: 360 1RF propranolol 60 mg capsule,extended release 24 hr 60 mg PO BEDTIME Qty: 90 0RF ondansetron HCl 4 mg tablet 4 mg PO Q6H PRN (Reason: nausea and vomiting) 7 Days Qty: 28 0RF atorvastatin 20 mg tablet 20 mg PO BEDTIME 90 Days Qty: 90 3RF amlodipine 5 mg tablet 5 mg PO QAM Qty: 90 3RF calcium carbonate-vitamin D3 600 mg(1,500mg) -200 unit Tablet 2 tab PO BID valacyclovir [Valtrex] 500 mg Tablet 500 mg PO DAILY Qty: 90 5RF levofloxacin 500 mg Tablet 500 mg PO Q24H Qty: 10 2RF lenalidomide [Revlimid] 15 mg Capsule 15 mg PO DAILY Qty: 14 0RF Rx Instructions: swallow whole with glass of water; do not open, crush, chew , break, or dissolve cyanocobalamin (vitamin B-12) 1,000 mcg Tablet 1,000 mcg PO DAILY levothyroxine 75 mcg tablet 75 mcg PO QAM acetaminophen 325 mg Tablet 650 mg PO Q6H PRN (Reason: Pain, Mild (Pain Scale 1-3)) 30 Days Qty: 240 0RF cefuroxime axetil 500 mg tablet 500 mg PO BID 10 Days Qty: 20 0RF lisinopril 40 mg tablet 40 mg PO QAM amoxicillin 500 mg tablet 2,000 mg PO ONCE 1 Days Qty: 4 3RF Rx Instructions: take 4 capsules 1 hr prior to dental procedure [place] [facility] [place] [facility] [place] Group[place] - 5 days Ina Davis PA [Primary Care Provider] - Interventions: ED Discharge Assessment Last Done: 05/22/24 10:56 Discharge Date/Time: 05/22/24 10:57 Print Language: Palestinian
--- NOTE | 2024-05-22 07:39 | PC.NURSE ---
Pt medicated for pain to right shoulder. Reports no pain with rest but with movement pain is reported to be 10/10. At this time out of room for imaging.
[2024-05-22 08:32] LABS: Troponin-I High Sensitivity 6.1 ng/L (<3.5-17.0)
[2024-05-22 08:39] VITALS: BP 133/72; PULSE 64; RESP 16; TEMP 36.4; O2SAT 92
[2024-05-22 09:16] LABS: Appearance Urine Clear; Color Urine Yellow; Glucose Urine UA Negative (Negative); Leukocyte Esterase Urine Small (1+) (Negative); Nitrite Urine Negative (Negative); Specific Gravity - Urine >= 1.030 (1.005-1.025); UMIC TRIGGER UACC YES; Urine Blood Negative (Negative); Urine Ketones Trace mg/dL (Negative); Urine Protein Trace mg/dL (Neg-Trace)
[2024-05-22 09:21] LABS: Bacteria Urine None Seen (None Seen); Hyaline Casts Urine 0-2 /LPF (0-2); RBC Urine 0-2 /HPF (0-2); UACC Culture Trigger YES
[2024-05-22 10:53] VITALS: BP 105/56; PULSE 73; RESP 18; O2SAT 95
[2024-05-22 10:56] VITALS: BP 105/56; PULSE 73; RESP 18; TEMP -17.7; TEMP 0; O2SAT 95
--- NOTE | 2024-05-28 15:39 | MHC.HEMONC ---
Dr Balderas give [employer] auth # for revlimid refill #[id number]
== END 2024-05-22 10:57 | disposition home or self-care (01) ==
PROVIDERS: Physician Assistant; Emergency Provider Emergency Medicine; PCP Student in an Organized Health Care Education/Training Program
DX: S43.101A Unspecified dislocation of right acromioclavicular joint, initial encounter (principal); M25.511 Pain in right shoulder; R42 Dizziness and giddiness; R94.31 Abnormal electrocardiogram [ECG] [EKG]; I45.10 Unspecified right bundle-branch block; R51.9 Headache, unspecified; M54.2 Cervicalgia; R07.89 Other chest pain; I10 Essential (primary) hypertension; W01.0XXA Fall on same level from slipping, tripping and stumbling without subsequent striking against object, initial encounter; Y93.9 Activity, unspecified; Y92.002 Bathroom of unspecified non-institutional (private) residence as the place of occurrence of the external cause; Y99.8 Other external cause status; Z79.899 Other long term (current) drug therapy; Z87.891 Personal history of nicotine dependence
CPT/HCPCS: 29105; 36415; 70450; 71045; 72125; 73030; 80053; 81001; 83735; 84484; 85025; 87086; 93005; 96374; 96375; 99284; 99285; J2270; J2405

== ENCOUNTER → 2024-05-22 02:35 | Outpatient (BNV) | payer MEDICARE, SELFPAY | PROVIDERS: PCP Student in an Organized Health Care Education/Training Program; Visit Provider General Practice | DX: R42 Dizziness and giddiness (principal); M25.511 Pain in right shoulder; M50.30 Other cervical disc degeneration, unspecified cervical region; R91.8 Other nonspecific abnormal finding of lung field | CPT/HCPCS: 70450; 71045; 72125; 73030 ==

== ENCOUNTER 2024-05-31 10:45 | Outpatient (AMB) | payer MEDICARE, SELFPAY ==
--- NOTE | 2024-05-31 10:49 | MHC.OFFVIS ---
Vital Signs 05/31/24 10:57 Height 5 ft 7 in Weight 180 lb 12.465 oz BMI 28.3 BP 110/60 Blood Pressure Location Lt brachial Position Sitting Pulse 72 Intake Visit Reasons: S/P Lt brst lumpectomy w/localizer and Lt SN bx Intake Note: Patient is seen in office for post op assessment post Left breast lumpectomy with localizer, left axillary sentinel node biopsy. Pt c/o: patient states she fell down when she got home the day of surgery, has a dislocated left collar bone and large bruising, is sched to see orthopedics on the 06/14/24, incision is healing as expected surgery:05/21/24 Manual Writer Required: No Accompanied by: Self / Same As Patient Allergies red dye [Red Dye] Allergy (Mild, Verified 05/31/24 10:50) SWELLING oxycodone Adverse Reaction (Intermediate, Verified 05/31/24 10:50) Vomiting HPI Comments Details: 78-year-old female patient presenting with a recently diagnosed left breast invasive carcinoma with ductal and lobular features located at the 2 o'clock position, 5 cm from the nipple. The lesion was diagnosed by screening mammogram with subsequent diagnostic mammogram and ultrasound performed at the [facility]. She underwent a needle biopsy at the [facility] on 04/25/2024. Immunohistochemical stains revealed ER positive, MI positive, HER2 Param negative, Ki-67 low, and E-cadherin negative favoring lobular carcinoma with focal ductal features. She denies a previous history of breast problems or breast surgery. She denies a family history of breast problems. She is , did not breastfeed her children. Menarche was the age of 12 and menopause at the age of 62 after hysterectomy. Her 1st child when she was 16 years old. She has a history of multiple myeloma is being treated by Dr. Balderas. She returns today following left breast lumpectomy with sentinel node biopsy. Pathology confirmed an invasive lobular carcinoma with focal ductal features, grade 2, 15 mm, margins free of tumor (4 mm to the posterior). One sentinel node and 2 additional enlarged lymph nodes were negative for metastatic carcinoma. 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 TNM staging: PT1c pN0 (sn) (AJCC 8th edition). She tolerated the procedure well but does have some soreness in the left arm when raising above her head. She also reports falling at home on the day of surgery resulting in a fracture of her right clavicle. She is awaiting orthopedic evaluation for further management. [facility] Medical History Invasive lobular carcinoma of breast in female Chronic UTI Tremor Bifascicular block Non-rheumatic aortic stenosis Arthritis Mitral regurgitation Postural hypotension Osteopenia Multiple myeloma Gallstone Hypothyroidism HLP (hyperkeratosis lenticularis perstans) HTN (hypertension) Surgical History History of lumpectomy of left breast (05/21/24) H/O colonoscopy History of meniscectomy of left knee History of appendectomy History of partial hysterectomy Family History Other HTN (hypertension) No family history of cancer Social History Household Members: Spouse Housing: House Are you a primary pediatric critical care nurse to a significant other at home: No Do you presently have visiting nurse or other home services: No Alcohol intake: never Patient Tobacco Use Status: Former Tobacco user Tobacco use type: Cigarette Years Smoked: 15 e-Cigarette/Vaping Use: Never Used Second Hand Smoke Exposure: No Advance Directives Date on File: 11/17/20 service: No Current occupational status: retired Cognitive needs: No Hearing needs: No Vision needs: Yes (Glasses) Female Reproductive History Menstrual Age of Menarche: 12 Physical Exam Vital Signs: Last Vital Signs Pulse 72 05/31/24 10:57 BP 110/60 05/31/24 10:57 BMI result Body Mass Index 28.3 Const General: cooperative and no acute distress Nutritional Appearance: well nourished Orientation/consciousness: patient oriented x3 Limitations: no limitations HEENT Head: Yes normocephalic and Yes atraumatic Ears: hearing grossly normal bilaterally Chest Other: Left breast: Incision in the left upper outer quadrant is clean, dry, and intact without evidence of erythema or hematoma. Chest/axillae images: 1. Incision upper outer quadrant left breast Resp Effort & Inspection: normal respiratory effort, no audible wheezes, no cough and no respiratory distress Cardio Jugular venous distension: no JVD GI Inspection: Yes normal to inspection Skin Other: Warm, dry, no rash Neuro Other: Mobility Assessment: 1. 3 meter assessment time (seconds) 7 2. Gait observations: slow tentative pace General: patient oriented x3 Extrem General: Yes no clubbing, cyanosis or edema Assessment & Plan Assessment & Plan (1) Invasive lobular carcinoma of breast in female: Code(s): C50.919 - Malignant neoplasm of unspecified site of unspecified female breast Category: Medical Plan 78-year-old female patient recently diagnosed with invasive lobular carcinoma with ductal features status post lumpectomy with sentinel node biopsy approximately 1 week ago. Pathology confirmed invasive lobular carcinoma, ER/MI positive, her 2-. 0 of 3 lymph nodes revealed metastatic disease. PT1c pN0 (sn). She is awaiting orthopedic evaluation for a fracture of her right clavicle after a fall on postoperative day 0. She will be referred to Dr. Balderas for further management of the invasive lobular carcinoma. I have asked her to return approximately 1 month for wound check. She is welcome to call sooner for any new concerns. Orders: Referrals Hematology & Oncology Referral C50.919 - Malignant neoplasm of unspecified site of unspecified female breast Coding Level of Care Code Global (01566) Diagnoses Invasive lobular carcinoma of breast in female C50.919
[2024-05-31 10:57] VITALS: BP 110/60; PULSE 72; BMI 28.3
--- OUTSIDE RECORDS SUMMARY | 2024-05-31 11:27 | XMS_ITS | Clinical Summary ---
Author Organization [facility] Address [address] [place] [address] Phone Care Team Providers Care Cake Froster Name Role Phone Billy Dexter MD Primary [...] patient's age to complete this topic Insurance [facility] Care Teams Cake Froster Relationship Specialty Start Date End Date Billy Dexter MD [facility] [address] [place] [address] [address] PCP - General Internal Medicine 08/01/20
== END 2024-05-31 11:16 | disposition home or self-care (01) ==
PROVIDERS: PCP Student in an Organized Health Care Education/Training Program; Visit Provider Surgery
DX: C50.919 Malignant neoplasm of unspecified site of unspecified female breast (principal)
CPT/HCPCS: 99024

== ENCOUNTER → 2024-05-31 10:45 | Outpatient (BNVA) | payer MEDICARE, SELFPAY | PROVIDERS: PCP Physician Assistant Medical; Visit Provider Surgery | DX: C50.412 Malignant neoplasm of upper-outer quadrant of left female breast (principal) | CPT/HCPCS: 99212 ==

== ENCOUNTER 2024-06-12 08:22 | Outpatient (AMB) | payer MEDICARE, SELFPAY ==
--- NOTE | 2024-06-12 08:23 | A.OFFVIS_ITS ---
Vital Signs 06/12/24 08:29 Height 5 ft 8 in Weight 196 lb BMI 29.8 Handedness Right Intake Visit Reasons: New Prob - rt shoulder ac separation, DOI 05/21/24 Intake Note: Merary is a 78 year old right hand dominant female who presents today with a sling and her daughter for a evaluation of her right shoulder ac separation, DOI 05/21/24. Patient reports she had a slipped and fall. She states she was shutting the door, turned quickly, when she felt lightheaded and dizzy. Patient fell backwards into the bathtub onto her right shoulder. Patient notices her ROM is limited. She mentions that her pain today is very sore. Patient has tried Tylenol with relief. Allergies red dye [Red Dye] Allergy (Mild, Verified 06/12/24 08:28) SWELLING oxycodone Adverse Reaction (Intermediate, Verified 06/12/24 08:28) Vomiting HPI HPI New Prob - rt shoulder ac separation, DOI 05/21/24: Details: Ms. He is a 78-year-old right-hand dominant female who presents to the office today for evaluation of right shoulder injury that she sustained on 05/21/2024. She reports that she was going to the bathroom she turned around to close the door she lost her balance and fell landing in the bathtub. She is unable to get up on her own and therefore EMS was called and she was transported to the emergency department for further evaluation and treatment. An x-ray was obtained in the emergency department and she was found to have a right shoulder AC joint separation. She was placed into a sling and instructed to follow up with orthopedics outpatient for further evaluation and treatment. Of note, the patient had surgery on her left breast for a lumpectomy with Dr. Weiss the same date as her injury. [facility] Medical History Invasive lobular carcinoma of breast in female Chronic UTI Tremor Bifascicular block Non-rheumatic aortic stenosis Arthritis Mitral regurgitation Postural hypotension Osteopenia Multiple myeloma Gallstone Hypothyroidism HLP (hyperkeratosis lenticularis perstans) HTN (hypertension) Surgical History History of lumpectomy of left breast (05/21/24) H/O colonoscopy History of meniscectomy of left knee History of appendectomy History of partial hysterectomy Family History Other HTN (hypertension) No family history of cancer Social History Household Members: Spouse Housing: House Are you a primary personal caregiver to a significant other at home: No Do you presently have visiting nurse or other home services: No Alcohol intake: never Patient Tobacco Use Status: Former Tobacco user Tobacco use type: Cigarette Years Smoked: 15 e-Cigarette/Vaping Use: Never Used Second Hand Smoke Exposure: No Advance Directives Date on File: 11/17/20 service: No Current occupational status: retired Cognitive needs: No Hearing needs: No Vision needs: Yes (Glasses) Female Reproductive History Menstrual Age of Menarche: 12 Review of Systems Const All systems reviewed & are unremarkable except as noted in HPI and below Physical Exam Vital Signs: BMI result Body Mass Index 29.8 Const General: cooperative, healthy appearing and no acute distress Resp Effort & Inspection: normal respiratory effort and able to speak in complete sentences Cardio Rate: regular rate Peripheral pulses: Peripheral pulses 2+ throughout Skin Lesions: no lesions Rashes: no rashes Extrem Other: Right shoulder obvious AC joint deformity noted. 85 degrees forward flexion abduction. Discomfort with cross-body reach. NVI. Assessment & Plan Assessment & Plan (1) Acromioclavicular joint separation: Code(s): S43.109A - Unspecified dislocation of unspecified acromioclavicular joint, initial encounter Category: Medical Plan Ms. Stone is a 68-year-old female who presents to the office today for routine follow-up of a right proximal tibial spine fracture date of injury was 04/22/2023. At her last appointment on 05/04/2024 the patient was placed into an ACL brace and instructed to not weightbear. Unfortunately, the patient has been noncompliant and has been weight-bearing as tolerated. She has regularly been removing her brace but has not been bending her knee. She also removes her brace at bedtime. She is using the assistance of a Rollator walker. While in the office today I did discuss discontinuing the sling with the patient. She should avoid any overhead reaching. I have additionally recommended physical therapy to work on range of motion. There is no surgical intervention that is warranted at this time due to patient's age and comorbidities. Patient will attend physical therapy and follow-up in 4-6 weeks, sooner if needed. X-rays of the right shoulder which were obtained on 05/22/2024 were reviewed by me, Harriet Pop PA-C, revealed AC joint separation right shoulder. Coding Level of Care Code Est Pt Level 3 (07308) Diagnoses Acromioclavicular joint separation S43.109A
[2024-06-12 08:29] VITALS: BMI 29.8
--- OUTSIDE RECORDS SUMMARY | 2024-06-12 08:43 | XMS_ITS | Clinical Summary ---
Author Organization [facility] Address [address] [place] [address] Phone Care Team Providers Care Supervisor Pipe Finishing Name Role Phone Billy Dexter MD Primary [...] patient's age to complete this topic Insurance [facility] Care Teams Supervisor Pipe Finishing Relationship Specialty Start Date End Date Billy Dexter MD [facility] [address] [place] [address] [address] PCP - General Internal Medicine 08/01/20
== END 2024-06-12 09:04 | disposition home or self-care (01) ==
PROVIDERS: PCP Student in an Organized Health Care Education/Training Program; Visit Provider Physician Assistant
DX: S43.109A Unspecified dislocation of unspecified acromioclavicular joint, initial encounter (principal); W01.0XXA Fall on same level from slipping, tripping and stumbling without subsequent striking against object, initial encounter
CPT/HCPCS: 99213

== ENCOUNTER → 2024-06-12 08:22 | Outpatient (BNVA) | payer MEDICARE, SELFPAY | PROVIDERS: PCP Student in an Organized Health Care Education/Training Program; Visit Provider Physician Assistant | DX: S43.109A Unspecified dislocation of unspecified acromioclavicular joint, initial encounter (principal) | CPT/HCPCS: 99212 ==

== ENCOUNTER 2024-06-18 10:08 | Outpatient (REF) | payer MEDICARE, SELFPAY ==
--- NOTE | ~2024-06-18 | MM_ITS ---
EXAMINATION: DXA BONE DENSITY AXIAL HISTORY: Estrogen deficiency TECHNIQUE: Plated Dual energy absorptiometry (DEXA) of the lumbar spine, total left hip, and femoral neck was performed. COMPARISON: There are no prior studies for comparison. FINDINGS: 1 The bone mineral density of the lumbar spine is 1.338 with a T-score of 1.1, and a Z-score of 2.5. The bone mineral density of the left total hip is 0.793 with a T-score of -1.7, and a Z-score of -0.1. The bone mineral density of the left femoral neck is 0.781 with a T-score of -1.9, and a Z-score of 0.0. FRACTURE RISK: The FRAX index suggests a risk of major osteoporotic fracture of 15.1%, and of hip fracture 4.1%. MM/XR DEXA axial skeleton IMPRESSION: Based on bone mineral density, and according to World Health Organization (WHO) criteria, the diagnosis is consistent with osteopenia. All bone density values are in grams per centimeter squared (g/cm2). Statistically, 68% of repeat scans fall within 1 SD (+/- 0.010 g/cm2 for AP spine L1-L4) and 1 SD (+/- 0.012 g/cm2 for femur total) FRAX is a trademark of the [employer] [place] [employer] Metabolic Bone Disease, a World Health Organization (WHO) Collaborating Center. Electronically signed by: Thomas Thompson MD 06/18/2024 11:49 AM EST
[2024-06-18 10:27] LABS: Appearance Urine Clear; Color Urine Yellow; Glucose Urine UA Negative (Negative); Leukocyte Esterase Urine Small (1+) (Negative); Nitrite Urine Negative (Negative); PH 6.5 (5.0-9.0); Specific Gravity - Urine 1.025 (1.005-1.025); UMIC TRIGGER UACC YES; Urine Blood Negative (Negative); Urine Ketones Negative (Negative); Urine Protein Trace mg/dL (Neg-Trace)
[2024-06-18 10:29] LABS: Bacteria Urine None Seen (None Seen); Hyaline Casts Urine 0-2 /LPF (0-2); RBC Urine 0-2 /HPF (0-2); UACC Culture Trigger YES; WBC Urine >50 /HPF (0-5)
--- OUTSIDE RECORDS SUMMARY | 2024-06-18 11:37 | XMS_ITS | Clinical Summary ---
Author Organization [facility] Address [address] [place] [address] Phone Care Team Providers Care Inspector Multifocal Lens Name Role Phone Billy Dexter MD Primary [...] patient's age to complete this topic Insurance [facility] Care Teams Inspector Multifocal Lens Relationship Specialty Start Date End Date Billy Dexter MD [facility] [address] [place] [address] [address] PCP - General Internal Medicine 08/01/20
--- OUTSIDE RECORDS SUMMARY | 2024-06-18 11:37 | XMS_ITS | Continuity of Care Document ---
Author Organization [facility] Address [address] [place] [address]- Care Team Providers Care Residential Tech Name Role Phone Ina Fragoso Primary Care David waters Encounter [facility] Date(s): 05/18/24 - 06/17/24 [facility] [address] [place] [id number]- Encounter Type: Triage Allergies, Adverse Reactions, Alerts [...] Daily, # 90 tablet, 0 Refills, Maintenance, 06/04/24 6:25:00 AM [facility], 170, cm, 09/29/23 9:01:00 EDT, Height Start Date: 06/04/24 Status: Ordered Quantity: 90.0 Unit: tablet Repeat number: 1 lisinopril 40 mg oral tablet 1 tablet, By Mouth, Daily, # 90 tablet, 1 Refills, Maintenance, 05/21/24 10:16:00 AM [facility], 170, cm, 09/29/23 9:01:00 EDT, Height Start Date: 05/21/24 Status: Ordered Quantity: 90.0 Unit: tablet Repeat number: 1 Potassium Chloride (Eqv-K-Tab) 20 mEq oral tablet, extended release 2 tablet, By Mouth, 2 times a day, # 180 tablet, 2 Refills, Maintenance, 05/10/24 9:16:00 AM [facility], 170, cm, 09/29/23 9:01:00 EDT, Height Start Date: 05/10/24 Status: Ordered Quantity: 180.0 Unit: tablet Repeat number: 1 propranolol 60 mg oral capsule, extended release 1, capsule, By Mouth, Daily, # 90 capsule, Refills 0, Maintenance, 06/04/24 6:25:00 AM EST, Route toPharmacy Electronically, [facility], 170, cm, 09/29/23 9:01:00 EDT, Height Start Date: 06/04/24 Status: Ordered Quantity: 90.0 Unit: capsule Repeat number: 1 Revlimid 15 mg oral capsule 0 Refills, [...] Care team information Care Team Personnel Name: Thelma Vick NP Position: [facility] Associate Professional Member Role: [employer] Provider Address: [address] [place] [id number] [employer]: Name: Ina Fragoso Position: [facility] Associate Professional Member Role: PCP Address: [address] [place] [address]. [address] [place] [id number] [place] [employer]: Care Team Related Persons Name: BRADLEY ANGEL Name: BRADLEY ANGEL Name: BRADLEY ANGEL Insurance Providers Guarantor name: NANCY ANGEL [facility] Plan Information #: 1 Payer: [employer] AD[employer] HMO Member Number: NA Policy Number: NA Group Number: NA
== END 2024-06-18 10:09 | disposition home or self-care (01) ==
LOC: HO.MAMMO 10:08
PROVIDERS: Visit Provider Internal Medicine Medical Oncology
DX: E28.39 Other primary ovarian failure (principal); M85.80 Other specified disorders of bone density and structure, unspecified site; C50.919 Malignant neoplasm of unspecified site of unspecified female breast
CPT/HCPCS: 77080; 81001; 87086

== ENCOUNTER → 2024-06-18 10:30 | Outpatient (BNV) | payer MEDICARE, SELFPAY | PROVIDERS: Visit Provider Radiology Diagnostic Radiology | DX: E28.39 Other primary ovarian failure (principal) | CPT/HCPCS: 77080 ==

== ENCOUNTER 2024-06-28 08:48 | Outpatient (AMB) | payer MEDICARE, SELFPAY ==
--- NOTE | 2024-06-28 08:50 | A.OFFVIS_ITS ---
Vital Signs 3 06/28/24 08:51 Height 5 ft 8 in Weight 194 lb 0.108 oz BMI 29.5 BP 153/74 H Blood Pressure Location Lt brachial Position Sitting Pulse 71 Pulse Source Pulse Oximeter Pulse Oximetry (%) 97 Oxygen Delivery Method Room Air Intake Visit Reasons: one month post Lt brst lumpectomy Intake Note: Merary presents in the office as a follow up for her lumpectomy - no concerns. Allergies red dye [Red Dye] Allergy (Mild, Verified 06/28/24 08:53) SWELLING oxycodone Adverse Reaction (Intermediate, Verified 06/28/24 08:53) Vomiting HPI Comments Details: 78-year-old female patient returning 1 month following left breast lumpectomy with localizer and left axillary sentinel node biopsy. She was recently diagnosed with left breast invasive carcinoma with ductal and lobular features located at the 2 o'clock position, 5 cm from the nipple. She underwent a needle biopsy at the [facility] on 04/25/2024. Immunohistochemical stains revealed ER positive, MI positive, HER2 Param negative, Ki-67 low, and E-cadherin negative favoring lobular carcinoma with focal ductal features. She denied a previous history of breast problems or breast surgery. She denies a family history of breast problems. She is , and did not breastfeed her children. Menarche was the age of 12 and menopause at the age of 62 after hysterectomy. Her 1st child when she was 16 years old. She has a history of multiple myeloma is being treated by Dr. Balderas. She underwent a left breast lumpectomy with sentinel node biopsy on 05/21/2024. Pathology confirmed an invasive lobular carcinoma with focal ductal features, grade 2, 15 mm, margins free of tumor (4 mm to the posterior). One sentinel node and 2 additional enlarged lymph nodes were negative for metastatic carcinoma. 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 TNM staging: PT1c pN0 (sn) (AJCC 8th edition). Oncotype was 8. She was evaluated by Dr. Balderas and started on letrozole 2.5 mg p.o. daily. She reports feeling much improved with no significant breast pain or arm pain. She has full mobility of her left arm. She unfortunately fell soon after the surgery and fractured her right clavicle. She was determined to be at high risk for surgery therefore no surgery is anticipated to repair of the fracture. She reports full mobility of her right arm as well. [facility] Medical History Invasive lobular carcinoma of breast in female Chronic UTI Tremor Bifascicular block Non-rheumatic aortic stenosis Arthritis Mitral regurgitation Postural hypotension Osteopenia Multiple myeloma Gallstone Hypothyroidism HLP (hyperkeratosis lenticularis perstans) HTN (hypertension) Surgical History History of lumpectomy of left breast (05/21/24) H/O colonoscopy History of meniscectomy of left knee History of appendectomy History of partial hysterectomy Family History Other HTN (hypertension) No family history of cancer Social History Household Members: Spouse Housing: House Are you a primary healthcare science specialist to a significant other at home: No Do you presently have visiting nurse or other home services: No Alcohol intake: never Patient Tobacco Use Status: Former Tobacco user Tobacco use type: Cigarette Years Smoked: 15 e-Cigarette/Vaping Use: Never Used Second Hand Smoke Exposure: No Advance Directives Date on File: 11/17/20 service: No Current occupational status: retired Cognitive needs: No Hearing needs: No Vision needs: Yes (Glasses) Female Reproductive History Menstrual Age of Menarche: 12 Physical Exam Vital Signs: Last Vital Signs Pulse 71 06/28/24 08:51 BP 153/74 H 06/28/24 08:51 Pulse Ox 97 06/28/24 08:51 Oxygen Delivery Method Room Air 06/28/24 08:51 BMI result Body Mass Index 29.5 Const General: cooperative and no acute distress Nutritional Appearance: well nourished Orientation/consciousness: patient oriented x3 Limitations: no limitations HEENT Head: Yes normocephalic and Yes atraumatic Ears: hearing grossly normal bilaterally Chest Other: Left breast: Incision in the left upper outer quadrant is clean, dry, and intact without evidence of erythema or hematoma. Chest/axillae images: 2 1. Resp Effort & Inspection: normal respiratory effort, no audible wheezes, no cough and no respiratory distress Cardio Jugular venous distension: no JVD GI Inspection: Yes normal to inspection Skin Other: Warm, dry, no rash Neuro Other: Mobility Assessment: 1. 3 meter assessment time (seconds) 7 2. Gait observations: slow tentative pace General: patient oriented x3 Extrem General: Yes no clubbing, cyanosis or edema Assessment & Plan Assessment & Plan (1) Invasive lobular carcinoma of breast in female: Code(s): C50.919 - Malignant neoplasm of unspecified site of unspecified female breast Category: Medical Plan 78-year-old female patient recently diagnosed with invasive lobular carcinoma with ductal features status post lumpectomy with sentinel node biopsy one-month ago. Pathology confirmed invasive lobular carcinoma, ER/MI positive, her 2-. 0 of 3 lymph nodes revealed metastatic disease. PT1c pN0 (sn). She was evaluated by Dr. Balderas and started on letrozole 2.5 mg. Examination today reveals a well-healed incision in the upper outer quadrant left breast with no hematoma, erythema or discharge. I recommended follow-up examination in 6 months, sooner p.r.n.. Coding Level of Care Code Global (79779) Diagnoses Invasive lobular carcinoma of breast in female C50.919
[2024-06-28 08:51] VITALS: BP 153/74; PULSE 71; O2SAT 97; BMI 29.5
== END 2024-06-28 09:04 | disposition home or self-care (01) ==
LOC: HO.HGS 08:48
PROVIDERS: PCP Student in an Organized Health Care Education/Training Program; Visit Provider Surgery
DX: C50.919 Malignant neoplasm of unspecified site of unspecified female breast (principal)
CPT/HCPCS: 99024

== ENCOUNTER → 2024-06-28 08:48 | Outpatient (BNVA) | payer MEDICARE, SELFPAY | PROVIDERS: PCP Student in an Organized Health Care Education/Training Program; Visit Provider Surgery | DX: C50.912 Malignant neoplasm of unspecified site of left female breast (principal) | CPT/HCPCS: 99212 ==

== ENCOUNTER 2025-01-22 07:50 | Outpatient (AMB) | payer MEDICARE, SELFPAY ==
--- OUTSIDE RECORDS SUMMARY | 2025-01-22 07:55 | XMS_ITS | Clinical Summary ---
Author Organization [facility] Address [address] [facility] [address] [place] [id number] Phone Care Team Providers Care Bar Machine Operator Name Role Phone Unavailable Primary Care Provider Unavailabl e Social History Tobacco Use Types Packs/Day Years Used Date Smoking Tobacco: Never Assessed Education Answer Date Recorded Are you interested in more education? Not on antonio e 07/20/2023 Are you concerned about learning? Not on file 07/20/2023 No 07/20/2023 No 07/20/2023 Digital Access Answer Date Recorded No 07/20/2023 No 07/20/2023 Reliable internet access at home? Not on file 07/20/2023 Device with a working camera? Not on file Comments Unknown Sex and Gender Information Value Date Recorded Sex Assigned at Not on file Legal Sex Female 4:08 PM EDT Gender Identity Not on file Sexual Orientation Not on file Plan of Treatment Not on file Medical Devices Not on file Additional Source Comments The information contained in this document represents components of the legal health record. It is not the complete legal health record.[facility]
--- OUTSIDE RECORDS SUMMARY | 2025-01-22 07:55 | XMS_ITS | Clinical Summary ---
Author Organization [facility] Address [address] [place] [address] Phone Care Team Providers Care Proofreader Name Role Phone Billy Dexter MD Primary [...] Due Date Last Done Comments Pneumococcal Vaccine: 50+ Ye ars (1 of 1 - PCV) 1994 Influenza Vaccine (#1) 2024 Hepatitis B Vaccine Aged Out No longe r eligible based on patient's age to complete this topic Insurance [facility] Care Teams Proofreader Relationship Specialty Start Date End Date Billy Dexter MD [facility] [address] [place] [address] [address] PCP - General Internal Medicine 08/01/20
[2025-01-22 08:23] VITALS: BP 128/86; PULSE 72; BMI 30.3
--- NOTE | 2025-01-22 08:23 | A.OFFVIS_ITS ---
Vital Signs 01/22/25 08:23 Height 5 ft 8 in Weight 199 lb 4.766 oz BMI 30.3 BP 128/86 Blood Pressure Location Lt brachial Position Sitting Pulse 72 Pulse Source Monitor Intake Visit Reasons: 1 year fu after echo Supervising Architect Required: No Accompanied by: Self / Same As Patient Allergies red dye (Red Dye) Allergy (Mild, Verified 01/22/25 08:28) SWELLING oxycodone Adverse Reaction (Intermediate, Verified 01/22/25 08:28) Vomiting Medication List - Last Reconciled 01/22/25 by Noe Del Rio MD acetaminophen 650 mg (2 x 325 mg) PO Q6H PRN 30 days amlodipine 5 mg PO QAM atorvastatin 20 mg PO BEDTIME 90 days calcium carbonate-vitamin D3 600 mg-5 mcg (200 unit) 2 tabs PO BID cyanocobalamin (vitamin B-12) 1,000 mcg PO DAILY fluticasone propionate 50 mcg/actuation (Flonase Allergy Relief) 1 spray intranasal BID 30 days lenalidomide (Revlimid) 15 mg PO DAILY lenalidomide (Revlimid) 15 mg PO DAILY letrozole 2.5 mg PO Q24H levothyroxine 75 mcg PO QAM lisinopril 40 mg PO QAM ondansetron 4 mg PO Q8H PRN potassium chloride ER 40 mEq (2 x 20 mEq) PO BID propranolol ER 60 mg PO BEDTIME valacyclovir (Valtrex) 500 mg PO DAILY HPI Comments Details: Merary returns for follow-up. In the past, she was seen for presyncope/orthostatic hypotension. She was on fludrocortisone for a while but as the blood pressure was going up we stopped it. Currently, on hypertension meds including lisinopril and amlodipine. Indication for propranolol is not clear. She also has a bifascicular block on the EKG and mild aortic stenosis. Overall, she states she feels fine. She has got no clear-cut cardiac symptoms like angina. 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 Chronic UTI Tremor Bifascicular block Non-rheumatic aortic stenosis Arthritis Mitral regurgitation Postural hypotension Osteopenia Multiple myeloma Gallstone Hypothyroidism HLP (hyperkeratosis lenticularis perstans) HTN (hypertension) Surgical History History of lumpectomy of left breast (05/21/24) H/O colonoscopy History of meniscectomy of left knee History of appendectomy History of partial hysterectomy Family History Other HTN (hypertension) No family history of cancer Social History Household Members: Spouse Housing: House Are you a primary resident care provider to a significant other at home: No Do you presently have visiting nurse or other home services: No Alcohol intake: never Patient Tobacco Use Status: Former Tobacco user Tobacco use type: Cigarette Years Smoked: 15 e-Cigarette/Vaping Use: Never Used Second Hand Smoke Exposure: No Advance Directives Date on File: 11/17/20 service: No Current occupational status: retired Cognitive needs: No Hearing needs: No Vision needs: Yes (Glasses) Female Reproductive History Menstrual Age of Menarche: 12 Review of Systems Const Denies daytime sleepiness, Denies difficulty sleeping, Denies snoring, Denies stops breathing during sleep and Denies weakness Card Denies chest pain, Denies rapid heart rate, Denies irregular heart rhythm, Denies claudication, Denies leg edema, Denies lightheadedness, Denies palpitations, Denies dyspnea, Denies dyspnea on exertion, Denies orthopnea, Denies paroxysmal nocturnal dyspnea and Denies slow heart rate Resp Denies cough, Denies dyspnea, Denies dyspnea on exertion and Denies snoring GI Reports no additional complaints, Denies hematochezia, Denies change in stool character and Denies dyspepsia Musc Denies abnormal gait, Denies muscle weakness and Denies numbness Neuro Denies abnormal gait, Denies numbness and Denies weakness Endo Denies palpitations Physical Exam Vital Signs: Last Vital Signs Pulse 72 01/22/25 08:23 BP 128/86 01/22/25 08:23 BMI result Body Mass Index 30.3 Const General: comfortable and no acute distress Orientation/consciousness: patient oriented x3 HEENT Other: Unremarkable Head: Yes normal to inspection Neck Neck: Yes normal visual inspection Chest Chest palpation & inspection: normal inspection of the chest Resp Auscultation: clear to auscultation bilaterally Cardio Palpation: normal PMI Heart sounds: S1 normal heart sound present, S2 normal heart sound present, no gallops, Murmur heart sound present systolic III/ and at the right sternal border and no rubs GI Palpation (GI): Soft to palpation Back/Spine/Pelvis Other: unremarkable Skin General skin exam: no rashes or lesions noted Neuro General: patient oriented x3 Extrem General: Yes normal to inspection Psych Mental Status: mental status grossly normal Office Procedures EKG Details: EKG with underlying sinus rhythm at 72/Min; right bundle-branch block and left anterior fascicular block; bifascicular block. [id number], Complete Assessment & Plan Assessment & Plan (1) Bifascicular block: Code(s): I45.2 - Bifascicular block Category: Medical Plan: We can follow this on EKGs. (2) Non-rheumatic aortic stenosis: Code(s): I35.0 - Nonrheumatic aortic (valve) stenosis Category: Medical Plan: Repeat echocardiogram. In the past, had shown mild aortic stenosis. Probably progressed since then. (3) Essential hypertension: Code(s): I10 - Essential (primary) hypertension Category: Medical Plan: Stable. Listed to be on Amlodipine, Lisinopril, Propranolol. Plan Discussion Notes I discussed with the patient the plan to perform a heart ultrasound to evaluate cardiac function and assess the heart murmur further. We reviewed her history of visual disturbances and balance issues, emphasizing the importance of monitoring these symptoms. Patient was informed and verbally consented to the use of an ambient scribe for clinic note documentation during this visit. Orders: Orders CA echo transthoracic complete Today I35.0 - Nonrheumatic aortic (valve) stenosis Patient Instructions: - Schedule and attend the heart ultrasound as planned. - Monitor for any changes in symptoms. - Follow up in one year or sooner if symptoms worsen. Coding Level of Care Code Est Pt Level 4 (99722) Complex EM visit Add On G2211 Diagnoses Bifascicular block I45.2 Non-rheumatic aortic stenosis I35.0 Essential hypertension I10 CPT Codes EKG - CPT: 93322-[id number], Complete ([id number])
== END 2025-01-22 09:01 | disposition home or self-care (01) ==
LOC: HO.HCS 07:51
PROVIDERS: PCP Student in an Organized Health Care Education/Training Program; Visit Provider Internal Medicine
DX: I45.2 Bifascicular block (principal); I35.0 Nonrheumatic aortic (valve) stenosis; I10 Essential (primary) hypertension
CPT/HCPCS: 93010; 99214; G2211

== ENCOUNTER → 2025-01-22 07:50 | Outpatient (BNVA) | payer MEDICARE, SELFPAY | PROVIDERS: PCP Student in an Organized Health Care Education/Training Program; Visit Provider Internal Medicine | DX: I35.0 Nonrheumatic aortic (valve) stenosis (principal); I45.2 Bifascicular block; R55 Syncope and collapse | CPT/HCPCS: 93005; 99212 ==

== ENCOUNTER → 2025-02-26 07:43 | Outpatient (REF) | payer MEDICARE, SELFPAY ==
--- OUTSIDE RECORDS SUMMARY | 2025-02-22 23:59 | XMS_ITS | Continuity of Care Document ---
Author Organization [facility] Address [address] [place] [address]- Care Team Providers Care Hat Ironer Name Role Phone Ina Fragoso Primary Care David waters [place] [facility] Date(s): 01/23/25 - 02/22/25 [facility] [address] [place] [id number] Encounter Type: Triage Allergies, Adverse Reactions, Alerts Substance Criticality Severity Reaction Reaction Severity Status Red Dye Facial swelling Acti ve oxyCODONE Palpitations Active Immunizations Given and Recorded Vaccine Date Status Refusal Reason influenza virus vaccine, inactivated 12/22/24 Sandip rded influenza virus vaccine, inactivated 01/03/24 Sandip rded influenza virus vaccine, inactivated 03/24/23 Give n influenza virus vaccine, inactivated 03/25/22 Sandip rded influenza virus vaccine, inactivated 02/04/21 Asndip rded SARS-CoV-2(COVID-19)mRNA-LNP vac([id number]) 12/22/24 Recorded SARS-CoV-2(COVID-19)mRNA-LNP vac([id number]) 01/03/24 Recorded SARS-CoV-2 (COVID-19) mRNA-1273 vaccine 08/15/21 R ecorded SARS-CoV-2 (COVID-19) mRNA-1273 vaccine 02/13/21 R ecorded SARS-CoV-2 (COVID-19) mRNA-1273 vaccine 06/25/20 R ecorded SARS-CoV-2 (COVID-19) mRNA-1273 vaccine 05/28/20 R ecorded zoster vaccine, inactivated 4/22/21 Recorded zoster vaccine, inactivated 02/12/20 Recorded Medications amLODIPine 5 mg oral tablet 1 tablet = 5 mg, By Mouth, Daily, TAKE 1 TABLET BY MOUTH DAILY., # 90 tablet, 1 Refills, Maintenance, 01/23/25 4:12:00 PM EDT, Tablet, [facility], Partial fill upon patient request ifthe prescription is for a schedule II opioid drug., 170, cm, 09/29/23 9:01:00 EDT, Height Start Date: 01/23/25 Status: Ordered Medication Dispense Status: Completed Quantity: 90.0 Unit: tablet Total Allowed Fills: 2 Fills Dispensed: 0 atorvastatin 20 mg oral tablet 1 tablet = 20 mg, By Mouth, Daily at bedtime, TAKE ONE TABLET BY MOUTH EVERY EVENING, # 90 tablet, 1 Refills, Maintenance, 01/23/25 4:08:00 PM EDT, Tablet, [facility], Partial fill upon patient request if the prescription is for a schedule II opioid drug., 170, cm, 09/29/23 9:01:00 EDT, Height Start Date: 01/23/25 Status: Ordered Medication Dispense Status: Completed Quantity: 90.0 Unit: tablet Total Allowed Fills: 2 Fills Dispensed: 0 D3 with Calcium 0 Refills, Maintenance, 08/27/22 11:59:00 AM EDT, Partial fill upon patient request if the prescription is for a schedule II opioid drug. Start Date: 08/27/22 Status: Ordered Medication Dispense Status: Completed Total Allowed Fills: 1 Fills Dispensed: 0 letrozole 2.5 mg oral tablet 0 Refills, Maintenance, 02/22/25 10:37:00 AM EST, Partial fill upon patient request if the prescription is for a schedule II opioid drug. Start Date: 02/22/25 Status: Ordered Medication Dispense Status: Completed Total Allowed Fills: 1 Fills Dispensed: 0 levothyroxine 75 mcg (0.075 mg) oral tablet 1 tablet, By Mouth, Daily, LABS AND APPT. NEEDED FOR FURTHER REFILLS), # 90 tablet, 1 Refills, Maintenance, 09/03/24 6:01:00 PM EDT, [facility], 170, cm, 09/29/23 9:01:00 EDT, Height Start Date: 09/03/24 Status: Ordered Medication Dispense Status: Completed Quantity: 90.0 Unit: tablet Total Allowed Fills: 1 Fills Dispensed: 0 lisinopril 40 mg oral tablet 1 tablet, By Mouth, Daily, # 90 tablet, 0 Refills, Maintenance, 01/23/25 4:05:00 PM EDT, [facility], 170, cm, 09/29/23 9:01:00 EDT, Height Start Date: 01/23/25 Status: Ordered Medication Dispense Status: Completed Quantity: 90.0 Unit: tablet Total Allowed Fills: 1 Fills Dispensed: 0 Potassium Chloride (Eqv-K-Tab) 20 mEq oral tablet, extended release 2 tablet, By Mouth, 2 times a day, # 180 tablet, 2 Refills, Maintenance, 02/04/25 12:26:00 PM EDT, [facility], 170, cm, 09/29/23 9:01:00 EDT, Height Start Date: 02/04/25 Status: Ordered Medication Dispense Status: Completed Quantity: 180.0 Unit: tablet Total Allowed Fills: 1 Fills Dispensed: 0 propranolol 60 mg oral capsule, extended release 1, capsule, By Mouth, Daily, # 90 capsule, Refills 1, Maintenance, 09/03/24 6:01:00 PM EDT, Route toPharmacy Electronically, [facility], 170, cm, 09/29/23 9:01:00 EDT, Height Start Date: 09/03/24 Status: Ordered Medication Dispense Status: Completed Quantity: 90.0 Unit: capsule Total Allowed Fills: 1 Fills Dispensed: 0 Revlimid 15 mg oral capsule 0 Refills, Maintenance, 08/27/22 11:58:00 AM EDT, Partial fill upon patient request if the prescription is for a schedule II opioid drug. Start Date: 08/27/22 Status: Ordered Medication Dispense Status: Completed Total Allowed Fills: 1 Fills Dispensed: 0 valACYclovir 500 mg oral tablet Refills 0, Maintenance, 08/27/22 11:55:00 AM EDT, Partial fill upon patient request if the prescription is for a schedule II opioid drug. Start Date: 08/27/22 Status: Ordered Medication Dispense Status: Completed Total Allowed Fills: 1 Fills Dispensed: 0 Vitamin B12 0 Refills, Maintenance, 08/27/22 11:59:00 AM EDT, Partial fill upon patient request if the prescription is for a schedule II opioid drug. Start Date: 08/27/22 Status: Ordered Medication Dispense Status: Completed Total Allowed Fills: 1 Fills Dispensed: 0 Problem List Condition Confirmation Course Effective Dates Status H ealth Status Informant Valvular heart disease Confirmed Active Hyperlipidemia Confirmed Active Hypertension Confirmed Active Hypocalcemia Confirmed Active Hypothyroidism Confirmed Active Leukopenia Confirmed Active Breast cancer Confirmed Active Aortic stenosis, mild Confirmed Active Multiple myeloma Confirmed Active Obese class I Confirmed Active Prediabetes Confirmed Active Frequent UTI Confirmed Active Patient Care team information Care Team Personnel Name: Nicanor FRANCIS, Thelma Abdi Position: [facility] Associate Professional Member Role: Lifetime Consulting Provider Address: [address] [place] [address] Telecom: Name: Nicole LORENZO, Ina Vance Position: [facility] Associate Professional Member Role: PCP Address: [address] [place] [address]. [address] [place] [id number] Telecom: Care Team Related Persons Name: BRADLEY ANGEL Name: BRADLEY ANGEL Name: BRADLEY ANGEL Insurance Providers Guarantor name: NANCY ANGEL Health [facility] Information #: 1 Payer: [employer] ADV HMO Payer Identifier: ROMAN Member Number: [id number] Group Number: ROMAN Subscriber Identifier: ROMAN Relationship to Subscriber: self Coverage Type: Medicare HMO Coverage Verification Date: ROMAN Telecom: ROMAN Address:
--- NOTE | 2025-02-26 07:45 | CA_ITS ---
Transthoracic Echocardiogram Patient (Last, First, Middle): Merary He J Gender: F Date of : 1945 Age: 79 Procedure Date: 02/26/2025 Procedure Type: Transthoracic Echocardiogram Location: OP Height: 172.72 cm Weight: 90.72 kg BSA: 2.04 m2 Heart Rate: bpm BP: 138 / 90 mmHg Rn Access: TO Referring MD: Noe Del Rio MD Shipping Associate: Ankit Gardner MD Symptoms: I35.0 - Nonrheumatic aortic (valve) stenosis Study Quality: Adequate ECG Rhythm: Sinus Conclusions: - 1. Hyperdynamic LV EF of greater than 70% with impaired relaxation filling pattern with severe basal septal asymmetric hypertrophy with evidence of obstruction by color Doppler flow but gradients are within normal limits. LVOT obstruction can not be entirely ruled out 2. Mildly dilated left atrium 3. Calcified aortic valve with [id number] aortic stenosis 4. Mildly dilated ascending aorta 3.9 cm 5. No gross pericardial effusion Findings Left Ventricle Normal left ventricular cavity size. There is normal left ventricular wall thickness. The left ventricular systolic function is hyperdynamic. The visually estimated ejection fraction is >70%. There is dynamic left ventricular outflow tract obstruction. Spectral Doppler is indicative of an impaired relaxation filling pattern. E/E prime ratio is between 8 and 15 consistent with indeterminate filling pressures. There is severe septal asymmetric hypertrophy. Right Ventricle Normal right ventricular cavity size and systolic function. Atria The left atrium is mildly dilated. There is no evidence of interatrial shunt. The right atrium is likely dilated. Aortic Valve There is moderate calcification of the aortic valve. There is no evidence of thickening of the aortic valve. There is mild to moderate aortic valve stenosis. The peak aortic gradient is 48 mmHg.The mean gradient is 27 mmHg. The aortic valve area is 1.51 cm2. There is no aortic valve regurgitation. Mitral Valve Normal mitral valve structure and function. There is mild mitral valve regurgitation. There is no mitral valve stenosis. Pulmonic Valve The pulmonic valve is likely normal. Tricuspid Valve There is trace tricuspid valve regurgitation. Tricuspid regurgitation envelope is inadequate for calculation of right ventricular systolic pressure. Normal right atrial pressure. Great Vessels The pulmonary artery was not well visualized. There is mild dilatation of the ascending aorta measuring 3.90 cm. Small plaque is seen in the sino tubular ridge. Venous The inferior vena cava is normal in size and collapses greater than 50% with inspiration. Pericardium/Pleural There is no evidence of pericardial effusion. Measurements 2D Linear Measurements IVSd: 1.08 0.6-0.9/0.6-1.0 cm LVIDd: 4.90 3.9-5.3/4.2-5.9 cm LVIDd Index: 2.40 2.4-3.2/2.2-3.1 cm/m2 LVIDs: 2.40 2.0-3.6 cm LVPWd: 1.05 0.7-1.1 cm LA Diam: 3.60 2.7-3.8/3.0-4.0 cm LAIDs Index: 1.76 1.5-2.3 cm/m2 LV Mass: 238.97 67-162/88-224 g LV Mass Index: 117.14 43-95/49-115 g/m2 LVOT Diam: 2.10 3.0+(-)1.3 cm 2D Systolic Function EF 4C: 73.80 >55% EF 2C: 66.70 >55% EF BiP: 70.40 >55% Mitral Valve MV Pk E: 0.72 MV PK A: 0.91 MV Decel Time: 253.00 E/A: 0.80 E'Lateral: 3.59 E'Medial: 2.94 E/E' Med: 24.50 E/E' Lat: 20.10 PHT: 74.00 MVA PHT: 2.97 Decel Berrien: 2.85 Aortic Valve AoV Pk Haroldo: 3.46 AoV Mn Haroldo: 2.49 AoV VTI: 0.84 AoV Pk Grad: 48.00 Aov Mn Grad: 27.00 EDUARD Cont.VTI: 1.51 LVOT LVOT Pk Haroldo: 1.38 LVOT Mn Haroldo: 1.07 LVOT VTI: 0.36 LVOT Pk Grad: 8.00 LVOT Mn Grad: 5.00 LVOT Diam: 2.10 LVOT Area: 3.46 Diastolic Function MV Pk E: 0.72 MV Pk A: 0.91 E/A: 0.80 E'Medial: 2.94 E/E' Med: 24.50 E' Laterial: 3.59 E/E' Lat: 20.10 Right Ventricle TAPSE (mm): 17.10 TVS' Haroldo: 12.80 Tricuspid Valve RA Press: 3.00 Great Vessels Aorta Sinus of Valsalva: 3.55 2.0-3.5 cm Ao Asc: 3.90 2.1-3.4 cm Ao Arch: 3.30 Updated in Other Vendor System with Status of Final Ankit Gardner MD electronically signed on 02/27/2025 4:20:59 PM with status of Final
--- OUTSIDE RECORDS SUMMARY | 2025-02-26 07:45 | XMS_ITS | Clinical Summary ---
Author Organization [facility] Address [address] [facility] [address] [place] [phone] Phone Care Team Providers Care Buckle Coverer Name Role Phone Unavailable Primary Care Provider [...] It is not the complete legal health record.[facility]
== END ==
LOC: HO.CARD 07:43
PROVIDERS: PCP Student in an Organized Health Care Education/Training Program; Visit Provider Internal Medicine
DX: I35.0 Nonrheumatic aortic (valve) stenosis (principal)
CPT/HCPCS: 93306

== ENCOUNTER → 2025-02-26 07:45 | Outpatient (BNV) | payer MEDICARE, SELFPAY | PROVIDERS: PCP Student in an Organized Health Care Education/Training Program; Visit Provider Internal Medicine Cardiovascular Disease | DX: I42.2 Other hypertrophic cardiomyopathy (principal); I51.7 Cardiomegaly; I35.0 Nonrheumatic aortic (valve) stenosis; I51.89 Other ill-defined heart diseases | CPT/HCPCS: 93306 ==